=== PATIENT | male | born 1965 | race Caucasian/White ===

== ENCOUNTER 2018-08-27 07:28 | Inpatient (IN) | payer SELFPAY ==
[2018-08-27 07:53] LABS: ABS Basophils 0.1 10^3/ul (0-0.2); ABS Eosinophils 0.2 10^3/ul (0-0.6); ABS Lymphocytes 0.9 10^3/ul (1.0-4.8); ABS Monocytes 0.4 10^3/ul (0-0.8); ABS Neutrophils 3.7 10^3/ul (1.5-7.7); ABS Nucleated RBC 0 10^3/ul; Eosinophil % 4.1 % (0-6); Hematocrit 39 % (42-52); Hemoglobin 13.1 g/dl (14.0-18.0); Lymphocyte % 17.9 % (25-47); Mean Corpuscular HGB Conc 34 g/dl (31-36); Mean Corpuscular Hemoglobin 30 pg (27-31); Mean Corpuscular Volume 88 fL (80-94); Nucleated Red Blood Cells % 0.1; Platelet Count 165 10^3/ul (150-450); Red Blood Count 4.41 10^6/ul (4.00-5.40); Red Cell Distribution Width 13 % (10.5-15); White Blood Count 5.3 10^3/ul (3.5-10.8)
[2018-08-27 08:06] LABS: INR 0.87 (0.77-1.02)
--- NOTE | 2018-08-27 08:25 | ED ---
HPI Chest Pain - HPI Summary HPI Summary: Pt is 52 y/o M brought in by [facility] from [place], [place] to [facility] due to availability of interventional cardiology per EMS, with c/o CP since 0430 this morning. Was given aspirin and nitro with relief in ambulance at 0653, rates his pain in ED presently 0/10. EMS also reports that his glucose levels were 372. Pt describes chest pain as a squeezing and burning sensation. The pain radiated down his left arm, but did not go up his neck. Pt notes hes had a cough for 3-4 weeks, SOB earlier but is now resolved, headache earlier but now resolved. Denies dizziness, nausea, vomiting, urinary symptoms, fever. PMHx of Type 2 diabetes, cardiomyopathy, hypertension. FHx of heart disease. Medications include Digoxin, Lisinopril, Gabapentin, and Statin. Vital signs while in room: HR 93 bpm, BP 131/98. Pt states he has been off several of his medications for days to weeks due to change in his 's insurance and his insurance. Active Medications Generic Name Dose Route Start Last Admin Trade Name Angelq PRN Reason Stop Dose Admin Magnesium Sulfate 2 gm in 50 mls @ 50 mls/hr 08/27/18 08:48 08/27/18 08:52 Magnesium Sulfate 2 Gm Iv* IVPB 08/27/18 09:47 50 mls/hr ONCE ONE Administration - History of Current Complaint Chief Complaint: EDChestPainROMI Time Seen by Provider: 08/27/18 07:31 Hx Obtained From: Patient, Family/Special Agent [employer] - , EMS Onset/Duration: Started Hours Ago, Resolved Time of Onset: 04:30 Timing: Lasting Hours Initial Severity: Severe - 8/10 Current Severity: None Pain Intensity: 0 Pain Scale Used: 0-10 Numeric Chest Pain Location: Mid Sternal Chest Pain Radiates: Yes Chest Pain Radiates To:: Arm, Neck - NEGATIVE Character: Burning, Dyspnea at Rest, Pressure/Squeezing Aggravating Factor(s): Nothing Alleviating Factor(s): NTG 123 - one NTG SL given by EMS with relief Associated Signs and Symptoms: Positive: Chest Pain, Headaches - resolved, Shortness of Breath - resolved, Cough. Negative: Dizziness, Fever, Nausea, Vomiting - Allergy/Home Medications Allergies/Adverse Reactions: Allergies Allergy/AdvReac Type Severity Reaction Status Date / Time No Known Allergies Allergy Verified 11/09/15 03:20 Home Medications: Home Medications metFORMIN* [Glucophage 1000 MG TAB *] 1,000 mg PO BID 08/27/18 [History Confirmed 08/27/18] PMH/Surg Hx/FS Hx/Imm Hx Previously Healthy: No Endocrine/Hematology History: Reports: Hx Diabetes Cardiovascular History: Reports: Hx Hypercholesterolemia, Hx Hypertension, Other Cardiovascular Problems/Disorders - idiopathic cardiomyopathy, EF 50% on ECHO December 2017 Sensory History: Reports: Hx Contacts or Glasses - at home Opthamlomology History: Reports: Hx Contacts or Glasses - at home Psychiatric History: Reports: Hx Depression - Surgical History Surgery Procedure, Year, and Place: Left hand surgery Infectious Disease History: No Infectious Disease History: Denies: Traveled Outside the [place] in Last 30 Days - Family History Known Family History: Positive: Cardiac Disease - Social History Lives: With Family Alcohol Use: None Substance Use Type: Reports: None Hx Tobacco Use: Yes - CHEWING TOBACCO, QUIT IN 2000. Smoking Status (MU): Never Smoked Tobacco Review of Systems Negative: Fever Positive: Chest Pain Positive: Shortness Of Breath, Cough Negative: Vomiting, Nausea Positive: no symptoms reported Musculoskeletal: Negative Skin: Negative Neurological: Other - Negative: Dizziness Positive: Headache - resolved Psychological: Normal All Other Systems Reviewed And Are Negative: Yes Physical Exam - Summary Physical Exam Summary: Appearance: Ill-appearing, no pain distress, thin, appears older than stated age Skin: Warm, color reflects adequate perfusion, dry Head: Normal Head/Face inspection, atraumatic Eyes: Conjunctiva clear ENT: Normal inspection Neck: Supple, no nodes, no JVD Respiratory: rales bibasalar, no respiratory distress Cardio: RRR, No murmur, pulses normal, brisk capillary refill Abdomen: Soft, nontender, no masses, nondistended Bowel sounds: Present Musculoskeletal: Strength Intact/ROM intact, no calf tenderness, no edema. Psychological: Normal Neuro: Alert, muscle tone normal, no focal deficit Triage Information Reviewed: Yes Vital Signs On Initial Exam: Initial Vitals Temp Pulse Resp BP Pulse Ox 98.5 F 90 23 131/98 97 08/27/18 07:29 08/27/18 07:29 08/27/18 07:29 08/27/18 07:29 08/27/18 07:29 Vital Signs Reviewed: Yes Diagnostics - Vital Signs Vital Signs Temp Pulse Resp BP Pulse Ox 08/27/18 08:05 92 15 138/104 97 08/27/18 08:00 98 23 96 08/27/18 07:36 94 14 97 08/27/18 07:35 91 16 131/98 96 08/27/18 07:29 98.5 F 90 23 131/98 97 - Laboratory Lab Results: Lab Results 08/27/18 08/27/18 08/27/18 Range/Units 07:37 07:37 07:38 WBC 5.3 (3.5-10.8) 10^3/ul RBC 4.41 (4.00-5.40) 10^6/ul Hgb 13.1 L (14.0-18.0) g/dl Hct 39 L (42-52) % MCV 88 (80-94) fL MCH 30 (27-31) pg MCHC 34 (31-36) g/dl RDW 13 (10.5-15) % Plt Count 165 (150-450) 10^3/ul MPV 10.0 (7.4-10.4) fL Neut % (Auto) 69.6 (38-83) % Lymph % (Auto) 17.9 L (25-47) % Dickinson % (Auto) 7.3 H (0-7) % Eos % (Auto) 4.1 (0-6) % Baso % (Auto) 1.1 (0-2) % Absolute Neuts (auto) 3.7 (1.5-7.7) 10^3/ul Absolute Lymphs (auto) 0.9 L (1.0-4.8) 10^3/ul Absolute Monos (auto) 0.4 (0-0.8) 10^3/ul Absolute Eos (auto) 0.2 (0-0.6) 10^3/ul Absolute Basos (auto) 0.1 (0-0.2) 10^3/ul Absolute Nucleated RBC 0 10^3/ul Nucleated RBC % 0.1 INR (Anticoag Therapy) (0.77-1.02) D-Dimer, Quantitative (Less Than 230) ng/mL Sodium 134 L (135-145) mmol/L Potassium 5.0 (3.5-5.0) mmol/L Chloride 96 L (101-111) mmol/L Carbon Dioxide 28 (22-32) mmol/L Anion Gap 10 (2-11) mmol/L BUN 27 H (6-24) mg/dL Creatinine 1.36 H (0.67-1.17) mg/dL Est GFR ( Amer) 66.6 (>60) Est GFR (Non-Af Amer) 55.0 (>60) BUN/Creatinine Ratio 19.9 (8-20) Glucose 390 H (70-100) mg/dL Lactic Acid 3.3 H* (0.5-2.0) mmol/L Calcium 10.3 (8.6-10.3) mg/dL Magnesium 1.4 L (1.9-2.7) mg/dL Total Bilirubin 0.40 (0.2-1.0) mg/dL AST 18 (13-39) U/L ALT 12 (7-52) U/L Alkaline Phosphatase 76 (34-104) U/L Total Creatine Kinase 116 (10-223) U/L CK-MB (CK-2) 12.4 H (0.6-6.3) ng/mL Troponin I 0.20 H* (<0.04) ng/mL Total Protein 7.0 (6.4-8.9) g/dL Albumin 4.4 (3.2-5.2) g/dL Globulin 2.6 (2-4) g/dL Albumin/Globulin Ratio 1.7 (1-3) TSH Pending Digoxin Pending 08/27/18 Range/Units 07:38 WBC (3.5-10.8) 10^3/ul RBC (4.00-5.40) 10^6/ul Hgb (14.0-18.0) g/dl Hct (42-52) % MCV (80-94) fL MCH (27-31) pg MCHC (31-36) g/dl RDW (10.5-15) % Plt Count (150-450) 10^3/ul MPV (7.4-10.4) fL Neut % (Auto) (38-83) % Lymph % (Auto) (25-47) % Dickinson % (Auto) (0-7) % Eos % (Auto) (0-6) % Baso % (Auto) (0-2) % Absolute Neuts (auto) (1.5-7.7) 10^3/ul Absolute Lymphs (auto) (1.0-4.8) 10^3/ul Absolute Monos (auto) (0-0.8) 10^3/ul Absolute Eos (auto) (0-0.6) 10^3/ul Absolute Basos (auto) (0-0.2) 10^3/ul Absolute Nucleated RBC 10^3/ul Nucleated RBC % INR (Anticoag Therapy) 0.87 (0.77-1.02) D-Dimer, Quantitative < 200 (Less Than 230) ng/mL Sodium (135-145) mmol/L Potassium (3.5-5.0) mmol/L Chloride (101-111) mmol/L Carbon Dioxide (22-32) mmol/L Anion Gap (2-11) mmol/L BUN (6-24) mg/dL Creatinine (0.67-1.17) mg/dL Est GFR ( Amer) (>60) Est GFR (Non-Af Amer) (>60) BUN/Creatinine Ratio (8-20) Glucose (70-100) mg/dL Lactic Acid (0.5-2.0) mmol/L Calcium (8.6-10.3) mg/dL Magnesium (1.9-2.7) mg/dL Total Bilirubin (0.2-1.0) mg/dL AST (13-39) U/L ALT (7-52) U/L Alkaline Phosphatase (34-104) U/L Total Creatine Kinase (10-223) U/L CK-MB (CK-2) (0.6-6.3) ng/mL Troponin I (<0.04) ng/mL Total Protein (6.4-8.9) g/dL Albumin (3.2-5.2) g/dL Globulin (2-4) g/dL Albumin/Globulin Ratio (1-3) TSH Digoxin Result Diagrams: 08/30/18 06:29 08/31/18 09:33 Lab Statement: Any lab studies that have been ordered have been reviewed, and results considered in the medical decision making process. - Radiology CXR Radiology Interpretation Completed By: Radiologist - IMPRESSION: Mild pulmonary vascular congestion and interstitial edema new compared with the prior exam. ED Physician reviewed this report. - EKG 0723 Cardiac Rate: NL - 94 bpm EKG Rhythm: Sinus Rhythm EKG Comparison: Other - Compared with 11/09/15 new LBBB. Summary of EKG Findings: No AVCT, prolonged IVCT, LBBB. Normal QTc, no sgarbossa criteria for RI. 0843 Cardiac Rate: NL - 92 bpm EKG Rhythm: Sinus Rhythm EKG Comparison: No Significant Change - compared with EKG today at 0723 Summary of EKG Findings: Normal AVCT, prolonged IVCT in LBBB, normal QTc, negative sgarbossa criteria for RI. Re-Evaluation - Re-Evaluation First Eval Re-Evaluation Time: 08:37 Change: Worse Comment: His spouse Bailee has now joined him. Pt walked to the bathroom and his earlier SOB has now returned since he's been back in bed. Ordering a second EKG. Vital signs while in room: HR 94 bpm, BP 136/96. Chest Pain Course/Dx - Course Course Of Treatment: Pt is 52 y/o M brought in my EMS c/o CP since 0430 this morning. Was given aspirin and nitro with relief in ambulance at 0653, rates his pain in ED presently 0/10. EMS also reports that his glucose levels were 372. Pt notes hes had a cough for 3-4 weeks, SOB earlier but is now resolved, headache earlier but now resolved. Denies dizziness, nausea, vomiting, urinary symptoms, fever. PMHx of Type 2 diabetes, cardiomyopathy, hypertension. FHx of heart disease. EKG taken 11/09/15 showed no LBBB. EKG taken today at 07:23 shows new LBBB, sinus rhythm at 94 bpm, no AVCT, prolonged IVCT, LBBB, normal QTc, and no sgarbossa criteria for RI. Second EKG taken today at 08:43 shows continued LBBB, sinus rhythm at 92 bpm with normal AVCT, prolonged IVCT in LBBB , normal QTc, and negative sgarbossa criteria for RI. CXR revealed mild pulmonary vascular congestion and interstitial edema new compared with the prior exam. First troponin was elevated at 0.2 and lactic acid elevated at 3.3. Dr. Carbajal was consulted who recommended cardiology consult with interventionalist first with pt's chest pain, elevated troponin and new LBBB. Dr. Conway reviewed the EKG remotely and recommended acute ECHO to assess wall motion abnormalities. Dr. Camacho came in to the ED immediately to evaluate the pt and did a bedside ECHO showing global hypokinesis, no focal wall abnormalities, so pt was not considered a STEMI. Dr. Camacho also had access to office EKG's more recent than 2016 which showed progressive widening of QRS. Care was discussed personally with Dr. Camacho and Dr. Carbajal after Dr. Camacho's consult in the ED. Pt was admitted to [facility]. - Diagnoses Provider Diagnoses: Chest pain, CHF (congestive heart failure), Cardiomyopathy, Elevated troponin I level, New onset left bundle branch block (LBBB), Diabetes mellitus type 2, uncontrolled, Elevated lactic acid level - Provider Notifications Discussed Care Of Patient With: Carmen Carbajal Time Discussed With Above Provider: 08:30 Instructed by Provider To: Other - Dr. Carbajal recommends call brim greaser operator. Spoke with Dr. Conway at 0832 and recommends cardiac echo and to look at left ventricular wall motion to confirm it is not a STEMI. Spoke with Dr. Camacho at 08 :35 who has agreed to come to ED and do an echo. - Critical Care Time Critical Care Time: 30-74 min - 30 minutes Discharge - Sign-Out/Discharge Documenting (check all that apply): Patient Departure - Admit - Discharge Plan Condition: Fair Disposition: ADMITTED TO [facility] - Billing Disposition and Condition Condition: FAIR Disposition: Admitted to [facility] - Attestation Statements Document Initiated by Evelioibe: Yes Documenting Scribe: Mona Gay Provider For Whom Scribe is Documenting (Include Credential): Dr. Jaqueline Elder MD Scribe Attestation: Mona Ma scribed for Dr. Jaqueline Elder MD on 09/04/18 at 1435. Scribe Documentation Reviewed: Yes Provider Attestation: The documentation as recorded by the Mona lopez accurately reflects the service I personally performed and the decisions made by me, Dr. Jaqueline Elder MD
[2018-08-27 08:46] LABS: Urine Appearance Clear; Urine Blood 1+ (Negative); Urine Color Yellow; Urine Ketones Trace (Negative); Urine Protein 1+(30 mg/dL) (Negative); Urine Red Blood Cell Trace(0-2/hpf) (Absent); Urine Specific Gravity 1.025 (1.010-1.030); Urine Urobilinogen Negative (Negative); Urine White Blood Cell Trace(0-5/hpf) (Absent)
[2018-08-27] MEDS ORDERED: Magnesium Sulfate 2 GM IV* 2 GM/50 ML BAG IVPB ONE (08:48)
[2018-08-27] MEDS ORDERED: Acetaminophen TAB* 325 MG PO PRN (09:54)
[2018-08-27] MEDS ORDERED: Morphine VIAL* 4 MG/ML VIAL (1 ml vial) IV PRN (09:54)
[2018-08-27] MEDS ORDERED: Albuterol 2.5 MG/3 ML NEB.SOL* (0.083%) INH PRN (09:54)
[2018-08-27] MEDS ORDERED: Furosemide IV* 10 MG/ML VIAL (40 MG) IV ONE (10:01)
[2018-08-27] MEDS: Aspirin EC TAB* 325 MG PO SCH (10:01)
[2018-08-27] MEDS ORDERED: Digoxin TAB* 0.125 MG PO ONE (10:02)
[2018-08-27] MEDS ORDERED: Dextrose 50% Syringe 50 ML* 25 GM/50 ML SYRINGE IV PUSH PRN (10:13)
[2018-08-27] MEDS ORDERED: NS 0.9% 1000 ML* 1,000 ML IV SCH (10:30)
[2018-08-27] MEDS: Insulin GLARGINE(*) 1 UNITS UNIT SUBCUT SCH (10:45)
[2018-08-27] MEDS: Metoprolol Tartrate TAB* 50 mg PO SCH ×2 (10:45→21:03)
[2018-08-27] MEDS: Magnesium Oxide TAB* 400 MG PO SCH (10:45)
[2018-08-27] MEDS: Insulin LISPRO* 1 UNITS UNIT SUBCUT SCH ×3 (14:48→22:19)
[2018-08-27] MEDS: Gabapentin CAP(*) 300 MG PO SCH ×2 (14:49→19:22)
[2018-08-27] MEDS: Heparin VIAL(*) 5000 UNITS/ML VIAL (FIVE THOUSAND) SUBCUT SCH ×2 (14:50→20:42)
[2018-08-27] MEDS: Atorvastatin* 40 MG TAB PO SCH (18:11)
--- NOTE | 2018-08-27 20:53 | CONS ---
CC: Dr. Placido Perez; Dr. Poncho Daniels at [facility] CARDIOLOGY CONSULTATION: DATE OF CONSULT: 08/27/18 INDICATIONS FOR CONSULTATION: Congestive heart failure, abnormal EKG. HISTORY OF PRESENT ILLNESS: The patient is a 52-year-old gentleman with a known nonischemic cardiomy opathy, who has been short of breath for the past 3 days. Patient states that he has been progressive ly short of breath for 3 days. He woke up this morning significantly short of breath. He did have so me mild chest pain. He took a sublingual nitroglycerin, which significantly improved his chest pain s ymptoms. He continued to have shortness of breath. He was brought to the emergency room. In the em ergency room, his initial EKG demonstrates normal sinus rhythm with a left bundle branch block compar ed to an EKG in 2016, the QRS was slightly wider and there was concern about an acute coronary syndro me. I came in to see the patient in the emergency room. Patient was awake and alert and oriented. He wa s mildly short of breath. He had no chest pain. An echocardiogram done in the emergency room shows an ejection fraction of about 20% with global, there is no focal wall motion abnormalities with no si gnificant valvular abnormalities. In speaking with the patient, he says he has been off of his medications for about a month because he lost his insurance. He is scheduled to get new insurance to be started in a week or so. PAST MEDICAL HISTORY: Significant for nonischemic cardiomyopathy, diabetes, hypertension, abnormal E KG. PAST SURGICAL HISTORY: Left hand operation in 1986. OUTPATIENT MEDICATIONS: That are prescribed: 1. Lipitor 40 mg a day. 2. Spironolactone 25 mg every other day. 3. Digoxin 0.125 mg daily. 4. Fish oil tablets. 5. Metoprolol tartrate 25 mg b.i.d. 6. Lisinopril 10 mg a day. 7. Lexapro 20 mg a day. 8. Metformin 1000 mg b.i.d. 9. Aspirin 81 mg a day. 10. Gabapentin 300 mg 3 times a day. ALLERGIES: No known drug allergies. SOCIAL HISTORY: He is . He is currently disabled. He denies tobacco or alcohol use. He tri es to exercise on a daily basis, but it is difficult with him with the disability. FAMILY HISTORY: Significant for Alzheimer's disease. No history of early coronary artery disease. PHYSICAL EXAMINATION: Height is 5 feet 4 inches, weight is 110 pounds, temperature 98.5, heart rate is 90, blood pressure 131/98, respiratory rate is 23, oxygen saturation 97% on 2 L. Sclerae anicteri c. Oropharynx is pink without erythema. Carotids are 2+ without bruits. JVD is normal. Thyroid is normal. Cardiac Exam: S1, S2 without any murmurs, rubs, or gallops. Lungs have mild rales at the ba ses. There is no dullness to percussion. Abdomen is soft, nontender, nondistended with normoactive b owel sounds. Extremities show no edema. He has 2+ pulses throughout. The patient is awake, alert, a nd oriented. He moves all 4 extremities equally. LABORATORY DATA/DIAGNOSTIC STUDIES: Chemistries within normal limits. BUN 27, creatinine 1.36, whic h is about his baseline. His creatinine has been higher in the past. CBC within normal limits. Aga in, EKG demonstrates normal sinus rhythm with a left bundle branch block and T-wave inversions. A bedside echocardiogram in the emergency room shows an ejection fraction of 20% with global hypokine sis. No significant valvular abnormalities. IMPRESSION: This is a 52-year-old gentleman with a history of nonischemic cardiomyopathy, was admitt ed to the hospital with chest pain and congestive heart failure. His EKG shows slightly worsening of his QRS duration, which has now reading as a left bundle branch block. I do not think the patient h as acute coronary syndrome. His troponin today is 0.2. RECOMMENDATIONS: For now, my recommendation is to admit the patient to the hospital, restart all of his usual medications, start IV diuresis. I do not think patient needs to be started on anticoagulat ion. I do not think this was an acute coronary syndrome. Patient should be on aspirin a day. Patient will get a full echocardiogram tomorrow morning and with that I will decide whether further t esting is necessary. This case was discussed with Dr. Carbajal and Dr. Dewayne Conway. [id number]/[facility] #: [id number]
--- NOTE | 2018-08-27 21:27 | HP ---
CC: Dr. Poncho Daniels; Dr. Perez; Dr. Camacho * HISTORY AND PHYSICAL: DATE OF ADMISSION: 08/27/18 PRIMARY CARE PROVIDER: Dr. Poncho Daniels. CHIEF COMPLAINT: Chest pain. HISTORY OF PRESENT ILLNESS: Vipin Rosas is a 52-year-old male with history of cardiomyopathy with recent EF documented at the beginning of 2017 of 55%, who has chronic recurrent chest pain for which an nuclear exercise Myoview stress test was obtained in December 2017, which was negative, who is also diabetic and who presented to the hospital complaining of left sided chest burning and pain. The patient is a rather vague historian. He stated that he was coughing whole night, but he had not coughed any other time before. He denies coughing now and he has not coughed before last night once again. The chest pain he describes as burning localized substernally in the left arm, currently it resolved. It occurs every few days, but last time prior to that it occurred 2 weeks ago. It is also associated with exercise and there are no elevating or aggravating factors. He stated the pain had been bothering him whole night. When he was walking to the bathroom, it also bothered him and then he told his who was concerned and brought him to the ED. The patient also stated that he lost approximately 40 pounds in the past month and a half. He had not been using his medications for approximately 2 to 3 weeks due to his 's insurance expiring and the next one from a new employer not starting until . His primary care provider discontinued his insulin glargine and Trulicity and continued him only on Alogliptin. When the patient presented to the emergency department, he was noted to have sinus tachycardia with more pronounced left bundle branch block on this EKG. His glucose level was 390, lactic acid of 3.3 and troponin of 0.2. He is going to be admitted with a diagnosis of chest pain and elevated troponin. PAST MEDICAL HISTORY: 1. History of cardiomyopathy with EF of 42% to 50%, most recent one reported at 50% at the beginning of 2018. As per Dr. Camacho, the patient's bedside echo performed today showed EF of approximately 20. 2. History of chronic chest pain as mentioned above. 3. History of [id number] coronary artery disease noted on cardiac catheterization in 2010. 4. History of moderate concentric LVH noted on prior echocardiogram. 5. History of cardiac catheterization in [place] in 2009, which was verbally reported to me by Dr. Camacho as [id number] coronary artery disease. 6. History of hypertension. 7. Depression. 8. Neuropathy. 9. Diabetes type 2. MEDICATIONS: 1. The patient is supposed to be on lisinopril 10 mg daily, which he is out of. 2. Alogliptin 25 mg daily which he had been taking. 2. Metformin 1000 mg b.i.d. which he had been taking. 3. Gabapentin 300 mg 3 times a day, not taking. 4. Atorvastatin 40 mg daily, not taking. 5. Lexapro 20 mg daily, not taking. 6. Digoxin 0.125 mg daily, not taking. 7. Metoprolol tartrate 25 mg b.i.d., not taking. 8. Spironolactone 25 mg every other day, not taking. ALLERGIES: No known drug allergies. FAMILY HISTORY: Father in his 40s secondary to heart disease. Mother in his 70s secondary to ovarian cancer. SOCIAL HISTORY: The patient denies any tobacco, alcohol or drug use. 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 He lives with his , who is his surrogate. REVIEW OF SYSTEMS: Please see history of present illness. The patient's also stated the patient had intermittently been getting confused and "not making sense." He apparently lost 40 pounds since his Trulicity and insulin glargine was discontinued. He stated that prior to discontinuation of those medications, he was hypoglycemic in the past but now he had not been hypoglycemic. More so, his sugars are ranged in the 200 to 300 range. The patient stated that his exercise tolerance his unchanged. He feels tired more frequently though. The patient stated that there is chest pain today with similar to chest pains in the past. The cough bothered him more at night, though. Once again, rather poor historian, but he denies any coughing spells or problems with coughing before tonight. The patient denies any paroxysmal or nocturnal dyspnea. All the remaining 12 systems were reviewed with the patient and were otherwise negative. PHYSICAL EXAMINATION GENERAL: The patient is a pleasant 52-year-old male, who appears chronically ill, in no acute distress. Alert, awake, and oriented x3. VITAL SIGNS: Blood pressure 131/110, heart rate 97 and regular, respiratory rate 26, oxygen saturation 100% on room air, temperature of 98.5. HEENT: Head atraumatic, normocephalic. Eyes: Pupils are equal and reactive to light and accommodation. Oropharynx is clear. Mucous membranes are dry. NECK: Supple. No JVD. No bruits bilaterally. RESPIRATORY: Faint crackles at bilateral bases that was clear. CARDIOVASCULAR: Regular rate and rhythm. No murmur. ABDOMEN: Soft, nontender. Bowel sounds are present in all 4 quadrants. EXTREMITIES: There is no edema. Pulses +2 bilaterally. No clubbing or cyanosis. NEURO EVALUATION: Cranial nerves II through XII grossly intact. Motor strength is 5/5 bilaterally. SKIN: On evaluation of the skin, no ecchymotic areas or rashes noted. PSYCHIATRIC: The patient is pleasant, cooperative, oriented x3, rather poor historian though and he appears to have poor recall. Some of the questions have to repeated to him multiple times until he is able to answer correctly. LABORATORY DATA/DIAGNOSTIC STUDIES: Showed white blood cell count of 5.3, hemoglobin 13.1, hematocrit of 39, and platelets of 169. Sodium was 134, chloride 96, carbon dioxide 28, BUN 27, creatinine 1.36. Glucose level of 390. Lactic acid 3.3, magnesium of 1.4, troponin of 0.2. Liver function test unremarkable. TSH of 2.15, D-dimer below 200. Urinalysis showed trace ketones, +1 blood, +1 protein, +3 glucose. Digoxin level of 0.7. The patient's portable chest x-ray, impression: " Mild pulmonary vascular congestion and interstitial edema, new compared to the prior exam." The patient's EKG showed left bundle branch block with sinus tachycardia with a heart rate of 92 beats per minute. The left bundle is more pronounced comparing with prior EKG from October 2015. ASSESSMENT AND PLAN: This 52-year-old male presents with weight loss, uncontrolled diabetes. Chest x-ray did show possibility of vascular congestion , elevated troponin and chest pain. Of note, the patient has a history of troponin elevation in 2016 of 0.13. He also is in sinus tachycardia and has hypomagnesemia. 1. In regards to the patient's chest pain, it is resolved. It is similar to prior and the patient had increased troponins in the past. As per discussion with Dr. Camacho, it appears that his EKG is progression to left bundle branch block of his prior EKG, likely due to the patient not taking medications and being in tachycardia. It appears to be more to demand ischemia, but he is going to be admitted to rule out acute coronary syndrome with followup troponins. Full aspirin is going to be administered on a daily basis. As per discussion with finisher [employer], anticoagulation is not needed at this point. Beta -lisa is going to be started. 2. Uncontrolled diabetes. The patient's Trulicity and insulin glargine were stopped. The patient appears to have uncontrolled diabetes and I suspect he lost weight due to marked dehydration when his sugars had been in 200 to 300 range in the past month. At this point, I will institute gentle intravenous hydration and that will be need to be watched since the patient does have vascular congestion on chest x-ray. His ANGELIC inhibitor is going to be held for the time being. We will reinstitute insulin glargine as well as insulin sliding scale. 3. His lactic acid elevation is likely due to dehydration. The patient is nontoxic appearing. 4. The patient's elevated creatinine is consistent with prior. The patient has a history of creatinine in the range of 1.14 to 1.9 in the past. We will follow up and monitor it in the future, but I suspect this is consistent with chronic kidney disease stage 2 to 3. 5. In regards to the patient's hypomagnesemia, the patient's magnesium was replaced in the ED IV. The patient is going to be continued on mag oxide and is magnesium is going to be rechecked in the morning. 6. The patient's cardiomyopathy. It appears to be new EF of approximately 20% . We will get full echocardiogram tomorrow. Cardiology is going to be following patient. If the patient's troponin continue to be elevated, he may require a cardiac catheterization to evaluate for new source of cardiomyopathy. We will continue digoxin, beta-lisa at this point. 7. For DVT prophylaxis, the patient is going to be continued on heparin subcutaneously. 8. The patient code status is full. His surrogate is his . 9. The patient's intermittent problems with recall is likely related to uncontrolled glycemia. We will continue monitoring that. TIME SPENT: Approximately 75 minutes were spent on the admission of this patient, more than half that time was spent [id number] with the patient during the interview and physical exam. [id number]/[facility] #: [id number] LINDA
[2018-08-28 05:47] LABS: ABS Basophils 0 10^3/ul (0-0.2); ABS Eosinophils 0.2 10^3/ul (0-0.6); ABS Lymphocytes 1.4 10^3/ul (1.0-4.8); ABS Monocytes 0.7 10^3/ul (0-0.8); ABS Neutrophils 4.3 10^3/ul (1.5-7.7); ABS Nucleated RBC 0 10^3/ul; Eosinophil % 3.5 % (0-6); Hematocrit 37 % (42-52); Hemoglobin 12.8 g/dl (14.0-18.0); Lymphocyte % 20.7 % (25-47); Mean Corpuscular HGB Conc 35 g/dl (31-36); Mean Corpuscular Hemoglobin 31 pg (27-31); Mean Corpuscular Volume 88 fL (80-94); Mean Platelet Volume 9.7 fL (7.4-10.4); Nucleated Red Blood Cells % 0; Platelet Count 161 10^3/ul (150-450); Red Cell Distribution Width 13 % (10.5-15); White Blood Count 6.6 10^3/ul (3.5-10.8)
[2018-08-28 06:10] LABS: EGFR Non-African American 59.6 (>60)
[2018-08-28] MEDS ORDERED: Potassium Chlor TAB* 20 MEQ TAB.ER PO ONE (06:28)
[2018-08-28] MEDS: Heparin VIAL(*) 5000 UNITS/ML VIAL (FIVE THOUSAND) SUBCUT SCH ×3 (06:46→21:29)
[2018-08-28] MEDS: Magnesium Oxide TAB* 400 MG PO SCH (08:23)
[2018-08-28] MEDS: Gabapentin CAP(*) 300 MG PO SCH ×3 (08:23→20:19)
[2018-08-28] MEDS: Metoprolol Tartrate TAB* 50 mg PO SCH ×2 (08:24→20:19)
[2018-08-28] MEDS: Aspirin EC TAB* 325 MG PO SCH (08:24)
[2018-08-28] MEDS: Citalopram TAB* 40 MG PO SCH (08:25)
[2018-08-28] MEDS: Lisinopril TAB* 10 MG PO SCH (08:25)
[2018-08-28] MEDS ORDERED: Magnesium Sulfate 2 GM IV* 2 GM/50 ML BAG IVPB ONE (09:00)
[2018-08-28] MEDS: Insulin LISPRO* 1 UNITS UNIT SUBCUT SCH ×4 (09:18→20:33)
[2018-08-28] MEDS: Insulin GLARGINE(*) 1 UNITS UNIT SUBCUT SCH (09:19)
--- NOTE | 2018-08-28 11:13 | PN ---
Subjective Date of Service: 08/28/18 Interval History: Pt seen and examined. Meds and labs reviewed. Pt is a poor historian and contradicts himself when updating staff. Per pts RN this AM pt initially complained of CP but rescinded this and mentioned he only mentioned it so that he can get his coffee right away. When I came into the room together with pts RN to clarify, he initially mentioned that he was having CP earlier but then contradicted himself after. O/n telemetry reviewed w/c shows NSR, with occasional PVCs CC: Chest pain ROS: Denied LOWERY/dizziness, F/C, N/V, CP, SOB, increased cough, sputum production , abd pain, diarrhea, constipation, dysuria, myalgias, arthralgias, throat pain , and new skin lesions. The rest of the 14 point ROS are unremarkable. PHYSICAL EXAM: GEN APPEARANCE: Awake, not in acute distress HEENT: NC/AT, PERRLA, moist oral mucosa, (-) throat erythema NECK: Soft, supple, (-) cervical LAD, (-)JVD HEART: S1S2 WNL, RRR, No MRG CHEST: CTA, BL, GAE, No W/R/R ABD: Soft, ND/NT, NABS 4x Q EXT: No C/C/E SKIN: Warm to touch PSYCH: No active psychosis, hallucinations, depression, SI/HI Objective Active Medications: Acetaminophen (Tylenol Tab*) 650 mg PO Q4H PRN PRN Reason: FEVER/PAIN Last Admin: 08/28/18 08:25 Dose: 650 mg Albuterol (Ventolin 2.5 Mg/3 Ml Neb.Yazmin*) 2.5 mg INH [id number] AWAKE PRN PRN Reason: sob/wheezing Aspirin (Ecotrin Ec Tab*) 325 mg PO DAILY [facility] Last Admin: 08/28/18 08:24 Dose: 325 mg Atorvastatin Calcium (Lipitor*) 40 mg PO 1700 [facility] Last Admin: 08/27/18 18:11 Dose: 40 mg Citalopram Hydrobromide (Celexa Tab*) 40 mg PO DAILY [facility] Last Admin: 08/28/18 08:25 Dose: 40 mg Dextrose (D50w Syringe 50 Ml*) 12.5 gm IV PUSH .FOR FS < 60 - SS PRN PRN Reason: FS < 60 Digoxin (Lanoxin Tab*) 0.125 mg PO DAILY@1700 [facility] Gabapentin (Neurontin Cap(*)) 300 mg PO TID [facility] Last Admin: 08/28/18 08:23 Dose: 300 mg Heparin Sodium (Porcine) (Heparin Vial(*)) 5,000 units SUBCUT Q8HR [facility] Last Admin: 08/28/18 06:46 Dose: 5,000 units Insulin Glargine (Lantus(*)) 20 units SUBCUT Q24H [facility] Last Admin: 08/28/18 09:19 Dose: 20 units Insulin Human Lispro (Humalog*) 0 units SUBCUT ACHS [facility]; Protocol Last Admin: 08/28/18 09:18 Dose: 2 units Lisinopril (Prinivil Tab*) 10 mg PO DAILY [facility] Last Admin: 08/28/18 08:25 Dose: 10 mg Magnesium Oxide (Magox 400 Tab*) 800 mg PO DAILY [facility] Last Admin: 08/28/18 08:23 Dose: 800 mg Metoprolol Tartrate (Lopressor Tab*) 25 mg PO BID [facility] Last Admin: 08/28/18 08:24 Dose: 25 mg Morphine Sulfate (Morphine Vial*) 1 mg IV Q4H PRN PRN Reason: PAIN - MILD Vital Signs - 8 hr 08/28/18 08/28/18 08/28/18 03:34 07:17 08:23 Temperature 98.2 F 97.8 F Pulse Rate 76 73 Respiratory 17 16 18 Rate Blood Pressure 113/78 128/83 (mmHg) O2 Sat by Pulse 94 100 Oximetry Oxygen Devices in Use Now: None Result Diagrams: 08/28/18 05:27 08/28/18 05:27 Additional Lab and Data: Lab Results 08/27/18 08/27/18 08/27/18 Range/Units 07:37 07:37 07:38 WBC 5.3 (3.5-10.8) 10^3/ul RBC 4.41 (4.00-5.40) 10^6/ul Hgb 13.1 L (14.0-18.0) g/dl Hct 39 L (42-52) % MCV 88 (80-94) fL MCH 30 (27-31) pg MCHC 34 (31-36) g/dl RDW 13 (10.5-15) % Plt Count 165 (150-450) 10^3/ul MPV 10.0 (7.4-10.4) fL Neut % (Auto) 69.6 (38-83) % Lymph % (Auto) 17.9 L (25-47) % [place] % (Auto) 7.3 H (0-7) % Eos % (Auto) 4.1 (0-6) % Baso % (Auto) 1.1 (0-2) % Absolute Neuts (auto) 3.7 (1.5-7.7) 10^3/ul Absolute Lymphs (auto) 0.9 L (1.0-4.8) 10^3/ul Absolute Monos (auto) 0.4 (0-0.8) 10^3/ul Absolute Eos (auto) 0.2 (0-0.6) 10^3/ul Absolute Basos (auto) 0.1 (0-0.2) 10^3/ul Absolute Nucleated RBC 0 10^3/ul Nucleated RBC % 0.1 INR (Anticoag Therapy) (0.77-1.02) D-Dimer, Quantitative (Less Than 230) ng/mL Sodium 134 L (135-145) mmol/L Potassium 5.0 (3.5-5.0) mmol/L Chloride 96 L (101-111) mmol/L Carbon Dioxide 28 (22-32) mmol/L Anion Gap 10 (2-11) mmol/L BUN 27 H (6-24) mg/dL Creatinine 1.36 H (0.67-1.17) mg/dL Est GFR ( Amer) 66.6 (>60) Est GFR (Non-Af Amer) 55.0 (>60) BUN/Creatinine Ratio 19.9 (8-20) Glucose 390 H (70-100) mg/dL Lactic Acid 3.3 H* (0.5-2.0) mmol/L Calcium 10.3 (8.6-10.3) mg/dL Magnesium 1.4 L (1.9-2.7) mg/dL Total Bilirubin 0.40 (0.2-1.0) mg/dL AST 18 (13-39) U/L ALT 12 (7-52) U/L Alkaline Phosphatase 76 (34-104) U/L Total Creatine Kinase 116 (10-223) U/L CK-MB (CK-2) 12.4 H (0.6-6.3) ng/mL Troponin I 0.20 H* (<0.04) ng/mL Total Protein 7.0 (6.4-8.9) g/dL Albumin 4.4 (3.2-5.2) g/dL Globulin 2.6 (2-4) g/dL Albumin/Globulin Ratio 1.7 (1-3) TSH Pending Digoxin Pending 08/27/18 Range/Units 07:38 WBC (3.5-10.8) 10^3/ul RBC (4.00-5.40) 10^6/ul Hgb (14.0-18.0) g/dl Hct (42-52) % MCV (80-94) fL MCH (27-31) pg MCHC (31-36) g/dl RDW (10.5-15) % Plt Count (150-450) 10^3/ul MPV (7.4-10.4) fL Neut % (Auto) (38-83) % Lymph % (Auto) (25-47) % [place] % (Auto) (0-7) % Eos % (Auto) (0-6) % Baso % (Auto) (0-2) % Absolute Neuts (auto) (1.5-7.7) 10^3/ul Absolute Lymphs (auto) (1.0-4.8) 10^3/ul Absolute Monos (auto) (0-0.8) 10^3/ul Absolute Eos (auto) (0-0.6) 10^3/ul Absolute Basos (auto) (0-0.2) 10^3/ul Absolute Nucleated RBC 10^3/ul Nucleated RBC % INR (Anticoag Therapy) 0.87 (0.77-1.02) D-Dimer, Quantitative < 200 (Less Than 230) ng/mL Sodium (135-145) mmol/L Potassium (3.5-5.0) mmol/L Chloride (101-111) mmol/L Carbon Dioxide (22-32) mmol/L Anion Gap (2-11) mmol/L BUN (6-24) mg/dL Creatinine (0.67-1.17) mg/dL Est GFR ( Amer) (>60) Est GFR (Non-Af Amer) (>60) BUN/Creatinine Ratio (8-20) Glucose (70-100) mg/dL Lactic Acid (0.5-2.0) mmol/L Calcium (8.6-10.3) mg/dL Magnesium (1.9-2.7) mg/dL Total Bilirubin (0.2-1.0) mg/dL AST (13-39) U/L ALT (7-52) U/L Alkaline Phosphatase (34-104) U/L Total Creatine Kinase (10-223) U/L CK-MB (CK-2) (0.6-6.3) ng/mL Troponin I (<0.04) ng/mL Total Protein (6.4-8.9) g/dL Albumin (3.2-5.2) g/dL Globulin (2-4) g/dL Albumin/Globulin Ratio (1-3) TSH Digoxin Microbiology and Other Data: Microbiology 08/27/18 08:19 Urine Culture - Final Urine No Growth (<1,000 CFU/mL) Assess/Plan/Problems-Billing Assessment: - Patient Problems (1) Chest pain Current Visit: Yes Status: Acute Code(s): R07.9 - CHEST PAIN, UNSPECIFIED SNOMED Code(s): 71536509 Comment: -Pt unclear whether he had a CP earlier this AM -Appreciate Dr. Izaguirre input -Will await 2D echo results -Will add on D-dimer for todays labs -Hold off on anticoagulation at this time -Repeat troponins this AM shows slight decrease from peak of 0.28 -Likely demand in the setting of non-ischemic CM due to CHF -Continue IV diuresis, ASA statins, Lisinopril, and Metoprolol (2) CHF (congestive heart failure) Current Visit: Yes Status: Acute Code(s): I50.9 - HEART FAILURE, UNSPECIFIED SNOMED Code(s): 64489128 Comment: -As above (3) Elevated lactic acid level Current Visit: Yes Status: Acute Code(s): R79.89 - OTHER SPECIFIED ABNORMAL FINDINGS OF BLOOD CHEMISTRY SNOMED Code(s): 5769240 Comment: -Likely due to demand ischemia due to above -Will recheck levels (4) Hypomagnesemia Current Visit: Yes Status: Acute Code(s): E83.42 - HYPOMAGNESEMIA SNOMED Code(s): 088968969 Comment: -Corrected---given additional IV dose; continue PO supplementations -Will continue to follow (5) DVT prophylaxis Current Visit: Yes Status: Acute Code(s): TRQ6808 - SNOMED Code(s): 602287046 Comment: -Continue Heparin SQq8H Status and Disposition: -As above
--- NOTE | 2018-08-28 14:01 | ECHO ---
Patient: SOLOMON ZIEGLER [facility] Rec#: [id number] : 1965 Date: 08/28/2018 Age: 52y Height: 163 cm / 64.2 in Weight: 55 kg / 121.2 lbs Sex: M BSA: 1.58 Room#: [facility] Admit Date#: 08/27/2018 Type: Inpatient Referring: Carmen Carbajal MD Reading: Henok Camacho MD Director Of Home Care Hospice: Lady Ricketts RN RDCS CC: Poncho Daniels DO Transthoracic Echocardiogram BP: 117/81 HR: 75 Rhythm: NSR Findings History: Non-ischemic cardiomyopathy, HTN, DM Technical Comments: The study quality is fair. Completed at 0850. Left Ventricle: The left ventricular chamber size is mildly dilated. Moderate concentric left ventricular hypertrophy is observed. There is global hypokinesis of the left ventricle with minor regional variation. There is severely decreased left ventricular systolic function. The estimated ejection fraction is less than 20%. The left ventricular diastolic filling pattern is restrictive. Left Atrium: The left atrium is mild to moderately dilated. Right Ventricle: The right ventricle wall thickness is mildly increased. The right ventricular cavity size is normal. The right ventricular global systolic function is low normal. Right Atrium: The right atrial cavity size is normal. Aortic Valve: The aortic valve is trileaflet. The aortic valve leaflets are mildly thickened. There is a trace of aortic regurgitation. There is no evidence of aortic stenosis. Mitral Valve: The mitral valve leaflets are mildly thickened. There is mild mitral regurgitation. There is no evidence of mitral stenosis. Tricuspid Valve: The tricuspid valve leaflets are normal. There is trace to mild tricuspid regurgitation. Unable to estimate the right ventricular systolic pressure. There is no tricuspid stenosis. Pulmonic Valve: The pulmonic valve appears normal. There is a trace pulmonic regurgitation. There is no pulmonic stenosis. Pericardium: There is no significant pericardial effusion. Aorta: There is no dilatation of the ascending aorta. There is no dilatation of the aortic arch. There is no dilation of the aortic root. Pulmonary Artery: The main pulmonary artery appears normal. Venous: The inferior vena cava is dilated. There is no change in the dimension of the inferior vena cava with respiration consistent with markedly increased right atrial pressure. Conclusions There is global hypokinesis of the left ventricle with minor regional variation. Moderate concentric left ventricular hypertrophy is observed. There is severely decreased left ventricular systolic function. The estimated ejection fraction is less than 20%. The right ventricular global systolic function is low normal. There is a trace of aortic regurgitation. There is mild mitral regurgitation. There is trace to mild tricuspid regurgitation. Unable to estimate the right ventricular systolic pressure. There is no significant pericardial effusion. Compared to study of 11/2017, the LV function is significantly lower. Valve structures are the same Measurements Name Value Normal Range RVIDd (AP) 2D 2.3 cm (0.9 - 2.6) RVDdMajor (2D) 2.7 cm (2.2 - 4.4) RVAW (2D) 0.9 cm (0.2 - 0.5) RAd ISD 4CH 4.8 cm (3.4 - 4.9) RA (A4C)W 3.3 cm (2.9 - 4.6) IVSd (2D) 1.4 cm (0.6 - 1) LVPWd (2D) 1.4 cm (0.6 - 1) LVIDd (2D) 5.8 cm (3.6 - 5.4) LVIDs (2D) 5.5 cm - LV FS (2D) 5 % (25 - 45) Aortic Annulus 2 cm (1.4 - 2.6) Ao root diameter (2D) 3.3 cm (2.1 - 3.5) Ascending Ao 3.1 cm (2.1 - 3.4) Descending Ao 2.4 cm - LA dimension (AP) 2D 4 cm (2.3 - 3.8) LAd ISD 4CH 6.1 cm (2.9 - 5.3) LA ISD 4CH W 4.8 cm (2.5 - 4.5) Name Value Normal Range LA ESV BP (A/L) index 41.3 ml/m2 - Name Value Normal Range MV E-wave Vmax 0.91 m/sec - MV deceleration time 130 msec - MV A-wave Vmax 0.34 m/sec - MV E:A ratio 2.6 ratio - LV septal e' Vmax 0.04 m/sec - LV lateral e' Vmax 0.05 m/sec - LV E:e' septal ratio 22.8 ratio - LV E:e' lateral ratio 18.2 ratio - Name Value Normal Range AV Vmax 0.81 m/sec - AV VTI 14.7 cm - AV peak gradient 3 mmHg - AV mean gradient 2 mmHg - LVOT Vmax 0.68 m/sec - LVOT VTI 10 cm - LVOT peak gradient 2 mmHg - LVOT mean gradient 1 mmHg - LOUISA Vmax 0.56 m/sec - Name Value Normal Range IVC diameter 2.3 cm - Name Value Normal Range PV Vmax 0.5 m/sec -
[2018-08-28] MEDS: Atorvastatin* 40 MG TAB PO SCH (17:11)
[2018-08-28] MEDS: Digoxin TAB* 0.125 MG PO SCH (17:11)
[2018-08-29] MEDS: Heparin VIAL(*) 5000 UNITS/ML VIAL (FIVE THOUSAND) SUBCUT SCH ×3 (05:40→21:58)
[2018-08-29 06:59] LABS: Hematocrit 38 % (42-52); Hemoglobin 12.7 g/dl (14.0-18.0); Mean Corpuscular HGB Conc 34 g/dl (31-36); Mean Corpuscular Hemoglobin 30 pg (27-31); Mean Corpuscular Volume 88 fL (80-94); Mean Platelet Volume 10.1 fL (7.4-10.4); Platelet Count 149 10^3/ul (150-450); Red Blood Count 4.29 10^6/ul (4.00-5.40); Red Cell Distribution Width 13 % (10.5-15); White Blood Count 6.5 10^3/ul (3.5-10.8)
[2018-08-29 07:17] LABS: EGFR Non-African American 59.6 (>60)
[2018-08-29] MEDS: Insulin LISPRO* 1 UNITS UNIT SUBCUT SCH ×4 (07:42→21:58)
[2018-08-29] MEDS ORDERED: Spironolactone TAB* 25 MG PO SCH (09:00)
[2018-08-29] MEDS: Gabapentin CAP(*) 300 MG PO SCH ×3 (09:06→21:57)
[2018-08-29] MEDS: Metoprolol Tartrate TAB* 50 mg PO SCH ×2 (09:07→21:58)
[2018-08-29] MEDS: Lisinopril TAB* 10 MG PO SCH (09:07)
[2018-08-29] MEDS: Aspirin EC TAB* 325 MG PO SCH (09:07)
[2018-08-29] MEDS: Magnesium Oxide TAB* 400 MG PO SCH (09:07)
[2018-08-29] MEDS: Citalopram TAB* 40 MG PO SCH (09:08)
[2018-08-29] MEDS: Insulin GLARGINE(*) 1 UNITS UNIT SUBCUT SCH (12:41)
--- NOTE | 2018-08-29 15:16 | PN ---
Subjective Date of Service: 08/29/18 Interval History: Pt seen and examined. Meds and labs reviewed. Spoke with Dr. Camacho and mentioned he spoke with Dr. Perez, the pts primary cardiologists who requests a cardiac cath. Unfortunately, given pt does not have insurance until Wednesday, refuses to have cath done until insurance is ready. CC: NA ROS: Denied LOWERY/dizziness, F/C, N/V, CP, SOB, increased cough, sputum production , abd pain, diarrhea, constipation, dysuria, myalgias, arthralgias, throat pain , and new skin lesions. The rest of the 14 point ROS are unremarkable. PHYSICAL EXAM: GEN APPEARANCE: Awake, not in acute distress HEENT: NC/AT, PERRLA, moist oral mucosa, (-) throat erythema NECK: Soft, supple, (-) cervical LAD, (-)JVD HEART: S1S2 WNL, RRR, No MRG CHEST: CTA, BL, GAE, No W/R/R ABD: Soft, ND/NT, NABS 4x Q EXT: No C/C/E SKIN: Warm to touch PSYCH: No active psychosis, hallucinations, depression, SI/HI Objective Active Medications: Acetaminophen (Tylenol Tab*) 650 mg PO Q4H PRN PRN Reason: FEVER/PAIN Last Admin: 08/28/18 08:25 Dose: 650 mg Albuterol (Ventolin 2.5 Mg/3 Ml Neb.Yazmin*) 2.5 mg INH [id number] AWAKE PRN PRN Reason: sob/wheezing Aspirin (Ecotrin Ec Tab*) 325 mg PO DAILY [facility] Last Admin: 08/29/18 09:07 Dose: 325 mg Atorvastatin Calcium (Lipitor*) 40 mg PO 1700 [facility] Last Admin: 08/28/18 17:11 Dose: 40 mg Citalopram Hydrobromide (Celexa Tab*) 40 mg PO DAILY [facility] Last Admin: 08/29/18 09:08 Dose: 40 mg Dextrose (D50w Syringe 50 Ml*) 12.5 gm IV PUSH .FOR FS < 60 - SS PRN PRN Reason: FS < 60 Digoxin (Lanoxin Tab*) 0.125 mg PO DAILY@1700 [facility] Last Admin: 08/28/18 17:11 Dose: 0.125 mg Gabapentin (Neurontin Cap(*)) 300 mg PO TID [facility] Last Admin: 08/29/18 14:12 Dose: 300 mg Heparin Sodium (Porcine) (Heparin Vial(*)) 5,000 units SUBCUT Q8HR [facility] Last Admin: 08/29/18 14:13 Dose: 5,000 units Insulin Glargine (Lantus(*)) 20 units SUBCUT Q24H [facility] Last Admin: 08/29/18 12:41 Dose: 20 units Insulin Human Lispro (Humalog*) 0 units SUBCUT ACHS [facility]; Protocol Last Admin: 08/29/18 12:25 Dose: Not Given Lisinopril (Prinivil Tab*) 10 mg PO DAILY [facility] Last Admin: 08/29/18 09:07 Dose: 10 mg Magnesium Oxide (Magox 400 Tab*) 800 mg PO DAILY [facility] Last Admin: 08/29/18 09:07 Dose: 800 mg Metoprolol Tartrate (Lopressor Tab*) 25 mg PO BID [facility] Last Admin: 08/29/18 09:07 Dose: 25 mg Morphine Sulfate (Morphine Vial*) 1 mg IV Q4H PRN PRN Reason: PAIN - MILD Vital Signs - 8 hr 08/29/18 08/29/18 08/29/18 07:57 08:00 09:06 Temperature 98.0 F Pulse Rate 70 Respiratory 16 16 16 Rate Blood Pressure 113/80 (mmHg) O2 Sat by Pulse 98 Oximetry 08/29/18 08/29/18 08/29/18 11:25 12:06 14:12 Temperature 98.4 F Pulse Rate 77 Respiratory 16 16 16 Rate Blood Pressure 114/79 (mmHg) O2 Sat by Pulse 100 Oximetry Oxygen Devices in Use Now: None - Nutrition: Malnutrition Diagnosis/Plan Malnutrition Assessment by Registered Dietitian: Malnutrition Assessment Clinical Characteristics Acute,Moderate Malnutrition Assessment: - Mild temporal muscle wasting Criteria - 7% wt loss x past 2 months Malnutrition Assessment: Will send triple zero czech yogurt BID (120 Interventions kcals, 15 grams protein per serving). Malnutrition Assessment: Goals 1. Adequate PO intake to replete lean body mass w/o additional wt loss Result Diagrams: 08/29/18 06:45 08/29/18 06:45 Additional Lab and Data: Lab Results 08/27/18 08/27/18 08/27/18 Range/Units 07:37 07:37 07:38 WBC 5.3 (3.5-10.8) 10^3/ul RBC 4.41 (4.00-5.40) 10^6/ul Hgb 13.1 L (14.0-18.0) g/dl Hct 39 L (42-52) % MCV 88 (80-94) fL MCH 30 (27-31) pg MCHC 34 (31-36) g/dl RDW 13 (10.5-15) % Plt Count 165 (150-450) 10^3/ul MPV 10.0 (7.4-10.4) fL Neut % (Auto) 69.6 (38-83) % Lymph % (Auto) 17.9 L (25-47) % [place] % (Auto) 7.3 H (0-7) % Eos % (Auto) 4.1 (0-6) % Baso % (Auto) 1.1 (0-2) % Absolute Neuts (auto) 3.7 (1.5-7.7) 10^3/ul Absolute Lymphs (auto) 0.9 L (1.0-4.8) 10^3/ul Absolute Monos (auto) 0.4 (0-0.8) 10^3/ul Absolute Eos (auto) 0.2 (0-0.6) 10^3/ul Absolute Basos (auto) 0.1 (0-0.2) 10^3/ul Absolute Nucleated RBC 0 10^3/ul Nucleated RBC % 0.1 INR (Anticoag Therapy) (0.77-1.02) D-Dimer, Quantitative (Less Than 230) ng/mL Sodium 134 L (135-145) mmol/L Potassium 5.0 (3.5-5.0) mmol/L Chloride 96 L (101-111) mmol/L Carbon Dioxide 28 (22-32) mmol/L Anion Gap 10 (2-11) mmol/L BUN 27 H (6-24) mg/dL Creatinine 1.36 H (0.67-1.17) mg/dL Est GFR ( Amer) 66.6 (>60) Est GFR (Non-Af Amer) 55.0 (>60) BUN/Creatinine Ratio 19.9 (8-20) Glucose 390 H (70-100) mg/dL Lactic Acid 3.3 H* (0.5-2.0) mmol/L Calcium 10.3 (8.6-10.3) mg/dL Magnesium 1.4 L (1.9-2.7) mg/dL Total Bilirubin 0.40 (0.2-1.0) mg/dL AST 18 (13-39) U/L ALT 12 (7-52) U/L Alkaline Phosphatase 76 (34-104) U/L Total Creatine Kinase 116 (10-223) U/L CK-MB (CK-2) 12.4 H (0.6-6.3) ng/mL Troponin I 0.20 H* (<0.04) ng/mL Total Protein 7.0 (6.4-8.9) g/dL Albumin 4.4 (3.2-5.2) g/dL Globulin 2.6 (2-4) g/dL Albumin/Globulin Ratio 1.7 (1-3) TSH Pending Digoxin Pending 08/27/18 Range/Units 07:38 WBC (3.5-10.8) 10^3/ul RBC (4.00-5.40) 10^6/ul Hgb (14.0-18.0) g/dl Hct (42-52) % MCV (80-94) fL MCH (27-31) pg MCHC (31-36) g/dl RDW (10.5-15) % Plt Count (150-450) 10^3/ul MPV (7.4-10.4) fL Neut % (Auto) (38-83) % Lymph % (Auto) (25-47) % [place] % (Auto) (0-7) % Eos % (Auto) (0-6) % Baso % (Auto) (0-2) % Absolute Neuts (auto) (1.5-7.7) 10^3/ul Absolute Lymphs (auto) (1.0-4.8) 10^3/ul Absolute Monos (auto) (0-0.8) 10^3/ul Absolute Eos (auto) (0-0.6) 10^3/ul Absolute Basos (auto) (0-0.2) 10^3/ul Absolute Nucleated RBC 10^3/ul Nucleated RBC % INR (Anticoag Therapy) 0.87 (0.77-1.02) D-Dimer, Quantitative < 200 (Less Than 230) ng/mL Sodium (135-145) mmol/L Potassium (3.5-5.0) mmol/L Chloride (101-111) mmol/L Carbon Dioxide (22-32) mmol/L Anion Gap (2-11) mmol/L BUN (6-24) mg/dL Creatinine (0.67-1.17) mg/dL Est GFR ( Amer) (>60) Est GFR (Non-Af Amer) (>60) BUN/Creatinine Ratio (8-20) Glucose (70-100) mg/dL Lactic Acid (0.5-2.0) mmol/L Calcium (8.6-10.3) mg/dL Magnesium (1.9-2.7) mg/dL Total Bilirubin (0.2-1.0) mg/dL AST (13-39) U/L ALT (7-52) U/L Alkaline Phosphatase (34-104) U/L Total Creatine Kinase (10-223) U/L CK-MB (CK-2) (0.6-6.3) ng/mL Troponin I (<0.04) ng/mL Total Protein (6.4-8.9) g/dL Albumin (3.2-5.2) g/dL Globulin (2-4) g/dL Albumin/Globulin Ratio (1-3) TSH Digoxin Microbiology and Other Data: Microbiology 08/27/18 08:19 Urine Culture - Final Urine No Growth (<1,000 CFU/mL) Assess/Plan/Problems-Billing Assessment: - Patient Problems (1) Chest pain Current Visit: Yes Status: Acute Code(s): R07.9 - CHEST PAIN, UNSPECIFIED SNOMED Code(s): 40695506 Comment: -Resolved -Pt unclear whether he had a CP earlier this AM -D/W Dr. Camacho yesterday who mentions that decrease in EF as well as wall motion abnormality likely due to non-ischemic CM and pts non-compliance with meds. However, Dr. Perez requests that pt be catheterized; pt refused until insurance is active -Per Dr. Camacho/Chris, pt cannot leave unless with life-vest, w/c is another dilemma due to lack of resourcesdiscussed with Social workders -VTE ruled out with <200 D-dimer -Hold off on anticoagulation at this time -Likely demand in the setting of non-ischemic CM due to CHF -Continue IV diuresis, ASA statins, Lisinopril, and Metoprolol (2) CHF (congestive heart failure) Current Visit: Yes Status: Acute Code(s): I50.9 - HEART FAILURE, UNSPECIFIED SNOMED Code(s): 43218057 Comment: -As above (3) Elevated lactic acid level Current Visit: Yes Status: Acute Code(s): R79.89 - OTHER SPECIFIED ABNORMAL FINDINGS OF BLOOD CHEMISTRY SNOMED Code(s): 2883907 Comment: -Likely due to demand ischemia due to above -Will recheck levels (4) Hypomagnesemia Current Visit: Yes Status: Acute Code(s): E83.42 - HYPOMAGNESEMIA SNOMED Code(s): 090004701 Comment: -Will continue to follow (5) DVT prophylaxis Current Visit: Yes Status: Acute Code(s): MNP1511 - SNOMED Code(s): 959742384 Comment: -Continue Heparin SQq8H Status and Disposition: -As above
[2018-08-29] MEDS: Atorvastatin* 40 MG TAB PO SCH (18:04)
[2018-08-29] MEDS: Digoxin TAB* 0.125 MG PO SCH (18:05)
[2018-08-30] MEDS: Heparin VIAL(*) 5000 UNITS/ML VIAL (FIVE THOUSAND) SUBCUT SCH ×3 (05:19→20:54)
[2018-08-30 06:55] LABS: ABS Basophils 0 10^3/ul (0-0.2); ABS Eosinophils 0.2 10^3/ul (0-0.6); ABS Lymphocytes 1.1 10^3/ul (1.0-4.8); ABS Monocytes 0.4 10^3/ul (0-0.8); ABS Nucleated RBC 0 10^3/ul; Eosinophil % 2.8 % (0-6); Hematocrit 37 % (42-52); Hemoglobin 12.5 g/dl (14.0-18.0); Mean Corpuscular HGB Conc 34 g/dl (31-36); Mean Corpuscular Hemoglobin 30 pg (27-31); Mean Corpuscular Volume 88 fL (80-94); Mean Platelet Volume 10.4 fL (7.4-10.4); Nucleated Red Blood Cells % 0.1; Platelet Count 140 10^3/ul (150-450); Red Cell Distribution Width 13 % (10.5-15); White Blood Count 5.7 10^3/ul (3.5-10.8)
[2018-08-30] MEDS: Aspirin EC TAB* 325 MG PO SCH (08:16)
[2018-08-30] MEDS: Lisinopril TAB* 10 MG PO SCH (08:16)
[2018-08-30] MEDS: Metoprolol Tartrate TAB* 50 mg PO SCH ×2 (08:16→20:54)
[2018-08-30] MEDS: Gabapentin CAP(*) 300 MG PO SCH ×3 (08:16→20:54)
[2018-08-30] MEDS: Citalopram TAB* 40 MG PO SCH (08:16)
[2018-08-30] MEDS: Magnesium Oxide TAB* 400 MG PO SCH (08:17)
[2018-08-30] MEDS: Insulin LISPRO* 1 UNITS UNIT SUBCUT SCH ×4 (08:55→20:52)
[2018-08-30] MEDS: Insulin GLARGINE(*) 1 UNITS UNIT SUBCUT SCH (12:10)
--- NOTE | 2018-08-30 16:50 | PN ---
Subjective Date of Service: 08/30/18 Interval History: Pt is feeling well. He has no c/o chest pain at this time. He has been up ambulating some. No SOB currently. He is worried about his medications and what he will need to purchase without his insurance. Objective Active Medications: Acetaminophen (Tylenol Tab*) 650 mg PO Q4H PRN PRN Reason: FEVER/PAIN Last Admin: 08/28/18 08:25 Dose: 650 mg Albuterol (Ventolin 2.5 Mg/3 Ml Neb.Yazmin*) 2.5 mg INH [id number] AWAKE PRN PRN Reason: sob/wheezing Aspirin (Ecotrin Ec Tab*) 325 mg PO DAILY [facility] Last Admin: 08/30/18 08:16 Dose: 325 mg Atorvastatin Calcium (Lipitor*) 40 mg PO 1700 [facility] Last Admin: 08/29/18 18:04 Dose: 40 mg Citalopram Hydrobromide (Celexa Tab*) 40 mg PO DAILY [facility] Last Admin: 08/30/18 08:16 Dose: 40 mg Dextrose (D50w Syringe 50 Ml*) 12.5 gm IV PUSH .FOR FS < 60 - SS PRN PRN Reason: FS < 60 Digoxin (Lanoxin Tab*) 0.125 mg PO DAILY@1700 [facility] Last Admin: 08/29/18 18:05 Dose: 0.125 mg Gabapentin (Neurontin Cap(*)) 300 mg PO TID [facility] Last Admin: 08/30/18 13:51 Dose: 300 mg Heparin Sodium (Porcine) (Heparin Vial(*)) 5,000 units SUBCUT Q8HR [facility] Last Admin: 08/30/18 13:51 Dose: 5,000 units Insulin Glargine (Lantus(*)) 20 units SUBCUT Q24H [facility] Last Admin: 08/30/18 12:10 Dose: 20 units Insulin Human Lispro (Humalog*) 0 units SUBCUT ACHS [facility]; Protocol Last Admin: 08/30/18 12:10 Dose: 6 units Lisinopril (Prinivil Tab*) 10 mg PO DAILY [facility] Last Admin: 08/30/18 08:16 Dose: 10 mg Magnesium Oxide (Magox 400 Tab*) 800 mg PO DAILY [facility] Last Admin: 08/30/18 08:17 Dose: 800 mg Metoprolol Tartrate (Lopressor Tab*) 25 mg PO BID [facility] Last Admin: 08/30/18 08:16 Dose: 25 mg Morphine Sulfate (Morphine Vial*) 1 mg IV Q4H PRN PRN Reason: PAIN - MILD Vital Signs - 8 hr 08/30/18 08/30/18 08/30/18 11:27 11:55 13:51 Temperature 98.9 F Pulse Rate 68 Respiratory 16 16 16 Rate Blood Pressure 117/87 (mmHg) O2 Sat by Pulse 98 Oximetry 08/30/18 15:57 Temperature Pulse Rate Respiratory 16 Rate Blood Pressure (mmHg) O2 Sat by Pulse Oximetry Oxygen Devices in Use Now: None Appearance: Middle aged male lying in bed NAD Eyes: No Scleral Icterus Ears/Nose/Mouth/Throat: Mucous Membranes Moist Respiratory: Symmetrical Chest Expansion and Respiratory Effort, Clear to Auscultation Cardiovascular: NL Sounds; No Murmurs; No JVD, RRR, No Edema Abdominal: NL Sounds; No Tenderness; No Distention Extremities: No Clubbing, Cyanosis Skin: No Nodules or Sclerosis Neurological: Alert and Oriented x 3 - Nutrition: Malnutrition Diagnosis/Plan Malnutrition Assessment by Registered Dietitian: Malnutrition Assessment Clinical Characteristics Acute,Moderate Malnutrition Assessment: - Mild temporal muscle wasting Criteria - 7% wt loss x past 2 months Malnutrition Assessment: Will send triple zero thai yogurt BID (120 Interventions kcals, 15 grams protein per serving). Malnutrition Assessment: Goals 1. Adequate PO intake to replete lean body mass w/o additional wt loss Result Diagrams: 08/30/18 06:29 08/30/18 06:28 Additional Lab and Data: Lab Results 08/27/18 08/27/18 08/27/18 Range/Units 07:37 07:37 07:38 WBC 5.3 (3.5-10.8) 10^3/ul RBC 4.41 (4.00-5.40) 10^6/ul Hgb 13.1 L (14.0-18.0) g/dl Hct 39 L (42-52) % MCV 88 (80-94) fL MCH 30 (27-31) pg MCHC 34 (31-36) g/dl RDW 13 (10.5-15) % Plt Count 165 (150-450) 10^3/ul MPV 10.0 (7.4-10.4) fL Neut % (Auto) 69.6 (38-83) % Lymph % (Auto) 17.9 L (25-47) % [place] % (Auto) 7.3 H (0-7) % Eos % (Auto) 4.1 (0-6) % Baso % (Auto) 1.1 (0-2) % Absolute Neuts (auto) 3.7 (1.5-7.7) 10^3/ul Absolute Lymphs (auto) 0.9 L (1.0-4.8) 10^3/ul Absolute Monos (auto) 0.4 (0-0.8) 10^3/ul Absolute Eos (auto) 0.2 (0-0.6) 10^3/ul Absolute Basos (auto) 0.1 (0-0.2) 10^3/ul Absolute Nucleated RBC 0 10^3/ul Nucleated RBC % 0.1 INR (Anticoag Therapy) (0.77-1.02) D-Dimer, Quantitative (Less Than 230) ng/mL Sodium 134 L (135-145) mmol/L Potassium 5.0 (3.5-5.0) mmol/L Chloride 96 L (101-111) mmol/L Carbon Dioxide 28 (22-32) mmol/L Anion Gap 10 (2-11) mmol/L BUN 27 H (6-24) mg/dL Creatinine 1.36 H (0.67-1.17) mg/dL Est GFR ( Amer) 66.6 (>60) Est GFR (Non-Af Amer) 55.0 (>60) BUN/Creatinine Ratio 19.9 (8-20) Glucose 390 H (70-100) mg/dL Lactic Acid 3.3 H* (0.5-2.0) mmol/L Calcium 10.3 (8.6-10.3) mg/dL Magnesium 1.4 L (1.9-2.7) mg/dL Total Bilirubin 0.40 (0.2-1.0) mg/dL AST 18 (13-39) U/L ALT 12 (7-52) U/L Alkaline Phosphatase 76 (34-104) U/L Total Creatine Kinase 116 (10-223) U/L CK-MB (CK-2) 12.4 H (0.6-6.3) ng/mL Troponin I 0.20 H* (<0.04) ng/mL Total Protein 7.0 (6.4-8.9) g/dL Albumin 4.4 (3.2-5.2) g/dL Globulin 2.6 (2-4) g/dL Albumin/Globulin Ratio 1.7 (1-3) TSH Pending Digoxin Pending 08/27/18 Range/Units 07:38 WBC (3.5-10.8) 10^3/ul RBC (4.00-5.40) 10^6/ul Hgb (14.0-18.0) g/dl Hct (42-52) % MCV (80-94) fL MCH (27-31) pg MCHC (31-36) g/dl RDW (10.5-15) % Plt Count (150-450) 10^3/ul MPV (7.4-10.4) fL Neut % (Auto) (38-83) % Lymph % (Auto) (25-47) % [place] % (Auto) (0-7) % Eos % (Auto) (0-6) % Baso % (Auto) (0-2) % Absolute Neuts (auto) (1.5-7.7) 10^3/ul Absolute Lymphs (auto) (1.0-4.8) 10^3/ul Absolute Monos (auto) (0-0.8) 10^3/ul Absolute Eos (auto) (0-0.6) 10^3/ul Absolute Basos (auto) (0-0.2) 10^3/ul Absolute Nucleated RBC 10^3/ul Nucleated RBC % INR (Anticoag Therapy) 0.87 (0.77-1.02) D-Dimer, Quantitative < 200 (Less Than 230) ng/mL Sodium (135-145) mmol/L Potassium (3.5-5.0) mmol/L Chloride (101-111) mmol/L Carbon Dioxide (22-32) mmol/L Anion Gap (2-11) mmol/L BUN (6-24) mg/dL Creatinine (0.67-1.17) mg/dL Est GFR ( Amer) (>60) Est GFR (Non-Af Amer) (>60) BUN/Creatinine Ratio (8-20) Glucose (70-100) mg/dL Lactic Acid (0.5-2.0) mmol/L Calcium (8.6-10.3) mg/dL Magnesium (1.9-2.7) mg/dL Total Bilirubin (0.2-1.0) mg/dL AST (13-39) U/L ALT (7-52) U/L Alkaline Phosphatase (34-104) U/L Total Creatine Kinase (10-223) U/L CK-MB (CK-2) (0.6-6.3) ng/mL Troponin I (<0.04) ng/mL Total Protein (6.4-8.9) g/dL Albumin (3.2-5.2) g/dL Globulin (2-4) g/dL Albumin/Globulin Ratio (1-3) TSH Digoxin Microbiology and Other Data: Microbiology 08/27/18 08:19 Urine Culture - Final Urine No Growth (<1,000 CFU/mL) Assess/Plan/Problems-Billing Mr Rosas is a 52 yo M who presented to the ER with c/o CP and was admitted for evaluation and was found to have a markedly reduced EF needing catheterization. - Patient Problems (1) Chest pain Current Visit: Yes Status: Acute Code(s): R07.9 - CHEST PAIN, UNSPECIFIED SNOMED Code(s): 05944114 Comment: CP has remained resolved. He needs cardiac catheterization but he does not have insurance. Pt refuses until he has insurance which becomes active on 09/01/18. Will likely d/c pt home tomorrow to come back on 09/02/18 for catheterization. Will try to get this arranged with cardiology. Will instruct pt to remain inactive while home. Will need to ensure he has all of the medications he needs for his severe cardiomyopathy. Unclear if the cardiomyopathy is secondary to ischemic disease or non-ischemic cause. Pt needs life vest but the lack of insurance makes this extremely problematic. He will likely need to go home without the life vest for 1 day. Continue ASA, statin, lisinopril and metoprolol. (2) Type II diabetes mellitus Current Visit: Yes Status: Acute Comment: Blood sugars have fluctuated quite a bit. He was low yesterday AM but at other times is markedly elevated. Will resume metformin for now. (3) DVT prophylaxis Current Visit: Yes Status: Acute Code(s): GUU3617 - SNOMED Code(s): 297611318 Comment: SQ heparin (4) Full code status Current Visit: Yes Status: Acute Code(s): Z78.9 - OTHER SPECIFIED HEALTH STATUS SNOMED Code(s): 425046438
[2018-08-30] MEDS: Digoxin TAB* 0.125 MG PO SCH (18:02)
[2018-08-30] MEDS: Atorvastatin* 40 MG TAB PO SCH (18:02)
[2018-08-30] MEDS: metFORMIN* 1,000 MG TAB PO SCH (20:54)
[2018-08-30] MEDS ORDERED: Melatonin 3 MG TAB PO PRN (22:32)
[2018-08-31] MEDS: Heparin VIAL(*) 5000 UNITS/ML VIAL (FIVE THOUSAND) SUBCUT SCH (05:53)
[2018-08-31] MEDS: Insulin LISPRO* 1 UNITS UNIT SUBCUT SCH ×2 (07:35→12:02)
[2018-08-31] MEDS ORDERED: Metoprolol Succinate XL TAB* 50 MG PO SCH (09:00)
--- NOTE | 2018-08-31 09:42 | PN ---
Addendum entered and electronically signed by Ronda Lazo NP 08/31/18 10:49 : Subjective Interval History: I had the pleasure seeing Mr. Rosas today on behalf of Dr. Wade. He follows Dr. Perez of our practice for reported long standing h/o NICM with near normalization of LVEF in 2017. He states he lost health insurance 08/10/2018 thus has not had his usual medication regimen since then. In the past 3 weeks he has been experiencing KOLB with chest pain typically when he " over does it" resolves with rest, orthopnea, positional lightheadedness and SOB. No fever, chills, syncope, palpitations, weight gain, edema, abdominal distention or sensation of heart racing. Last episode of chest pain was while he was having echocardiogram. None since. He adds he has been ambulating the halls with no difficulty. He desires to be discharged home and be brought back Wednesday for [facility] due to insurance starting tomorrow. Medications Active Medications: Acetaminophen (Tylenol Tab*) 650 mg PO Q4H PRN PRN Reason: FEVER/PAIN Last Admin: 08/28/18 08:25 Dose: 650 mg Albuterol (Ventolin 2.5 Mg/3 Ml Neb.Yazmin*) 2.5 mg INH [id number] AWAKE PRN PRN Reason: sob/wheezing Aspirin (Ecotrin Ec Tab*) 325 mg PO DAILY [facility] Last Admin: 08/30/18 08:16 Dose: 325 mg Atorvastatin Calcium (Lipitor*) 40 mg PO 1700 [facility] Last Admin: 08/30/18 18:02 Dose: 40 mg Citalopram Hydrobromide (Celexa Tab*) 40 mg PO DAILY [facility] Last Admin: 08/30/18 08:16 Dose: 40 mg Dextrose (D50w Syringe 50 Ml*) 12.5 gm IV PUSH .FOR FS < 60 - SS PRN PRN Reason: FS < 60 Digoxin (Lanoxin Tab*) 0.125 mg PO DAILY@1700 [facility] Last Admin: 08/30/18 18:02 Dose: 0.125 mg Gabapentin (Neurontin Cap(*)) 300 mg PO TID [facility] Last Admin: 08/30/18 20:54 Dose: 300 mg Heparin Sodium (Porcine) (Heparin Vial(*)) 5,000 units SUBCUT Q8HR [facility] Last Admin: 08/31/18 05:53 Dose: 5,000 units Magnesium Sulfate 3 gm/ Sodium (Chloride) 106 mls @ 53 mls/hr IVPB ONCE ONE Stop: 08/31/18 12:37 Insulin Glargine (Lantus(*)) 20 units SUBCUT Q24H [facility] Last Admin: 08/30/18 12:10 Dose: 20 units Insulin Human Lispro (Humalog*) 0 units SUBCUT ACHS [facility]; Protocol Last Admin: 08/31/18 07:35 Dose: Not Given Lisinopril (Prinivil Tab*) 10 mg PO DAILY [facility] Last Admin: 08/30/18 08:16 Dose: 10 mg Magnesium Oxide (Magox 400 Tab*) 800 mg PO DAILY [facility] Last Admin: 08/30/18 08:17 Dose: 800 mg Melatonin (Melatonin) 3 mg PO BEDTIME PRN; Protocol PRN Reason: SLEEP Last Admin: 08/30/18 22:54 Dose: 3 mg Metformin HCl (Glucophage*) 1,000 mg PO BID [facility] Last Admin: 08/30/18 20:54 Dose: 1,000 mg Metoprolol Succinate (Toprol Xl Tab*) 50 mg PO DAILY [facility] Objective Vital Signs: Temp Pulse Resp BP Pulse Ox 98.5 F 91 16 123/90 94 08/31/18 07:41 08/31/18 07:41 08/31/18 07:41 08/31/18 07:41 08/31/18 03:11 Oxygen Devices in Use Now: None Appearance: NAD, A+O x3 cooperative with exam. Appears malnourished. Eyes: No Scleral Icterus, PERRLA - + temporal wasting Ears/Nose/Mouth/Throat: NL Teeth, Lips, Gums, Mucous Membranes Moist Neck: NL Appearance and Movements; NL JVP, No Thyroid Enlargement, Masses Respiratory: Symmetrical Chest Expansion and Respiratory Effort, Clear to Auscultation Cardiovascular: - - Tachy S1, S2, RRR. + diastolic murmur left sternal border. + gallop no rub. Abdominal: NL Sounds; No Tenderness; No Distention, No Hepatosplenomegaly Extremities: No Edema Neurological: Alert and Oriented x 3 Lines/Tubes/Other Access: Clean, Dry and Intact Peripheral IV Laboratory Results: 08/30/18 06:29 08/31/18 09:33 INR (Anticoag Therapy) 0.87 (0.77-1.02) 08/27/18 07:38 Total Bilirubin 0.30 mg/dL (0.2-1.0) 08/30/18 06:28 AST 16 U/L (13-39) 08/30/18 06:28 ALT 14 U/L (7-52) 08/30/18 06:28 Alkaline Phosphatase 82 U/L (34-104) 08/30/18 06:28 CK-MB (CK-2) 12.4 ng/mL (0.6-6.3) H 08/27/18 07:38 Total Protein 6.5 g/dL (6.4-8.9) 08/30/18 06:28 Albumin 4.0 g/dL (3.2-5.2) 08/30/18 06:28 Globulin 2.5 g/dL (2-4) 08/30/18 06:28 Albumin/Globulin Ratio 1.6 (1-3) 08/30/18 06:28 TSH 2.15 mcIU/mL (0.34-5.60) 08/27/18 07:38 08/27/18 08/27/18 08/27/18 07:38 10:34 14:31 Troponin I 0.20 H* 0.20 H* 0.22 H* 08/28/18 08/28/18 08/28/18 05:27 09:58 13:23 Troponin I 0.28 H* 0.25 H* 0.19 H* 08/28/18 16:40 Troponin I 0.21 H* Diagnostic Imaging: Echo 08/27/2018; LVEF 205 with global hypokinesis and minor regional variation. LVDId 5.8, trace AI Telemetry reviewed. Sinus tachycardia with bigeminy this morning around 8am. No VT had occasional PVCs in couplets. Assessment/Plan #1 h/o NICM since age 34, in 2017 per patient LVEF was near normal. LVEF now 20% . NYHA class 3 with c/o orthopnea, sob and KOLB. He reports un explained weight loss and has evidence of temporal wasting thus will not diures given concern for volume contraction. Will change Lopressor to Toprol therapy for CHF guideline therapy which will hopefully improve HR. will continue Lisinopril 10mg PO daily. Plan is [facility] on Wednesday. TSH was normal. I did not seen. He admits to being off meds due to lapse in insurance coverage since 08/10/2018. Medications have been resumed. #2 h/o CAD with prior LHC in 2009 at [facility] which revealed LM-patnet, LAD 30%, Lcx- patent, RCA dominate, proximal 305 lesion. 30% PDA lesion. he is stating that with more than typical activity he develops KOLB And chest pain. Resolves with rest. He has had Tropninemia during the admission peaked 08/28/2018 at .28. Ddimer was not elevated. last episode of chest pain was while getting echo 08/27 which was at rest. Given Newly diagnosed sever LV dysfunction it is possible that this is related to CAD. However patient is requesting to be discharged home and to be brought back Wednesday for LHC. He is aware that he could have sudden cardiac given inability to r/o high grade stenosis and potential for VT/VF given severe LV dysfuntion. He verbalized an understanding and is still requesting to be brought back Wednesday given insurance will be activve then. I did speak to the rn social work this morning who states he would not qualify for medicaid and insurance would not retroactively cover hospitalization of procedure if we did it today. Will continue ASA 325mg Po daily, Bblocker therapy, statin therapy (LDL at goal). Given resolvement of chest pain will not RX Imdur or Ranexa however he should go home with sublingual NTG and I informed him that if he develops resting chest pain to call 911. He was also instructed to avoid exertional activities. #3 h/o HTN; BP controlled during this admission. + moderate LVH on echo. No mention of LVOT gradient. continue BBlocker and ACEI therapy. #4h/o DM, defer to primary team. #5 h/o HLD. LDL at goal on Lipitor 40mg Po QHS. AST/ALT WNL. #7 CKD, creat 1.26 consistent with baseline. Will avoid LV gram for LHC. #6 Disposition pending course, await Mag/K+ given bigeminy PVC on telemetry this morning. Keep K+>4, Mag>2. He may required replacement prior to discharge. will speak to Dr. Wade and likely sign off and arrange for C on Wednesday. Will contact primary service Dr. Yeny Pizano prior to signing off. Original Note: <Ronda Lazo - Last Filed: 08/31/18 10:49> Subjective Date of Service: 08/31/18 - [facility] Interval History: I had the pleasure seeing Mr. Rosas today on behalf of Dr. Wade. He follows Dr. Perez of our practice for reported long standing h/o NICM with near normalization of LVEF in 2017. He states he lost health insurance 08/10/2018 thus has not had his usual medication regimen since then. In the past 3 weeks he has been experiencing KOLB with chest pain typically when he " over does it" resolves with rest, orthopnea, positional lightheadedness and SOB. No fever, chills, syncope, palpitations, weight gain, edema, abdominal distention or sensation of heart racing. Last episode of chest pain was while he was having echocardiogram. None since. He adds he has been ambulating the halls with no difficulty. He desires to be discharged home and be brought back Wednesday for [facility] due to insurance starting tomorrow. Medications Active Medications: Acetaminophen (Tylenol Tab*) 650 mg PO Q4H PRN PRN Reason: FEVER/PAIN Last Admin: 08/28/18 08:25 Dose: 650 mg Albuterol (Ventolin 2.5 Mg/3 Ml Neb.Yazmin*) 2.5 mg INH [id number] AWAKE PRN PRN Reason: sob/wheezing Aspirin (Ecotrin Ec Tab*) 325 mg PO DAILY [facility] Last Admin: 08/30/18 08:16 Dose: 325 mg Atorvastatin Calcium (Lipitor*) 40 mg PO 1700 [facility] Last Admin: 08/30/18 18:02 Dose: 40 mg Citalopram Hydrobromide (Celexa Tab*) 40 mg PO DAILY [facility] Last Admin: 08/30/18 08:16 Dose: 40 mg Dextrose (D50w Syringe 50 Ml*) 12.5 gm IV PUSH .FOR FS < 60 - SS PRN PRN Reason: FS < 60 Digoxin (Lanoxin Tab*) 0.125 mg PO DAILY@1700 [facility] Last Admin: 08/30/18 18:02 Dose: 0.125 mg Gabapentin (Neurontin Cap(*)) 300 mg PO TID [facility] Last Admin: 08/30/18 20:54 Dose: 300 mg Heparin Sodium (Porcine) (Heparin Vial(*)) 5,000 units SUBCUT Q8HR [facility] Last Admin: 08/31/18 05:53 Dose: 5,000 units Insulin Glargine (Lantus(*)) 20 units SUBCUT Q24H [facility] Last Admin: 08/30/18 12:10 Dose: 20 units Insulin Human Lispro (Humalog*) 0 units SUBCUT ACHS [facility]; Protocol Last Admin: 08/31/18 07:35 Dose: Not Given Lisinopril (Prinivil Tab*) 10 mg PO DAILY [facility] Last Admin: 08/30/18 08:16 Dose: 10 mg Magnesium Oxide (Magox 400 Tab*) 800 mg PO DAILY [facility] Last Admin: 08/30/18 08:17 Dose: 800 mg Melatonin (Melatonin) 3 mg PO BEDTIME PRN; Protocol PRN Reason: SLEEP Last Admin: 08/30/18 22:54 Dose: 3 mg Metformin HCl (Glucophage*) 1,000 mg PO BID [facility] Last Admin: 08/30/18 20:54 Dose: 1,000 mg Metoprolol Succinate (Toprol Xl Tab*) 50 mg PO DAILY [facility] Objective Vital Signs: Temp Pulse Resp BP Pulse Ox 98.5 F 91 16 123/90 94 08/31/18 07:41 08/31/18 07:41 08/31/18 07:41 08/31/18 07:41 08/31/18 03:11 Oxygen Devices in Use Now: None Appearance: NAD, A+O x3 cooperative with exam. Appears malnourished. Eyes: No Scleral Icterus, PERRLA - + temporal wasting Ears/Nose/Mouth/Throat: NL Teeth, Lips, Gums, Mucous Membranes Moist Neck: NL Appearance and Movements; NL JVP, No Thyroid Enlargement, Masses Respiratory: Symmetrical Chest Expansion and Respiratory Effort, Clear to Auscultation Cardiovascular: - - Tachy S1, S2, RRR. + diastolic murmur left sternal border. + gallop no rub. Abdominal: NL Sounds; No Tenderness; No Distention, No Hepatosplenomegaly Extremities: No Edema Neurological: Alert and Oriented x 3 Lines/Tubes/Other Access: Clean, Dry and Intact Peripheral IV Laboratory Results: 08/30/18 06:29 08/30/18 06:28 INR (Anticoag Therapy) 0.87 (0.77-1.02) 08/27/18 07:38 Total Bilirubin 0.30 mg/dL (0.2-1.0) 08/30/18 06:28 AST 16 U/L (13-39) 08/30/18 06:28 ALT 14 U/L (7-52) 08/30/18 06:28 Alkaline Phosphatase 82 U/L (34-104) 08/30/18 06:28 CK-MB (CK-2) 12.4 ng/mL (0.6-6.3) H 08/27/18 07:38 Total Protein 6.5 g/dL (6.4-8.9) 08/30/18 06:28 Albumin 4.0 g/dL (3.2-5.2) 08/30/18 06:28 Globulin 2.5 g/dL (2-4) 08/30/18 06:28 Albumin/Globulin Ratio 1.6 (1-3) 08/30/18 06:28 TSH 2.15 mcIU/mL (0.34-5.60) 08/27/18 07:38 08/27/18 08/27/18 08/27/18 07:38 10:34 14:31 Troponin I 0.20 H* 0.20 H* 0.22 H* 08/28/18 08/28/18 08/28/18 05:27 09:58 13:23 Troponin I 0.28 H* 0.25 H* 0.19 H* 08/28/18 16:40 Troponin I 0.21 H* Laboratory Results - last 24 hr 08/30/18 08/30/18 08/30/18 11:28 17:34 20:11 POC Glucose (mg/dL) 264 H 101 H 345 H 08/31/18 08/31/18 08/31/18 00:18 02:16 07:27 POC Glucose (mg/dL) 73 121 H 87 Diagnostic Imaging: Echo 08/27/2018; LVEF 205 with global hypokinesis and minor regional variation. LVDId 5.8, trace AI Telemetry reviewed. Sinus tachycardia with bigeminy this morning around 8am. No VT had occasional PVCs in couplets. Assessment/Plan #1 h/o NICM since age 34, in 2017 per patient LVEF was near normal. LVEF now 20% . NYHA class 3 with c/o orthopnea, sob and KOLB. He reports un explained weight loss and has evidence of temporal wasting thus will not diures given concern for volume contraction. Will change Lopressor to Toprol therapy for CHF guideline therapy which will hopefully improve HR. will continue Lisinopril 10mg PO daily. Plan is LHC on Wednesday. TSH was normal. I did not seen. He admits to being off meds due to lapse in insurance coverage since 08/10/2018. Medications have been resumed. #2 h/o CAD with prior LHC in 2009 at [facility] which revealed LM-patnet, LAD 30%, Lcx- patent, RCA dominate, proximal 305 lesion. 30% PDA lesion. he is stating that with more than typical activity he develops KOLB And chest pain. Resolves with rest. He has had Tropninemia during the admission peaked 08/28/2018 at .28. Ddimer was not elevated. last episode of chest pain was while getting echo 08/27 which was at rest. Given Newly diagnosed sever LV dysfunction it is possible that this is related to CAD. However patient is requesting to be discharged home and to be brought back Wednesday for LHC. He is aware that he could have sudden cardiac given inability to r/o high grade stenosis and potential for VT/VF given severe LV dysfuntion. He verbalized an understanding and is still requesting to be brought back Wednesday given insurance will be activve then. I did speak to the rn social work this morning who states he would not qualify for medicaid and insurance would not retroactively cover hospitalization of procedure if we did it today. Will continue ASA 325mg Po daily, Bblocker therapy, statin therapy (LDL at goal). Given resolvement of chest pain will not RX Imdur or Ranexa however he should go home with sublingual NTG and I informed him that if he develops resting chest pain to call 911. He was also instructed to avoid exertional activities. #3 h/o HTN; BP controlled during this admission. + moderate LVH on echo. No mention of LVOT gradient. continue BBlocker and ACEI therapy. #4h/o DM, defer to primary team. #5 h/o HLD. LDL at goal on Lipitor 40mg Po QHS. AST/ALT WNL. #7 CKD, creat 1.26 consistent with baseline. Will avoid LV gram for LHC. #6 Disposition pending course, await Mag/K+ given bigeminy PVC on telemetry this morning. Keep K+>4, Mag>2. He may required replacement prior to discharge. will speak to Dr. Wade and likely sign off and arrange for LHC on Wednesday. Will contact primary service Dr. Yeny Pizano prior to signing off. Attending: Shabana Wade <Shabana Wade - Last Filed: 08/31/18 14:01> Medications Active Medications: Acetaminophen (Tylenol Tab*) 650 mg PO Q4H PRN PRN Reason: FEVER/PAIN Last Admin: 08/28/18 08:25 Dose: 650 mg Albuterol (Ventolin 2.5 Mg/3 Ml Neb.Yazmin*) 2.5 mg INH [id number] AWAKE PRN PRN Reason: sob/wheezing Aspirin (Ecotrin Ec Tab*) 325 mg PO DAILY [facility] Last Admin: 08/31/18 10:54 Dose: 325 mg Atorvastatin Calcium (Lipitor*) 40 mg PO 1700 [facility] Last Admin: 08/30/18 18:02 Dose: 40 mg Citalopram Hydrobromide (Celexa Tab*) 40 mg PO DAILY [facility] Last Admin: 08/31/18 10:54 Dose: 40 mg Dextrose (D50w Syringe 50 Ml*) 12.5 gm IV PUSH .FOR FS < 60 - SS PRN PRN Reason: FS < 60 Digoxin (Lanoxin Tab*) 0.125 mg PO DAILY@1700 [facility] Last Admin: 08/30/18 18:02 Dose: 0.125 mg Gabapentin (Neurontin Cap(*)) 300 mg PO TID [facility] Last Admin: 08/31/18 10:54 Dose: 300 mg Heparin Sodium (Porcine) (Heparin Vial(*)) 5,000 units SUBCUT Q8HR [facility] Last Admin: 08/31/18 05:53 Dose: 5,000 units Insulin Glargine (Lantus(*)) 20 units SUBCUT Q24H [facility] Last Admin: 08/31/18 10:52 Dose: 20 units Insulin Human Lispro (Humalog*) 0 units SUBCUT [facility]; Protocol Last Admin: 08/31/18 12:02 Dose: 8 units Lisinopril (Prinivil Tab*) 10 mg PO DAILY [facility] Last Admin: 08/31/18 10:54 Dose: 10 mg Magnesium Oxide (Magox 400 Tab*) 800 mg PO DAILY [facility] Last Admin: 08/31/18 10:53 Dose: 800 mg Melatonin (Melatonin) 3 mg PO BEDTIME PRN; Protocol PRN Reason: SLEEP Last Admin: 08/30/18 22:54 Dose: 3 mg Metformin HCl (Glucophage*) 1,000 mg PO BID [facility] Last Admin: 08/31/18 10:54 Dose: 1,000 mg Metoprolol Succinate (Toprol Xl Tab*) 50 mg PO DAILY [facility] Last Admin: 08/31/18 10:54 Dose: 50 mg Objective Vital Signs: Temp Pulse Resp BP Pulse Ox 98.5 F 91 16 126/94 99 08/31/18 11:43 08/31/18 11:43 08/31/18 11:43 08/31/18 11:43 08/31/18 11:43 Laboratory Results: 08/30/18 06:29 08/31/18 09:33 INR (Anticoag Therapy) 0.87 (0.77-1.02) 08/27/18 07:38 Total Bilirubin 0.30 mg/dL (0.2-1.0) 08/30/18 06:28 AST 16 U/L (13-39) 08/30/18 06:28 ALT 14 U/L (7-52) 08/30/18 06:28 Alkaline Phosphatase 82 U/L (34-104) 08/30/18 06:28 CK-MB (CK-2) 12.4 ng/mL (0.6-6.3) H 08/27/18 07:38 Total Protein 6.5 g/dL (6.4-8.9) 08/30/18 06:28 Albumin 4.0 g/dL (3.2-5.2) 08/30/18 06:28 Globulin 2.5 g/dL (2-4) 08/30/18 06:28 Albumin/Globulin Ratio 1.6 (1-3) 08/30/18 06:28 TSH 2.15 mcIU/mL (0.34-5.60) 08/27/18 07:38 08/27/18 08/27/18 08/27/18 07:38 10:34 14:31 Troponin I 0.20 H* 0.20 H* 0.22 H* 08/28/18 08/28/18 08/28/18 05:27 09:58 13:23 Troponin I 0.28 H* 0.25 H* 0.19 H* 08/28/18 16:40 Troponin I 0.21 H* Assessment/Plan A/P: 52 yo with non ischemic CM distantly with up to 30% occlusions on cath at that time. He EF improved to 50%. The patient now presents with CP and SOB with a LBBB, mild stable elevation in troponins off his medications due to financial reasons for 6 weeks. He has improved with diuresis and medication adjustments is now CP free and breathing much improved. I agree with the above plan of [employer] external defibrillator for now, technician terminal and repeater if EF does not improved he may qualify for a SENIOR PRINCIPAL ARCHITECT-D device. I agree with cardiac catheterization for CP, increased trops and mild increase in CK MB to differentiate between CHF induced symptoms and lab abnormalities from non ischemic CM vs. progression in CAD contributing to recurrent CM, symptoms and labs. I agree with the above recommendations and plan.
[2018-08-31 10:08] LABS: EGFR Non-African American 58.5 (>60)
[2018-08-31] MEDS ORDERED: Magnesium Sulfate IV* 3 GM in NS 0.9% 100 ML* 100 ML IVPB ONE (10:38)
[2018-08-31] MEDS: Insulin GLARGINE(*) 1 UNITS UNIT SUBCUT SCH (10:52)
[2018-08-31] MEDS: Magnesium Oxide TAB* 400 MG PO SCH (10:53)
[2018-08-31] MEDS: Citalopram TAB* 40 MG PO SCH (10:54)
[2018-08-31] MEDS: metFORMIN* 1,000 MG TAB PO SCH (10:54)
[2018-08-31] MEDS: Aspirin EC TAB* 325 MG PO SCH (10:54)
[2018-08-31] MEDS: Lisinopril TAB* 10 MG PO SCH (10:54)
[2018-08-31] MEDS: Gabapentin CAP(*) 300 MG PO SCH (10:54)
[2018-08-31 11:49] VITALS: BP 126/94
--- NOTE | 2018-09-01 06:59 | DS ---
CC: Dr. Daniels; Dr. Perez* DISCHARGE SUMMARY: DATE OF ADMISSION: 08/27/18 DATE OF DISCHARGE: 08/31/18 PRIMARY CARE PROVIDER: Dr. Daniels. PANEL ASSEMBLER: Dr. Perez. PRINCIPAL DIAGNOSES: 1. Cardiomyopathy - likely nonischemic, but ischemic needs to be ruled out. 2. Uncontrolled type 2 diabetes. SECONDARY DIAGNOSES: 1. Hypertension. 2. Depression. 3. Neuropathy. DISCHARGE MEDICATIONS: 1. Metformin 1000 mg p.o. b.i.d., on hold until after cardiac catheterization. 2. Digoxin 0.125 mg p.o. daily. 3. Metoprolol XL 50 mg p.o. daily. 4. Lisinopril 10 mg p.o. daily. 5. Basaglar 23 units subcutaneous daily. 6. Gabapentin 300 mg p.o. t.i.d. 7. Lexapro 20 mg p.o. daily. 8. Lipitor 40 mg p.o. daily. 9. Aspirin 325 mg p.o. daily. HOSPITAL COURSE: Mr. Rosas is a 52-year-old male who has a known history of nonischemic cardiomyopathy, followed by Dr. Perez who ran out of his insurance on 08/10/18 and subsequently did not have his medications. The patient was without his medications for at least approximately 2 to 3 weeks. He ultimately presented to the emergency room on 08/27/18 with complaints of chest pain. The patient was found to have a mildly elevated troponin of 0.20 peaking at 0.28. The patient was seen in consultation by Dr. Camacho who felt that the patient needs to be restarted on his cardiac medications. Per Dr. Perez, the patient was felt to need cardiac catheterization. The patient reportedly had a cardiac catheterization in 2009 that showed mild nonobstructing coronary artery disease. Unfortunately, because the patient did not have health insurance, the patient did not undergo cardiac catheterization at this hospitalization. The patient's new insurance will become effective on 09/01/18. The patient therefore was recommended to be discharged home for approximately 24 hours and return for outpatient cardiac catheterization. During the course of this hospitalization, the patient was found to have a markedly reduced EF of less than 20%. It is unclear if this markedly reduced EF was secondary to being off his cardiac medications for approximately 2 to 3 weeks or if it is secondary to an ischemic cardiomyopathy at this point. It is because of this reason that the patient needs a cardiac catheterization. At this point, the patient has been provided prescriptions to get through this evening, as well as and Wednesday. Prescriptions have subsequently been sent to his pharmacy in [place] to be picked up over the weekend after his insurance takes effect. The patient should be leaving the hospital with a LifeVest; however, again because of lack of insurance, the patient refuses this stating that he cannot afford the LifeVest. The patient has been instructed to not exert himself over the next 24 to 36 hours and to again return for cardiac catheterization on Wednesday. The [employer] has been provided the order for the LifeVest. They will attempt to provide the patient the LifeVest tomorrow prior to 1 p.m. if the insurance approves the LifeVest. At this point, the patient is feeling quite well. He has been ambulating in the hallway without any chest pain or shortness of breath. He does not show any evidence of fluid overload. The patient and his are agreeable with this plan and she will bring him back to [facility] on 09/02/18 at 9:30 a.m. to the [facility]. The patient has been given precatheterization instructions including to not eat or drink anything after midnight on 09/01/18, to take all medications except for metformin and Basaglar insulin on the morning of the catheterization. The patient and his have both been instructed that if he were to develop any chest pain or significant shortness of breath, he is to immediately return to the emergency room via 911. On the day of discharge, the patient is awake, alert, oriented, sitting up in bed, in no acute distress. His cardiac exam reveals normal S1, S2 with a regular rate and rhythm. His lungs are clear. He has no lower extremity edema. His abdomen is soft, nontender, nondistended. His vital signs reveal blood pressure of 126/94, pulse rate of 91, respiratory rate of 16, and temperature of 98.5. He has an O2 saturation of 99% on room air. FOLLOWUP CONCERNS: The patient is being discharged home today, 08/31/18. ACTIVITY LEVEL: Nonexertional for the next 24 to 36 hours. The patient has been instructed to return to [facility] at 9:30 a.m. on 09/02/18 to the [facility] for an outpatient cardiac catheterization. Again, he has been instructed to return to the emergency room if he has any chest pain or shortness of breath that is concerning. The patient will ultimately need to follow up with Dr. Daniels in the next 4 to [address] Perez post cardiac catheterization. TIME SPENT: 35 minutes were spent discharging and coordinating this discharge. [id number]/[facility] #: [id number] LINDA
== END 2018-08-31 15:08 | disposition home or self-care (01) | DRG 315 ==
LOC: ED 07:28 → MEDTELE 09:54
PROVIDERS: ADMIT Internal Medicine; ATTEND Hospitalist
DX: I42.8 Other cardiomyopathies (principal); I13.0 Hypertensive heart and chronic kidney disease with heart failure and stage 1 through stage 4 chronic kidney disease, or unspecified chronic kidney disease; E44.0 Moderate protein-calorie malnutrition; E11.65 Type 2 diabetes mellitus with hyperglycemia; F32.9 Major depressive disorder, single episode, unspecified; Z79.82 Long term (current) use of aspirin; Z79.84 Long term (current) use of oral hypoglycemic drugs; E11.40 Type 2 diabetes mellitus with diabetic neuropathy, unspecified; G89.29 Other chronic pain; I25.10 Atherosclerotic heart disease of native coronary artery without angina pectoris; Z82.49 Family history of ischemic heart disease and other diseases of the circulatory system; Z80.41 Family history of malignant neoplasm of ovary; R00.0 Tachycardia, unspecified; E83.42 Hypomagnesemia; E86.0 Dehydration; E78.00 Pure hypercholesterolemia, unspecified; Z87.891 Personal history of nicotine dependence; I44.7 Left bundle-branch block, unspecified; N18.9 Chronic kidney disease, unspecified; Z81.8 Family history of other mental and behavioral disorders; R79.89 Other specified abnormal findings of blood chemistry; I50.9 Heart failure, unspecified; E11.22 Type 2 diabetes mellitus with diabetic chronic kidney disease; Z68.21 Body mass index [BMI] 21.0-21.9, adult
CPT/HCPCS: 36415; 71045; 80048; 80053; 80162; 81003; 81015; 82550; 82553; 82947; 83605; 83735; 84100; 84443; 84484; 85025; 85027; 85379; 85610; 87086; 90686; 93005; 93306; 99284; A9270-GY; J1644; J3475

== ENCOUNTER 2018-09-01 07:16 | Inpatient (IN) | payer BC ==
--- NOTE | 2018-09-01 07:24 | ED ---
Neurological HPI - HPI Summary HPI Summary: Patient is a 52 y/o M brought in by ambulance w/ c/o slurred speech. Provider at patient's side upon arrival at 0715 to evaluate. Patient states that he woke up at 0600 today with Sx present. Therefore, actual time of onset is uncertain. No other neurological Sx are reported and patient states he is back to his baseline at this time. Patient was scheduled for a heart catheter tomorrow. He was seen at [facility] last week for chest pain. Patient denies Hx of afib, endorses Hx of diabetes type 2, cardiomyopathy, hypertension, CHF. He notes that he has not been on "some" of his medications for a month. On triage, pain is denied, nothing is noted to aggravate/alleviate Sx. Home medications and allergies are reviewed. - History of Current Complaint Stated Complaint: SLURRED SPEECH Time Seen by Provider: 09/01/18 07:17 Hx Obtained From: Patient Onset/Duration: Started hours ago - onset 0600 today, Resolved Timing: Intermittent Episodes Lasting: - lasting less than an hour Current Severity: None Neurological Deficit Location: Generalized - slurred speech Pain Intensity: 0 Pain Scale Used: 0-10 Numeric - 0/10 Character: Impaired Speech Aggravating: Nothing Alleviating: Nothing Associated Signs and Symptoms: Positive: Impaired Speech. Negative: Fever - on vitals, temp is 98.1 F - Additional Pertinent History Primary Care Physician: KAMI - Allergy/Home Medications Allergies/Adverse Reactions: Allergies Allergy/AdvReac Type Severity Reaction Status Date / Time No Known Allergies Allergy Verified 11/09/15 03:20 PMH/Surg Hx/FS Hx/Imm Hx Endocrine/Hematology History: Reports: Hx Diabetes - type 2 Cardiovascular History: Reports: Hx Congestive Heart Failure, Hx Hypercholesterolemia, Hx Hypertension, Other Cardiovascular Problems/Disorders - idiopathic cardiomyopathy Sensory History: Reports: Hx Contacts or Glasses - at home Denies: Hx Hearing Aid Opthamlomology History: Reports: Hx Contacts or Glasses - at home Psychiatric History: Reports: Hx Depression - Surgical History Surgery Procedure, Year, and Place: Left hand surgery - Family History Known Family History: Positive: Cardiac Disease - Social History Alcohol Use: None Substance Use Type: Reports: None Hx Tobacco Use: Yes - CHEWING TOBACCO, QUIT IN 2000. Smoking Status (MU): Never Smoked Tobacco Review of Systems Negative: Fever - on vitals, temp is 98.1 F Positive: Slurred Speech All Other Systems Reviewed And Are Negative: Yes Physical Exam - Summary Physical Exam Summary: VITAL SIGNS: Reviewed. GENERAL: Patient is a well-developed and nourished male who is lying comfortable in the stretcher. Patient is not in any acute respiratory distress. HEAD AND FACE: No signs of trauma. No ecchymosis, hematomas or skull depressions. No sinus tenderness. EYES: PERRLA, EOMI x 2, No injected conjunctiva, no nystagmus. No photophobia. EARS: Hearing grossly intact. Ear canals and tympanic membranes are within normal limits. MOUTH: Oropharynx within normal limits. NECK: Supple, trachea is midline, no adenopathy, no JVD, no carotid bruit, no c- spine tenderness, neck with full ROM. No meningeal signs, no Kernig's or brudzinskis signs. CHEST: Symmetric, no tenderness at palpation LUNGS: Clear to auscultation bilaterally. No wheezing or crackles. CVS: Regular rate and rhythm, S1 and S2 present, no gallops appreciated. 2/6 systolic ejection murmur is noted. ABDOMEN: Soft, non-tender. No signs of distention. No rebound no guarding, and no masses palpated. Bowel sounds are normal. EXTREMITIES: FROM in all major joints, no edema, no cyanosis or clubbing. NEURO: Alert and oriented x 3. No acute neurological deficits. Speech is normal and follows commands. NIH 0 SKIN: Dry and warm GCS: 15 Triage Information Reviewed: Yes Vital Signs On Initial Exam: Initial Vitals Temp Pulse Resp BP Pulse Ox 98.1 F 90 18 123/87 98 09/01/18 07:28 09/01/18 07:28 09/01/18 07:28 09/01/18 07:28 09/01/18 07:28 Vital Signs Reviewed: Yes - Orgas Coma Scale Best Eye Response: 4 - Spontaneous Best Motor Response: 6 - Obeys Commands Best Verbal Response: 5 - Oriented Coma Scale Total: 15 Diagnostics - Laboratory Result Diagrams: 09/01/18 07:37 09/01/18 07:37 Lab Statement: Any lab studies that have been ordered have been reviewed, and results considered in the medical decision making process. - Radiology CXR Radiology Interpretation Completed By: Radiologist Summary of Radiographic Findings: IMPRESSION: FINDINGS SUGGESTIVE OF CONGESTIVE HEART FAILURE. THIS REPORT WAS REVIEWED BY ED PHYSICIAN. - CT BRAIN CT CT Interpretation Completed By: Radiologist Summary of CT Findings: IMPRESSION: 1. NO EVIDENCE FOR ACUTE INTRACRANIAL ABNORMALITY. 2. CHRONIC LEFT MASTOID EFFUSION, UNCHANGED. THIS REPORT WAS REVIEWED BY ED PHYSICIAN. - EKG 0743 Cardiac Rate: NL - rate of 75 bpm EKG Rhythm: Sinus Rhythm ST Segment: Normal EKG Comparison: No Significant Change - compared to EKG from 08/28/18 Summary of EKG Findings: EKG showed sinus rhythm with rate of 75 bpm, t-wave inversion in v5, v6, no ST elevation. No significant change from EKG taken 08/28 NIH Scale - NIH Scale Level of Consciousness: Alert/Keenly Responsive Ask Patient the Month and His/Her Age: Both Correct Ask Pt to Open/Close Eyes and Millroom Supervisor/Release Non-Paretic Hand: Both Correctly Best Gaze (Only Horizontal Eye Movement): Normal Visual Field Testing: No Visual Loss Facial Paresis-Pt to Smile & Close Eyes or Grimace Symmetry: Normal/Symmetrical Motor Function - Right Arm: No Drift-Holds 10 Seconds Motor Function - Left Arm: No Drift-Holds 10 Seconds Motor Function - Right Leg: No Drift-Holds 10 Seconds Motor Function - Left Leg: No Drift-Holds 10 Seconds Limb Ataxia-Must be out of Proportion to Weakness Present: Absent Sensory (Use Pinprick to Test Arms/Legs/Trunk/Face): Normal Best Language (Describe Picture, Name Items): No Aphasia Dysarthria (Read Several Words): Normal Extinction and Inattention: No Abnormality Total Score: 0 Re-Evaluation - Re-Evaluation First Eval Re-Evaluation Time: 08:35 Comment: At this time, reports that patient does not want to be admitted. The need for admission was subsequently discussed with the patient. Patient is now agreeable with admission. Course/Dx - Course Assessment/Plan: Patient is a 52 y/o M brought in by ambulance w/ c/o slurred speech. Provider at patient's side upon arrival at 0715 to evaluate. Patient states that he woke up with Sx at 0600 today. No other neurological Sx are reported and patient states he is back to his baseline at this time. Patient was scheduled for a heart cath tomorrow. He was seen at [facility] last week for chest pain. Patient denies Hx of afib, endorses Hx of diabetes type 2, cardiomyopathy, hypertension, CHF. He notes that he has not been on "some" of his medications for a month. On triage, pain is denied, nothing is noted to aggravate/alleviate Sx. Home medications and allergies are reviewed. Blood work without any significant abnormality except for slight anemia, acute on chronic renal failure, glucose 142, lactic acid is 2.7, troponin 0.12 which has decreased from a previous troponin. BNP is elevated therefore the patient was given Lasix IV. Head CT impression: No evidence for acute intracranial abnormality. Chronic left mastoid effusion and change. Chest x-ray impression : Findings suggestive for congestive heart failure. The ED course the patient was given an aspirin. He since that the patient developed a TIA. At this point the patient is back to baseline. I discussed the case with Dr. Huerta who will consult for this patient. I discuss my physical exam, findings and test results with Dr. Pimentel from the hospitalist services and she agrees to admit patient to her services. Patient is hemodynamically stable alert and oriented x 3. - Differential Dx Differential Diagnoses Neuro: Positive: Cerebrovascular Accident, Seizure Disorder, Transient Ischemic Attack, Other - CHF - Diagnoses Provider Diagnoses: TIA (transient ischemic attack), CHF (congestive heart failure) - Physician Notifications Discussed Care Of Patient With: Brielle Pimentel Time Discussed With Above Provider: 08:28 Instructed by Provider To: Other - Patient's case was discussed with Dr. Pimentel at 0828. Dr. Pimentel accepts for admission, neurologist to be consulted as well. 0831 - Dr. Huerta was consulted on patient's case, will evaluate patient. Discharge - Sign-Out/Discharge Documenting (check all that apply): Patient Departure - admit - Discharge Plan Condition: Stable Disposition: ADMITTED TO [facility] Referrals: Poncho Daniels DO [Primary Care Provider] - - Attestation Statements Document Initiated by Scribe: Yes Documenting Scribe: LICHA MOJICA Provider For Whom Scribe is Documenting (Include Credential): JOHN GOMEZ MD Scribe Attestation: LICHA Ma , scribed for JOHN GOMEZ MD on 09/01/18 at 0859.
[2018-09-01 07:44] LABS: ABS Basophils 0 10^3/ul (0-0.2); ABS Eosinophils 0.1 10^3/ul (0-0.6); ABS Lymphocytes 1.1 10^3/ul (1.0-4.8); ABS Monocytes 0.5 10^3/ul (0-0.8); ABS Nucleated RBC 0 10^3/ul; Eosinophil % 0.7 % (0-6); Hematocrit 39 % (42-52); Hemoglobin 13.1 g/dl (14.0-18.0); Lymphocyte % 14.6 % (25-47); Mean Corpuscular HGB Conc 33 g/dl (31-36); Mean Corpuscular Hemoglobin 30 pg (27-31); Mean Corpuscular Volume 89 fL (80-94); Mean Platelet Volume 10.7 fL (7.4-10.4); Nucleated Red Blood Cells % 0; Platelet Count 179 10^3/ul (150-450); Red Blood Count 4.42 10^6/ul (4.00-5.40); Red Cell Distribution Width 13 % (10.5-15); White Blood Count 7.7 10^3/ul (3.5-10.8)
--- OUTSIDE RECORDS SUMMARY | 2018-09-01 07:56 | XMS REPORT | Continuity of Care Document ---
:1965 External Reference #:[id number] Author Name Corinne Marvin Care Team Providers Name Role Phone Poncho Daniels D.O. Care Team Information Test Desk Trouble Locator Unavailable Poncho Daniels D.O. Primary Care Physician Unavailable Payers Type Date Identification Numbers Payment Provider Subscriber Policy Number: [id number] [employer] Bailee Rosas PayID: [id number] [address] [address] [place] [address] Expires: 2016 Policy Number: [id number] [place] Vpiin Rosas PayID: [id number] [address] [place] [address] Expires: 2015 Policy Number: [id number] Medicaid Vipin Rosas Group Number: [employer] [address] Group Name: [address] [place] [address] PayID: [id number] Effective: 2016 PayID: [id number] BS [facility] Vipin Rosas Expires: 2017 [address] [address] [place] [address] Advance Directives Description No Information Available Problems Date Description Provider Status Onset: 07/20/2013 Chest pain Placido Perez M.D., [facility] [place] Active Onset: 08/25/2013 Primary cardiomyopathy Placido Perez M.D., [facility] [place] Active Family History Description No Information Available Social History Type Date Description Comments Sex Unknown Marital Status Occupation Disabled Work Status Not Currently Working Tobacco Use Start: Unknown Never Smoked Cigarettes chewed tobacco from age 19 until mid-40's, then quit. Smoking Status Reviewed: 12/29/17 Never Smoked Cigarettes chewed tobacco from age 19 until mid-40's, then quit. ETOH Use Denies alcohol use ETOH Use Has consumed alcohol in the past Tobacco Use Start: Unknown Patient has never smoked Recreational Drug Use Denies Drug Use Exercise Type/Frequency Exercises regularly walking about 1/2 hour daily Allergies, Adverse Reactions, Alerts Description No Known Drug Allergies Medications Medication Date Status Form Strength Qnty SIG Indications Ordering Provider Lipitor / Active Tablets 40mg 90tabs 1 po qd Unknown 0000 Spironolactone / Active Tablets 25mg 30tabs 1 po qod Unknown 0000 Digoxin / Active Tablets 0.125mg 90tabs 1 po qd Unknown 0000 Fish Oil / Active Capsules 1000mg 1 po qd Unknown 0000 Metoprolol / Active Tablets 25mg 60tabs 1 po bid Unknown Tartrate 0000 Lisinopril / Active Tablets 10mg 30tabs 1 po qd Unknown 0000 Lexapro / Active Tablets 20mg 90tabs 1 po qd Unknown 0000 Metformin HCL / Active Tablets 1000mg 180tab 1 po Am Unknown 0000 s and 1 po PM Aspirin / Active Tablets 81mg 1 by Unknown 0000 mouth every day Alogliptin / Active Tablets 25mg 1 daily Unknown Benzoate 0000 Iron (Ferrous / Active Tablets 256(28Fe) 1 by Unknown Gluconate) 0000 mg mouth daily Gabapentin / Active Capsules 300mg 1 cap po Session, 0000 three Jatinder, times RPA-C daily Basaglar Kwikpen / Active Solution 100Unit/ML 18 units [place], 0000 Pen-Inject once Poncho after J., D.O. dinner Feosol / Hx 325mg 1 Tablet Unknown 0000 - qd 2014 Lyrica / Hx Capsules 50mg 180cap 1 po tid Unknown 0000 - s 2012 Aspirin / Hx Tablets DR 325mg 90tabs 1 po qd Unknown 0000 - 2014 Victoza / Hx Solution 18mg/3ML 1mon 1.8 mg Unknown 0000 - qd 2014 Lyrica / Hx Capsules 100mg 1 po tid Unknown 0000 - 2017 Tradjenta / Hx Tablets 5mg 90tabs 1 tablet Unknown 0000 - by mouth 10/11/ every 2017 day Levemir / Hx Solution 100Unit/ML 30unit inject Unknown Flextouch 0000 - Pen-Inject s 18 units 10/11/ under 2017 the skin every day Lantus Solostar / Hx Solution 100Unit/ML 18 units Unknown 0000 - Pen-Inject at hs 2017 Medications Administered in Office Medication Date Status Form Strength Qnty SIG Indications Ordering Provider Inj, Administered Injection Placido Hasmukh Regadenoson, 018 Chris, 0.1 MG Roderick, FACAvtar, FASHYACINTH Technetium TC Administered Injection Placido Hasmukh 99M 018 Camilo Perez M.D., FACC, Per Unit Dose FASNC Up To 40 Millicuries Technetium TC Administered Injection Placido Hasmukh 99M 013 Camilo Perez M.D., FACAvtar, Per Unit Dose FASNC Up To 40 Millicuries Immunizations Description No Information Available Vital Signs Date Vital Result Comment 12/29/2017 10:10am Height 64 inches 5'4" Weight 137.00 lb with shoes Heart Rate 64 /min BP Systolic Sitting 120 mmHg Lue reg cuff BP Diastolic Sitting 80 mmHg Lue reg cuff BP Systolic Standing 120 mmHg Lue reg cuff BP Diastolic Standing 84 mmHg Lue reg cuff Respiratory Rate 18 /min BMI (Body Mass Index) 23.5 kg/m2 Ejection Fraction 40-45% date 10/27/17 ECHO 11/10/2017 8:28am Height 66 inches 5'6" Weight 133.00 lb without shoes Heart Rate 68 /min BP Systolic Sitting 118 mmHg Lue reg cuff BP Diastolic Sitting 80 mmHg Lue reg cuff BP Systolic Standing 124 mmHg Lue reg cuff BP Diastolic Standing 80 mmHg Lue reg cuff Respiratory Rate 17 /min BMI (Body Mass Index) 21.5 kg/m2 Ejection Fraction 40-45% date 10/27/17 ECHO 10/21/2016 8:08am Height 66 inches 5'6" Weight 134.00 lb no shoes Heart Rate 62 /min BP Systolic Sitting 128 mmHg Rue reg cuff BP Diastolic Sitting 78 mmHg Rue reg cuff BP Systolic Standing 122 mmHg Rue reg cuff BP Diastolic Standing 80 mmHg Rue reg cuff Respiratory Rate 16 /min BMI (Body Mass Index) 21.6 kg/m2 Ejection Fraction 51% 10/25/2015 11/04/2015 1:17pm Height 66 inches 5'6" Weight 132.00 lb w/o shoes Heart Rate 62 /min reg BP Systolic Sitting 124 mmHg Rue, reg cuff BP Diastolic Sitting 86 mmHg Rue, reg cuff BP Systolic Standing 116 mmHg Rue BP Diastolic Standing 84 mmHg Rue Respiratory Rate 18 /min BMI (Body Mass Index) 21.3 kg/m2 Ejection Fraction 51% As of 10/25/15 echo 10/15/2014 12:25pm Height 66 inches 5'6" Weight 138.00 lb with shoes Heart Rate 64 /min BP Systolic Sitting 120 mmHg LA reg cuff BP Diastolic Sitting 80 mmHg LA reg cuff BP Systolic Standing 114 mmHg LA reg cuff BP Diastolic Standing 76 mmHg LA reg cuff Respiratory Rate 16 /min BMI (Body Mass Index) 22.3 kg/m2 08/25/2013 12:18pm Height 56 inches 4'8" Weight 125.00 lb Heart Rate 64 /min BP Systolic Sitting 98 mmHg LA reg cuff BP Diastolic Sitting 78 mmHg LA reg cuff BP Systolic Standing 96 mmHg LA BP Diastolic Standing 78 mmHg LA Respiratory Rate 18 /min BMI (Body Mass Index) 28.0 kg/m2 07/20/2013 9:54am Height 56 inches 4'8" Weight 125.00 lb Heart Rate 66 /min BP Systolic 104 mmHg Ra reg cuff BP Diastolic 80 mmHg Ra reg cuff BP Systolic Sitting 104 mmHg LA reg cuff BP Diastolic Sitting 76 mmHg LA reg cuff BP Systolic Standing 104 mmHg LA BP Diastolic Standing 82 mmHg LA Respiratory Rate 16 /min BMI (Body Mass Index) 28.0 kg/m2 Results Description No Information Available Procedures Date Code Description Status 04/12/2018 86427 Diffusing Capacity Completed 04/12/2018 22474 Plethysmography Determination Lung Volumes & Per Airway Completed Resist 04/12/2018 30301 Spirometry Incl Graphic Record Completed 11/22/2017 44036 Stress Test Completed 11/22/2017 11633 Myocardial Perfusion Imaging Tomographic (Spect) Completed Multiple Studies 11/10/2017 77792 EKG Tracing & Interpretation Completed 10/27/2017 62510 ECHO Transthoracic, Real-Time 2D With Doppler And Color Completed Flow 10/27/2017 58180 ECHO Transthoracic, Real-Time 2D With Doppler And Color Completed Flow 10/21/2016 63707 EKG Tracing & Interpretation Completed 01/16/2016 [id number] Colonoscopy Completed 11/04/2015 95474 EKG Tracing & Interpretation Completed 10/25/2015 20519 ECHO Transthoracic, Real-Time 2D With Doppler And Color Completed Flow 10/15/2014 21819 EKG Tracing & Interpretation Completed 09/19/2014 21764 ECHO Transthoracic, Real-Time 2D With Doppler And Color Completed Flow 07/28/2013 69568 Echocardiogram Completed 07/28/2013 79311 ECHO Transthoracic, Real-Time 2D With Doppler And Color Completed Flow 07/25/2013 87409 Stress Test Completed 07/25/2013 16493 Myocardial Perfusion Imaging Tomographic (Spect) Completed Multiple Studies 07/20/2013 52914 EKG Tracing & Interpretation Completed Encounters Type Date Location Provider Dx Diagnosis Office Visit 12/29/2017 [facility] Placido Noe R07.9 Chest pain, 10:45a Of Lucinda Perez M.D., unspecified FACC, FASNC I42.9 Cardiomyopathy, unspecified Office 11/10/2017 [facility] Placido Noe R07.9 Chest pain, Visit 9:45a Of Lucinda Perez M.D., unspecified FACC, FASNC Office 10/21/2016 [facility] Placido Noe I42.9 Cardiomyopathy, Visit 8:45a Of Lucinda Perez M.D., unspecified FACC, FASNC [facility] 1:31p Associnocencio II, M.D. gastroenteritis and Hospitalists colitis, unspecified R77.8 Other specified abnormalities of plasma proteins N17.9 Acute kidney failure, unspecified E11.42 Type 2 diabetes mellitus with diabetic polyneuropathy Office Visit 11/04/2015 [facility] Placido Noe I42.9 Cardiomyopathy, 1:30p Cardiology Atul Perez M.D., unspecified Bone Density Technician FACC, FASNC Office Visit 10/15/2014 [facility] 425.4 Cardiomyopathy Other 12:45p Cardiology Atul Perez M.D., Prim Bone Density Technician FACC, FASNC Office Visit 08/25/2013 [facility] 425.4 Cardiomyopathy Other 11:45a Cardiology Atul Perez M.D., Prim [facility] FACC, FASNC Office Visit 07/20/2013 [facility] No[facility] 786.50 Pain Chest Unspec 9:30a Cardiology Atul Perez M.D., [facility] FACC, FASNC Plan of Treatment 12/29/2017 - Placido Perez M.D., FACC, [id number] Chest pain, [id number] Cardiomyopathy, unspecifiedNew Orders:Echocardiogram, Ordered: 12/29/17Comments:As discussed, no significant heart artery blockages are seen on your stress test. Please continue your current heart medications and I will recheck your heart function in one year.Follow up:one year after echo
--- OUTSIDE RECORDS SUMMARY | 2018-09-01 07:56 | XMS REPORT | Continuity of Care Document ---
:1965 External Reference #:[id number] Author Name Corinne Marvin Care Team Providers Name Role Phone Poncho Daniels D.O. Care Team Information Clipper Counters Unavailable Poncho Daniels D.O. Primary Care Physician Unavailable Payers Type Date Identification Numbers Payment Provider Subscriber Policy Number: [id number] [employer] Bailee Rosas PayID: [id number] [address] [address] [place] [address] Expires: 2016 Policy Number: [id number] [place] Vipin Rosas PayID: [id number] [address] [place] [address] Expires: 2015 Policy Number: [id number] Medicaid Vipin Rosas Group Number: [employer] [address] Group Name: 1 [place] [address] PayID: [id number] Effective: 2016 PayID: [id number] BS [facility] Vipin Rosas Expires: 2017 [address] [address] [place] [address] Advance Directives Description No Information Available Problems Date Description Provider Status Onset: 07/20/2013 Chest pain Placido Perez M.D., [facility] [place] Active Onset: 08/25/2013 Primary cardiomyopathy Placido Perez M.D., [facility] [place] Active Family History Description No Information [...] Kwikpen / Active Solution 100Unit/ML 18 units [place], 0000 Pen-Inject once Poncho after J., D.O. [...] Available Procedures Date Code Description Status 04/12/2018 73635 Diffusing Capacity Completed 04/12/2018 45768 Plethysmography Determination Lung Volumes & Per Airway Completed Resist 04/12/2018 75437 Spirometry Incl Graphic Record Completed 11/22/2017 85678 Stress Test Completed 11/22/2017 75803 Myocardial Perfusion Imaging Tomographic (Spect) Completed Multiple Studies 11/10/2017 37972 EKG Tracing & Interpretation Completed 10/27/2017 71751 ECHO Transthoracic, Real-Time 2D With Doppler And Color Completed Flow 10/27/2017 51861 ECHO Transthoracic, Real-Time 2D With Doppler And Color Completed Flow 10/21/2016 94957 EKG Tracing & Interpretation Completed 01/16/2016 [id number] Colonoscopy Completed 11/04/2015 02013 EKG Tracing & Interpretation Completed 10/25/2015 06978 ECHO Transthoracic, Real-Time 2D With Doppler And Color Completed Flow 10/15/2014 07508 EKG Tracing & Interpretation Completed 09/19/2014 36010 ECHO Transthoracic, Real-Time 2D With Doppler And Color Completed Flow 07/28/2013 80848 Echocardiogram Completed 07/28/2013 61769 ECHO Transthoracic, Real-Time 2D With Doppler And Color Completed Flow 07/25/2013 47694 Stress Test Completed 07/25/2013 69253 Myocardial Perfusion Imaging Tomographic (Spect) Completed Multiple Studies 07/20/2013 96505 EKG Tracing & Interpretation Completed Encounters Type Date Location Provider Dx Diagnosis Office Visit 12/29/2017 [facility] Placido Noe R07.9 Chest pain, 10:45a Of Lucinda Perez M.D., unspecified FACC, FASNC I42.9 Cardiomyopathy, unspecified Office 11/10/2017 [facility] Placido Noe R07.9 Chest pain, Visit 9:45a Of Lucinda Perez M.D., unspecified FACC, FASNC Office 10/21/2016 [facility] Placido Noe I42.9 Cardiomyopathy, Visit 8:45a Of Lucinda Perez M.D., unspecified FACC, FASNC [facility] 1:31p Associnocencio II, M.D. gastroenteritis and Hospitalists colitis, unspecified R77.8 Other specified abnormalities of plasma proteins N17.9 Acute kidney failure, unspecified E11.42 Type 2 diabetes mellitus with diabetic polyneuropathy Office Visit 11/04/2015 [facility] Placido Noe I42.9 Cardiomyopathy, 1:30p Cardiology Atul Perez M.D., unspecified Home Health Care Coordinator FACC, FASNC Office Visit 10/15/2014 [facility] No[facility] 425.4 Cardiomyopathy Other 12:45p Cardiology Atul Perez M.D., Prim Home Health Care Coordinator FACC, FASNC Office Visit 08/25/2013 [facility] Noe 425.4 Cardiomyopathy Other 11:45a Cardiology Atul Perez M.D., Prim [facility] FACC, FASNC Office Visit 07/20/2013 [facility] Noe 786.50 Pain Chest Unspec 9:30a Cardiology Atul Perez M.D., [facility] FACC, FASNC Plan of Treatment 12/29/2017 - Placido Perez M.D., FACC, [id number] Chest pain, [id number] Cardiomyopathy, unspecifiedNew Orders:Echocardiogram, Ordered: 12/29/17Comments:As discussed, no significant heart artery blockages are seen on your stress test. Please continue your current heart medications and I will recheck your heart function in one year.Follow up:one year after echo
[2018-09-01 08:02] LABS: EGFR Non-African American 54.1 (>60)
[2018-09-01 08:10] LABS: INR 0.99 (0.77-1.02)
[2018-09-01] MEDS ORDERED: Aspirin 81 mg CHEW TAB* 81 MG TAB.CHEW PO ONE (08:32)
[2018-09-01] MEDS ORDERED: Furosemide IV* 10 MG/ML 2 ML VIAL (20 MG) IV SLOW PU ONE (08:49)
[2018-09-01] MEDS ORDERED: Dextrose 50% Syringe 50 ML* 25 GM/50 ML SYRINGE IV PUSH PRN (10:19)
[2018-09-01] MEDS ORDERED: Insulin LISPRO* 1 UNITS UNIT SUBCUT SCH (11:00)
[2018-09-01] MEDS: Metoprolol Succinate XL TAB* 50 MG PO SCH (11:38)
[2018-09-01] MEDS: Lisinopril TAB* 10 MG PO SCH (11:39)
[2018-09-01] MEDS: Citalopram TAB* 40 MG PO SCH (11:39)
[2018-09-01] MEDS: Insulin GLARGINE(*) 1 UNITS UNIT SUBCUT SCH (11:39)
[2018-09-01] MEDS: Digoxin TAB* 0.125 MG PO SCH (11:39)
[2018-09-01] MEDS: Insulin LISPRO* 1 UNITS UNIT SUBCUT SCH ×3 (11:40→21:22)
[2018-09-01] MEDS: Heparin VIAL(*) 5000 UNITS/ML VIAL (FIVE THOUSAND) SUBCUT SCH ×2 (14:11→21:21)
[2018-09-01] MEDS: Gabapentin CAP(*) 300 MG PO SCH ×2 (14:11→21:21)
[2018-09-01 14:24] LABS: Urine Appearance Cloudy; Urine Blood Negative (Negative); Urine Color Straw; Urine Ketones Negative (Negative); Urine Protein Negative (Negative); Urine Specific Gravity 1.006 (1.010-1.030); Urine Urobilinogen Negative (Negative)
--- NOTE | 2018-09-01 14:49 | HP ---
CC: Dr. Daniels; Dr. Perez; Dr. Huerta* HISTORY AND PHYSICAL: DATE OF ADMISSION: 09/01/18 TIME OF EVALUATION: 9:05 a.m. PRIMARY CARE PROVIDER: Dr. Daniels. CONSULTING SUGAR LABORATORY ASSISTANT: Dr. Perez. CONSULTING NEUROLOGIST: Dr. Huerta. CHIEF COMPLAINT: "He couldn't speak" as per . HISTORY OF PRESENT ILLNESS: Mr. Rosas is a 52-year-old male with past medical history of cardiomyopathy with ejection fraction less than 20%, type 2 diabetes, hypertension, depression, coronary artery disease, diabetic neuropathy who presented to the emergency room with speech changes. The patient was recently admitted to [facility] from 08/27/18 to 08/31/18. He had presented with chest pain at that time and his workup had included troponin that peaked at 0.28 and an echocardiogram that showed an ejection fraction of less than 20%. He had no insurance and had stopped all his medications and his insurance is resumed today. The patient declined a LifeVest because he could not afford it and the tentative plan was for him to return on 09/02/18 at 9:30 a.m. to the [facility] for an elective cardiac cath. The patient states that when he went home yesterday, he was feeling well, had no complaints of chest pain or shortness of breath. He had some difficulty sleeping, but he states that this is not unusual for him. His states that she woke up around 6 in the morning with the patient tapping her. He was unable to speak, but was trying to communicate through gestures. She gave him a piece of paper, went to pickup her phone and when she returned, she noticed that he was unable to write. EMS was called and when the patient was in the ambulance, he started to speak a little and by the time he arrived to the hospital, she felt that this speech was back to normal. So, the whole episode lasted approximately 20 minutes from the time she woke up, but it is unclear when his symptoms had started. He denies chest pain, palpitations, shortness of breath, any numbness, tingling, or localized weakness. In the emergency room, the patient stated that he was feeling very hot and that he usually feels that way when his sugar is low, but his glucose was 129. PAST MEDICAL HISTORY: 1. Cardiomyopathy with ejection fraction less than 20%. 2. Non-obstructive coronary artery disease. 3. Hypertension. 4. Depression. 5. Type 2 diabetes. 6. Diabetic neuropathy. MEDICATIONS: As follows: 1. Aspirin 325 mg p.o. daily. 2. Atorvastatin 40 mg p.o. at 5 p.m. 3. Digoxin 0.125 mg p.o. daily. 4. Citalopram 20 mg p.o. daily. 5. Gabapentin 300 mg p.o. t.i.d. 6. Insulin glargine 23 units subcutaneously daily. 7. Lisinopril 10 mg p.o. daily. 8. Metformin 1000 mg p.o. b.i.d. 9. Metoprolol succinate 50 mg p.o. daily. ALLERGIES: No known drug allergies. FAMILY HISTORY: His father in his 40s due to heart disease. Mother in her 70s secondary to ovarian cancer. SOCIAL HISTORY: No history of tobacco, alcohol, or drug use. 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 Surrogate decision maker is his , Bailee Rosas, phone number is [phone]. REVIEW OF SYSTEMS: A 14-point review of system is performed and all the pertinent negative as per the HPI. PHYSICAL EXAMINATION GENERAL: The patient is a middle-aged gentleman that appears older than stated age, sitting in the ED on stretcher, in no acute distress. VITAL SIGNS: Temperature 98.1, heart rate is 69, respiratory rate is 16, oxygen saturation 97% on room air, blood pressure is 123/82. HEENT: Pupils are equal. Face is symmetric. Moist mucous membranes. CHEST: Breath sounds present bilaterally, decreased in based, but no added sounds. CVS: Normal S1, S2. Regular rate and rhythm. ABDOMEN: Soft, bowel sounds present. EXTREMITIES: No edema. NEUROLOGIC: He is alert and oriented x3. Face is symmetric. Speech is clear. He is able to move all 4 extremities with power of 5/5 in all extremities. ASSESSMENT AND PLAN: Mr. Rosas is a 53-year-old male with past medical history of cardiomyopathy with ejection fraction of 20%, non-obstructive coronary artery disease, hypertension, depression, diabetes, diabetic neuropathy who presented to the emergency room after an episode of aphasia, now resolved. 1. Probable transient ischemic attack: With the patient known depressed ejection fraction and his other risk factors, this was likely a transient ischemic attack. The patient will be admitted as observation to the telemetry floor. He will be monitored with neuro checks and Neurology consult was already requested with Dr. Huerta. He will be continued on aspirin for now, but with his cardiac history, I question if he may be better served with full anticoagulation. We are going to continue statin. He will have an MRI of the brain without contrast and limited echo check looking for PFO. I will wait for Dr. Huerta's recommendation for vascular studies. 2. Hypertension: It is controlled at this time. I am going to continue lisinopril and metoprolol with holding parameters. 3. Cardiomyopathy: It appears to be stable at this time, and I will continue ANGELIC inhibitor, beta-lisa, digoxin, atorvastatin, and aspirin. 4. Type 2 diabetes: I will continue Lantus and add lispro sliding scale. I am going to hold his metformin for now as he may need contrast study. 5. Lactic acidosis: Suspect this is likely secondary to metformin use. The patient does not have sepsis. 6. DVT prophylaxis: The patient has a score of 2 on the DVT Prophylaxis Risk Assessment Guide and he will be started on subcutaneous heparin. 7. Code status is full. TIME SPENT: Approximately 50 minutes was spent with the patient and interview, medical records reviewed, physical examination to complete this admission, more than half of this time was spent [id number] with patient and coordination of care. [id number]/[facility] #: [id number] MTDD
[2018-09-01] MEDS ORDERED: NS 0.9% 250 ML* 250 ML IV SCH (15:00)
--- NOTE | 2018-09-01 15:39 | CONS ---
CC: Dr. Wade; Dr. Daniels NEUROLOGY CONSULTATION: DATE OF CONSULT: 09/01/18 LOCATION: He is an inpatient in room 452. REFERRING PHYSICIAN: Dr. Phelps. CHIEF COMPLAINT: Inability to speak. HISTORY OF PRESENT ILLNESS: Vipin Rosas is a 52-year-old right-handed man, who was in his [facility] state of health yesterday when he woke up and was unable to produce words. He pounded on the tabl e to wake up his . He knew what he wanted to say, but he could not get any words out. His said that he seemed to be cognizant of what was happening, but just going through single words or aaron etimes none at all. She asked him to write something down while she went to the bathroom and when sh e came back, he was unable to write what he intended to say either. She said when she came out, he h ad a blank look on his face, but his eyes were open. So that was just for a few seconds. She called an ambulance. He was still not able to speak when the ambulance attendants got there, but on the y in, he started to be able to produce words. When he was evaluated in the emergency room, he was ab le to speak. He did not have any numbness, weakness, headache, or change in vision. He has never richard d any episodes like this in the past. There is no history of stroke or epilepsy. He was just discharged from the hospital within the week because of shortness of breath. He has parker schemic cardiomyopathy and his ejection fraction by echocardiogram on 08/27/18 was only 20%. There i s no description of a ventricular or atrial clot. There is no history of atrial fibrillation. His changed insurance and he has not had any medication coverage for some number of weeks. He w as not even taking 1 aspirin a day as of yesterday. He was not on his statins, antihypertensives, or medicines for diabetes. PAST MEDICAL HISTORY: Notable for insulin-requiring diabetes, nonischemic cardiomyopathy, hypertensi on, depression, insomnia. MEDICATIONS: Medications, which he is supposed to be on, but he has not been taking include: 1. Aspirin 81 mg p.o. q. day. 2. Digoxin 0.125 mg p.o. q. day. 3. Lexapro 20 mg p.o. q. day. 4. Metoprolol 25 mg p.o. b.i.d. 5. Spironolactone 25 mg every other day. 6. Gabapentin 300 mg p.o. t.i.d. 7. Metformin 1000 mg p.o. b.i.d. 8. Alogliptin 25 mg p.o. q. day. ALLERGIES: He does not have any drug allergies. SOCIAL HISTORY: He is on disability, he lives with his . He does not smoke. He does not drink a lcohol. REVIEW OF SYSTEMS: Negative for falls, headaches, faints, change in weight, nausea. PHYSICAL EXAM: He is thin and pale. He is well hydrated. Temperature 97.7, blood pressure 114/76, heart rate is in the 70s and regular. Respiratory rate is 16 and oxygen saturation is 97% on room ai r. Heart is in a regular rhythm and I do not hear any murmurs. Lungs are clear bilaterally. Caroti d pulses are present and there are no cervical bruits. Oral mucosa is moist and atraumatic. Neurolo gical Exam: Pupils react equally from 4 down to 2 mm. Eye movements are normal. Funduscopic exam is normal bilaterally. Visual smyth are full to confrontation. Facial musculature and sensation are i ntact and symmetric. Palate and tongue are normal, tongue protrudes in the midline and palate raises symmetrically. Speech is clear without dysarthria. Hearing is intact to tuning fork bilaterally. Neck strength is normal. Motor exam reveals normal muscle tone and strength proximally and distally in the upper and lower extremities. There is no drift of the limbs. Juhjhe-fg-[id number] maneuver is anita l bilaterally. Finger taps are normal bilaterally. Foot taps are normal bilaterally. Sensory exam i s notable for intact to light touch and pin discrimination in the extremities. Vibration is normal i n the toes and fingers as well. Reflexes are hypoactive, trace at the knees, absent at the ankles. Plantar responses are flexor bilaterally. He is alert and oriented and an excellent historian. Hernan ry is intact and language is fluent. He has adequate attention, concentration, and fund of knowledge . DIAGNOSTIC STUDIES/LAB DATA: Includes a CT scan of the brain, which I reviewed the images of. It is a normal study. Transthoracic echocardiogram from 08/27/18 revealed [id number] dilatation of the left atrium, l eft ventricular ejection fraction is only 20%. Other laboratory data notable for sodium today of 133, it was 132 yesterday when he presented to the hospital. Blood glucose yesterday was 400, today it is 129. BUN 42, creatinine 1.38. This is simil ar to historical values in the record. Lactic acid this morning is elevated at 2.8. His troponin is elevated at 0.12. BNP is elevated at 2316. His cholesterol this morning is 159, LDL 95. His rakesh sterol this past 06/14/18 was 106, LDL 43. Last hemoglobin A1c was 06/14/18 and it was 6.9%. IMPRESSION AND PLAN: Impression is that of a probable dominant hemispheric transient ischemic attack . It sounds as though he was aphasic for probably an hour or close to it. Currently, he seems to be back to normal. His lipid profile is a little bit suboptimal, but he has not been taking his statin s for at least weeks and it was fine a couple of months, so I think we can just reinstitute the prior dose. He may need to be anticoagulated, but I think for now just reinstituting his aspirin, which h as already been done, is reasonable until we can get an MRI scan of the brain to see if in fact he richard s had a stroke. If he has had a cardioembolic stroke, then I think anticoagulation will be recommend ed. I will discuss my opinion with Dr. Phelps and also with Cardiology after the MRI is done and we will review his case together. [id number]/[facility] #: [id number]
--- NOTE | 2018-09-01 16:23 | PN ---
Hospitalist Progress Note Date of Service: 09/01/18 HOSPITALIST ADDENDUM Lactic acid trended up to 3.3. Patient remains asymptomatic and has no infectious signs. This is likely secondary to metformin use in a patient with severe CMP with EF< 20%. Will give NS 250ml to avoid fluid overload and repeat LA later tonight.
[2018-09-01] MEDS: Atorvastatin* 40 MG TAB PO SCH (17:39)
[2018-09-02] MEDS: Heparin VIAL(*) 5000 UNITS/ML VIAL (FIVE THOUSAND) SUBCUT SCH ×2 (06:27→15:21)
[2018-09-02 07:41] LABS: EGFR Non-African American 47.7 (>60)
[2018-09-02] MEDS: Insulin LISPRO* 1 UNITS UNIT SUBCUT SCH ×4 (08:28→22:36)
[2018-09-02] MEDS: Gabapentin CAP(*) 300 MG PO SCH ×3 (08:29→21:16)
[2018-09-02] MEDS: Metoprolol Succinate XL TAB* 50 MG PO SCH (08:29)
[2018-09-02] MEDS: Citalopram TAB* 40 MG PO SCH (08:29)
[2018-09-02] MEDS: Lisinopril TAB* 10 MG PO SCH (08:29)
[2018-09-02] MEDS: Digoxin TAB* 0.125 MG PO SCH (08:30)
[2018-09-02] MEDS ORDERED: Aspirin EC TAB* 325 MG PO SCH (09:00)
--- NOTE | 2018-09-02 09:48 | ECHO ---
Patient: SOLOMON ZIEGLER Rec#: [id number] : 1965 Date: 09/02/2018 Age: 52y Height: 163 cm / 64.2 in Weight: 55.8 kg / 123.0 lbs Sex: M BSA: 1.6 Room#: 452 Admit Date#: 09/01/2018 Type: Inpatient Referring: Brielle Fernandez MD Reading: Shabana Wade MD Loan Review Analyst: Lady Ricketts RN RDCS CC: Poncho Daniels DO Transthoracic Echocardiogram Indication: TIA BP: 109/86 HR: 67 Rhythm: NSR Findings History: Nonischemic cardiomyopathy, HTN, DM. This is a LIMITED exam for BUBBLE STUDY only. A complete echocardiogram was performed on 08/28/2018. Technical Comments: The study quality is good. Completed at 0810. Right Atrium: The bubble study is negative. A patent foramen ovale is not demonstrated by agitated contrast. Contrast: Normal saline was used as contrast for the bubble study. Images 1 and 2. Conclusions Limited study, bubble study only Severe LV systolic dysfunction, no clot seen in LV apex. RV hypokinetic. No evidence of cardiopulmonary shunting based on bubble study.
[2018-09-02] MEDS: Insulin GLARGINE(*) 1 UNITS UNIT SUBCUT SCH (11:57)
--- NOTE | 2018-09-02 14:17 | PN ---
Subjective Date of Service: 09/02/18 Interval History: HOSPITALIST PROGRESS NOTE Patient seen and examined at bedside. Care reviewed and d/w Rafaela Epps RN. He feels a little better today. No further episodes of aphasia or dysarthria. Denies chest pain or palpitations, has mild dyspnea, but states this is his "usual". Family History: Unchanged from Admission Social History: Unchanged from Admission Past Medical History: Unchanged from Admission Objective Active Medications: Aspirin (Ecotrin Ec Tab*) 325 mg PO DAILY [facility] Last Admin: 09/02/18 08:29 Dose: 325 mg Atorvastatin Calcium (Lipitor*) 40 mg PO 1700 [facility] Last Admin: 09/01/18 17:39 Dose: 40 mg Citalopram Hydrobromide (Celexa Tab*) 40 mg PO DAILY [facility] Last Admin: 09/02/18 08:29 Dose: 40 mg Dextrose (D50w Syringe 50 Ml*) 12.5 gm IV PUSH .FOR FS < 60 - SS PRN PRN Reason: FS < 60 Digoxin (Lanoxin Tab*) 0.125 mg PO DAILY [facility] Last Admin: 09/02/18 08:30 Dose: 0.125 mg Gabapentin (Neurontin Cap(*)) 300 mg PO TID [facility] Last Admin: 09/02/18 08:29 Dose: 300 mg Heparin Sodium (Porcine) (Heparin Vial(*)) 5,000 units SUBCUT Q8HR [facility] Last Admin: 09/02/18 06:27 Dose: 5,000 units Insulin Glargine (Lantus(*)) 10 units SUBCUT Q24H [facility] Last Admin: 09/02/18 11:57 Dose: 10 unit Insulin Human Lispro (Humalog*) 0 units SUBCUT ACHS [facility]; Protocol Last Admin: 09/02/18 11:56 Dose: 3 units Lisinopril (Prinivil Tab*) 10 mg PO DAILY [facility] Last Admin: 09/02/18 08:29 Dose: 10 mg Metoprolol Succinate (Toprol Xl Tab*) 50 mg PO DAILY [facility] Last Admin: 09/02/18 08:29 Dose: 50 mg Vital Signs - 8 hr 09/02/18 09/02/18 09/02/18 07:25 08:29 08:30 Temperature 97.9 F Pulse Rate 66 66 Respiratory 20 15 Rate Blood Pressure 109/86 (mmHg) O2 Sat by Pulse 97 Oximetry 09/02/18 10:46 Temperature Pulse Rate Respiratory 16 Rate Blood Pressure (mmHg) O2 Sat by Pulse Oximetry Oxygen Devices in Use Now: None Appearance: Middle aged gentleman sitting up in bed in NAD. Eyes: No Scleral Icterus Ears/Nose/Mouth/Throat: Mucous Membranes Moist Neck: Trachea Midline Respiratory: Symmetrical Chest Expansion and Respiratory Effort, Clear to Auscultation Cardiovascular: RRR - Normal S1 and S2 Abdominal: NL Sounds; No Tenderness; No Distention Extremities: No Edema Neurological: Alert and Oriented x 3, NL Muscle Strength and Tone Result Diagrams: 09/01/18 07:37 09/02/18 07:11 Assess/Plan/Problems-Billing Assessment: Mr Rosas is a 52yo M with PMH of CMP EF<20%, non obstructive CAD, type 2 DM with diabetic neuropathy, HTN, depression, who presented to ED with an episode of aphasia, found to have a TIA. - Patient Problems (1) TIA (transient ischemic attack) Comment: - Symptoms are resolved. - MRI brain was negative for CVA. - D/w Neurology - with his significantly depressed EF recommends anticoagulation with Apixaban. Cardiology in agreement. Neuro also recommended CTA head/neck. This was d/w patient and , but especially considering his CKD and the fact he'll need contrast for his cath, they're reluctant. Will order carotid US for now and discuss further with Neurology. - Will start Apixaban 2.5mg PO BID tonight (Creatinine >1.5, weight 55kg). (2) HLD (hyperlipidemia) Comment: - LDL 95 - continue Atorvastatin - patient was not compliant with it and has recently resumed it. (3) Type II diabetes mellitus Comment: - Increase Lantus to 15 units daily and continue Lispro SS. (4) CHF (congestive heart failure) Comment: - Patient with known EF<20%. Plan was for cardiac cath today as outpatient, but he unfortunately had a TIA. - Cardiology consult requested. - Continue Digoxin, Lisinopril, and Metoprolol. - Awaiting Life Vest. (5) DVT prophylaxis Comment: - Apixaban. (6) Full code status Status and Disposition: Change to inpatient.
[2018-09-02] MEDS: Atorvastatin* 40 MG TAB PO SCH (16:38)
[2018-09-02] MEDS: Apixaban* 2.5 MG TAB PO SCH (21:17)
--- NOTE | 2018-09-02 21:23 | CONS ---
CC: Dr. Placido Perez; Dr. Poncho Daniels; Hospitalist; Dr. Huerta CONSULTATION NOTE: DATE OF CONSULT: 09/02/18 REASON FOR CONSULTATION: TIA. CHIEF COMPLAINT: Unable to speak. HISTORY OF PRESENT ILLNESS: Mr. Rosas is a 52-year-old gentleman followed by my partner, Dr. Perez, with a nonischemic cardiomyopathy. He was recently admitted on 08/27/18 because of shortness of breath, orthopnea, PND, and chest discomfort. He had run out of his medications. Insurance would not cover them and he had not had any of his medications for 6 weeks. In the hospital, he was found to be in congestive heart failure, an echocardiogram showed his ejection fraction had markedly dropped to 20% to 25% and he had mild elevation in troponin. On this last admission, the patient underwent aggressive diuresis, resumption of his congestive heart failure medications and with improvement in shortness of breath, plans were made to get a ZOLL external defibrillator the next day, Thanks, the first day his insurance would cover. Plans were also made for the patient to return today, the day after , for outpatient cardiac catheterization to determine if this is an ischemic or nonischemic cardiomyopathy (mild coronary artery disease on distant cath). The patient went home, was feeling okay, said he went to bed early, so he had to urinate a lot, but also described orthopnea and PND and up and down all night. In the morning, he awoke and was unable to talk. He had to pound on the coffee table to wake his up. She had the idea that he could write down what the problem was, but he was unable to write. The patient was then brought in by ambulance and his ability to speak returned. The patient states that during this period, his comprehension and understanding was excellent and normal. He did not describe any gait or motor problems. He denied vision problems. The patient denied awareness of palpitations or racing of the heart and he denied chest pain in the setting of these events. At the time I am seeing him, he is many hours into speech having completely normalized. PAST MEDICAL HISTORY: 1. Nonischemic cardiomyopathy, responded to medical management and low normal ejection fraction in 2017. 2. Mild coronary plaquing: Cardiac catheterization in [facility] in 2009, 30% LAD, 30% posterior descending occlusion, otherwise clean. 3. Diabetes. 4. Hypertension. 5. Renal insufficiency. 6. Paroxysmal AFib. 7. Depression. 8. Dyslipidemia. 9. Left bundle-branch block. CURRENT MEDICATIONS: Include: 1. Aspirin 81 mg a day. 2. Lipitor 40 mg a day. 3. Celexa 40 mg a day. 4. Digoxin 0.125 mg a day. 5. Neurontin 300 mg t.i.d. 6. Lantus insulin. 7. Humalog insulin. 8. Prinivil 10 mg a day. 9. Toprol-XL 50 mg a day. ALLERGIES: He has no known drug allergies. SOCIAL HISTORY: The patient lives with his supportive , dependent on her insurance. No tobacco use or alcohol use. No recreational drug use. FAMILY HISTORY: Significant that his father in his 40s of atherosclerotic heart disease. His mother of ovarian cancer in her 70s. He has a sister with a history of atrial fibrillation and thyroid abnormality. He thinks it may be a malignancy. REVIEW OF SYSTEMS: See history of present illness. Positive for nocturia, orthopnea, and PND during the night he was at home followed by his expressive aphasia when he awoke. He was very cold that night and took a full aspirin 325 mg thinking it might warm him up and he slept in the living room because it was warmer. All other 14-point review of systems is unremarkable. PHYSICAL EXAMINATION: On exam, the patient is 5 feet, 4 inches, weighs 121 pounds with a BMI of 21. Vital signs on arrival to the emergency room, pulse was 90 and regular, respiratory rate was 18, oxygen saturation 98% on room air, and blood pressure 123/87, temperature 98.1. Currently, blood pressure 115/88, pulse is 57, respiratory rate 16, oxygen saturation 98% on room air. General Appearance: Lean, fit-appearing somewhat older gentleman, seated, in no acute distress. Psychologically, pleasant and cooperative. Neurologically, awake, alert, oriented to person, place, and time. Grossly normal sensory and motor function in the upper and lower extremities. Normal gait. Very articulate. Skin: Red hair complexion, warm, dry without appreciable cyanosis of the lips, nail beds. No rashes appreciated. HEENT: Mucous membranes moist. Neck: Without increased JVP. Lungs: Somewhat distant, but clear. No wheezes, rales, or rhonchi. Coronary: Also distant S1 and S2, regular but on the rapid side with S4 gallop. Abdomen: Mildly distended, active bowel sounds, soft, nontender. No hepatomegaly and lower extremities are free of edema. LABORATORY DATA/DIAGNOSTIC STUDIES: Labs, white count 7.7, hematocrit 39, platelets 179. INR 0.99. PTT 31. On admission, sodium 133, potassium 4.9, chloride 100, bicarb 23, BUN 42, creatinine 1.38, glucose 142. Lactic acid 2.7. ALT of 26. Troponin #1, 0.12; troponin #2, 0.12; troponin #3, 0.11 ( admission from 08/27/18 through 08/28/18 had troponins of 0.20 up to 0.28, down to 0.19). BNP of 2316. Total cholesterol 159, triglycerides 81, LDL cholesterol 95, HDL cholesterol 48. Urinalysis, specific gravity of 1.006, negative nitrite, negative esterase. Tox screen negative for alcohol or other recreational drugs. On 08/27/18, TSH was 2.15. Carotid Doppler showed no significant disease. J[facility] MRI on 09/02/18 showed no acute infarct. It had disproportion of volume loss in the cerebellum, congenital versus toxic metabolic disturbance. Focused echo with a bubble study was negative for intracardiac shunting on 09/01/18. No thrombus noted in the apex of the left ventricle. Full echo on 08/27/18 showed moderate left ventricular hypertrophy, severe global hypokinesis with an ejection fraction less than 20%, low normal right ventricular systolic function, mild mitral, trace to mild tricuspid insufficiency. Chest x-ray on 09/01/18 consistent with congestive heart failure and 12-lead ECG shows sinus rhythm, 75 beats a minute with left bundle-branch block, unchanged from baseline. IMPRESSION: In summary, Vipin Rosas is a 52-year-old gentleman with a history of nonischemic cardiomyopathy going back to 2009, his ejection fraction on medical management had improved to 50% relatively recently. The patient did not take his medications including cardiac medications for 6 weeks and presented with congestive heart failure earlier this week. He was discharged 2 days ago with plans to get a LifeVest the next day when his insurance kicked in on cardiac catheterization today. The patient then presented with an expressive aphasia following a night with nocturia, orthopnea, and PND and he was in congestive heart failure on arrival. For the patient's expressive aphasia, I understand Dr. Huerta feels this is a transient ischemic attack and not a stroke and though with his current presentation, is recommending full anticoagulation and Eliquis is going to be started tonight. I agree that a NOAC or Coumadin would be of benefit to prevent recurrent strokes as he is at risk for left ventricular thrombus from his severely depressed ejection fraction. For the cardiomyopathy in the past, this was felt to be nonischemic, but it is possible that his mild coronary artery disease has progressed in the last 18 years and as an outpatient, he had had chest pain going back as far as December based on Dr. Perez's note. I still feel we should rule in or out progression in his atherosclerotic heart disease with cardiac catheterization, but we will need to discuss the timing with the invasive/Interventional Cardiology physician. As his anticoagulation, we will need to be held and as before we need to take care to minimize dye with his renal insufficiency. We also need to make sure that his congestive heart failure is optimized prior to his dye injection. Nonischemic etiologies of his cardiomyopathy could include his left bundle- branch block in addition to holding his medications. If his cardiomyopathy remains nonischemic and we are unable to get his ejection fraction with significant improvement again, he could then be referred for resynchronization pacer defibrillator (RUG CLEANER-D device). The patient continues to be at risk for ventricular tachycardia and life threatening dysrhythmia so we will continue tentatively with plans for external defibrillator more working on insurance. Based on chest x-ray findings and symptoms of orthopnea and PND prior to admission, he may benefit from a little more diuresis that we need to do this gently. He may benefit from nitroglycerin patch or paced at night for symptomatic relief of sleep. I would recommend overnight oximetry to see if he is desaturating at night in case this is contributing to the above presentation. Renal insufficiency is noted and it may be that he has primary kidney problems, but it could be prerenal from his poor flow as well. Additional recommends will be made pending his response to the above measures. [id number]/[facility] #: [id number] LINDA
[2018-09-03] MEDS: Insulin LISPRO* 1 UNITS UNIT SUBCUT SCH ×4 (08:14→21:38)
[2018-09-03] MEDS: Aspirin EC TAB* 81 MG TAB.EC PO SCH (08:37)
[2018-09-03] MEDS: Gabapentin CAP(*) 300 MG PO SCH ×3 (08:37→21:04)
[2018-09-03] MEDS: Metoprolol Succinate XL TAB* 50 MG PO SCH (08:37)
[2018-09-03] MEDS: Apixaban* 2.5 MG TAB PO SCH ×2 (08:38→21:04)
[2018-09-03] MEDS: Digoxin TAB* 0.125 MG PO SCH (08:38)
[2018-09-03] MEDS: Citalopram TAB* 40 MG PO SCH (08:39)
[2018-09-03] MEDS: Lisinopril TAB* 10 MG PO SCH (08:39)
[2018-09-03] MEDS ORDERED: Insulin GLARGINE(*) 1 UNITS UNIT SUBCUT SCH (09:00)
--- NOTE | 2018-09-03 12:25 | PN ---
Subjective Date of Service: 09/03/18 Interval History: HOSPITALIST PROGRESS NOTE Patient seen and examined at bedside. Care reviewed and d/w Kenroy Mello RN. He's sleeping, but easily arousable. Had 4 beats of Vtach last night, asymptomatic. No further episodes of aphasia. Family History: Unchanged from Admission Social History: Unchanged from Admission Past Medical History: Unchanged from Admission Objective Active Medications: Apixaban (Eliquis*) 2.5 mg PO BID [facility] Last Admin: 09/03/18 08:38 Dose: 2.5 mg Aspirin (Aspirin Ec Tab*) 81 mg PO DAILY [facility] Last Admin: 09/03/18 08:37 Dose: 81 mg Atorvastatin Calcium (Lipitor*) 40 mg PO 1700 [facility] Last Admin: 09/02/18 16:38 Dose: 40 mg Citalopram Hydrobromide (Celexa Tab*) 40 mg PO DAILY [facility] Last Admin: 09/03/18 08:39 Dose: 40 mg Dextrose (D50w Syringe 50 Ml*) 12.5 gm IV PUSH .FOR FS < 60 - SS PRN PRN Reason: FS < 60 Digoxin (Lanoxin Tab*) 0.125 mg PO DAILY [facility] Last Admin: 09/03/18 08:38 Dose: 0.125 mg Gabapentin (Neurontin Cap(*)) 300 mg PO TID [facility] Last Admin: 09/03/18 08:37 Dose: 300 mg Insulin Glargine (Lantus(*)) 15 units SUBCUT DAILY [facility] Last Admin: 09/03/18 08:41 Dose: 15 units Insulin Human Lispro (Humalog*) 0 units SUBCUT [facility]; Protocol Last Admin: 09/03/18 12:08 Dose: 2 units Lisinopril (Prinivil Tab*) 10 mg PO DAILY [facility] Last Admin: 09/03/18 08:39 Dose: 10 mg Metoprolol Succinate (Toprol Xl Tab*) 50 mg PO DAILY [facility] Last Admin: 09/03/18 08:37 Dose: 50 mg Vital Signs - 8 hr 09/03/18 09/03/18 09/03/18 07:30 08:00 08:37 Temperature 97.8 F Pulse Rate 64 Respiratory 16 18 20 Rate Blood Pressure 123/89 (mmHg) O2 Sat by Pulse 100 Oximetry 09/03/18 08:38 Temperature Pulse Rate 70 Respiratory Rate Blood Pressure (mmHg) O2 Sat by Pulse Oximetry Oxygen Devices in Use Now: Nasal Cannula Appearance: Pleasant, thin, frail middle aged gentleman, lying in bed in NAD Eyes: No Scleral Icterus Ears/Nose/Mouth/Throat: - - Temporal wasting Neck: Trachea Midline, No Thyroid Enlargement, Masses Respiratory: Symmetrical Chest Expansion and Respiratory Effort, Clear to Auscultation Cardiovascular: RRR - Normal S1 and S2 Abdominal: NL Sounds; No Tenderness; No Distention Neurological: Alert and Oriented x 3, NL Muscle Strength and Tone Result Diagrams: 09/01/18 07:37 09/02/18 07:11 Assess/Plan/Problems-Billing Assessment: Mr Rosas is a 52yo M with PMH of CMP EF<20%, non obstructive CAD, type 2 DM with diabetic neuropathy, HTN, depression, who presented to ED with an episode of aphasia, found to have a TIA. - Patient Problems (1) TIA (transient ischemic attack) Comment: - Symptoms are resolved. - MRI brain was negative for CVA. - D/w Neurology - with his significantly depressed EF recommends anticoagulation with Apixaban. Cardiology in agreement. Neuro also recommended CTA head/neck. This was d/w patient and , but especially considering his CKD and the fact he'll need contrast for his cath, they're reluctant to pursue it. - Carotid US showed no significant stenosis. - Continue Apixaban 2.5mg PO BID (Creatinine >1.5, weight 55kg). (2) HLD (hyperlipidemia) Comment: - LDL 95 - continue Atorvastatin - patient was not compliant with it and has recently resumed it. (3) Type II diabetes mellitus Comment: - Continue Lantus 15 units daily and Lispro SS. (4) CHF (congestive heart failure) Comment: - Patient with known EF<20%. Plan was for cardiac cath today as outpatient, but he unfortunately had a TIA. - Cardiology consult appreciated - will await decision about cardiac cath. - Continue Digoxin, Lisinopril, and Metoprolol. - Awaiting Life Vest. (5) DVT prophylaxis Comment: - Apixaban. (6) Full code status Status and Disposition: Inpatient.
--- NOTE | 2018-09-03 12:40 | PN ---
Subjective Date of Service: 09/03/18 - cc: expressive aphasia, resolved Interval History: Pt slept all night, no orthopnea or PND. No SOB. No palpitations. Medications Active Medications: Apixaban (Eliquis*) 2.5 mg PO BID [facility] Last Admin: 09/03/18 08:38 Dose: 2.5 mg Aspirin (Aspirin Ec Tab*) 81 mg PO DAILY [facility] Last Admin: 09/03/18 08:37 Dose: 81 mg Atorvastatin Calcium (Lipitor*) 40 mg PO 1700 [facility] Last Admin: 09/02/18 16:38 Dose: 40 mg Citalopram Hydrobromide (Celexa Tab*) 40 mg PO DAILY [facility] Last Admin: 09/03/18 08:39 Dose: 40 mg Dextrose (D50w Syringe 50 Ml*) 12.5 gm IV PUSH .FOR FS < 60 - SS PRN PRN Reason: FS < 60 Digoxin (Lanoxin Tab*) 0.125 mg PO DAILY [facility] Last Admin: 09/03/18 08:38 Dose: 0.125 mg Gabapentin (Neurontin Cap(*)) 300 mg PO TID [facility] Last Admin: 09/03/18 08:37 Dose: 300 mg Insulin Glargine (Lantus(*)) 15 units SUBCUT DAILY [facility] Last Admin: 09/03/18 08:41 Dose: 15 units Insulin Human Lispro (Humalog*) 0 units SUBCUT ACHS [facility]; Protocol Last Admin: 09/03/18 12:08 Dose: 2 units Lisinopril (Prinivil Tab*) 10 mg PO DAILY [facility] Last Admin: 09/03/18 08:39 Dose: 10 mg Metoprolol Succinate (Toprol Xl Tab*) 50 mg PO DAILY [facility] Last Admin: 09/03/18 08:37 Dose: 50 mg Objective Vital Signs: Temp Pulse Resp BP Pulse Ox 97.8 F 70 16 123/89 100 09/03/18 07:30 09/03/18 08:38 09/03/18 12:28 09/03/18 07:30 09/03/18 07:30 Oxygen Devices in Use Now: Nasal Cannula Appearance: lean somewhat older gentleman appearing comfortable. Eyes: No Scleral Icterus, PERRLA Ears/Nose/Mouth/Throat: Clear Oropharnyx, Mucous Membranes Moist Neck: NL Appearance and Movements; NL JVP, Trachea Midline Respiratory: Symmetrical Chest Expansion and Respiratory Effort, Clear to Auscultation Cardiovascular: NL Sounds; No Murmurs; No JVD, RRR Abdominal: NL Sounds; No Tenderness; No Distention, No Hepatosplenomegaly Extremities: No Edema, No Clubbing, Cyanosis Skin: No Rash or Ulcers Neurological: Alert and Oriented x 3, NL Muscle Strength and Tone Lines/Tubes/Other Access: Clean, Dry and Intact Peripheral IV Laboratory Results: 09/01/18 07:37 09/02/18 07:11 INR (Anticoag Therapy) 0.99 (0.77-1.02) 09/01/18 07:54 APTT 31.3 seconds (26.0-36.3) 09/01/18 07:54 Total Bilirubin 0.80 mg/dL (0.2-1.0) 09/01/18 07:37 AST 27 U/L (13-39) 09/01/18 07:37 ALT 26 U/L (7-52) 09/01/18 07:37 Alkaline Phosphatase 109 U/L (34-104) H 09/01/18 07:37 B-Natriuretic Peptide 2316 pg/mL (<=100) H 09/01/18 07:37 Total Protein 7.1 g/dL (6.4-8.9) 09/01/18 07:37 Albumin 4.4 g/dL (3.2-5.2) 09/01/18 07:37 Globulin 2.7 g/dL (2-4) 09/01/18 07:37 Albumin/Globulin Ratio 1.6 (1-3) 09/01/18 07:37 Triglycerides 81 mg/dL 09/01/18 07:37 Cholesterol 159 mg/dL 09/01/18 07:37 LDL Cholesterol 95 mg/dL 09/01/18 07:37 HDL Cholesterol 47.5 mg/dL 09/01/18 07:37 09/01/18 09/01/18 09/01/18 07:37 10:21 14:09 Troponin I 0.12 H* 0.12 H* 0.11 H* Diagnostic Imaging: Cath 2009 ([facility]): 30% LAD, 30% PD. EKG Data: Monitor: NSR with rare low junctional/idioventricular rhythm w/retrograde P's, wide QRS competing with sinus. Occ PVC's. Assessment/Plan 52 yo with re admission. #1 admission for CHF, EF 20%, down from 50%, with mild elevation in trops and CP hx. #2 admission day after discharge for expressive aphasia/TIA. Pt much improved. CHF: Appears euvolemic. Continue current medications. CM: I talked with Dr Conway, he can cath Wednesday to determine if ischemic vs non ischemic Wednesday, needs Eliquis held. -C's only due to renal insufficiency. External ICD recommended, won't get insurance information until next week. 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 Consider overnight oximeter to ensure no hypoxia sleeping, in or out patient.
[2018-09-03] MEDS: Atorvastatin* 40 MG TAB PO SCH (17:51)
[2018-09-04] MEDS: Metoprolol Succinate XL TAB* 50 MG PO SCH (08:47)
[2018-09-04] MEDS: Digoxin TAB* 0.125 MG PO SCH (08:48)
[2018-09-04] MEDS: Citalopram TAB* 40 MG PO SCH (08:48)
[2018-09-04] MEDS: Lisinopril TAB* 10 MG PO SCH (08:48)
[2018-09-04] MEDS: Aspirin EC TAB* 81 MG TAB.EC PO SCH (08:48)
[2018-09-04] MEDS: Gabapentin CAP(*) 300 MG PO SCH ×3 (08:49→20:55)
[2018-09-04] MEDS: Insulin LISPRO* 1 UNITS UNIT SUBCUT SCH ×4 (08:49→20:56)
[2018-09-04] MEDS ORDERED: Insulin GLARGINE(*) 1 UNITS UNIT SUBCUT SCH (09:00)
--- NOTE | 2018-09-04 16:24 | PN ---
Subjective Date of Service: 09/04/18 Interval History: HOSPITALIST PROGRESS NOTE Patient seen and examined at bedside. Care reviewed and d/w Kenroy Mello RN. He feels well today, offers no complaints. Family History: Unchanged from Admission Social History: Unchanged from Admission Past Medical History: Unchanged from Admission Objective Active Medications: Aspirin (Aspirin Ec Tab*) 81 mg PO DAILY [facility] Last Admin: 09/04/18 08:48 Dose: 81 mg Atorvastatin Calcium (Lipitor*) 40 mg PO 1700 [facility] Last Admin: 09/03/18 17:51 Dose: 40 mg Citalopram Hydrobromide (Celexa Tab*) 40 mg PO DAILY [facility] Last Admin: 09/04/18 08:48 Dose: 40 mg Dextrose (D50w Syringe 50 Ml*) 12.5 gm IV PUSH .FOR FS < 60 - SS PRN PRN Reason: FS < 60 Digoxin (Lanoxin Tab*) 0.125 mg PO DAILY [facility] Last Admin: 09/04/18 08:48 Dose: 0.125 mg Gabapentin (Neurontin Cap(*)) 300 mg PO TID [facility] Last Admin: 09/04/18 14:50 Dose: 300 mg Insulin Glargine (Lantus(*)) 20 units SUBCUT DAILY [facility] Last Admin: 09/04/18 08:50 Dose: 20 units Insulin Human Lispro (Humalog*) 0 units SUBCUT ACHS [facility]; Protocol Last Admin: 09/04/18 12:27 Dose: 4 units Lisinopril (Prinivil Tab*) 10 mg PO DAILY [facility] Last Admin: 09/04/18 08:48 Dose: 10 mg Metoprolol Succinate (Toprol Xl Tab*) 50 mg PO DAILY [facility] Last Admin: 09/04/18 08:47 Dose: 50 mg Vital Signs - 8 hr 09/04/18 09/04/18 09/04/18 08:48 08:49 11:03 Temperature 97.6 F Pulse Rate 60 50 Respiratory 18 18 Rate Blood Pressure 98/63 (mmHg) O2 Sat by Pulse 100 Oximetry 09/04/18 09/04/18 14:50 15:07 Temperature Pulse Rate Respiratory 14 20 Rate Blood Pressure (mmHg) O2 Sat by Pulse Oximetry Oxygen Devices in Use Now: None Appearance: Pleasant middle aged gentleman sitting up in bed in NAD. Eyes: No Scleral Icterus Ears/Nose/Mouth/Throat: Mucous Membranes Moist Neck: Trachea Midline Respiratory: Symmetrical Chest Expansion and Respiratory Effort, Clear to Auscultation Cardiovascular: RRR - Normal S1 and S2 Abdominal: NL Sounds; No Tenderness; No Distention Neurological: Alert and Oriented x 3, NL Muscle Strength and Tone Result Diagrams: 09/01/18 07:37 09/02/18 07:11 Assess/Plan/Problems-Billing Assessment: Mr Rosas is a 52yo M with PMH of CMP EF<20%, non obstructive CAD, type 2 DM with diabetic neuropathy, HTN, depression, who presented to ED with an episode of aphasia, found to have a TIA. - Patient Problems (1) TIA (transient ischemic attack) Comment: - Symptoms are resolved. - MRI brain was negative for CVA. - D/w Neurology - with his significantly depressed EF recommends anticoagulation with Apixaban. Cardiology in agreement. Neuro also recommended CTA head/neck. This was d/w patient and , but especially considering his CKD and the fact he'll need contrast for his cath, they're reluctant to pursue it. - Carotid US showed no significant stenosis. - As per Neurology, since the patient did not have a CVA, he can have a cardiac cath. - Apixaban on hold for now for cardiac cath in AM. (2) HLD (hyperlipidemia) Comment: - LDL 95 - continue Atorvastatin - patient was not compliant with it and has recently resumed it. (3) Type II diabetes mellitus Comment: - Continue Lantus and Lispro SS. (4) CHF (congestive heart failure) Comment: - Patient with known EF<20%. - Cardiology consult appreciated - plan for cardiac cath in AM. - Continue Digoxin, Lisinopril, and Metoprolol. - Awaiting Life Vest. (5) DVT prophylaxis Comment: - Apixaban. (6) Full code status Status and Disposition: Inpatient.
[2018-09-04] MEDS: Atorvastatin* 40 MG TAB PO SCH (17:25)
[2018-09-05] MEDS ORDERED: NS 0.9% 1000 ML* 1,000 ML IV SCH ×2 (07:00→14:30)
[2018-09-05] MEDS ORDERED: Insulin GLARGINE(*) 1 UNITS UNIT SUBCUT SCH (09:00)
[2018-09-05] MEDS: Insulin LISPRO* 1 UNITS UNIT SUBCUT SCH ×3 (09:14→16:34)
[2018-09-05] MEDS: Gabapentin CAP(*) 300 MG PO SCH ×2 (09:33→13:18)
[2018-09-05] MEDS: Citalopram TAB* 40 MG PO SCH (09:33)
[2018-09-05] MEDS: Aspirin EC TAB* 81 MG TAB.EC PO SCH (09:33)
[2018-09-05] MEDS: Digoxin TAB* 0.125 MG PO SCH (10:10)
[2018-09-05] MEDS: Metoprolol Succinate XL TAB* 50 MG PO SCH (10:10)
[2018-09-05] MEDS ORDERED: VERAPAMIL 2.5 MG/ML 2 ML VIAL ** 5 mg/2 ml ONE (13:35)
[2018-09-05] MEDS ORDERED: Midazolam* 1 MG/ML 10 ML VIAL (10 MG) ONE (13:35)
[2018-09-05] MEDS ORDERED: Heparin(*) 1000 UNIT/ML 10 ML VIAL CATH LAB IV ONE (13:35)
[2018-09-05] MEDS ORDERED: fentaNYL* 50 MCG/ML 2 ML VIAL (100 MCG VIAL) ONE (13:35)
[2018-09-05] MEDS ORDERED: nitroGLYCERIN DRIP* 25,000 MCG/250 ML BTL ONE (13:36)
[2018-09-05] MEDS ORDERED: Iohexol 350 (CONTRAST) 200 ML MDV IV ONE (13:36)
[2018-09-05] MEDS ORDERED: Lidocaine 1% INJ* 10 MG/ML 30 ML SDV ONE (13:36)
[2018-09-05] MEDS ORDERED: Heparin 2 UNITS/ML IVPREMIX* 2,000 ML IV ONE (13:36)
[2018-09-05] MEDS ORDERED: Iodixanol 320 (CONTRAST) 100 ML SDV ONE (13:38)
[2018-09-05] MEDS: Atorvastatin* 40 MG TAB PO SCH (16:41)
[2018-09-05 16:43] VITALS: BP 122/76
[2018-09-05] MEDS ORDERED: Apixaban* 2.5 MG TAB PO ONE (17:23)
--- NOTE | 2018-09-06 10:14 | CATH ---
CC: Dr. Frances Espinoza; Dr. Perez. CATH REPORT: DATE OF PROCEDURE: 09/05/18 PRIMARY CARE PROVIDER: Dr. Frances Espinoza. TEACHER OF THE DEAF: Dr. Perez. PROCEDURE: Right radial artery access, bilateral selective coronary cineangiography, left heart cath eterization. HISTORY: A 52-year-old male with previously diagnosed nonischemic cardiomyopathy, admitted with deco mpensated systolic congestive heart failure. Before he could undergo cath to rule out progression of coronary artery disease as a cause for his decreased LVEF, he was readmitted with a TIA, now is unde rgoing diagnostic catheterization. His comorbidities include CKD stage IV, he has been hydrated, we will minimize contrast load. LVEF is 20% by echo. PROCEDURE ACCESS: Right radial artery sheath 6F slender. MEDICATIONS: 1. Subcu lidocaine. 2. IV Versed. 3. IV fentanyl. 4. Heparin 3000 units, verapamil 3 mg, nitroglycerin 300 mcg IA. DIAGNOSTIC CATHETER: 5F TIG4. HEMODYNAMICS: LV 99/23, no aortic valve gradient on pullback. ANGIOGRAPHY: Left main: Left main is large, has no stenosis. LAD: The LAD is moderate, has mild luminal irregularity, without significant stenosis. The LAD supp lies a number of small diagonals, a large mid diagonal, extends past the apex. Circumflex: The circumflex is moderate, not dominant, supplies a large marginal followed by smaller posterolateral, the circumflex has mild luminal irregularity, has no significant stenosis. RCA: The RCA is dominant, large, has mild luminal irregularity, no significant stenosis, has a focal area of calcification at the acute margin, the PDA is moderate to large with mild proximal irregular ity, followed by a moderate posterolateral branch. CONCLUSION: 1. No significant obstructive coronary artery disease. 2. Nonischemic cardiomyopathy. 3. Elevated LVEDP. Otherwise, normal left-sided hemodynamics. 4. Successful right radial artery access. [id number]/[facility] #: [id number]
--- NOTE | 2018-09-06 13:01 | DS ---
CC: Dr. Daniels; Dr. Perez; Dr. Huerta; Dr. Conway and Dr. Zeng DISCHARGE SUMMARY: DATE OF ADMISSION: 09/01/18 DATE OF DISCHARGE: 09/05/18 PRIMARY CARE PHYSICIAN: Dr. Daniels. PROFESSIONAL MODEL: Dr. Perez. NEUROLOGIST: Dr. Huerta. INTERVENTIONAL CARDIOLOGISTS: Dr. Conway and Dr. Zeng. DISCHARGE DIAGNOSES: 1. Transient ischemic attack. 2. Nonischemic cardiomyopathy with ejection fraction of less than 20%. SECONDARY DIAGNOSES: 1. Hypertension. 2. Depression. 3. Type 2 diabetes. 4. Diabetic neuropathy. 5. Chronic kidney disease stage 3. MEDICATION LIST: 1. Atorvastatin 40 mg p.o. daily. 2. Digoxin 0.125 mg p.o. daily. 3. Escitalopram 20 mg p.o. daily. 4. Gabapentin 300 mg p.o. t.i.d. 5. Insulin glargine 23 units subcutaneously daily. 6. Lisinopril 10 mg p.o. daily. 7. Metoprolol succinate 50 mg p.o. daily. Medication change: Aspirin was reduced to 81 mg p.o. daily. New medication: Apixaban 2.5 mg p.o. b.i.d. HOSPITAL COURSE: Mr. Rosas is a 52-year-old gentleman with a past medical history as stated abo ve that presented to the emergency room with expressive aphasia. He had been admitted to [facility] from to 08/31/18 with chest pain, found to have cardiomyopathy with ejection fraction less than 20% . He was discharged home on the to return on the to have a cardiac cath. On the morning o f the , he woke up with expressive aphasia and details about his presentation are in the history and physical. The patient had an initial CT of the brain that showed no evidence for acute intracranial abnormality , only chronic left-sided effusion unchanged from prior. A limited transthoracic echocardiogram was performed, as the patient had just had one echocardiogram done on his prior admission and a PFO was n ot demonstrated. He was seen in consultation by Neurology (Dr. Huerta) and his impression was the patient probably richard s a dominant hemispheric transient ischemic attack and his recommendation was to start anticoagulati on due to his reduced ejection fraction, likely causing a cardioembolic event. MRI of the brain showed no restricted diffusion to suggest acute infarct. There is disproportionate volume loss of the cerebellum, which may be congenital or may reflect toxic metabolic disturbance. N eurology recommended CTA of the head and neck, but the patient was reluctant to do so because of his chronic kidney disease and the fact that he was already going to receive IV contrast for his cardiac cath. He underwent a carotid ultrasound that showed no hemodynamically significant stenosis bilateral ly. He will follow up with Neurology as outpatient and the neurologist can readdress the need for CT A of the head and neck, now that his cardiac cath was already performed. The patient had complete resolution of his speech deficit on admission and had no further neurologica l symptoms. He was seen in consultation by Cardiology (Dr. Wade) and she was in agreement that Eliquis would be of benefit to prevent recurrent strokes, as he is at risk for left ventricular thrombus from his s everely depressed ejection fraction. For his cardiomyopathy, she recommended continuation of medical management and she also thought that the nonischemic etiologies of his cardiomyopathy could include his left bundle-branch block in additi on to noncompliance with medications. If his cardiomyopathy remains more ischemic and we are unable to get his ejection fraction with significant improvement again, he could then be referred for a resy nchronization pacer/defibrillator (RT-D device). The patient continues to be at risk for ventricular tachycardia and life-threatening dysrhythmia, so she recommended the patient be discharged with an e xternal defibrillator and this was arranged with [facility]. She recommended overnight oximetry to see if the saturation at night may be contributing to his presentation. This was performed while in the [facility] and the patient had oxygen saturation of less than 90% for 24% of the time and it was less than 88% for 44 seconds only, but a sleep study may be pursued as an outpatient if Cardiology feels it w as indicated. The patient underwent a cardiac cath on 09/05/18 that showed no significant obstructive disease and t he plan is for the patient to be discharged home today with his LifeVest to follow up with Dr. Zeng on 09/13/18 for his post-cath appointment and he will also follow up with Dr. Daniels, Dr. Perez, and Gary Huerta as an outpatient. Please note the patient is being discharged on lower dose of Eliquis due to his creatinine greater th an 1.5 and his weight less than 60 kg. If his renal function continues to improve, he may need a hig her dose, 5 mg twice a day, of Eliquis. On the same note, the patient's metformin was discontinued, as it is contraindicated on creatinine greater than 1.4, but the same line of thought if his renal fu nction improves, metformin may be resumed. PHYSICAL EXAMINATION: Vital Signs: Temperature 97.6, heart rate 86, respiratory rate is 18, oxygen saturation is 97% on room air, blood pressure is 122/76. General: The patient is a pleasant middle-a ged gentleman that appears older than stated age, sitting up in bed, in no acute distress. CVS: Nor mal S1, S2. Regular rate and rhythm. Chest: Breath sounds present bilaterally with no added sounds . Abdomen: Soft. Bowel sounds present. Extremities: No edema. Neuro: He is alert and oriented x 3, able to move all 4 extremities. DIET: Heart-healthy diet with consistent carbs. ACTIVITY: As tolerated. DISPOSITION: To home. STATUS WHILE IN THE HOSPITAL: Inpatient. Please keep in mind, this is a summarized version of this patient's hospital stay. If you need more i nformation, please feel free to call me at [phone] or please obtain the full medical records. TIME SPENT: Approximately, 45 minutes was spent to complete this discharge. [id number]/[facility] #: [id number]
== END 2018-09-05 20:20 | disposition home or self-care (01) | DRG 47 ==
LOC: ED 07:16 → MEDTELE 09:08 → OBSVTOIN 09-02 17:13
PROVIDERS: ADMIT Internal Medicine; ATTEND Internal Medicine
PROC: B2111ZZ Fluoroscopy of Multiple Coronary Arteries using Low Osmolar Contrast (ICD-10-PCS; principal; 2018-09-05)
PROC: 4A023N7 Measurement of Cardiac Sampling and Pressure, Left Heart, Percutaneous Approach (ICD-10-PCS; 2018-09-05)
DX: G45.9 Transient cerebral ischemic attack, unspecified (principal); I42.8 Other cardiomyopathies; I13.0 Hypertensive heart and chronic kidney disease with heart failure and stage 1 through stage 4 chronic kidney disease, or unspecified chronic kidney disease; E87.2 Acidosis; E11.22 Type 2 diabetes mellitus with diabetic chronic kidney disease; I50.9 Heart failure, unspecified; E78.00 Pure hypercholesterolemia, unspecified; F32.9 Major depressive disorder, single episode, unspecified; R40.2412 Glasgow coma scale score 13-15, at arrival to emergency department; R29.700 NIHSS score 0; I25.10 Atherosclerotic heart disease of native coronary artery without angina pectoris; E11.40 Type 2 diabetes mellitus with diabetic neuropathy, unspecified; G47.00 Insomnia, unspecified; E78.5 Hyperlipidemia, unspecified; I44.7 Left bundle-branch block, unspecified; I48.0 Paroxysmal atrial fibrillation; I49.3 Ventricular premature depolarization; N18.3 Chronic kidney disease, stage 3 (moderate); Z91.14 Patient's other noncompliance with medication regimen; I08.1 Rheumatic disorders of both mitral and tricuspid valves; Z80.41 Family history of malignant neoplasm of ovary; Z82.49 Family history of ischemic heart disease and other diseases of the circulatory system; Z87.891 Personal history of nicotine dependence; Z79.4 Long term (current) use of insulin; Z79.01 Long term (current) use of anticoagulants
CPT/HCPCS: 36415; 70450; 70551; 71046; 80048; 80053; 80061; 80307; 80320; 81003; 82947; 83036; 83605; 83880; 84484; 85025; 85610; 85730; 86850; 86900; 86901; 93005; 93308; 93880; 99283; A9270-GY; G0378; G0480; J1644; J1940; J2250; J3010

== ENCOUNTER 2019-02-07 06:46 | Observation (INO) | payer BC ==
[2019-02-07] MEDS ORDERED: ceFAZolin VIAL 1 GM in NS *SYRINGE * * 10 ML ONE (08:00)
[2019-02-07] MEDS ORDERED: ceFAZolin* 2 GM* ONE DOSE (Duplex) IVPB (08:00)
[2019-02-07] MEDS ORDERED: fentaNYL* 50 MCG/ML 2 ML VIAL (100 MCG VIAL) ONE (08:28)
[2019-02-07] MEDS ORDERED: Lidocaine 1% INJ* 10 MG/ML 30 ML SDV ONE (08:28)
[2019-02-07] MEDS ORDERED: Heparin 2 UNITS/ML IVPREMIX* 0 UNIT/0 ML BAG IV ONE (08:28)
[2019-02-07] MEDS ORDERED: Midazolam* 1 MG/ML 5 ML VIAL (5 MG) ONE (08:28)
[2019-02-07] MEDS ORDERED: Acetaminophen TAB* 325 MG PO PRN (10:20)
[2019-02-07] MEDS ORDERED: oxyCODONE/Acetamin 5/325 MG* TAB PO PRN (10:20)
[2019-02-07] MEDS ORDERED: INSULIN LISPRO 6 UNIT SUBCUT SCH (10:30)
--- NOTE | 2019-02-07 11:18 | OP ---
CC: Dr. Placido Perez * DATE OF OPERATION: 02/07/19 - ROOM #432 DATE OF : 65 SURGEON: Henok Camacho MD ANESTHESIA: Local anesthesia with conscious sedation. PRE-OP DIAGNOSIS: Nonischemic cardiomyopathy, ejection fraction less than 30%. POST-OP DIAGNOSIS: Nonischemic cardiomyopathy, ejection fraction less than 30%. OPERATIVE PROCEDURE: Single-chamber ICD implantation. INDICATIONS: The patient is a 53-year-old gentleman with a history of nonischemic cardiomyopathy, who has been followed for quite some time by Dr. Perez. He has had worsening of his LV function. He has had an ejection fraction of less than 35% for more than 6 months despite maximal medical therapy. Permanent ICD was recommended. ESTIMATED BLOOD LOSS: None. COMPLICATIONS: None. DESCRIPTION OF PROCEDURE: The patient was brought to the procedure room in a fasting state. Informed consent had been obtained prior to the procedure. All labs had been reviewed. The patient was placed supine on the procedure table. His left deltopectoral area was cleaned and draped in the usual fashion. 1% lidocaine was used for local anesthesia. Under ultrasound guidance, the axillary vein was entered by a Seldinger technique and a guidewire was placed. A 4-cm incision was made in the pectoral area. Blunt dissection was carried down to the pectoral fascia and a pocket was fashioned to the ICD. Over the guidewire, a 9-Polish sheath introducer was placed through which a right ventricular ICD lead was advanced to the RV apex. The right ventricular lead was a [employer], model BCS008P, serial number [id number]. It had an R- wave sensitivity of 11, impedance 590 ohms, threshold 0.5 volts at 0.5 msec. The ventricular lead was sutured at the pectoral fascia. The pocket was flushed. A generator was attached to the ventricular lead. The generator was a [employer], model [id number], serial number [id number]. The device was placed in the pocket, the surgical incision was closed in 3 layers. The patient tolerated the procedure well with no complications. [id number]/[facility] #: [id number] [facility]
[2019-02-07] MEDS: Gabapentin CAP(*) 300 MG PO SCH ×2 (14:20→21:52)
[2019-02-07] MEDS: ceFAZolin VIAL(*) 1 GM in NS 0.9% 50 ML* 50 ML IVPB SCH (17:20)
[2019-02-07] MEDS: Atorvastatin* 40 MG TAB PO SCH (17:20)
[2019-02-07] MEDS: Insulin LISPRO* 1 UNITS UNIT SUBCUT SCH ×2 (17:22→21:53)
[2019-02-07] MEDS ORDERED: Insulin LISPRO* 1 UNITS UNIT SUBCUT SCH (18:00)
[2019-02-07] MEDS: Escitalopram * 20 MG TABLET PO SCH (21:53)
[2019-02-08] MEDS: ceFAZolin VIAL(*) 1 GM in NS 0.9% 50 ML* 50 ML IVPB SCH ×2 (00:37→07:35)
[2019-02-08 08:27] LABS: ABS Basophils 0 10^3/ul (0-0.2); ABS Eosinophils 0 10^3/ul (0-0.6); ABS Lymphocytes 0.7 10^3/ul (1.0-4.8); ABS Monocytes 0.4 10^3/ul (0-0.8); ABS Neutrophils 6.7 10^3/ul (1.5-7.7); ABS Nucleated RBC 0 10^3/ul; Eosinophil % 0.2 %; Hematocrit 35 % (36-46); Hemoglobin 11.9 g/dL (14.0-18.0); Lymphocyte % 8.7 %; Mean Corpuscular HGB Conc 34 g/dL (31-36); Mean Corpuscular Hemoglobin 29 pg (27-31); Mean Corpuscular Volume 85 fL (80-94); Mean Platelet Volume 8.8 fL (7.4-10.4); Nucleated Red Blood Cells % 0; Platelet Count 240 10^3/uL (150-450); Red Blood Count 4.07 10^6 /uL (4.18-5.48); Red Cell Distribution Width 13 % (10.5-15); White Blood Count 7.8 10^3/uL (3.5-10.8)
[2019-02-08 08:39] LABS: Albumin 3.8 g/dL (3.2-5.2); Albumin/Globulin Ratio 1.4 (1-3); BUN/Creatinine Ratio 19.9 (8-20); Calcium 9.2 mg/dL (8.6-10.3); EGFR African American 56.6 (>60); EGFR Non-African American 46.8 (>60); Globulin 2.7 g/dL (2-4); Potassium 4.8 mmol/L (3.5-5.0); Total Bilirubin 0.3 mg/dL (0.2-1.0); Total Protein 6.5 g/dL (6.4-8.9)
[2019-02-08] MEDS: Digoxin TAB* 0.125 MG PO SCH (09:06)
--- NOTE | 2019-02-08 09:06 | PN ---
<Ronda Lazo - Last Filed: 02/08/19 09:00> Subjective Date of Service: 02/08/19 - s/p ICD implant Interval History: Patient developed low grade fever last night in addition to hypoglycemia. Apparently during time when blood glucose was 60 he had altered mental status and was shaking. The patient's is present and states when his blood glucose is low he will develop AMS and will shake however, she is concerned because symptoms are persisting. Last dose of Eliquis was 02/05/2019 in preparation for ICD implant. He adds that he has been having intermittent diarrhea since completion of Augmentin 10 days ago, last loose BM was last night. typically at home he will take Humalog 6 units in am depending on blood glucose and 10units after dinner depending on blood glucose. Since being admitted he has been receiving schedule humalog 6 units in am and 10 units at night in addition to sliding scale insulin and Lantus 30 units at night( patient will sometimes only take 28 units depending on blood sugar at home) Medications Active Medications: Acetaminophen (Tylenol Tab*) 650 mg PO Q4H PRN PRN Reason: FEVER/PAIN Aspirin (Aspirin Ec Tab*) 81 mg PO DAILY [facility] Atorvastatin Calcium (Lipitor*) 40 mg PO 1700 [facility] Last Admin: 02/07/19 17:20 Dose: 40 mg Digoxin (Lanoxin Tab*) 0.125 mg PO DAILY [facility] Escitalopram Oxalate (Lexapro *) 20 mg PO BEDTIME [facility] Last Admin: 02/07/19 21:53 Dose: 20 mg Gabapentin (Neurontin Cap(*)) 300 mg PO TID [facility] Last Admin: 02/07/19 21:52 Dose: 300 mg Insulin Glargine (Lantus(*)) 30 units SUBCUT DAILY [facility] Insulin Human Lispro (Humalog*) 6 units SUBCUT QAM [facility] Insulin Human Lispro (Humalog*) 10 units SUBCUT QPM [facility] Last Admin: 02/07/19 17:21 Dose: 10 unit Insulin Human Lispro (Humalog*) 0 units SUBCUT ACHS [facility]; Protocol Last Admin: 02/07/19 21:53 Dose: Not Given Lisinopril (Prinivil Tab*) 10 mg PO DAILY [facility] Metoprolol Succinate (Toprol Xl Tab*) 50 mg PO DAILY [facility] Oxycodone/Acetaminophen (Percocet 5/325 Tab*) 1 tab PO Q4H PRN PRN Reason: PAIN Last Admin: 02/07/19 14:55 Dose: 1 tab Spironolactone (Aldactone Tab*) 25 mg PO DAILY [facility] Objective Vital Signs: Temp Pulse Resp BP Pulse Ox 99.7 F 66 20 94/53 94 02/08/19 07:16 02/08/19 07:16 02/08/19 07:16 02/08/19 07:16 02/08/19 07:16 Oxygen Devices in Use Now: None Appearance: A+O x3, appropriate affect, answers all questions but does sometimes forget question and needs prompting. Eyes: No Scleral Icterus, PERRLA Ears/Nose/Mouth/Throat: NL Teeth, Lips, Gums, Mucous Membranes Moist Neck: NL Appearance and Movements; NL JVP, Trachea Midline Respiratory: Symmetrical Chest Expansion and Respiratory Effort, Clear to Auscultation Cardiovascular: NL Sounds; No Murmurs; No JVD, No Edema, - - left anterior chest site is intact, scant dried blood noted on dressing, no hematoma, no inflamation, no oozing. non tender to palpation. Abdominal: NL Sounds; No Tenderness; No Distention Extremities: No Edema Skin: No Rash or Ulcers Neurological: Alert and Oriented x 3, NL Muscle Strength and Tone Lines/Tubes/Other Access: Clean, Dry and Intact Peripheral IV Laboratory Results: 02/08/19 08:11 02/08/19 08:11 Total Bilirubin 0.30 mg/dL (0.2-1.0) 02/08/19 08:11 AST 17 U/L (13-39) 02/08/19 08:11 ALT 13 U/L (7-52) 02/08/19 08:11 Alkaline Phosphatase 70 U/L (34-104) 02/08/19 08:11 Total Protein 6.5 g/dL (6.4-8.9) 02/08/19 08:11 Albumin 3.8 g/dL (3.2-5.2) 02/08/19 08:11 Globulin 2.7 g/dL (2-4) 02/08/19 08:11 Albumin/Globulin Ratio 1.4 (1-3) 02/08/19 08:11 Laboratory Results - last 24 hr 02/07/19 02/07/19 02/07/19 16:27 20:25 21:51 WBC RBC Hgb Hct MCV MCH MCHC RDW Plt Count MPV Neut % (Auto) Lymph % (Auto) Dukes % (Auto) Eos % (Auto) Baso % (Auto) Absolute Neuts (auto) Absolute Lymphs (auto) Absolute Monos (auto) Absolute Eos (auto) Absolute Basos (auto) Absolute Nucleated RBC Nucleated RBC % Sodium Potassium Chloride Carbon Dioxide Anion Gap BUN Creatinine Est GFR ( Amer) Est GFR (Non-Af Amer) BUN/Creatinine Ratio Glucose POC Glucose (mg/dL) 242 H 63 L 91 Calcium Total Bilirubin AST ALT Alkaline Phosphatase Total Protein Albumin Globulin Albumin/Globulin Ratio 02/08/19 02/08/19 02/08/19 00:16 07:26 08:11 WBC 7.8 RBC 4.07 L Hgb 11.9 L Hct 35 L MCV 85 MCH 29 MCHC 34 RDW 13 Plt Count 240 MPV 8.8 Neut % (Auto) 85.3 Lymph % (Auto) 8.7 Dukes % (Auto) 5.4 Eos % (Auto) 0.2 Baso % (Auto) 0.4 Absolute Neuts (auto) 6.7 Absolute Lymphs (auto) 0.7 L Absolute Monos (auto) 0.4 Absolute Eos (auto) 0 Absolute Basos (auto) 0 Absolute Nucleated RBC 0 Nucleated RBC % 0 Sodium Potassium Chloride Carbon Dioxide Anion Gap BUN Creatinine Est GFR ( Amer) Est GFR (Non-Af Amer) BUN/Creatinine Ratio Glucose POC Glucose (mg/dL) 107 H 199 H Calcium Total Bilirubin AST ALT Alkaline Phosphatase Total Protein Albumin Globulin Albumin/Globulin Ratio 02/08/19 08:11 WBC RBC Hgb Hct MCV MCH MCHC RDW Plt Count MPV Neut % (Auto) Lymph % (Auto) Dukes % (Auto) Eos % (Auto) Baso % (Auto) Absolute Neuts (auto) Absolute Lymphs (auto) Absolute Monos (auto) Absolute Eos (auto) Absolute Basos (auto) Absolute Nucleated RBC Nucleated RBC % Sodium 136 Potassium 4.8 Chloride 104 Carbon Dioxide 23 Anion Gap 9 BUN 31 H Creatinine 1.56 H Est GFR ( Amer) 56.6 Est GFR (Non-Af Amer) 46.8 BUN/Creatinine Ratio 19.9 Glucose 202 H POC Glucose (mg/dL) Calcium 9.2 Total Bilirubin 0.30 AST 17 ALT 13 Alkaline Phosphatase 70 Total Protein 6.5 Albumin 3.8 Globulin 2.7 Albumin/Globulin Ratio 1.4 Diagnostic Imaging: CXR pending. EKG Data: 02/08/2019; Sinus rhythm rate 66 with known lateral TW depression. Telemetry reviewed; Sinus rhythm rate 70's with PACs and occasional VPCs. Assessment/Plan #1 NICM LVEF < 20% on 08/2018 echo. s/p ICD implant with Dr. Camacho 02/07/2019. Device check today was normal. CXR pending. No evidence of pocket hematoma, no oozing. site is intact and non tender to palpation. will likely re start Eliquis tonight. #2 AMS in the setting of low grade fever and hypoglycemia; likely metabolic given he has actually been receiving more insulin than what he typically will take at home( please refer to HPI). He admits to diarrhea since completion of Augmentin 10 days ago. Last BM was last night. He is s/p ICD implant. Will order blood cultre, urine culture and r/o C-Diff. WBC count is normal. According to the he will develop AMS and " shake" when BG is low. Of note he has been off of eliquis since 02/05/2019 in preparation for ICD. Upon review of prior medical records it appears Eliquis was initiated in August 2018 at the discretion of Dr. Huerta due to possible cardioembolic TIA. There are no focal neuro deficits on exam. #3 SHF; Compensated on exam. BP in our office was 105/66 thus current readings are consistent with baseline. I would resume cardiac medications. #4 h/o CKD, creat today 1.5, reflective of baseline. #5 disposition pending course, Will order webster culture, await CXR and consult hospitalist. d/w Dr. Wade who agrees with plan of care. Attending: Shabana Wade <Shabana Wade - Last Filed: 02/08/19 20:08> Medications Active Medications: Acetaminophen (Tylenol Tab*) 650 mg PO Q4H PRN PRN Reason: FEVER/PAIN Apixaban (Eliquis*) 2.5 mg PO BID [facility] Aspirin (Aspirin Ec Tab*) 81 mg PO DAILY [facility] Last Admin: 02/08/19 11:01 Dose: 81 mg Atorvastatin Calcium (Lipitor*) 40 mg PO 1700 [facility] Last Admin: 02/08/19 17:25 Dose: 40 mg Digoxin (Lanoxin Tab*) 0.125 mg PO DAILY [facility] Last Admin: 02/08/19 09:06 Dose: Not Given Escitalopram Oxalate (Lexapro *) 20 mg PO BEDTIME [facility] Last Admin: 02/07/19 21:53 Dose: 20 mg Gabapentin (Neurontin Cap(*)) 300 mg PO TID [facility] Last Admin: 02/08/19 15:07 Dose: 300 mg Insulin Glargine (Lantus(*)) 30 units SUBCUT DAILY [facility] Last Admin: 02/08/19 09:18 Dose: 30 units Insulin Human Lispro (Humalog*) 6 units SUBCUT QAM [facility] Last Admin: 02/08/19 09:16 Dose: 6 units Insulin Human Lispro (Humalog*) 0 units SUBCUT ACHS [facility]; Protocol Last Admin: 02/08/19 17:26 Dose: 1 unit Lactobacillus Rhamnosus (Lactobacillus Acidophilus*) 1 tab PO BID [facility] Last Admin: 02/08/19 11:01 Dose: 1 tab Lisinopril (Prinivil Tab*) 10 mg PO DAILY [facility] Last Admin: 02/08/19 09:07 Dose: Not Given Loperamide HCl (Imodium Cap*) 2 mg PO .SEE DIRECTIONS PRN PRN Reason: DIARRHEA Last Admin: 02/08/19 11:01 Dose: 2 mg Metoprolol Succinate (Toprol Xl Tab*) 50 mg PO DAILY [facility] Last Admin: 02/08/19 09:07 Dose: Not Given Oxycodone/Acetaminophen (Percocet 5/325 Tab*) 1 tab PO Q4H PRN PRN Reason: PAIN Last Admin: 02/07/19 14:55 Dose: 1 tab Spironolactone (Aldactone Tab*) 25 mg PO DAILY [facility] Last Admin: 02/08/19 09:07 Dose: Not Given Objective Vital Signs: Temp Pulse Resp BP Pulse Ox 97.9 F 64 16 101/67 95 02/08/19 17:06 02/08/19 14:10 02/08/19 17:29 02/08/19 17:06 02/08/19 17:06 Laboratory Results: 02/08/19 08:11 02/08/19 08:11 Total Bilirubin 0.30 mg/dL (0.2-1.0) 02/08/19 08:11 AST 17 U/L (13-39) 02/08/19 08:11 ALT 13 U/L (7-52) 02/08/19 08:11 Alkaline Phosphatase 70 U/L (34-104) 02/08/19 08:11 Total Protein 6.5 g/dL (6.4-8.9) 02/08/19 08:11 Albumin 3.8 g/dL (3.2-5.2) 02/08/19 08:11 Globulin 2.7 g/dL (2-4) 02/08/19 08:11 Albumin/Globulin Ratio 1.4 (1-3) 02/08/19 08:11 Assessment/Plan I saw and examined the patient personally twice. I met with his briefly. The patient is feeling better in the afternoon than this morning. His concurs he has improved this afternoon. He would like to go home. Mr Martin note was reviewed and appreciated. No evidence of focal neurological issues, mentation issues c/w hypoglycemia. Fevers c/w Atelectatis and pt is now ambulating. Summary of chronic issues done. I agree with the above plan. The patient is amenable to staying one more night for observation to ensure stable at discharge.
[2019-02-08] MEDS: Spironolactone TAB* 25 MG PO SCH (09:07)
[2019-02-08] MEDS: Metoprolol Succinate XL TAB* 50 MG PO SCH (09:07)
[2019-02-08] MEDS: Lisinopril TAB* 10 MG PO SCH (09:07)
[2019-02-08] MEDS: Insulin LISPRO* 1 UNITS UNIT SUBCUT SCH ×5 (09:16→21:35)
[2019-02-08] MEDS: Insulin GLARGINE(*) 1 UNITS UNIT SUBCUT SCH (09:18)
[2019-02-08] MEDS ORDERED: Loperamide CAP* 2 MG PO PRN (10:11)
[2019-02-08] MEDS: Gabapentin CAP(*) 300 MG PO SCH ×3 (11:00→21:34)
[2019-02-08] MEDS: Aspirin EC TAB* 81 MG TAB.EC PO SCH (11:01)
[2019-02-08] MEDS: Lactobacillus Acidophilus* 1 TAB PO SCH ×2 (11:01→21:33)
[2019-02-08 12:54] LABS: Urine Appearance Cloudy; Urine Bilirubin Negative (Negative); Urine Blood Negative (Negative); Urine Color Yellow; Urine Glucose 3+(>=500 mg/dL) (Negative); Urine Ketones Negative (Negative); Urine Nitrite Negative (Negative); Urine Protein Negative (Negative); Urine Specific Gravity 1.022 (1.010-1.030); Urine Urobilinogen Negative (Negative)
--- NOTE | 2019-02-08 16:34 | CONS ---
CC: Dr. Poncho Daniels; Dr. Shabana Wade * CONSULTATION REPORT: DATE OF CONSULT: PRIMARY CARE PROVIDER: Dr. Poncho Daniels. CONSULTING PROVIDER: Dr. Shabana Wade MY ATTENDING WHILE IN THE HOSPITAL: Dr. Amy Marcus. REASON FOR CONSULT: Diarrhea, altered mental status. HISTORY OF PRESENT ILLNESS: Mr. Rosas is a 53-year-old male with a past medical history significant for severe nonischemic cardiomyopathy, EF less than 20% on most recent echocardiogram as well as diabetes mellitus type 2 insulin dependent, history of TIA and chronic kidney disease, who is currently admitted for elective ICD implantation for primary prophylaxis, ventricular arrhythmia, the patient had ICD placed on 02/07/[address] Henok Camacho with an uncomplicated operative course. The patient 10 days before his admission had a sinus drainage, facial pain, and was diagnosed with a sinus infection and was prescribed Augmentin. The patient states that he finished that 10 days ago and since then has had 1 to 2 bowel movements daily. The patient states he normally has a formed bowel movement daily. The patient denies any abdominal pain with these. No abdominal tenderness. No fevers or chills. No blood in his urine. No black or tarry stools. The patient has been on antibiotics before, has never had history of antibiotic- associated diarrhea. The patient on the evening of 02/07/19 had a low blood sugar of 63 after being given his evening insulin. The patient states that he takes his insulin at home only as needed based on his blood sugar readings, but is unable to fully elucidate his insulin regimen or criteria for taking his insulin. The patient's previous TIA symptoms were with expressive aphasia, but this has resolved and he had no other focal neurologic deficits. The patient has previously been described as being a poor historian in documentation from other admissions. The patient's is not present at the time of interview. The patient is able to provide generally good history, but occasionally perseverates on topics and says the wrong word when he is thinking hard. The patient had a slight fever overnight, which was accompanied by some subjective chills. The patient states that he usually feels very hot and that his family has a history of having elevated temperatures without obvious provoking features, this is present in his mother as well as his sister. The patient denies chest pain, shortness of breath, nausea, or vomiting. The patient's most recent bowel movement was last night. The patient denies dizziness on standing, pain with urination, frequency of urination, hesitancy or any history of lower GI symptoms. The patient states that he has painful neuropathy and gets good relief from his gabapentin. The patient at the time of the interview has no complaints including no pain from his surgical incision. PAST MEDICAL HISTORY: 1. Cardiomyopathy, most recent EF less than 20%. 2. Diabetes mellitus type 2. 3. Hypertension. 4. Depression. 5. Insomnia. 6. History of transient ischemic attack. No residual deficits. 7. Coronary artery disease. 8. Diabetic neuropathy. 9. Diabetic retinopathy. 10. Diabetic chronic kidney disease. PAST SURGICAL HISTORY: Catheterization, ICD implantation yesterday, fifth finger surgery approximately 20 years ago. MEDICATIONS AT HOME: 1. Digoxin 0.125 mg p.o. daily. 2. Metoprolol succinate 50 mg p.o. daily. 3. Lipitor 40 mg p.o. daily. 4. Lexapro 20 mg p.o. daily. 5. Gabapentin 300 mg p.o. t.i.d. 6. Lisinopril 10 mg p.o. daily. 7. Eliquis 2.5 mg p.o. b.i.d. 8. Aspirin 81 mg p.o. daily. 9. Insulin lispro 6 units in the morning, 10 units at night. 10. Alogliptin 25 mg p.o. daily. 11. Ferrous gluconate 256 mg p.o. daily. 12. Spironolactone 25 mg p.o. daily. 13. Fish oil 1000 mg p.o. daily. 14. Insulin glargine 30 units subcutaneous daily. Of note, the patient does not take his insulin exactly as prescribed. ALLERGIES: No known drug allergies. FAMILY HISTORY: The patient's mother of ovarian cancer. The patient's father of CHF. The patient has a sister with thyroid cancer and a sister with diabetes. SOCIAL HISTORY: The patient never smoked, drank, or used illicit drugs. 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 The patient is , has 2 biological children, 3 stepchildren. The patient's surrogate decision maker will be his , Bailee Rosas. REVIEW OF SYSTEMS: A 14-point review of systems was reviewed with the patient and is negative except as above in the HPI. PHYSICAL EXAM: General: The patient is a 53-year-old male, who appears stated age and sitting comfortably in the bed, in no acute distress. Vital Signs: Temperature 99.7, pulse rate 66, respiratory rate 20, oxygen saturation 94% on room air, blood pressure 94/53. HEENT: Head: Normocephalic, atraumatic. Sclerae anicteric. No conjunctival injection. Nasal mucosa moist. Oral mucosa moist. No pharyngeal erythema, discharge, or exudate. Neck: Supple, nontender. No lymphadenopathy. No carotid bruit auscultated. No JVD. Cardiac : Regular rate and rhythm. No clicks, murmurs, gallops, or rubs. Pulses are 2 + in the dorsalis pedis, posterior tibialis, and radial areas. No bilateral calf tenderness noted. Respiratory: Clear to auscultation bilaterally. No wheezes, rales, or rhonchi. Good air exchange bilaterally. Abdomen: Soft, nontender, nondistended. Bowel sounds present and normoactive in all 4 quadrants. No hepatosplenomegaly. No abdominal bruits auscultated. No hepatojugular reflux. Genitourinary: No suprapubic or CVA tenderness. Skin: Clean, dry, intact. No rash. Neuro: Cranial nerves II through XII intact. No focal deficits. Alert and oriented x3. Psychiatric: Pleasant and cooperative. DIAGNOSTIC STUDIES/LAB DATA: White blood cell count 7.8, hemoglobin 11.9. Sodium 136, potassium 4.8, chloride 104, carbon dioxide 23, anion gap 9, BUN 31 , creatinine 1.56, glucose 202, calcium 9.2. Bilirubin 0.3, AST 17, ALT 13, alkaline phosphatase 70, protein 6.5, albumin 3.8, globulin 2.7. Pertinent studies: Chest x-ray done this morning showed minimal bibasilar atelectasis. No other pertinent findings. ASSESSMENT AND PLAN: Impression: Mr. Rosas is a 53-year-old male with past medical history significant for severe nonischemic cardiomyopathy, diabetes mellitus type 2, hypertension, transient ischemic attack, and chronic kidney disease, who is currently admitted for implantation of primary prevention ICD for ventricular arrhythmias and developed fever and slight altered mental status as well as having history of diarrhea for approximately 10 days. 1. Altered mental status. The patient's altered mental status is likely multifactorial. He appears to be near his baseline at this time; however, when patient is able to be interviewed along with his after work, this will be done. The patient had low blood sugar last night and has this approximately twice a week. We will hold patient's night time insulin. The patient's hypoglycemia is unlikely the current cause of his forgetfulness, but this may be his baseline, collateral information will be attempted to be obtained. The patient has no focal neurologic deficits, no aphasia. The patient is very low suspension for recurrent cardioembolic disease. The patient has been monitored on telemetry with no atrial fibrillation. The patient will be started on Eliquis. Regardless, the patient has no laboratory abnormalities that would explain his slight altered mental status. The mostly likely culprit, if this is not his baseline, will be his gabapentin, which may be lowered, but this will not be done at this time as the patient states he gets good relief from it. The patient's kidney function is approximately at his baseline, but is slightly decreased from his preoperative lab work, which may lead to accumulation of gabapentin. 2. Fever. The patient's fever is likely related to atelectasis seen on his chest x-ray. The patient does have blood cultures and urine culture pending. The patient is on prophylactic antibiotics. These will be continued. This is unlikely related to C. difficile infection or other infectious diarrhea. The patient's maximum temperature was 100 degrees Fahrenheit, not constituting any true fever. 3. Diarrhea. The patient's diarrhea does not have any of the defining characteristics of C. difficile diarrhea and it occurred after taking antibiotics. The patient stopped taking Augmentin. The patient will be started on a probiotic and Imodium as needed for diarrhea. C. difficile testing is not necessary nor there is any further stool studies. 4. Diabetes mellitus type 2. The patient's blood sugars were initially elevated, then went low and now are creeping back up again. The patient will be continued on sliding scale insulin. His home dose of Lantus and his evening insulin were discontinued. We will continue to hold patient's alogliptin at this time. We would recommend discontinuing patient's evening short-acting insulin upon discharge as taking short-acting insulin and not eating afterwards generally will develop hypoglycemia, which the patient has been having issues with and may help improve his glucose control. Overall to avoid morning hyperglycemia. 5. History of transient ischemic attack. Continue patient's Eliquis. The patient does not have signs of further cerebrovascular disease. 6. Hypertension. The patient currently has low blood pressure, likely related to his heart failure and medications. Continue medications as they are, patient is asymptomatic. 7. Coronary artery disease. Continue the patient on aspirin and statin. 8. Nonischemic cardiomyopathy. Management per Cardiology. The patient is status post ICD implantation. The patient does not appear to be in congestive heart failure exacerbation. 9. DVT prophylaxis. Eliquis will be ordered beginning tonight. This will be renally dosed. 10. FEN: The patient will have heart-healthy diet, decaf okay with consistent carbohydrates. 11. Disposition. Per Cardiology. Plan has been discussed with my attending, Dr. Amy Marcus, and she is in agreement. Thank you very much for this consultation. We will be continue to follow along with you. Feel free to call with any questions. DEMETRIUS ARIAS [id number]/CPS #: [id number] LINDA
[2019-02-08] MEDS: Atorvastatin* 40 MG TAB PO SCH (17:25)
[2019-02-08] MEDS: Escitalopram * 20 MG TABLET PO SCH (21:34)
[2019-02-08] MEDS: Apixaban* 2.5 MG TAB PO SCH (21:34)
[2019-02-09] MEDS: Insulin LISPRO* 1 UNITS UNIT SUBCUT SCH ×2 (08:28→08:38)
[2019-02-09] MEDS: Insulin GLARGINE(*) 1 UNITS UNIT SUBCUT SCH (08:37)
[2019-02-09] MEDS: Digoxin TAB* 0.125 MG PO SCH (08:38)
[2019-02-09] MEDS: Lactobacillus Acidophilus* 1 TAB PO SCH (08:38)
[2019-02-09] MEDS: Apixaban* 2.5 MG TAB PO SCH (08:39)
[2019-02-09] MEDS: Metoprolol Succinate XL TAB* 50 MG PO SCH (08:39)
[2019-02-09] MEDS: Aspirin EC TAB* 81 MG TAB.EC PO SCH (08:39)
[2019-02-09] MEDS: Lisinopril TAB* 10 MG PO SCH (08:39)
[2019-02-09] MEDS: Gabapentin CAP(*) 300 MG PO SCH (08:39)
[2019-02-09] MEDS: Spironolactone TAB* 25 MG PO SCH (08:40)
[2019-02-09 08:49] VITALS: BP 110/73
--- NOTE | 2019-02-09 11:09 | CONSULT ---
Consult Consult: [facility] Inpatient Consult Note Date of Consult: Reason for Consult: Reason for Admission: ASSESSMENT: PLAN: SUBJECTIVE: History of Present Illness: Past Medical History: Medications Prior to Admission: Inpatient Medications: Allergies/Intolerances: Social History: Family History: Review of Systems: OBJECTIVE: Vital Signs: General: alert, pleasant, oriented, no distress ENT: neck supple, no thyromegaly, no bruit is heard Chest: CTAB, no wheezing or crackles CV: RRR, no murmur Abdomen: soft, non-tender Extremities: no edema, distal pulses intact Skin: warm, dry, no rash Neuro: grossly intact motor/sensory in extremities Psych: restricted affect, pleasant Labs: 02/07/19 16:29 242 10L 02/07/19 21:00 63 02/08/19 07:30 275 9L+30G 02/08/19 11:30 200 1L 02/08/19 16:30 153 1L 02/08/19 21:00 233 2L 02/09/19 07:30 140 6L+30G WBC 7.8 10^3/uL (3.5-10.8) 02/08/19 08:11 RBC 4.07 10^6 /uL (4.18-5.48) L 02/08/19 08:11 Hgb 11.9 g/dL (14.0-18.0) L 02/08/19 08:11 Hct 35 % (36-46) L 02/08/19 08:11 MCV 85 fL (80-94) 02/08/19 08:11 MCH 29 pg (27-31) 02/08/19 08:11 MCHC 34 g/dL (31-36) 02/08/19 08:11 RDW 13 % (10.5-15) 02/08/19 08:11 Plt Count 240 10^3/uL (150-450) 02/08/19 08:11 MPV 8.8 fL (7.4-10.4) 02/08/19 08:11 Neut % (Auto) 85.3 % 02/08/19 08:11 Lymph % (Auto) 8.7 % 02/08/19 08:11 [place] % (Auto) 5.4 % 02/08/19 08:11 Eos % (Auto) 0.2 % 02/08/19 08:11 Baso % (Auto) 0.4 % 02/08/19 08:11 Absolute Neuts (auto) 6.7 10^3/ul (1.5-7.7) 02/08/19 08:11 Absolute Lymphs (auto) 0.7 10^3/ul (1.0-4.8) L 02/08/19 08:11 Absolute Monos (auto) 0.4 10^3/ul (0-0.8) 02/08/19 08:11 Absolute Eos (auto) 0 10^3/ul (0-0.6) 02/08/19 08:11 Absolute Basos (auto) 0 10^3/ul (0-0.2) 02/08/19 08:11 Absolute Nucleated RBC 0 10^3/ul 02/08/19 08:11 Nucleated RBC % 0 02/08/19 08:11 Sodium 136 mmol/L (135-145) 02/08/19 08:11 Potassium 4.8 mmol/L (3.5-5.0) 02/08/19 08:11 Chloride 104 mmol/L (101-111) 02/08/19 08:11 Carbon Dioxide 23 mmol/L (22-32) 02/08/19 08:11 Anion Gap 9 mmol/L (2-11) 02/08/19 08:11 BUN 31 mg/dL (6-24) H 02/08/19 08:11 Creatinine 1.56 mg/dL (0.67-1.17) H 02/08/19 08:11 Est GFR ( Amer) 56.6 (>60) 02/08/19 08:11 Est GFR (Non-Af Amer) 46.8 (>60) 02/08/19 08:11 BUN/Creatinine Ratio 19.9 (8-20) 02/08/19 08:11 Glucose 202 mg/dL (70-100) H 02/08/19 08:11 POC Glucose (mg/dL) 140 mg/dL (70-100) H 02/09/19 07:58 Calcium 9.2 mg/dL (8.6-10.3) 02/08/19 08:11 Total Bilirubin 0.30 mg/dL (0.2-1.0) 02/08/19 08:11 AST 17 U/L (13-39) 02/08/19 08:11 ALT 13 U/L (7-52) 02/08/19 08:11 Alkaline Phosphatase 70 U/L (34-104) 02/08/19 08:11 Total Protein 6.5 g/dL (6.4-8.9) 02/08/19 08:11 Albumin 3.8 g/dL (3.2-5.2) 02/08/19 08:11 Globulin 2.7 g/dL (2-4) 02/08/19 08:11 Albumin/Globulin Ratio 1.4 (1-3) 02/08/19 08:11 Urine Color Yellow 02/08/19 08:55 Urine Appearance Cloudy 02/08/19 08:55 Urine pH 5.0 (5-9) 02/08/19 08:55 Ur Specific [place] 1.022 (1.010-1.030) 02/08/19 08:55 Urine Protein Negative (Negative) 02/08/19 08:55 Urine Ketones Negative (Negative) 02/08/19 08:55 Urine Blood Negative (Negative) 02/08/19 08:55 Urine Nitrate Negative (Negative) 02/08/19 08:55 Urine Bilirubin Negative (Negative) 02/08/19 08:55 Urine Urobilinogen Negative (Negative) 02/08/19 08:55 Ur Leukocyte Esterase Negative (Negative) 02/08/19 08:55 Urine WBC (Auto) Not Reportable 02/08/19 08:55 Urine Glucose 3+(>=500 mg/dl) (Negative) A 02/08/19 08:55
--- NOTE | 2019-02-09 13:22 | DS ---
CC: Dr. Daniels; Dr. Henok Camacho DISCHARGE SUMMARY: DATE OF ADMISSION: 02/07/19 DATE OF DISCHARGE: 02/09/19 REFERRING PHYSICIAN: Dr. Placido Perez. HISTORY OF PRESENT ILLNESS/HOSPITAL COURSE: Mr. Rosas is a pleasant 53- year- old gentleman with a history of severe nonischemic cardiomyopathy with recent recurrence of such off medical therapy, and his severely depressed LVEF did not improve despite prolonged medical therapy. He was admitted on 02/07/19 for elective single-chamber ICD implantation. The patient underwent [employer] single-chamber ICD device, Fortify Assura, model number [id number] ICD, serial number [id number]. Device is set in a VVI mode, low rate of 50, monitor with VT rates of 150 beats per minute. Therapy begins at 171 beats per minute with ATP x3 followed by 36 joules followed by 40 joules x3, and VF detection is set at 200 beats per minute with ATP x1 followed by 36 joules followed by 40 joules x5. The patient tolerated the procedure well. Postprocedure chest x- ray showed no pneumothorax. ICD interrogation was benign. During this admission, however, the patient had transient hypoglycemia and fever with transient altered mental status. Hospitalist consult was sought and they felt that the patient's fever was due to atelectasis with the mental status changes felt possibly related to gabapentin with his renal insufficiency and hypoglycemia. The patient has a history of hypoglycemia and it was felt due to more insulin than he usually received at home. This resolved with conservative therapy and observation. He had no further diarrhea neither with only 1 episode this morning. The patient feels well for discharge. He will follow up with Dr. 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 CONDITION ON DISCHARGE: Stable. DISCHARGE MEDICATIONS: 1. Eliquis 2.5 mg p.o. b.i.d. (the patient's ICD site is benign on the day of discharge with no hematoma). 2. Aspirin 81 mg once a day. 3. Lipitor 40 mg once a day. 4. Digoxin 0.125 mg once a day. 5. Lisinopril 10 mg once a day. 6. Toprol-XL 50 mg once a day. 7. Aldactone 25 mg once a day. Low-dose aspirin in addition to oral anticoagulant felt appropriate given the patient's history of nonobstructive coronary artery disease. We will call Dr. Daniels' office as the patient's gabapentin dose needs to be addressed given his renal insufficiency with a creatinine 1.56 and he had been 1.29 on 08/31/18, with chronic elevation in creatinine seen. This is a brief summary of the patient's hospitalization, so please also refer to full documentation in [facility]. The above was discussed in detail with the patient. He is comfortable with this discharge plan and understands instructions including ICD site instructions. Of note, blood cultures and urine cultures are pending at the time of this dictation which we would request the patient's PCP follow up as well. [id number]/CPS #: [id number] MTDGary
== END 2019-02-09 11:45 | disposition home or self-care (01) ==
LOC: CHICATH 06:46 → MEDTELE 09:53 → INTOOBSV 09:53
PROVIDERS: ADMIT Specialist; ATTEND Specialist
DX: I42.9 Cardiomyopathy, unspecified (principal); Z79.82 Long term (current) use of aspirin; Z79.01 Long term (current) use of anticoagulants; E11.9 Type 2 diabetes mellitus without complications; G62.9 Polyneuropathy, unspecified; F32.9 Major depressive disorder, single episode, unspecified; I10 Essential (primary) hypertension; I47.2 Ventricular tachycardia; I25.10 Atherosclerotic heart disease of native coronary artery without angina pectoris; E16.2 Hypoglycemia, unspecified; R50.9 Fever, unspecified
CPT/HCPCS: 33249; 36415; 71045; 71046; 80053; 81003; 85025; 87040; 93005; 96372; 96374; 96375; 99156; 99157; A9270-GY; C1722; C1895; G0378; J0690; J1644; J2250; J3010

== ENCOUNTER 2019-04-18 15:28 | Emergency (ER) | payer BC ==
[2019-04-18 16:59] LABS: ABS Basophils 0.1 10^3/ul (0-0.2); ABS Eosinophils 0.2 10^3/ul (0-0.6); ABS Lymphocytes 0.8 10^3/ul (1.0-4.8); ABS Monocytes 0.4 10^3/ul (0-0.8); Eosinophil % 4.5 %; Hematocrit 41 % (42-52); Hemoglobin 13.7 g/dL (14.0-18.0); Lymphocyte % 18.5 %; Mean Corpuscular HGB Conc 33 g/dL (31-36); Mean Corpuscular Hemoglobin 29 pg (27-31); Mean Corpuscular Volume 86 fL (80-94); Platelet Count 173 10^3/uL (150-450); Red Blood Count 4.78 10^6 /uL (4.18-5.48); Red Cell Distribution Width 13 % (10-15); White Blood Count 4.5 10^3/uL (3.5-10.8)
[2019-04-18 17:12] LABS: ALT 22 U/L (7-52); AST 31 U/L (13-39); Albumin 4.6 g/dL (3.2-5.2); Albumin/Globulin Ratio 1.4 (1-3); Alkaline Phosphatase 74 U/L (34-104); BUN/Creatinine Ratio 20.2 (8-20); Blood Urea Nitrogen 26 mg/dL (6-24); CO2 Carbon Dioxide 28 mmol/L (22-32); Calcium 10.1 mg/dL (8.6-10.3); Chloride 96 mmol/L (101-111); EGFR African American 70.5 (>60); EGFR Non-African American 58.3 (>60); Globulin 3.2 g/dL (2-4); Glucose 154 mg/dL (70-100); Sodium 129 mmol/L (135-145); Total Protein 7.8 g/dL (6.4-8.9)
[2019-04-18 17:17] LABS: Anion Gap 5 mmol/L (2-11); Potassium 5.3 mmol/L (3.5-5.0)
[2019-04-18 17:20] LABS: Troponin I 0.08 ng/mL (<0.04)
--- NOTE | 2019-04-18 17:34 | ED ---
Adult Trauma - HPI Summary HPI Summary: This patient is a 53 year old M presenting to [facility] accompanied by family with a chief complaint of fall from 8 ft in height at 1440. Pt reports he was measuring the length of the chimney, when he fell, landing on his feet and then fell forward. Pt denies current chest pain, SOB. Pt reports pain in left ankle 8 /10 achy worse when he moves it. Also stated he felt like he "had the wind knocked out of him' at the time of the fall. No LOC. Not on blood thinners. - History of Current Complaint Chief Complaint: EDFall Stated Complaint: LT ANKLE INJURY PER PT Time Seen by Provider: 04/18/19 17:21 Hx Obtained From: Patient Mechanism of Injury: Fall Force: Direct Onset/Duration: Started Hours Ago Onset of Pain: Post Accident Onset Severity: Moderate Current Severity: Moderate Pain Intensity: 6 Pain Scale Used: 0-10 Numeric Location: Extremities Associated Signs & Symptoms: Positive: Negative. Negative: SOB, Chest Pain - Additional Pertinent History Primary Care Physician: KAMI - Allergy/Home Medications Allergies/Adverse Reactions: Allergies Allergy/AdvReac Type Severity Reaction Status Date / Time No Known Allergies Allergy Verified 04/18/19 15:38 Home Medications: Home Medications RX: Insulin LISPRO* [HumaLOG*] 6 - 10 units SUBCUT BID 04/18/19 [History Confirmed 04/18/19] PMH/Surg Hx/FS Hx/Imm Hx Endocrine/Hematology History: Reports: Hx Diabetes - type 2 Cardiovascular History: Reports: Hx Congestive Heart Failure, Hx Coronary Artery Disease, Hx Hypercholesterolemia, Hx Hypertension, Hx Pacemaker/ICD - 4/ 2019, Other Cardiovascular Problems/Disorders - idiopathic cardiomyopathy Denies: Hx Angina, Hx Myocardial Infarction, Hx Valvular Heart Disease Respiratory History: Denies: Hx Asthma, Hx Chronic Obstructive Pulmonary Disease (COPD) History: Denies: Hx Chronic Renal Failure Sensory History: Reports: Hx Contacts or Glasses Denies: Hx Cataracts, Hx Eye Injury, Hx Eye Prosthesis, Hx Glaucoma, Hx Legally Blind, Hx Macular Degeneration, Hx Vision Problem, Hx Deafness, Hx Hearing Aid, Hx Hearing Problem, Other Sensory Impairments Opthamlomology History: Reports: Hx Contacts or Glasses Denies: Hx Cataracts, Hx Eye Injury, Hx Eye Prosthesis, Hx Glaucoma, Hx Legally Blind, Hx Macular Degeneration, Hx Vision Problem, Other Sensory Impairments Psychiatric History: Reports: Hx Depression Denies: Hx Panic Disorder - Surgical History Surgery Procedure, Year, and Place: Left hand surgery Infectious Disease History: No Infectious Disease History: Denies: Traveled Outside the [place] in Last 30 Days - Family History Known Family History: Positive: Cardiac Disease - Social History Lives: With Family Alcohol Use: None Hx Substance Use: No Substance Use Type: Reports: None Hx Tobacco Use: Yes - CHEWING TOBACCO, QUIT IN 2000. Smoking Status (MU): Never Smoked Tobacco Review of Systems Negative: Chest Pain Negative: Shortness Of Breath Positive: Other - pos - pain in left ankle All Other Systems Reviewed And Are Negative: Yes Physical Exam - Summary Physical Exam Summary: Constitutional: Well-developed, Well-nourished, Alert. (-) Distressed Skin: Warm, Dry HENT: Normocephalic; Atraumatic Eyes: Conjunctiva normal Neck: Musculoskeletal ROM normal neck. (-) JVD, (-) Stridor, (-) Tracheal deviation Cardio: Rhythm regular, rate normal, Heart sounds normal; Intact distal pulses; The pedal pulses are 2+ and symmetric. Radial pulses are 2+ and symmetric. (-) Murmur Pulmonary/Chest wall: +pacemaker L chest wall no ecchymosis or TTP. Effort normal. (-) Respiratory distress, (-) Wheezes, (-) Rales Abd: Soft, (-) tenderness, (-) Distension, (-) Guarding, (-) Rebound Musculoskeletal: Left medial ankle swelling and tenderness, 2+ DP pulse on left , and pain w ROM of ankle. No foot or knee TTP. No CTL tenderness. Lymph: (-) Cervical adenopathy Neuro: Alert, Oriented x3 Psych: Mood and affect Normal Triage Information Reviewed: Yes Vital Signs On Initial Exam: Initial Vitals Temp Pulse Resp BP Pulse Ox 99.2 F 54 16 106/65 95 04/18/19 15:34 04/18/19 15:34 04/18/19 15:34 04/18/19 15:34 04/18/19 15:34 Vital Signs Reviewed: Yes Procedures - Splinting Left Lower Extremity Location: Left Leg Hand-Made Type: orthoglass Splint: posterior walking Pre-Proc Neuro Vasc Exam: normal Post-Proc Neuro Vasc Exam: normal Diagnostics - Vital Signs Vital Signs Temp Pulse Resp BP Pulse Ox 04/18/19 15:34 99.2 F 54 16 106/65 95 - Laboratory Lab Results: Lab Results 04/18/19 04/18/19 04/18/19 Range/Units 16:35 16:35 16:35 WBC 4.5 (3.5-10.8) 10^3/uL RBC 4.78 (4.18-5.48) 10^6 /uL Hgb 13.7 L (14.0-18.0) g/dL Hct 41 L (42-52) % MCV 86 (80-94) fL MCH 29 (27-31) pg MCHC 33 (31-36) g/dL RDW 13 (10-15) % Plt Count 173 (150-450) 10^3/uL MPV 10.0 (7.4-10.4) fL Neut % (Auto) 66.9 % Lymph % (Auto) 18.5 % Millard % (Auto) 8.9 % Eos % (Auto) 4.5 % Baso % (Auto) 1.2 % Absolute Neuts (auto) 3.0 (1.5-7.7) 10^3/ul Absolute Lymphs (auto) 0.8 L (1.0-4.8) 10^3/ul Absolute Monos (auto) 0.4 (0-0.8) 10^3/ul Absolute Eos (auto) 0.2 (0-0.6) 10^3/ul Absolute Basos (auto) 0.1 (0-0.2) 10^3/ul Absolute Nucleated RBC 0.0 10^3/ul Nucleated RBC % 0.0 Sodium 129 L (135-145) mmol/L Potassium 5.3 H (3.5-5.0) mmol/L Chloride 96 L (101-111) mmol/L Carbon Dioxide 28 (22-32) mmol/L Anion Gap 5 (2-11) mmol/L BUN 26 H (6-24) mg/dL Creatinine 1.29 H (0.67-1.17) mg/dL Est GFR ( Amer) 70.5 (>60) Est GFR (Non-Af Amer) 58.3 (>60) BUN/Creatinine Ratio 20.2 H (8-20) Glucose 154 H (70-100) mg/dL Lactic Acid 1.5 (0.5-2.0) mmol/L Calcium 10.1 (8.6-10.3) mg/dL Total Bilirubin 0.40 (0.2-1.0) mg/dL AST 31 (13-39) U/L ALT 22 (7-52) U/L Alkaline Phosphatase 74 (34-104) U/L Troponin I 0.08 H* (<0.04) ng/mL Total Protein 7.8 (6.4-8.9) g/dL Albumin 4.6 (3.2-5.2) g/dL Globulin 3.2 (2-4) g/dL Albumin/Globulin Ratio 1.4 (1-3) Result Diagrams: 04/18/19 16:35 04/18/19 16:35 Lab Statement: Any lab studies that have been ordered have been reviewed, and results considered in the medical decision making process. - Radiology CXR Radiology Interpretation Completed By: Radiologist Summary of Radiographic Findings: CXR reveals, per radiologist, IMPRESSION: NO ACTIVE CARDIOPULMONARY DISEASE IS NOTED. ED physician has reviewed this radiology report. Foot X-Ray Radiology Interpretation Completed By: Radiologist Summary of Radiographic Findings: Foot X-Ray reveals, per radiologist, IMPRESSION: Likely fracture medial malleolus. ED physician has reviewed this radiology report. Ankle X-Ray Radiology Interpretation Completed By: Radiologist Summary of Radiographic Findings: Ankle X-Ray reveals, per radiologist, IMPRESSION: Undisplaced fracture of the anterior tibia extending to the medial malleolus is likely present with soft tissue swelling. ED physician has reviewed this radiology report. Lower Extremity X-Ray Radiology Interpretation Completed By: ED Physician Summary of Radiographic Findings: Lower Extremity X-Ray reveals previously noted medial malleolar fracture. Pending official radiology report. - EKG 1610 Cardiac Rate: Bradycardia Summary of EKG Findings: An EKG at 1610 reveals heart rate 55 bpm, sinus bradycardia, Left Bundle Branch Block (old), T-wave inversions V5, V6, I, II, AVL Re-Evaluation - Re-Evaluation First Eval Re-Evaluation Time: 20:21 Comment: Discussed results and plan of care with pt. Pt has no neck pain. Adult Trauma Course/Dx - Course Course Of Treatment: Pt is a 53 year old M with Hx of heart failure and has a defibrillator, present after mechanical fall from ladder with left ankle pain. Vitals signs are stable no actue distress, physical exam is notable for left ankle tenderness and swelling, x-ray shows medial malleolar fracture. Will place in short leg splint and have him follow up with orthopedics. Initial troponin noted to be .08, pt denies chest pain at this time. EKG is unchanged from prior, showing Left Bundle Branch block. Initially planned for observation with medicine given elevated troponin; however on re-eval of prior records this is lower than nml trop. Trop remained stable at .08. Additionally pt denies neck pain, and has no midline tenderness; therefore canceled C-Spine X-ray ordered by hospitalist. - Diagnoses Provider Diagnoses: Medial malleolar fracture, CHF (congestive heart failure) - Physician Notifications Discussed Care Of Patient With: Jarod Penny Time Discussed With Above Provider: 19:26 Instructed by Provider To: Other - Discussed patient's case with Dr. Penny, who agreed to come down to assess pt. 20:15 - Dr. Penny chooses not to admit pt due to downward trending troponin, and reccomends if after further inspection there are signs of trauma to send to a trauma center. Discharge - Sign-Out/Discharge Documenting (check all that apply): Patient Departure - Discharge Patient Received Moderate/Deep Sedation with Procedure: No - Discharge Plan Condition: Stable Disposition: HOME Prescriptions: oxyCODONE/Acetamin 5/325 MG* [Percocet 5/325 TAB*] 1 tab PO Q6H PRN 4 Days #12 tab MDD 4 tabs PRN Reason: Pain Patient Education Materials: Ankle Fracture (ED) Referrals: Poncho Daniels DO [Primary Care Provider] - Vipin Alvarado MD [Medical Doctor] - 2 Days Additional Instructions: Follow up with Dr. Alvarado in orthopedics for ankle fracture within 1-2 days. Take Motrin as needed for pain. Please keep from walking on left leg. RETURN TO THE ED FOR NEW OR WORSENING SYMPTOMS. - Billing Disposition and Condition Condition: STABLE Disposition: Home - Attestation Statements Document Initiated by Scribe: Yes Documenting Scribe: Anel Leong Provider For Whom Scribe is Documenting (Include Credential): Dr. Jean-Claude Harkins MD Scribe Attestation: Anel Ma, scribed for Dr. Jean-Claude Harkins MD on 04/21/19 at 0935. Scribe Documentation Reviewed: Yes Provider Attestation: The documentation as recorded by the scribe, Anel Leong accurately reflects the service I personally performed and the decisions made by me, Dr. Jean-Claude Harkins MD Status of Scribe Document: Viewed
[2019-04-18] MEDS ORDERED: oxyCODONE/Acetamin 5/325 MG* TAB PO ONE (17:43)
[2019-04-18 19:58] LABS: Troponin I 0.08 ng/mL (<0.04)
[2019-04-18 21:03] VITALS: BP 103/63
--- NOTE | 2019-04-18 23:15 | CONS ---
CC: Dr. Daniels; Dr. Perez; Dr. Huerta; Dr. Conway; Dr. Zeng; Dr. Harkins * CONSULTATION REPORT: DATE OF CONSULT: 04/18/19 PRIMARY CARE PROVIDER: Dr. Daniels. OTHER PROVIDER: Dr. Perez, Dr. Huerta, Dr. Conway, Dr. Zeng. REQUESTING PHYSICIAN IN CONSULTATION: Dr. Harkins. ATTENDING PHYSICIAN: Dr. Penny (dictated by DEMETRIUS Toribio). REASON FOR CONSULT: Elevated troponin, fall off ladder. HISTORY OF PRESENT ILLNESS/HOSPITAL COURSE: I refer you to Dr. Harkins's provider report from 04/18/19 for full and complete details, but in short, Mr. Rosas is a 53-year-old male who fell from 8 feet from a ladder today. He states he fell and landed on the ground. He is not sure how he landed, but notes that he did hit his chest and his left leg. He notes that he felt winded , called for his and ended up walking to his porch. He does not believe that he lost consciousness, although he notes that his head hurt after the injury. He also notes left ankle pain. Currently, he complains of posterior neck pain, but he thinks that this is from sitting in a hospital bed for an extended period of time. He denies chest pain. He notes that when he removed his boots, he noticed swelling in the left ankle, which prompted him to come to the emergency department. In the emergency department, the patient received a full workup, which included laboratory data revealing a mildly low H and H, hyponatremia, hyperkalemia, and elevated creatinine which is within the patient's baseline and a troponin of 0.08, which is noted to be lower than the patient's baseline. He had chest x- ray, which was negative. Left foot and left ankle x-rays revealed non- displaced fracture of the anterior tibia to medial malleolus. The patient was given oxycodone/acetaminophen 5/325 in the ER, which relieved his left ankle pain fairly well. He currently feels well and continues to deny chest pain. He denies pain elsewhere. He denies headache, vision changes, weakness or numbness in his upper or lower extremities. He does have swelling in the left ankle, but denies pain stating that the Percocet has relieved his pain. He no longer has headache. He does continue to have posterior neck pain, which developed hours after his fall. PAST MEDICAL HISTORY: 1. Cardiomyopathy. 2. Diabetes mellitus. 3. Hypertension. 4. Chronic kidney disease. 5. Diabetic neuropathy. 6. Depression. PAST SURGICAL HISTORY: Left hand, defibrillator. HOME MEDICATIONS: 1. Alogliptin benzoate 25 mg p.o. daily. 2. Apixaban 2.5 mg p.o. b.i.d. 3. Aspirin 81 mg p.o. daily. 4. Atorvastatin 40 mg p.o. at 1700. 5. Digoxin 0.125 mg p.o. daily. 6. Escitalopram 20 mg p.o. daily. 7. Ferrous gluconate 256 mg p.o. daily. 8. Gabapentin 300 mg p.o. t.i.d. 9. Insulin glargine 25 to 30 units subcu daily. 10. Insulin lispro 6 units in a.m., 10 units in p.m. p.r.n. 11. Lactobacillus acidophilus 1 tab p.o. b.i.d. 12. Lisinopril 10 mg p.o. daily. 13. Loperamide 2 mg p.o. daily p.r.n. diarrhea. 14. Metoprolol succinate XL 50 mg p.o. daily. 15. Howes 3 fatty acid/fish oil 1 tab p.o. daily. 16. Spironolactone 25 mg p.o. daily. ALLERGIES: No known drug allergies. FAMILY HISTORY: Cardiac disease on father's side of family including father. Mother with ovarian cancer. Sister with thyroid cancer. Mother with TIA. Mother and sister with diabetes mellitus. SOCIAL HISTORY: The patient is a former tobacco chewer. He quit in 2000. He does not use alcohol. He does not use illicit drugs. He is disabled and no longer works. He lives with his . In the event that he is unable to make his own medical decisions, he has appointed his , Bailee Rosas, to be his surrogate decision maker. REVIEW OF SYSTEMS: A 10-point review of systems was performed and all the pertinent positives and negatives are in the HPI. All other systems are negative. PHYSICAL EXAM: General: Mr. Rosas is a well-developed, well-nourished, average weight middle age man who appears somewhat older than his stated age. He is in no acute distress. He is pleasant and cooperative and sociable. Vital Signs: Temperature 99.2, temporal, heart rate 64, respiratory rate 18, oxygen saturation 95% on room air, blood pressure 106/65. HEENT: Normocephalic , atraumatic. Head nontender to palpation. PERRL. EOMI. Visual smyth are grossly intact. Nonicteric sclerae. Hearing grossly intact. Oral mucous membranes are moist. There are no lesions. The pharynx is clear. Neck: Full range of motion, nontender to palpation. Cardiovascular: Bradycardiac rate, rhythm regular. No murmurs, rubs, clicks, or gallops. S1 and S2 present. No JVD. Pulmonary: Symmetrical chest expansion without the use of accessory muscles. Lungs: Clear to auscultation bilaterally without wheeze, rhonchi or rales. The chest wall is nontender to palpation. Abdomen: Flat, bowel sounds heard in all quadrants. There is no tenderness to palpation. There is no bruising throughout the abdomen or lower trunk. Musculoskeletal: Full range of motion in bilateral upper and lower extremities. There is tenderness to palpation to the medial malleolus of the left lower extremity, nontender to palpation elsewhere. There is swelling at the left ankle joint. There is decreased range of motion. Extremities: Skin is warm and smooth bilaterally without clubbing, cyanosis. Radial and pedal pulses are palpable. Neuro: The patient is awake. He is alert and oriented x3. Cranial nerves are grossly intact. He is able to move all of his extremities with a motor strength of 5/5 in upper and lower extremities bilaterally. He has sensation intact. DIAGNOSTIC STUDIES/LAB DATA: HGB 13.7, HCT 41. Sodium 129, potassium 5.3, chloride 96, BUN 29, creatinine 1.29, glucose 154, 143. Troponin 0.08 x2. ASSESSMENT AND PLAN: Mr. Rosas is a 53-year-old male with a past medical history of cardiomyopathy, hypertension, diabetes, neuropathy, chronic kidney disease, who presented to the ER today after a fall off an 8-feet ladder where he landed on his chest resulting in a fracture to the left lower extremity. The hospitalist team has been asked to consult on the patient. 1. Fall. The patient states that he fell from an 8-feet ladder. His main complaint is that of left ankle pain, but also notes that he landed on his chest area and has neck pain. It is recommended that he get a CT of the head, neck, chest, abdomen and pelvis. Future disposition should be based on the results of this testing. Currently, he has adequate pain control with Percocet 5. He will have the left ankle splinted. Again, CT scan of the head and neck, chest, abdomen and pelvis is recommended. 2. Elevated troponin. The patient has a past medical history of cardiomyopathy with an ejection fraction of less than 20%. Since 2016, he has had elevated troponins, with a peak of 0.28. Currently, he is at 0.08 troponin x2, which is the lowest value since that time. I believe that his elevated troponin is chronic and due to his cardiomyopathy, I do not believe that this would require further workup. 3. Chronic medical conditions. Recommendations are to continue the patient's home medications for now with further recommendations pending the patient's admission status. TIME SPENT: Approximately 45 minutes was spent on this consultation, greater than half of that time was spent with the patient and his obtaining history , performing physical, and reviewing the plan of care. The case has been reviewed with my attending, Dr. Penny, who is in agreement with the plan of care. DEMETRIUS TIMMONS [id number]/[facility] #: [id number] LINDA
== END 2019-04-18 21:41 | disposition home or self-care (01) ==
LOC: ED 15:28
DX: S82.52XA Displaced fracture of medial malleolus of left tibia, initial encounter for closed fracture (principal); W11.XXXA Fall on and from ladder, initial encounter; E11.22 Type 2 diabetes mellitus with diabetic chronic kidney disease; I13.0 Hypertensive heart and chronic kidney disease with heart failure and stage 1 through stage 4 chronic kidney disease, or unspecified chronic kidney disease; N18.9 Chronic kidney disease, unspecified; E11.40 Type 2 diabetes mellitus with diabetic neuropathy, unspecified; F32.9 Major depressive disorder, single episode, unspecified; R79.89 Other specified abnormal findings of blood chemistry; Z79.4 Long term (current) use of insulin; I50.9 Heart failure, unspecified; I25.10 Atherosclerotic heart disease of native coronary artery without angina pectoris; Z95.810 Presence of automatic (implantable) cardiac defibrillator; Z87.891 Personal history of nicotine dependence; I42.9 Cardiomyopathy, unspecified; Z79.82 Long term (current) use of aspirin; Z79.899 Other long term (current) drug therapy
CPT/HCPCS: 36415; 71045; 80053; 83605; 84484; 85025; 99283; A9270-GY

== ENCOUNTER 2019-05-19 11:13 | Observation (INO) | payer BC ==
--- OUTSIDE RECORDS SUMMARY | 2019-05-19 11:27 | XMS REPORT | Continuity of Care Document ---
:1965 External Reference #:[id number] Author Name Kayce Gonzalez Care Team Providers Name Role Phone Poncho Daniels D.O. Primary Care Physician Unavailable Payers Date Identification Numbers Payment Provider Subscriber Effective: 2018 Policy Number: [id number] [employer] Bailee Rosas PayID: [id number] [address] [address] [place] [address] Expires: 2018 Policy Number: [id number] [employer] Bailee Rosas PayID: [id number] [address] [address] [place] [address] Expires: 2016 Policy Number: [id number] [place] Vipin Rosas PayID: [id number] [address] [place] [address] Expires: 2015 Policy Number: [id number] Medicaid Vipin Rosas Group Number: [employer] [address] Group Name: [address] [place] [address] PayID: [id number] Effective: 2016 PayID: [id number] [employer] Vipin Rosas Expires: 2017 [address] [address] [place] [address] Problems Active Problems Provider Date Chest pain Placido Perez M.D., [facility], Onset: 07/20/2013 [facility] Primary cardiomyopathy Placido Perez M.D., [facility], Onset: 08/25/2013 [facility] Encounter for planned postprocedural Talon Zeng M.D., [facility], [facility] Onset: wound closure Closed fracture of medial malleolus Darvin Dillon MD Onset: 04/21/2019 Family History Date Family Member(s) Observation Comments Father due to Heart Disease () Mother due to Ovarian Cancer () Siblings 2 Social History Type Date Description Comments Sex Unknown Marital Status Occupation Disabled Work Status Not Currently Working Tobacco Use Start: Unknown Never Smoked Cigarettes chewed tobacco from age 19 until mid-40's, then quit. Smoking Status Reviewed: 04/28/19 Never Smoked Cigarettes chewed tobacco from age 19 until mid-40's, then quit. ETOH Use Denies alcohol use ETOH Use Has consumed alcohol in the past Tobacco Use Start: Unknown Patient has never smoked Recreational Drug Use Denies Drug Use Exercise Type/Frequency Exercises regularly walking about 1/2 hour daily Allergies, Adverse Reactions, Alerts Description No Known Drug Allergies Medications Active Medications SIG Qnty Indications Ordering Date Provider Spironolactone take one table 90tabs I42.9 Placido Noe 09/27/2018 25mg Tablets by mouth per Roderick Perez, day. GALA, ELIESER Probiotic 1 by mouth bid Unknown Capsules Lantus 25 units after Unknown 100Unit/ML Solution dinner daily Humalog Kwikpen units based on Unknown 100Unit/ML sliding scale Solution Pen-Inject Alogliptin Benzoate 1 tab once a day Poncho Daniels 25mg J., D.O. Tablets Eliquis 1 tablet by Unknown 2.5mg Tablets mouth twice a day. Metoprolol Succinate ER 1 by mouth every Unknown day 50mg Tablets ER 24HR Gabapentin 1 cap po three Session, Jatinder, 300mg Capsules times daily RPA-C Iron (Ferrous 1 by mouth daily Unknown Gluconate) 256(28Fe) mg Tablets Aspirin 1 by mouth every Unknown 81mg Tablets day Lexapro 1 po qd 90tabs Unknown 20mg Tablets Lisinopril 1 po qd Placido Noe 10mg Tablets Roderick Perez, [facility], [facility] Fish Oil 1 po qd Unknown 1000mg Capsules Digoxin 1 po qd 90tabs Unknown 0.125mg Tablets Lipitor 1 po qd 90tabs Unknown 40mg Tablets History Medications Alogliptin Benzoate Pasatiempo, Poncho - 25mg J., D.O. 09/19/2018 Tablets Basaglar Kwikpen 30 units once Frances, Poncho - 100Unit/ML after dinner J., D.O. 03/13/2019 Solution Pen-Inject Alogliptin Benzoate 1 daily Unknown - 25mg 09/12/2018 Tablets Lantus Solostar 18 units at hs Unknown - 100Unit/ML 11/08/2017 Solution Pen-Inject Levemir Flextouch inject 18 units 30units Unknown - 100Unit/ML under the skin 10/11/2016 Solution Pen-Inject every day Tradjenta 1 tablet by 90tabs Unknown - 5mg Tablets mouth every day 10/11/2016 Lyrica 1 po tid Unknown - 100mg Capsules 11/08/2017 Metformin HCL 1 po Am and 1 180tabs Unknown - 1000mg Tablets po PM 09/12/2018 Metoprolol Tartrate 1 po daily 60tabs Unknown - 25mg 09/12/2018 Tablets Victoza 1.8 mg qd 1mon Unknown - 18mg/3ML Solution 10/12/2014 Aspirin 1 po qd 90tabs Unknown - 325mg Tablets DR 10/12/2014 Lyrica 1 po tid 180caps Unknown - 50mg Capsules 08/24/2013 Feosol 1 Tablet qd Unknown - 325mg 10/12/2014 Spironolactone 1 po qod 30tabs Unknown - 25mg Tablets 09/13/2018 Medications Administered in Office Medication SIG Qnty Indications Ordering Provider Date Inj, Regadenoson, 0.1 MG Placido Perez M.D., 11/22/2017 Injection ELIESER CEDEÑO Technetium TC 99M Placido Perez M.D., 11/22/2017 Tetrofosmin, Per Unit Dose ELIESER CEDEÑO Up To 40 Millicuries Injection Technetium TC 99M Placido Perez M.D., 07/25/2013 Tetrofosmin, Per Unit Dose [facility], [facility] Up To 40 Millicuries Injection Vital Signs Date Vital Result Comment 04/28/2019 1:54pm Height 65 inches 5'5" Weight 134.00 lb BP Systolic 112 mmHg BP Diastolic 70 mmHg Body Temperature 96.9 F BMI (Body Mass Index) 22.3 kg/m2 04/21/2019 1:47pm Height 64 inches 5'4" Weight 136.00 lb Heart Rate 62 /min BP Systolic 108 mmHg BP Diastolic 62 mmHg Body Temperature 97.2 F Pain Level 3 BMI (Body Mass Index) 23.3 kg/m2 03/14/2019 12:33pm Height 64 inches 5'4" Weight 130.00 lb with shoes Heart Rate 52 /min recheck 64 apical BP Systolic Sitting 98 mmHg Rue reg cuff BP Diastolic Sitting 70 mmHg Rue reg cuff BP Systolic Standing 92 mmHg Rue reg cuff BP Diastolic Standing 70 mmHg Rue reg cuff Respiratory Rate 16 /min BMI (Body Mass Index) 22.3 kg/m2 Ejection Fraction <20% date 01/02/19 ECHO 02/14/2019 1:19pm Height 64 inches 5'4" Weight 132.38 lb with shoes Heart Rate 58 /min BP Systolic Sitting 106 mmHg ure reg cuff BP Diastolic Sitting 76 mmHg ure reg cuff BP Systolic Standing 102 mmHg ure reg cuff BP Diastolic Standing 74 mmHg ure reg cuff BMI (Body Mass Index) 22.7 kg/m2 Ejection Fraction <20% Echo 01/02/19 02/01/2019 3:31pm Height 64 inches 5'4" Weight 133.50 lb w/shoes Heart Rate 64 /min reg BP Systolic Sitting 105 mmHg Lue reg cuff BP Diastolic Sitting 65 mmHg Lue reg cuff BP Systolic Standing 98 mmHg Lue reg cuff BP Diastolic Standing 60 mmHg Lue reg cuff Respiratory Rate 15 /min BMI (Body Mass Index) 22.9 kg/m2 Ejection Fraction <20% 01/02/19 echo 01/18/2019 1:29pm Height 64 inches 5'4" Weight 136.00 lb with shoes Heart Rate 60 /min BP Systolic Sitting 110 mmHg lue reg cuff BP Diastolic Sitting 70 mmHg lue reg cuff BP Systolic Standing 108 mmHg lue reg cuff BP Diastolic Standing 70 mmHg lue reg cuff Respiratory Rate 14 /min BMI (Body Mass Index) 23.3 kg/m2 Ejection Fraction <20% echo.01/02/19 09/27/2018 2:20pm Height 64 inches 5'4" Weight 131.00 lb Heart Rate 71 /min BP Systolic Sitting 110 mmHg lue reg cuff BP Diastolic Sitting 70 mmHg lue reg cuff BP Systolic Standing 112 mmHg lue reg cuff BP Diastolic Standing 70 mmHg lue reg cuff Respiratory Rate 14 /min BMI (Body Mass Index) 22.5 kg/m2 Ejection Fraction less than% 09/20/2018 9:50am Height 64 inches 5'4" Weight 131.00 lb Heart Rate 62 /min BP Systolic 110 mmHg BP Diastolic 76 mmHg BMI (Body Mass Index) 22.5 kg/m2 09/13/2018 3:21pm Height 64 inches 5'4" Weight 130.38 lb with shoes Heart Rate 50 /min BP Systolic Sitting 102 mmHg Lue reg cuff BP Diastolic Sitting 68 mmHg Lue reg cuff Respiratory Rate 16 /min BMI (Body Mass Index) 22.4 kg/m2 12/29/2017 10:10am Height 64 inches 5'4" Weight [...] BMI (Body Mass Index) 28.0 kg/m2 Results Test Date Facility Test Result H/L Range Note Pre Cath Panel 02/02/2019 [facility] Partial 34.9 seconds N 26.0-36.[address] [place] [address] PTT [phone] Basic Metabolic 02/02/2019 [facility] Sodium 133 mmol/L Low 135-[address] [place] [address] [phone] Potassium 5.0 mmol/L N 3.5-5.0 Chloride 100 mmol/L Low 101-111 Co2 Carbon Dioxide 27 mmol/L N 22-32 Anion Gap 6 mmol/L N 2-11 Glucose 160 mg/dL High 70-100 Blood Urea Nitrogen 27 mg/dL High 6-24 Creatinine 1.42 mg/dL High 0.67-1.17 BUN/Creatinine Ratio 19.0 N 8-20 Calcium 9.5 mg/dL N 8.6-10.3 Egfr Non- 52.2 >60 Egfr 63.1 >60 2 CBC Auto Diff 02/02/2019 [facility] White Blood 7.4 10^3/uL N 3.5-10.[address] [place] [address] [phone] Red Blood Count 4.31 10^6/uL N 4.18-5.48 Hemoglobin 12.8 g/dL Low 14.0-18.0 Hematocrit 37 % N 36-46 Mean Corpuscular Volume 85 fL N 80-94 Mean Corpuscular Hemoglobin 30 pg N 27-31 Mean Corpuscular HGB Conc 35 g/dL N 31-36 Red Cell Distribution Width 13 % N 10.5-15 Platelet Count 267 10^3/uL N 150-450 Mean Platelet Volume 8.9 fL N 7.4-10.4 Abs Neutrophils 5.3 10^3/uL N 1.5-7.7 Abs Lymphocytes 1.4 10^3/uL N 1.0-4.8 Abs Monocytes 0.5 10^3/uL N 0-0.8 Abs Eosinophils 0.2 10^3/uL N 0-0.6 Abs Basophils 0 10^3/uL N 0-0.2 Abs Nucleated RBC 0 10^3/uL Granulocyte % 71.4 % Lymphocyte % 18.5 % Monocyte % 7.3 % Eosinophil % 2.1 % Basophil % 0.7 % Nucleated Red Blood Cells % 0 Inr/Protime 02/02/2019 [facility] Inr 1.19 High 0.82-1.[address] [place] [address] [phone] Basic Metabolic 10/05/2018 [facility] Sodium 134 mmol/L Low 135-[address] [place] [address] [phone] Potassium 5.0 mmol/L N 3.5-5.0 Chloride 99 mmol/L Low 101-111 Co2 Carbon Dioxide 29 mmol/L N 22-32 Anion Gap 6 mmol/L N 2-11 Glucose 197 mg/dL High 70-100 Blood Urea Nitrogen 35 mg/dL High 6-24 Creatinine 1.62 mg/dL High 0.67-1.17 BUN/Creatinine Ratio 21.6 High 8-20 Calcium 9.8 mg/dL N 8.6-10.3 Egfr Non- 45.0 >60 Egfr 54.4 >60 4 1 soon 2 Because ethnic data is not always readily available, this report includes an eGFR for both -Americans and non- Americans. The National Kidney Disease Education Program (NKDEP) does not endorse the use of the MDRD equation for patients that are not between the ages of 18 and 70, are , have extremes of body size, muscle mass, or nutritional status, or are non- or non-. According to the National Kidney Foundation, irrespective of diagnosis, the stage of the disease is based on the level of kidney function: Stage Description GFR(mL/min/1.73 m(2)) 1 Kidney damage with normal or decreased GFR 90 2 Kidney damage with mild decrease in GFR 60-89 3 Moderate decrease in GFR 30-59 4 Severe decrease in GFR 15-29 5 Kidney failure <15 (or dialysis) 3 Standard intensity warfarin therapeutic range: 2.0-3.0 High intensity warfarin therapeutic range: 2.5-3.5 4 Because ethnic data is not always readily available, this report includes an eGFR for both -Americans and non- Americans. The National Kidney Disease Education Program (NKDEP) does not endorse the use of the MDRD equation for patients that are not between the ages of 18 and 70, are , have extremes of body size, muscle mass, or nutritional status, or are non- or non-. According to the National Kidney Foundation, irrespective of diagnosis, the stage of the disease is based on the level of kidney function: Stage Description GFR(mL/min/1.73 m(2)) 1 Kidney damage with normal or decreased GFR 90 2 Kidney damage with mild decrease in GFR 60-89 3 Moderate decrease in GFR 30-59 4 Severe decrease in GFR 15-29 5 Kidney failure <15 (or dialysis) Procedures Date Code Description Status 04/21/2019 64520 Interrogation Implant Cardiovasc Monitor System Incl Completed Analysis Int 04/21/2019 40133 Interrogation Implant Cardiovasc Monitor System Incl Completed Analysis Int 04/21/2019 60139 Icd eval w/iterative adjment single lead Icd Completed 04/21/2019 13749 Icd eval w/iterative adjment single lead Icd Completed 03/09/2019 84075 Interrogation Implant Cardiovasc Monitor System Incl Completed Analysis Int 03/09/2019 38922 Interrogation Implant Cardiovasc Monitor System Incl Completed Analysis Int 03/09/2019 41834 Icd eval w/iterative adjment single lead Icd Completed 03/09/2019 23089 Icd eval w/iterative adjment single lead Icd Completed 02/08/2019 10744 EKG, Interpretation Only Completed 02/07/2019 36457 Insert/Replace Icd W/Generator Completed 02/07/2019 42040 EKG, Interpretation Only Completed 02/07/2019 26544 Moderate Sedation Services; Same Phys Intl 15 Mins; PT Completed >=5 Years 02/07/2019 50126 Moderate Sedation Services; Same Phys Each Additional Completed 15 Mins 01/02/2019 91168 ECHO Transthoracic, Real-Time 2D With Doppler And Color Completed Flow 01/02/2019 93269 ECHO Transthoracic, Real-Time 2D With Doppler And Color Completed Flow 09/27/2018 23585 EKG Tracing & Interpretation Completed 09/05/2018 78283 Left Heart Cath. Incl S/I Coronaries, Angio S/I V Gram Completed If Done 09/02/2018 06442 Echocardiogram, Limited Study Completed 08/28/2018 70849 EKG, Interpretation Only Completed 08/28/2018 72003 ECHO Transthorasic Realtime 2D W Doppler & Color Flow Completed Hosp 04/12/2018 69974 Diffusing Capacity Completed 04/12/2018 40903 Plethysmography Determination Lung Volumes & Per Airway Completed Resist 04/12/2018 38735 Spirometry Incl Graphic Record Completed 11/22/2017 46190 Stress Test Completed 11/22/2017 09775 Myocardial Perfusion Imaging Tomographic (Spect) Completed Multiple Studies 11/10/2017 61228 EKG Tracing & Interpretation Completed 10/27/2017 36309 ECHO Transthoracic, Real-Time 2D With Doppler And Color Completed Flow 10/27/2017 42664 ECHO Transthoracic, Real-Time 2D With Doppler And Color Completed Flow 10/21/2016 51016 EKG Tracing & Interpretation Completed 01/16/2016 14019161 Colonoscopy Completed 11/04/2015 02080 EKG Tracing & Interpretation Completed 10/25/2015 67066 ECHO Transthoracic, Real-Time 2D With Doppler And Color Completed Flow 10/15/2014 94449 EKG Tracing & Interpretation Completed 09/19/2014 90029 ECHO Transthoracic, Real-Time 2D With Doppler And Color Completed Flow 07/28/2013 53568 Echocardiogram Completed 07/28/2013 86674 ECHO Transthoracic, Real-Time 2D With Doppler And Color Completed Flow 07/25/2013 31501 Stress Test Completed 07/25/2013 74235 Myocardial Perfusion Imaging Tomographic (Spect) Completed Multiple Studies 07/20/2013 13068 EKG Tracing & Interpretation Completed Encounters Type Date Location Provider Dx Diagnosis Office Visit 04/18/2019 [facility] Oanh S82.892A Oth fracture of 10:25a Assoc,DEMETRIUS Puente left lower leg, Hospitalists init for clos fx R79.89 Other specified abnormal findings of blood chemistry W11.xxxA Fall on and from ladder, initial encounter Office Visit 03/14/2019 Shahzad Noe I42.8 Other cardiomyopathies 1:00p Cardiology Of Roderick Perez, [facility] FAC, [facility] [place] Z95.810 Presence of automatic (implantable) cardiac defibrillator Office Visit 02/08/2019 [place] Shabana Wade I42.9 Cardiomyopathy, 4:14p Cardiology Atul Vaughn unspecified [facility] E11.649 Type 2 diabetes mellitus with hypoglycemia without coma I50.20 Unspecified systolic (congestive) heart failure Office Visit 02/08/2019 10:34a [place] Mihai Shine R41.82 Altered mental Assoc,DEMETRIUS Maza status, Hospitalists unspecified R50.9 Fever, unspecified R19.7 Diarrhea, unspecified E11.9 Type 2 diabetes mellitus without complications I10 Essential (primary) hypertension I25.10 Athscl heart disease of [place] coronary artery w/o ang pctrs Office Visit 02/01/2019 Shahzad Carpenter I42.9 Cardiomyopathy, 3:45p Cardiology Of Roderick Camacho unspecified [facility] Office Visit 01/18/2019 Shahzad Noe I42.9 Cardiomyopathy, 1:30p Cardiology Of Roderick Perez, unspecified [facility] FACC, FASHYACINTH Office Visit 09/27/2018 Shahzad Noe I42.9 Cardiomyopathy, 2:30p Cardiology Of Roderick Perez, unspecified [facility] FACC, [facility] [place] Office Visit 09/20/2018 [place] Sudhir S. I42.9 Cardiomyopathy, 10:00a Neurologic Roderick Huerta unspecified Services Of [facility] Z86.73 Prsnl hx of TIA (TIA), and cereb infrc w/o resid deficits Office Visit 09/13/2018 3:00p [place] [facility] Talon Zeng, Z48.812 [place] [facility] [place].Pauline, FACC, surgical aftcr FSCAI following surgery on the circ sys I42.8 Other cardiomyopathies Office Visit 09/05/2018 [place] Henok Carpenter I42.9 Cardiomyopathy, 4:05p Cardiology Atul Camacho M.D. unspecified [facility] I50.9 Heart failure, unspecified I47.2 Ventricular tachycardia Office Visit 09/05/2018 11:06a [facility] Brielle G45.9 Transient Associnocencio M.D. cerebral ischemic Hospitalists attack, unspecified I11.0 Hypertensive heart disease with heart failure I50.9 Heart failure, unspecified Z79.4 prison (current) use of insulin N18.3 Chronic kidney disease, stage 3 (moderate) E11.22 Type 2 diabetes mellitus w diabetic chronic kidney disease Office Visit 09/04/2018 11:05a [facility] Brielle G45.9 Transient Associnocencio M.D. 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 cerebral ischemic Hospitalists attack, unspecified I11.0 Hypertensive heart disease with heart failure I50.9 Heart failure, unspecified E11.9 Type 2 diabetes mellitus without complications Z79.4 prison (current) use of insulin E78.5 Hyperlipidemia, unspecified Office Visit 09/02/2018 2:28p [place] [facility] Shabana Wade, G45.9 Transient Of Lucinda Vaughn cerebral ischemic attack, unspecified I42.9 Cardiomyopathy, unspecified I50.9 Heart failure, unspecified I25.10 Athscl heart disease of [place] coronary artery w/o ang pctrs I44.7 Left bundle-branch block, unspecified Office Visit 09/02/2018 11:05a [facility] G[facility].9 Transient Associnocencio M.D. cerebral ischemic Hospitalists attack, unspecified I11.0 Hypertensive heart disease with heart failure I50.9 Heart failure, unspecified E11.9 Type 2 diabetes mellitus without complications Office Visit 09/01/2018 11:04a [facility] G45.9 Transient Associnocencio M.D. 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 cerebral ischemic attack, unspecified I10 Essential (primary) hypertension Office Visit 08/31/2018 [place] Talon Zeng, I42.9 Cardiomyopathy, 12:14p Cardiology Of GALA Vaughn, unspecified [facility] AT [facility] Office Visit 08/31/2018 [place] Ronda I50.9 Heart failure, 3:19p Cardiology Of KAILA Lazo unspecified [facility] I42.9 Cardiomyopathy, unspecified R07.9 Chest pain, unspecified I25.10 Athscl heart disease of [place] coronary artery w/o ang pctrs [facility] Cardiomyopathy, 10:43a Associnocencio D.O. unspecified Hospitalists E11.65 Type 2 diabetes mellitus with hyperglycemia I10 Essential (primary) hypertension Office [facility]30[facility] I42.9 Cardiomyopathy, 10:43a Associnocencio D.O. 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 unspecified I42.9 Cardiomyopathy, unspecified [facility] Heart failure, 10:43a Assinocencio sharma MD unspecified Hospitalists E83.42 Hypomagnesemia R79.89 Other specified abnormal findings of blood chemistry Office Visit 08/27/2018 12:35p [place] [facility] Henok Carpenter I50.9 Heart failure, Of Lucinda Camacho M.D. unspecified R07.9 Chest pain, unspecified I42.9 Cardiomyopathy, unspecified I44.7 Left bundle-branch block, unspecified Office Visit 08/27/2018 [facility] Carmen Carbajal, R07.9 Chest pain, 10:42a inocencio Diehl M.D. unspecified Hospitalists I42.9 Cardiomyopathy, unspecified E11.65 Type 2 diabetes mellitus with hyperglycemia Z79.4 prison (current) use of insulin E83.42 Hypomagnesemia Office Visit 12/29/2017 10:45a [place] [facility] Placidomemo Noe R07.9 Chest pain, Of Lucinda Perez M.D., unspecified FACC, FASNC I42.9 Cardiomyopathy, unspecified Office 11/10/2017 [place] [facility] Placidomemo Noe R07.9 Chest pain, Visit 9:45a Of Lucinda Perez M.D., unspecified FACC, FASNC Office 10/21/2016 [place] [facility] Placidomemo Noe I42.9 Cardiomyopathy, Visit 8:45a Of Lucinda Perez M.D., unspecified FACC, FASNC Office 11/09/2015 [facility] Joseph Pelaez K52.9 Noninfective Visit 1:31p inocencio Diehl II, M.D. gastroenteritis and Hospitalists colitis, unspecified R77.8 Other specified abnormalities of plasma proteins N17.9 Acute kidney failure, unspecified E11.42 Type 2 diabetes mellitus with diabetic polyneuropathy Office Visit 11/04/2015 Shahzad Noe I42.9 Cardiomyopathy, 1:30p Cardiology Of Rodreick Perez, unspecified [facility] FACC, FASNC Office Visit 10/15/2014 Shahzad Noe 425.4 Cardiomyopathy Other 12:45p Cardiology Of Roderick Perez, Prim [facility] FACC, FASNC Office Visit 08/25/2013 Shahzad Noe 425.4 Cardiomyopathy Other 11:45a Cardiology Of Roderick Perez, Prim [facility] FAC, FASNC Office Visit 07/20/2013 Shahzad Noe 786.50 Pain Chest Unspec 9:30a Cardiology Of Roderick Perez, [facility] FACC, [facility] [place] Plan of Treatment Future Appointment(s):05/23/2019 2:15 pm - Darvin Dillon MD at [facility].04/28/2019 - Donna Sharma, [facility]-CS82.55xD Nondisplaced fracture of medial malleolus of left tibia, subFollow up:2-3 weeks
--- OUTSIDE RECORDS SUMMARY | 2019-05-19 11:28 | XMS REPORT | Continuity of Care Document ---
:1965 External Reference #:[id number] Author Name Janki Lucas Care Team Providers Name Role Phone Poncho Daniels D.O. Primary Care Physician Unavailable Payers Date Identification Numbers Payment Provider Subscriber Effective: 2018 Policy Number: [id number] [employer] Bailee Rosas PayID: [id number] [address] [address] [place] [address] Expires: 2018 Policy Number: [id number] [employer] Bailee Rosas PayID: [id number] [address] [address] [place] [address] Expires: 2016 Policy Number: [id number] [place] Vipin Rosas PayID: [id number] [address] [place] [address] Expires: 2015 Policy Number: [id number] Medicaid Vipin Rosas Group Number: [employer] [address] Group Name: [address] [place] [address] PayID: [id number] Effective: 2016 PayID: [id number] [employer] Vipin Rosas Expires: 2017 [address] [address] [place] [address] Problems Active Problems Provider Date Chest pain Placido Perez M.D., [facility], Onset: 07/20/2013 FASNC Primary cardiomyopathy Placido Perez M.D., [facility], Onset: 08/25/2013 FASNC Encounter for planned postprocedural Talon Zeng M.D., [facility], [facility] Onset: wound closure Family History Date Family Member(s) Observation Comments Father due to Heart Disease () Mother due to Ovarian Cancer () Siblings 2 Social History Type Date Description Comments Sex Unknown Marital Status Occupation Disabled Work Status Not Currently Working Tobacco Use Start: Unknown Never Smoked Cigarettes chewed tobacco from age 19 until mid-40's, then quit. Smoking Status Reviewed: 03/14/19 Never Smoked Cigarettes chewed tobacco from age [...] Tablets by mouth per Roderick Perez, day. ELIESER CEDEÑO Probiotic 1 by mouth bid Unknown Capsules [...] 1 po qd Placido Noe 10mg Tablets Roderikc Perez, GALA, ELIESER Fish Oil 1 po qd Unknown 1000mg Capsules Digoxin 1 po qd 90tabs Unknown 0.125mg Tablets Lipitor 1 po qd 90tabs Unknown 40mg Tablets History Medications Alogliptin Benzoate Poncho Daniels - 25mg J., D.O. 09/19/2018 Tablets Basaglar Kwikpen 30 units once [place], Poncho - 100Unit/ML after dinner JPj, D.O. 03/13/2019 Solution Pen-Inject Alogliptin Benzoate 1 [...] 0.1 MG Placido Perez M.D., 11/22/2017 Injection FACC, FASNC Technetium TC 99M Placido Preez M.D., 11/22/2017 Tetrofosmin, Per Unit Dose ELIESER CEDEÑO Up To 40 Millicuries Injection Technetium TC 99M Placido Perez M.D., 07/25/2013 Tetrofosmin, Per Unit Dose GALA FASHYACINTH Up To 40 Millicuries Injection Vital Signs Date Vital Result Comment 03/14/2019 12:33pm Height 64 inches 5'4" Weight [...] Test Result H/L Range Note Pre Cath 02/02/2019 [facility] Partial 34.9 seconds N 26.0- 36.[address] [place] [address] PTT [phone] CBC Auto Diff 02/02/2019 [facility] White Blood 7.4 10^3/uL N 3.5-10.[address] [place] [address] [phone] Red Blood Count 4.31 10^6/uL N 4.18-5.48 [...] % Nucleated Red Blood Cells % 0 Basic Metabolic 02/02/2019 [facility] Sodium 133 mmol/L Low 135-145 Panel [address] [place] [address] [phone] Potassium 5.0 mmol/L N 3.5-5.0 Chloride 100 mmol/L Low 101-111 Co2 Carbon Dioxide 27 mmol/L N 22-32 Anion Gap 6 mmol/L N 2-11 Glucose 160 mg/dL High 70-100 Blood Urea Nitrogen 27 mg/dL High 6-24 Creatinine 1.42 mg/dL High 0.67-1.17 BUN/Creatinine Ratio 19.0 N 8-20 Calcium 9.5 mg/dL N 8.6-10.3 Egfr Non- 52.2 >60 Egfr 63.1 >60 2 Inr/Protime 02/02/2019 [facility] Inr 1.19 High 0.82-1.09 3 [address] [place] [address] [phone] Basic Metabolic 10/05/2018 [facility] Sodium 134 mmol/L Low 135-145 Panel [address] [place] [address] [phone] Potassium 5.0 mmol/L N 3.5-5.0 Chloride 99 [...] (or dialysis) Procedures Date Code Description Status 03/09/2019 50461 Interrogation Implant Cardiovasc Monitor System Incl Completed Analysis Int 03/09/2019 70394 Interrogation Implant Cardiovasc Monitor System Incl Completed Analysis Int 03/09/2019 14484 Icd eval w/iterative adjment single lead Icd Completed 03/09/2019 36011 Icd eval w/iterative adjment single lead Icd Completed 02/08/2019 77551 EKG, Interpretation Only Completed 02/07/2019 72165 Insert/Replace Icd W/Generator Completed 02/07/2019 58636 Moderate Sedation Services; Same Phys Intl 15 Mins; PT Completed >=5 Years 02/07/2019 22115 Moderate Sedation Services; Same Phys Each Additional Completed 15 Mins 02/07/2019 84490 EKG, Interpretation Only Completed 01/02/2019 53927 ECHO Transthoracic, Real-Time 2D With Doppler And Color Completed Flow 01/02/2019 20282 ECHO Transthoracic, Real-Time 2D With Doppler And Color Completed Flow 09/27/2018 58650 EKG Tracing & Interpretation Completed 09/05/2018 44719 Left Heart Cath. Incl S/I Coronaries, Angio S/I V Gram Completed If Done 09/02/2018 03238 Echocardiogram, Limited Study Completed 08/28/2018 66618 ECHO Transthorasic Realtime 2D W Doppler & Color Flow Completed Hosp 08/28/2018 06196 EKG, Interpretation Only Completed 04/12/2018 31026 Spirometry Incl Graphic Record Completed 04/12/2018 73629 Plethysmography Determination Lung Volumes & Per Airway Completed Resist 04/12/2018 68791 Diffusing Capacity Completed 11/22/2017 05022 Stress Test Completed 11/22/2017 83466 Myocardial Perfusion Imaging Tomographic (Spect) Completed Multiple Studies 11/10/2017 43883 EKG Tracing & Interpretation Completed 10/27/2017 14704 ECHO Transthoracic, Real-Time 2D With Doppler And Color Completed Flow 10/27/2017 73463 ECHO Transthoracic, Real-Time 2D With Doppler And Color Completed Flow 10/21/2016 64097 EKG Tracing & Interpretation Completed 01/16/2016 96839161 Colonoscopy Completed 11/04/2015 28317 EKG Tracing & Interpretation Completed 10/25/2015 40995 ECHO Transthoracic, Real-Time 2D With Doppler And Color Completed Flow 10/15/2014 76986 EKG Tracing & Interpretation Completed 09/19/2014 72116 ECHO Transthoracic, Real-Time 2D With Doppler And Color Completed Flow 07/28/2013 74614 Echocardiogram Completed 07/28/2013 00493 ECHO Transthoracic, Real-Time 2D With Doppler And Color Completed Flow 07/25/2013 57815 Stress Test Completed 07/25/2013 46472 Myocardial Perfusion Imaging Tomographic (Spect) Completed Multiple Studies 07/20/2013 31283 EKG Tracing & Interpretation Completed Encounters Type Date Location Provider Dx Diagnosis Office Visit 03/14/2019 [facility] Placido Noe I42.8 Other cardiomyopathies 1:00p Of Lucinda Perez M.D., FACC, FASNC Z95.810 Presence of automatic (implantable) cardiac defibrillator Office Visit 02/08/2019 [facility] Wade, I42.9 Cardiomyopathy, 4:14p Cardiology Atul Vaughn unspecified Lucinda E11.649 Type 2 diabetes mellitus with hypoglycemia without coma I50.20 Unspecified systolic (congestive) heart failure Office Visit 02/08/2019 10:34a [facility] Mihai Shine R41.82 Altered mental Assoc,DEMETRIUS Maza status, Hospitalists unspecified R50.9 Fever, unspecified R19.7 Diarrhea, unspecified E11.9 Type 2 diabetes mellitus without complications I10 Essential (primary) hypertension 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 Office Visit 02/01/2019 [facility] Carpenter I42.9 Cardiomyopathy, 3:45p Cardiology Of Roderick Camacho unspecified Instrument Engineer Office Visit 01/18/2019 [facility] Placido Noe I42.9 Cardiomyopathy, 1:30p Cardiology Of Roderick Perez, unspecified [facility] FACC, FASNC Office Visit 09/27/2018 [facility] Placido Noe I42.9 Cardiomyopathy, 2:30p Cardiology Of Roderick Perez, unspecified [facility] FACC, FASNC Office Visit 09/20/2018 Tim[facility] Brown I42.9 Cardiomyopathy, 10:00a Neurologic Roderick Huerta unspecified Services Of [facility] Z86.73 Prsnl hx of TIA (TIA), and cereb infrc w/o resid deficits Office Visit 09/13/2018 3:00p [facility] Talon Zeng, Z48.812 Encntr for Of Instrument Engineer AT [facility] Roderick, FACC, surgical aftcr FSCAI following surgery on the circ sys I42.8 Other cardiomyopathies Office Visit 09/05/2018 [facility] Henok Carpenter I42.9 Cardiomyopathy, 4:05p Cardiology Atul Camacho M.D. unspecified Instrument Engineer I50.9 Heart failure, unspecified I47.2 Ventricular tachycardia Office Visit 09/05/2018 11:06a [facility] Brielle G45.9 Transient Assoc,inocencio Pimentel M.D. 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 cerebral ischemic Hospitalists attack, unspecified I42.9 Cardiomyopathy, unspecified I11.0 Hypertensive heart disease with heart failure I50.9 Heart failure, unspecified E11.9 Type 2 diabetes mellitus without complications Z79.4 care home (current) use of insulin E78.5 Hyperlipidemia, unspecified Office Visit 09/03/2018 11:05a [facility] Brielle G45.9 Transient Associnocencio M.D. 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 unspecified I42.9 Cardiomyopathy, unspecified G45.9 Transient cerebral ischemic attack, unspecified Office Visit 09/02/2018 2:28p [facility] Shabana Wade G45.9 Transient Of Instrument Engineer M.D. 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 cerebral ischemic Hospitalists attack, unspecified I11.0 Hypertensive heart disease with heart failure I50.9 Heart failure, unspecified E11.9 Type 2 diabetes mellitus without complications [facility] Transient Associnocencio M.D. cerebral ischemic Hospitalists attack, unspecified I11.0 Hypertensive heart disease with heart failure I50.9 Heart failure, unspecified Z79.4 care home (current) use of insulin E11.9 Type 2 diabetes mellitus without complications E78.5 Hyperlipidemia, unspecified Office Visit 09/01/2018 [facility] Sudhir Brown G45.9 Transient 7:00a Robert Huerta M.D. 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 unspecified Hospitalists E11.65 Type 2 diabetes mellitus with hyperglycemia I10 Essential (primary) hypertension [facility]omyopathy, 10:43a Assedith,inocencio Pizano, D.O. unspecified Hospitalists Z79.4 care home (current) use of insulin E11.65 Type 2 diabetes mellitus with hyperglycemia Office Visit 08/29/2018 [facility] Abdulaziz Shah I50.9 Heart failure, 10:43a inocencio Diehl MD unspecified Hospitalists E83.42 Hypomagnesemia R79.89 Other specified abnormal findings of blood chemistry Office Visit 08/28/2018 1:27p [facility] Henok Carpenter I50.9 Heart failure, Of Lucinda Camacho M.D. unspecified I42.9 Cardiomyopathy, unspecified Office Visit 08/28/2018 [facility] Abdulaziz Shah I50.9 Heart failure, 10:43a inocencio Diehl MD unspecified Hospitalists E83.42 Hypomagnesemia R79.89 Other specified abnormal findings of blood chemistry Office Visit 08/27/2018 12:35p [facility] Henok Carpenter I50.9 Heart failure, Of Lucinda Camacho M.D. unspecified R07.9 Chest pain, unspecified I42.9 Cardiomyopathy, unspecified I44.7 Left bundle-branch block, unspecified Office Visit 08/27/2018 [facility] Carmen Carbajal, R07.9 Chest pain, 10:42a inocencio Diehl M.D. unspecified Hospitalists I42.9 Cardiomyopathy, unspecified E11.65 Type 2 diabetes mellitus with hyperglycemia Z79.4 care home (current) use of insulin E83.42 Hypomagnesemia Office Visit 12/29/2017 10:45a [facility] Placido Noe R07.9 Chest pain, Of Lucinda Perez M.D., unspecified FACC, FASNC I42.9 Cardiomyopathy, unspecified Office 11/10/2017 [facility] Placido Noe R07.9 Chest pain, Visit 9:45a Of Lucinda Perez M.D., unspecified FACC, FASNC Office 10/21/2016 [facility] Placido Noe I42.9 Cardiomyopathy, Visit 8:45a Of Lucinda Perez M.D., unspecified FACC, FASNC Office 11/09/2015 [facility] K52.9 Noninfective Visit 1:31p inocencio Diehl II, M.D. gastroenteritis and Hospitalists colitis, unspecified R77.8 Other specified abnormalities of plasma proteins N17.9 Acute kidney failure, unspecified E11.42 Type 2 diabetes mellitus with diabetic polyneuropathy Office Visit 11/04/2015 [facility] Placido Noe I42.9 Cardiomyopathy, 1:30p Cardiology Of Roderick Perez, unspecified [facility] FACC, FASNC Office Visit 10/15/2014 [facility] Placido Noe 425.4 Cardiomyopathy Other 12:45p Cardiology Of Roderick Perez, Prim [facility] FACC, FASNC Office Visit 08/25/2013 [facility] Placido Noe 425.4 Cardiomyopathy Other 11:45a Cardiology Of Roderick Perez, Prim [facility] FACC, FASNC Office Visit 07/20/2013 [facility] Placido Noe 786.50 Pain Chest Unspec 9:30a Cardiology Atul Perez M.D., [facility] FACC, FASHYACINTH Plan of Treatment Future Appointment(s):04/21/2019 3:30 pm - Ica Pacer Schedule at [facility]04/21/2019 1:30 pm - Darvin Dillon MD at [facility].M.A.03/14/2019 - Placido Perez M.D., GALA, IKDKNB14.8 Other [id number] Presence of automatic (implantable) cardiac defibrillator
--- OUTSIDE RECORDS SUMMARY | 2019-05-19 11:28 | XMS REPORT | Continuity of Care Document ---
:1965 External Reference #:[id number] Author Name Kayce Gonzalez Care Team Providers Name Role Phone Ponhco Daniels D.O. Primary Care Physician Unavailable Payers Date Identification Numbers Payment Provider Subscriber Effective: 2018 Policy Number: [id number] [employer] Bailee Rosas PayID: [id number] [address] [address] [place] [address] Expires: 2018 Policy Number: [id number] [employer] Bailee Rosas PayID: [id number] [address] [address] [place] [address] Expires: 2016 Policy Number: [id number] [place] Vipin Rosas PayID: [id number] [address] [place] [address] Expires: 2015 Policy Number: [id number] Medicaid Vipin Rosas Group Number: [employer] [address] Group Name: [address] [place] [id number] PayID: [id number] Effective: 2016 PayID: [id number] [employer] Vipin Rosas Expires: 2017 [address] [address] [place] [address] Problems Active Problems Provider Date Chest pain Placido Perez M.D., [facility], Onset: 07/20/2013 FASNC Primary cardiomyopathy Placido Perez M.D., [facility], Onset: 08/25/2013 FASNC Encounter for planned postprocedural Talon Zeng M.D., [facility], [facility] Onset: wound closure Closed fracture of [...] until mid-40's, then quit. Smoking Status Reviewed: 04/21/19 Never Smoked Cigarettes chewed tobacco from age [...] qd Placido Noe 10mg Tablets Roderick Perez, [facility], [facility] Fish Oil 1 po qd Unknown 1000mg Capsules Digoxin 1 po qd 90tabs Unknown 0.125mg Tablets Lipitor 1 po qd 90tabs Unknown 40mg Tablets History Medications Alogliptin Benzoate Leon, Poncho - 25mg J., D.O. 09/19/2018 Tablets [...] Perez M.D., 07/25/2013 Tetrofosmin, Per Unit Dose FAC, FASNC Up To 40 Millicuries Injection Vital Signs Date Vital Result Comment 04/21/2019 1:47pm Height 64 inches 5'4" Weight [...] H/L Range Note Pre Cath Panel 02/02/[address] [facility] Partial 34.9 seconds N 26.0-36.[address] [place] [address] PTT [phone] Basic Metabolic 02/02/[address] [facility] Sodium 133 mmol/L Low 135-[address] [place] [address] [phone] Potassium 5.0 mmol/L N 3.5-5.0 Chloride 100 mmol/L Low 101-111 Co2 Carbon Dioxide 27 mmol/L N 22-32 Anion Gap 6 mmol/L N 2-11 Glucose 160 mg/dL High 70-100 Blood Urea Nitrogen 27 mg/dL High 6-24 Creatinine 1.42 mg/dL High 0.67-1.17 BUN/Creatinine Ratio 19.0 N 8-20 Calcium 9.5 mg/dL N 8.6-10.3 Egfr Non- 52.2 >60 Egfr 63.1 >60 2 CBC Auto Diff 02/02/[address] [facility] White Blood 7.4 10^3/uL N 3.5-10.[address] [place] [address] [phone] Red Blood Count 4.31 10^6/uL N 4.18-5.48 [...] Red Blood Cells % 0 Inr/Protime 02/02/[address] [facility] Inr 1.19 High 0.82-1.09 3 [address] [place] [address] [phone] Basic Metabolic 10/05/[address] [facility] Sodium 134 mmol/L Low 135-145 Panel [address] [place] [address] [phone] Potassium 5.0 mmol/L N 3.5-5.0 Chloride 99 [...] dialysis) Procedures Date Code Description Status 03/09/2019 55515 Interrogation Implant Cardiovasc Monitor System Incl Completed Analysis Int 03/09/2019 02496 Interrogation Implant Cardiovasc Monitor System Incl Completed Analysis Int 03/09/2019 23735 Icd eval w/iterative adjment single lead Icd Completed 03/09/2019 05631 Icd eval w/iterative adjment single lead Icd Completed 02/08/2019 38625 EKG, Interpretation Only Completed 02/07/2019 01885 Insert/Replace Icd W/Generator Completed 02/07/2019 01240 Moderate Sedation Services; Same Phys Intl 15 Mins; PT Completed >=5 Years 02/07/2019 94366 Moderate Sedation Services; Same Phys Each Additional Completed 15 Mins 02/07/2019 99262 EKG, Interpretation Only Completed 01/02/2019 40453 ECHO Transthoracic, Real-Time 2D With Doppler And Color Completed Flow 01/02/2019 44444 ECHO Transthoracic, Real-Time 2D With Doppler And Color Completed Flow 09/27/2018 40134 EKG Tracing & Interpretation Completed 09/05/2018 51853 Left Heart Cath. Incl S/I Coronaries, Angio S/I V Gram Completed If Done 09/02/2018 21411 Echocardiogram, Limited Study Completed 08/28/2018 32784 ECHO Transthorasic Realtime 2D W Doppler & Color Flow Completed Hosp 08/28/2018 89687 EKG, Interpretation Only Completed 04/12/2018 64001 Spirometry Incl Graphic Record Completed 04/12/2018 38313 Plethysmography Determination Lung Volumes & Per Airway Completed Resist 04/12/2018 13433 Diffusing Capacity Completed 11/22/2017 33371 Stress Test Completed 11/22/2017 71493 Myocardial Perfusion Imaging Tomographic (Spect) Completed Multiple Studies 11/10/2017 45048 EKG Tracing & Interpretation Completed 10/27/2017 56992 ECHO Transthoracic, Real-Time 2D With Doppler And Color Completed Flow 10/27/2017 77589 ECHO Transthoracic, Real-Time 2D With Doppler And Color Completed Flow 10/21/2016 52086 EKG Tracing & Interpretation Completed 01/16/2016 19304906 Colonoscopy Completed 11/04/2015 39540 EKG Tracing & Interpretation Completed 10/25/2015 84770 ECHO Transthoracic, Real-Time 2D With Doppler And Color Completed Flow 10/15/2014 71413 EKG Tracing & Interpretation Completed 09/19/2014 62166 ECHO Transthoracic, Real-Time 2D With Doppler And Color Completed Flow 07/28/2013 53917 Echocardiogram Completed 07/28/2013 77402 ECHO Transthoracic, Real-Time 2D With Doppler And Color Completed Flow 07/25/2013 39895 Stress Test Completed 07/25/2013 27977 Myocardial Perfusion Imaging Tomographic (Spect) Completed Multiple Studies 07/20/2013 99478 EKG Tracing & Interpretation Completed Encounters Type Date Location Provider Dx Diagnosis Office Visit 04/18/2019 [facility] S82.892A Oth fracture of 10:25a Assoc,DEMETRIUS Puente left lower leg, Hospitalists init for clos fx R79.89 Other specified abnormal findings of blood chemistry W11.xxxA Fall on and from ladder, initial encounter Office Visit 03/14/2019 [facility] Placido Noe I42.8 Other cardiomyopathies 1:00p Cardiology Of Roderick Perez, [facility] FACC, FASNC Z95.810 Presence of automatic (implantable) cardiac defibrillator Office Visit 02/08/2019 [facility] Shabana Wade, I42.9 Cardiomyopathy, 4:14p Cardiology Atul Vaughn unspecified Lucinda E11.649 Type 2 diabetes mellitus with hypoglycemia without coma I50.20 Unspecified systolic (congestive) heart failure Office Visit 02/08/2019 10:34a [place] Mihai Shine R41.82 Altered mental Assoc,DEMETRIUS Maza status, Hospitalists unspecified R50.9 Fever, unspecified R19.7 Diarrhea, unspecified E11.9 Type 2 diabetes mellitus without complications I10 Essential (primary) hypertension I25.10 Athscl heart disease of [place] coronary artery w/o ang pctrs Office Visit 02/01/2019 Shahzad Carpenter I42.9 Cardiomyopathy, 3:45p Cardiology Of Roderick Camacho unspecified [facility] Office Visit 01/18/2019 [facility] No[facility] I42.9 Cardiomyopathy, 1:30p Cardiology Of Roderick Perez, unspecified [facility] FACC, FASNC Office Visit 09/27/2018 Shahzad Noe I42.9 Cardiomyopathy, 2:30p Cardiology Of Roderick Perez, unspecified [facility] FACC, FASNC Office Visit 09/20/2018 Timur Brown I42.9 Cardiomyopathy, 10:00a Neurologic Roderick Huerta unspecified Services Of [facility] Z86.73 Prsnl hx of TIA (TIA), and cereb infrc w/o resid deficits Office Visit 09/13/2018 3:00p [facility] Talon Zeng, Z48.812 Encntr for Of Senior Hardware Design Engineer AT [facility]oderick, FACC, surgical aftcr FSCAI following surgery on the circ sys I42.8 Other cardiomyopathies Office Visit 09/05/2018 Shahzad Carpenter I42.9 Cardiomyopathy, 4:05p Cardiology Of Brand, M.D. unspecified Senior Hardware Design Engineer I50.9 Heart failure, unspecified I47.2 Ventricular tachycardia [facility] Assinocencio sharma M.D. cerebral ischemic Hospitalists attack, unspecified I11.0 Hypertensive heart disease with heart failure I50.9 Heart failure, unspecified Z79.4 skilled nursing (current) use of insulin N18.3 Chronic kidney disease, stage 3 (moderate) E11.22 Type 2 diabetes mellitus w diabetic chronic kidney disease Office Visit 09/04/2018 11:05a [facility] Brielle G45.9 Transient Assinocencio sharma M.D. cerebral ischemic Hospitalists attack, unspecified I42.9 Cardiomyopathy, unspecified I11.0 Hypertensive heart disease with heart failure I50.9 Heart failure, unspecified E11.9 Type 2 diabetes mellitus without complications Z79.4 exterminator helper (current) use of insulin E78.5 Hyperlipidemia, unspecified Office Visit 09/03/2018 2:24p [facility] Shabana Wade, I50.9 Heart failure, Of Lucinda Vaughn unspecified I42.9 Cardiomyopathy, unspecified G45.9 Transient cerebral ischemic attack, unspecified Office Visit 09/03/2018 11:05[facility] Transient Assinocencio sharma M.D. cerebral ischemic Hospitalists attack, unspecified I11.0 Hypertensive heart disease with heart failure I50.9 Heart failure, unspecified E11.9 Type 2 diabetes mellitus without complications Z79.4 exterminator helper (current) use of insulin E78.5 Hyperlipidemia, unspecified Office Visit 09/02/2018 2:28p [facility] Shabana Wade G45.9 Transient Of Lucinda M.DPj cerebral ischemic attack, unspecified I42.9 Cardiomyopathy, unspecified I50.9 Heart failure, unspecified I25.10 Athscl heart disease of [place] coronary artery w/o ang pctrs I44.7 Left bundle-branch block, unspecified Office Visit 09/02/2018 11:05a [facility] G[facility].9 Transient Assinocencio sharma M.D. cerebral ischemic Hospitalists attack, unspecified I11.0 Hypertensive heart disease with heart failure I50.9 Heart failure, unspecified E11.9 Type 2 diabetes mellitus without complications Office Visit 09/01/2018 11:04a [facility] Brielle G45.9 Transient Associnocencio M.D. cerebral ischemic Hospitalists attack, unspecified I11.0 Hypertensive heart disease with heart failure I50.9 Heart failure, unspecified Z79.4 exterminator helper (current) use of insulin E11.9 Type 2 diabetes mellitus without complications E78.5 Hyperlipidemia, unspecified Office Visit 09/01/2018 [facility] Sudhir Brown G45.9 Transient 7:00a Clinic Roderick Huerta cerebral ischemic attack, unspecified I10 Essential (primary) hypertension Office Visit 08/31/2018 [facility] Talon Zeng, I42.9 Cardiomyopathy, 12:14p Cardiology Of GALA Vaughn, unspecified Senior Hardware Design Engineer AT [facility] Office Visit 08/31/2018 [facility] Ronda I50.9 Heart failure, 3:19p Cardiology Of KAILA Lazo unspecified Senior Hardware Design Engineer I42.9 Cardiomyopathy, unspecified R07.9 Chest pain, unspecified I25.10 Athscl heart disease of [place] coronary artery w/o ang pctrs Office Visit 08/31/2018 [facility] Arlene I42.9 Cardiomyopathy, 10:43a Associnocencio DPjO. unspecified Hospitalists E11.65 Type 2 diabetes mellitus with hyperglycemia I10 Essential (primary) hypertension Office Visit 08/30/2018 [facility] Arlene I42.9 Cardiomyopathy, 10:43a inocencio Diehl D.O. unspecified Hospitalists Z79.4 exterminator helper (current) use of insulin E11.65 Type 2 diabetes mellitus with hyperglycemia Office Visit 08/29/2018 [facility] Abdulaziz Shah I50.9 Heart failure, 10:43a Associnocencio MD unspecified Hospitalists E83.42 Hypomagnesemia R79.89 Other specified abnormal findings of blood chemistry Office Visit 08/28/2018 1:27p [facility] Henok Carpenter I50.9 Heart failure, Of Lucinda Camacho M.D. unspecified I42.9 Cardiomyopathy, unspecified Office Visit 08/28/2018 [facility] Abdulaziz Shah I50.9 Heart failure, 10:43a Assinocencio sharma MD unspecified Hospitalists E83.42 Hypomagnesemia R79.89 Other specified abnormal findings of blood chemistry Office Visit 08/27/2018 12:35p [facility] Henok Carpenter I50.9 Heart failure, Of Lucinda Camacho M.D. unspecified R07.9 Chest pain, unspecified I42.9 Cardiomyopathy, unspecified I44.7 Left bundle-branch block, unspecified Office Visit 08/27/2018 [facility] Carmen Raven, R07.9 Chest pain, 10:42a Assinocencio sharma M.D. unspecified Hospitalists I42.9 Cardiomyopathy, unspecified E11.65 Type 2 diabetes mellitus with hyperglycemia Z79.4 exterminator helper (current) use of insulin E83.42 Hypomagnesemia Office Visit 12/29/2017 10:45a [facility] Placido Noe R07.9 Chest pain, Of Lucinda Perez M.D., unspecified FACC, FASNC I42.9 Cardiomyopathy, unspecified Office 11/10/2017 [facility] Placido Noe R07.9 Chest pain, Visit 9:45a Of Lucinda Perez M.D., unspecified FACC, FASNC Office 10/21/2016 [facility] Placido Noe I42.9 Cardiomyopathy, Visit 8:45a Of Lucinda Perez M.D., unspecified FACC, FASNC Office 11/09/2015 [facility] Joseph Frankenberg K52.9 Noninfective Visit 1:31p Assinocencio sharma II, M.D. gastroenteritis and Hospitalists colitis, unspecified R77.8 Other specified abnormalities of plasma proteins N17.9 Acute kidney failure, unspecified E11.42 Type 2 diabetes mellitus with diabetic polyneuropathy Office Visit 11/04/2015 [facility] Placidomemo Noe I42.9 Cardiomyopathy, 1:30p Cardiology Atul Perez M.D., unspecified Senior Hardware Design Engineer FACC, FASNC Office Visit 10/15/2014 Shahzad Noe 425.4 Cardiomyopathy Other 12:45p Cardiology Atul Perez M.D., Prim Senior Hardware Design Engineer FACC, FASNC Office Visit 08/25/2013 Shahzad Noe 425.4 Cardiomyopathy Other 11:45a Cardiology Atul Perez M.D., Prim Senior Hardware Design Engineer FACC, FASNC Office Visit 07/20/2013 [facility] Placido Noe 786.50 Pain Chest Unspec 9:30a Cardiology Of Roderick Perez, [facility], [facility] Plan of Treatment Future Appointment(s):04/28/2019 2:00 [facility] - Darvin Dillon, MDS82.55xA Nondisplaced fracture of medial malleolus of left tibia, iniNew Xrays:Ankle Left 3+VWS, Ordered: 04/21Follow up:Follow Up: 1 week with brooke
[2019-05-19 12:19] LABS: ABS Basophils 0.1 10^3/ul (0-0.2); ABS Eosinophils 0.1 10^3/ul (0-0.6); ABS Monocytes 0.4 10^3/ul (0-0.8); ABS Neutrophils 3.1 10^3/ul (1.5-7.7); Eosinophil % 1.8 %; Hematocrit 40 % (42-52); Hemoglobin 13.7 g/dL (14.0-18.0); Lymphocyte % 22.2 %; Mean Corpuscular HGB Conc 35 g/dL (31-36); Mean Corpuscular Hemoglobin 29 pg (27-31); Mean Corpuscular Volume 84 fL (80-94); Mean Platelet Volume 10.1 fL (7.4-10.4); Platelet Count 171 10^3/uL (150-450); Red Cell Distribution Width 14 % (10-15); White Blood Count 4.6 10^3/uL (3.5-10.8)
[2019-05-19 12:39] LABS: ALT 20 U/L (7-52); AST 27 U/L (13-39); Albumin 4.5 g/dL (3.2-5.2); Albumin/Globulin Ratio 1.6 (1-3); Alkaline Phosphatase 83 U/L (34-104); Anion Gap 8 mmol/L (2-11); BUN/Creatinine Ratio 23.3 (8-20); Blood Urea Nitrogen 37 mg/dL (6-24); CO2 Carbon Dioxide 24 mmol/L (22-32); Calcium 9.8 mg/dL (8.6-10.3); Chloride 103 mmol/L (101-111); EGFR African American 55.4 (>60); EGFR Non-African American 45.8 (>60); Globulin 2.9 g/dL (2-4); Glucose 93 mg/dL (70-100); Potassium 4.7 mmol/L (3.5-5.0); Sodium 135 mmol/L (135-145); Total Protein 7.4 g/dL (6.4-8.9)
[2019-05-19 12:45] LABS: Troponin I 0.15 ng/mL (<0.04)
[2019-05-19] MEDS ORDERED: NS 0.9% 1000 ML** 1,000 ML IV ONE (12:55)
[2019-05-19] MEDS ORDERED: Dextrose 50% VIAL 50 ml ONE (13:01)
[2019-05-19] MEDS ORDERED: Iodixanol* (CONTRAST) 320 MG/ML 100 ML SDV IV ONE (13:05)
--- NOTE | 2019-05-19 13:22 | ED ---
Shortness of Breath - HPI Summary HPI Summary: A 53 y/o male presents to [facility] with a chief complaint of SOB while walking since last night. He says that he broke his left ankle 5 weeks ago. He denies any CP. He says that he was SOB last year and says that his heart function was down to 10%, then he went home around [facility] and came back because of a "mini stroke". He denies a Hx of COPD. He denies smoking, EtOH use, recreational drugs. He is a type II diabetic. He says that usually he takes Humalog and says that he took 6 units and also ate breakfast. He says that he takes insulin around 20:30 at night. He reports a pacemaker placed in January 2019. He takes spironolactone. Dr. Perez is his tax accounting assistant. - History of Current Complaint Chief Complaint: EDShortnessOfBreath Time Seen by Provider: 05/19/19 12:53 Hx Obtained From: Patient Onset/Duration: Sudden Onset, Lasting Hours, Still Present Timing: Intermittent Episodes Lasting: - when walking Current Severity: Mild Dyspnea At: Exertion Aggravating Factors: Other - walking Alleviating Factors: Nothing Associated Signs & Symptoms: Negative - fever - Allergy/Home Medications Allergies/Adverse Reactions: Allergies Allergy/AdvReac Type Severity Reaction Status Date / Time No Known Allergies Allergy Verified 04/18/19 15:38 Home Medications: Home Medications Alogliptin (NF) [Nesina (NF)] 25 mg PO DAILY 05/19/19 [History Confirmed ] [place]-3 Fatty Acids (Nf) [Fish Oil (NF)] 2,000 mg PO DAILY 05/19/19 [History Confirmed 05/19/19] PMH/Surg Hx/FS Hx/Imm Hx Endocrine/Hematology History: Reports: Hx Diabetes - type 2 Cardiovascular History: Reports: Hx Congestive Heart Failure, Hx Coronary Artery Disease, Hx Hypercholesterolemia, Hx Hypertension, Hx Pacemaker/ICD - 4/ 2019, Other Cardiovascular Problems/Disorders - idiopathic cardiomyopathy Denies: Hx Angina, Hx Myocardial Infarction, Hx Valvular Heart Disease Respiratory History: Denies: Hx Asthma, Hx Chronic Obstructive Pulmonary Disease (COPD) History: Denies: Hx Chronic Renal Failure, Hx Renal Disease Sensory History: Reports: Hx Contacts or Glasses Denies: Hx Cataracts, Hx Eye Injury, Hx Eye Prosthesis, Hx Glaucoma, Hx Legally Blind, Hx Macular Degeneration, Hx Vision Problem, Hx Deafness, Hx Hearing Aid, Hx Hearing Problem, Other Sensory Impairments Opthamlomology History: Reports: Hx Contacts or Glasses Denies: Hx Cataracts, Hx Eye Injury, Hx Eye Prosthesis, Hx Glaucoma, Hx Legally Blind, Hx Macular Degeneration, Hx Vision Problem, Other Sensory Impairments Psychiatric History: Reports: Hx Depression Denies: Hx Panic Disorder - Surgical History Surgery Procedure, Year, and Place: Left hand surgery Infectious Disease History: No Infectious Disease History: Denies: Traveled Outside the [place] in Last 30 Days - Family History Known Family History: Positive: Cardiac Disease - Social History Alcohol Use: None Hx Substance Use: No Substance Use Type: Reports: None Hx Tobacco Use: Yes - CHEWING TOBACCO, QUIT IN 2000. Smoking Status (MU): Never Smoked Tobacco Review of Systems Negative: Fever Negative: Chest Pain Positive: Shortness Of Breath All Other Systems Reviewed And Are Negative: Yes Physical Exam - Summary Physical Exam Summary: GENERAL: Patient is a well-developed and nourished M who is lying comfortable in the stretcher. Patient is not in any acute respiratory distress. HEAD AND FACE: Normocephalic EYES: PERRLA, EOMI x 2. EARS: Hearing grossly intact. MOUTH: Oropharynx within normal limits. NECK: Supple, trachea is midline, no adenopathy, no JVD, no carotid bruit. CHEST: Symmetric, no tenderness at palpation LUNGS: Crackles. CVS: Regular rate and rhythm, S1 and S2 present, no murmurs or gallops appreciated. ABDOMEN: Soft, non-tender. Bowel sounds are normal. No abnormal abdominal pulsations. EXTREMITIES: Full ROM in all major joints, no edema, no cyanosis or clubbing. NEURO: Alert and oriented x 3. No acute neurological deficits. Speech is normal and follows commands. SKIN: Dry and warm Triage Information Reviewed: Yes Vital Signs On Initial Exam: Initial Vitals Temp Pulse Resp BP Pulse Ox 98.5 F 64 18 99/65 96 05/19/19 11:18 05/19/19 11:18 05/19/19 11:18 05/19/19 11:18 05/19/19 11:18 Vital Signs Reviewed: Yes Diagnostics - Vital Signs Vital Signs Temp Pulse Resp BP Pulse Ox 05/19/19 13:00 62 13 94 08/09/19 12:54 16 120/87 05/19/19 12:53 13 117/85 05/19/19 11:18 98.5 F 64 18 99/65 96 - Laboratory Lab Results: Lab Results 05/19/19 05/19/19 05/19/19 Range/Units 12:07 12:07 12:07 WBC 4.6 (3.5-10.8) 10^3/uL RBC 4.70 (4.18-5.48) 10^6 /uL Hgb 13.7 L (14.0-18.0) g/dL Hct 40 L (42-52) % MCV 84 (80-94) fL MCH 29 (27-31) pg MCHC 35 (31-36) g/dL RDW 14 (10-15) % Plt Count 171 (150-450) 10^3/uL MPV 10.1 (7.4-10.4) fL Neut % (Auto) 66.9 % Lymph % (Auto) 22.2 % Ponce % (Auto) 8.0 % Eos % (Auto) 1.8 % Baso % (Auto) 1.1 % Absolute Neuts (auto) 3.1 (1.5-7.7) 10^3/ul Absolute Lymphs (auto) 1.0 (1.0-4.8) 10^3/ul Absolute Monos (auto) 0.4 (0-0.8) 10^3/ul Absolute Eos (auto) 0.1 (0-0.6) 10^3/ul Absolute Basos (auto) 0.1 (0-0.2) 10^3/ul Absolute Nucleated RBC 0.0 10^3/ul Nucleated RBC % 0.0 D-Dimer, Quantitative < 200 (Less Than 230) ng/mL Sodium 135 (135-145) mmol/L Potassium 4.7 (3.5-5.0) mmol/L Chloride 103 (101-111) mmol/L Carbon Dioxide 24 (22-32) mmol/L Anion Gap 8 (2-11) mmol/L BUN 37 H (6-24) mg/dL Creatinine 1.59 H (0.67-1.17) mg/dL Est GFR ( Amer) 55.4 (>60) Est GFR (Non-Af Amer) 45.8 (>60) BUN/Creatinine Ratio 23.3 H (8-20) Glucose 93 (70-100) mg/dL Lactic Acid (0.5-2.0) mmol/L Calcium 9.8 (8.6-10.3) mg/dL Total Bilirubin 0.40 (0.2-1.0) mg/dL AST 27 (13-39) U/L ALT 20 (7-52) U/L Alkaline Phosphatase 83 (34-104) U/L Troponin I 0.15 H* (<0.04) ng/mL Total Protein 7.4 (6.4-8.9) g/dL Albumin 4.5 (3.2-5.2) g/dL Globulin 2.9 (2-4) g/dL Albumin/Globulin Ratio 1.6 (1-3) 05/19/19 Range/Units 12:07 WBC (3.5-10.8) 10^3/uL RBC (4.18-5.48) 10^6 /uL Hgb (14.0-18.0) g/dL Hct (42-52) % MCV (80-94) fL MCH (27-31) pg MCHC (31-36) g/dL RDW (10-15) % Plt Count (150-450) 10^3/uL MPV (7.4-10.4) fL Neut % (Auto) % Lymph % (Auto) % Ponce % (Auto) % Eos % (Auto) % Baso % (Auto) % Absolute Neuts (auto) (1.5-7.7) 10^3/ul Absolute Lymphs (auto) (1.0-4.8) 10^3/ul Absolute Monos (auto) (0-0.8) 10^3/ul Absolute Eos (auto) (0-0.6) 10^3/ul Absolute Basos (auto) (0-0.2) 10^3/ul Absolute Nucleated RBC 10^3/ul Nucleated RBC % D-Dimer, Quantitative (Less Than 230) ng/mL Sodium (135-145) mmol/L Potassium (3.5-5.0) mmol/L Chloride (101-111) mmol/L Carbon Dioxide (22-32) mmol/L Anion Gap (2-11) mmol/L BUN (6-24) mg/dL Creatinine (0.67-1.17) mg/dL Est GFR ( Amer) (>60) Est GFR (Non-Af Amer) (>60) BUN/Creatinine Ratio (8-20) Glucose (70-100) mg/dL Lactic Acid 1.9 (0.5-2.0) mmol/L Calcium (8.6-10.3) mg/dL Total Bilirubin (0.2-1.0) mg/dL AST (13-39) U/L ALT (7-52) U/L Alkaline Phosphatase (34-104) U/L Troponin I (<0.04) ng/mL Total Protein (6.4-8.9) g/dL Albumin (3.2-5.2) g/dL Globulin (2-4) g/dL Albumin/Globulin Ratio (1-3) Result Diagrams: 05/19/19 12:07 05/20/19 06:24 Lab Statement: Any lab studies that have been ordered have been reviewed, and results considered in the medical decision making process. - CT chest/thorax CTA CT Interpretation Completed By: Radiologist Summary of CT Findings: 1. SLIGHTLY LIMITED EXAM, NO EVIDENCE FOR PULMONARY EMBOLISM. 2. MILD DEPENDENT BILATERAL LOWER LOBE LOBE INFILTRATES MOST CONSISTENT WITH ATELECTASIS. 3. 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 4. ENLARGED MEDIASTINAL LYMPH NODE. 5. MILD COMPRESSION FRACTURE OF THE T4 VERTEBRAL BODY, NEW FROM THE CHEST X-RAY FROM 2018. ED physician has reviewed this imaging report. Course/Dx - Course Course Of Treatment: A 53 y/o male presents to [facility] with a chief complaint of SOB while walking since last night. The physical exam revealed crackles, did not appreciate any leg swelling. Chest/thorax CTA impression: 1. SLIGHTLY LIMITED EXAM, NO EVIDENCE FOR PULMONARY EMBOLISM. 2. MILD DEPENDENT BILATERAL LOWER LOBE LOBE INFILTRATES MOST CONSISTENT WITH ATELECTASIS. 3. 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 4. ENLARGED MEDIASTINAL LYMPH NODE. 5. MILD COMPRESSION FRACTURE OF THE T4 VERTEBRAL BODY, NEW FROM THE CHEST X- RAY FROM 2018. Blood work and chemistries obtained. Troponin of 0.15 which is chornic for him. BNP of greater than 1300. In the ED course the patient was given Dextrose, Lasix IV, Iodixanol IV and Sodium Chloride IV. The patient will be admitted. Case discussed with hospitalist, Dr. Vilchis. I discussed results with patient. The patient agrees with this plan. - Diagnoses Provider Diagnoses: CHF (congestive heart failure) Discharge - Sign-Out/Discharge Documenting (check all that apply): Patient Departure - admit Patient Received Moderate/Deep Sedation with Procedure: No - Discharge Plan Condition: Fair Disposition: ADMITTED TO [facility] - Billing Disposition and Condition Condition: FAIR Disposition: Admitted to [facility] - Attestation Statements Document Initiated by Evelioibe: Yes Documenting Scribe: Talon Elaine Provider For Whom Tobi is Documenting (Include Credential): Denise Uriarte MD Scribe Attestation: I, Talon Elaine, scribed for Denise Uriarte MD on 05/20/19 at 1149. Scribe Documentation Reviewed: Yes Provider Attestation: The documentation as recorded by the Talon lopez accurately reflects the service I personally performed and the decisions made by me, Annette Uriarte MD Status of Scribe Document: Viewed
[2019-05-19] MEDS ORDERED: Furosemide IV* 10 MG/ML VIAL (40 MG) IV ONE (13:43)
[2019-05-19] MEDS ORDERED: Acetaminophen TAB* 325 MG PO PRN (14:30)
[2019-05-19] MEDS ORDERED: Al Hydrox/Mg Hydrox/Simet LIQ* 30 ML UDC PO PRN (14:30)
[2019-05-19] MEDS ORDERED: Magnesium Hydroxide LIQ* 30 ML UDC PO PRN (14:30)
[2019-05-19 15:00] LABS: C Reactive Protein 1.89 mg/L (<8.01)
[2019-05-19] MEDS ORDERED: Dextrose 50% VIAL 50 ml IV PUSH PRN (16:12)
[2019-05-19 16:23] LABS: Troponin I 0.15 ng/mL (<0.04)
[2019-05-19] MEDS ORDERED: Atorvastatin* 40 MG TAB PO SCH (17:00)
--- NOTE | 2019-05-19 17:20 | HP ---
CC: Dr. Daniels; Dr. Perez * HISTORY AND PHYSICAL: DATE OF ADMISSION: 05/19/19 PRIMARY CARE PROVIDER: Dr. Daniels. WRAPPING MACHINE TENDER: Dr. Perez. CHIEF COMPLAINT: Shortness of breath. HISTORY OF PRESENT ILLNESS: Mr. Rosas is a 53-year-old male who presents to the emergency room with complaints of shortness of breath. The patient states that approximately 5 weeks ago he broke his ankle. He was placed in a cast in the emergency room and discharged home. The patient saw Dr. Dillon 3 days later at which time he was taken out of the cast and put into a walking boot. The patient has been doing well over the last several weeks. He is due to follow up with Dr. Dillon this coming Wednesday. He notes that there is very little pain in the ankle anymore. There continues to be bruising on the medial aspect of the foot, though the bruising on the lateral aspect has resolved. He does note some itching in the area of the ankle. Otherwise, he has no complaints. He was feeling well up until approximately 3 days ago when he noticed that he was becoming short of breath with just walking into the house. This is minimal activity compared to what he had been doing. His noted that on the night prior to admission just sitting in the car, driving a very short distance, his breathing was labored. He has a rare cough, but is not bringing up any sputum. He has no fevers. He has no chills. He has had no chest pain. He denies any swelling in the left leg at this point. The only other symptom that he notices at this time is that he feels more sleepy during the day than he has been previously. PAST MEDICAL HISTORY: 1. Nonischemic cardiomyopathy with an EF in spring of less than 20%. 2. Type 2 diabetes with diabetic neuropathy. 3. Depression. 4. Hypertension. 5. History of atrial fibrillation. PAST SURGICAL HISTORY: 1. Left hand surgery. 2. ICD insertion. MEDICATIONS: 1. Fish oil 2000 mg p.o. daily. 2. Nesina 25 mg p.o. daily. 3. Digoxin 0.125 mg p.o. daily. 4. Lipitor 40 mg daily. 5. Aspirin 81 mg daily. 6. Eliquis 2.5 mg p.o. twice daily. 7. Lispro 6 to 10 units subcutaneous twice daily. 8. Basaglar 25 to 30 units subcutaneous daily. 9. Gabapentin 300 mg p.o. t.i.d. 10. Ferrous gluconate 256 mg p.o. daily. 11. Lexapro 20 mg p.o. daily. 12. Metoprolol XL 50 mg p.o. daily. 13. Lisinopril 10 mg p.o. daily. 14. Lispro as directed. 15. Spironolactone 25 mg p.o. daily. ALLERGIES: No known drug allergies. FAMILY HISTORY: Mom of ovarian cancer. Dad of heart disease. SOCIAL HISTORY: The patient does not smoke. He chewed tobacco for approximately 20 years, quitting in his 40s. He does not drink alcohol. 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 He is currently disabled. He is . He has 2 children. REVIEW OF SYSTEMS: A complete 11-system review of systems is obtained. Pertinent positives and negatives are as per HPI and otherwise negative. PHYSICAL EXAMINATION GENERAL: The patient is a well-developed, thin, middle-aged male sitting up in the bed, in no acute distress. VITAL SIGNS: Blood pressure 116/84, pulse 55, respirations 17, temp 97.3, O2 sat 98% on room air. HEENT: Pupils are equal and round. Extraocular muscles are intact. Oropharynx is clear. Oral mucosa is moist. The patient is mostly edentulous with a few teeth on the bottom. There is no submandibular, cervical, or supraclavicular adenopathy. Thyroid is not enlarged. No thyroid nodules are noted. PULMONARY: There are very fine basilar crackles. Otherwise, the lungs are clear to auscultation bilaterally. CARDIAC: Normal S1, S2. Regular rate and rhythm. I do not appreciate any murmurs. There is no lower extremity edema. ABDOMEN: Bowel sounds are present. Abdomen is soft, nontender, nondistended. MUSCULOSKELETAL: There is no cyanosis or clubbing of the digits. There is full active range of motion of all 4 extremities. The left foot and ankle are in a walking boot, though he removed this. There is no joint deformity. SKIN: Warm and dry. There are no rashes. There is bruising noted to the medial aspect of the left foot. NEUROLOGIC: Cranial nerves II through XII are grossly intact. Sensation is intact to light touch throughout. Strength is 5/5 and symmetric to both upper and lower extremities bilaterally. PSYCHIATRIC: The patient is awake. He is alert. He is oriented x3. Affect appears appropriate. DIAGNOSTIC STUDIES/LAB DATA: WBC 4.6, hemoglobin 13.7, hematocrit 40, platelets 171. D-dimer less than 200. Sodium 135, potassium 4.7, chloride 103 , CO2 of 24, BUN 37, creatinine 1.59, glucose 93, lactic acid 1.9, calcium 9.8, bilirubin 0.4. AST 27, ALT 20, alk phos 83. Troponin 0.15. CRP 1.89. BNP greater than 1300. Albumin 4.5. CTA chest, this is slightly limited exam without any evidence for pulmonary embolism. There is mild dependent bilateral lower lobe infiltrates most consistent with atelectasis. Findings are consistent with old granulomatous disease. There is an enlarged mediastinal lymph node. There is mild compression fracture of the T4 vertebral body, new from the chest x-ray from February 2019. EKG revealed sinus bradycardia with a widened QRS, this is unchanged from prior. ASSESSMENT AND PLAN: Mr. Rosas is a 53-year-old male who has a history of nonischemic cardiomyopathy with an EF of less than 20%, type 2 diabetes with diabetic neuropathy, hypertension and a history of atrial fibrillation, who presents to the emergency room with complaints of shortness of breath. 1. Shortness of breath. The etiology of this is not clear at this point. On the differential was pulmonary embolism; however, the CTA and D-dimer are both not supportive of this. Pulmonary edema would be also high on the list given his history of nonischemic cardiomyopathy; however, CT scan does not reveal significant pulmonary edema and he does not grossly appear to be fluid overloaded. The patient does, however, state that he has been urinating quite frequently since receiving IV Lasix in the emergency room. It is possible that he had mild fluid overload leading to his worsened shortness of breath. The patient will get up and ambulate around the [place] this evening to see if his dyspnea on exertion is improved. I will also order a transthoracic echocardiogram, though it is unclear if this will help give us an answer to why he has the shortness of breath. The patient's troponin is mildly elevated at 0.15; however, this is within the range of where he typically runs. This is likely related to his nonischemic cardiomyopathy. I am going to obtain a nocturnal desaturation study on room air to evaluate his nocturnal hypoxia given the patient's reported history of increased sleepiness during the day. 2. Nonischemic cardiomyopathy. The patient will continue on his metoprolol XL and lisinopril and spironolactone. He is not on any Lasix at baseline. 3. Type 2 diabetes. The patient typically uses Basaglar insulin at home, this will be changed to Lantus and he will receive 20 units subcutaneous daily along with a lispro sliding scale. 4. Depression. We will continue Lexapro. 5. Hypertension. BP is under very good control. Continue the lisinopril and metoprolol as above. 6. Hyperlipidemia. Continue Lipitor. 7. History of atrial fibrillation. The patient is currently in sinus rhythm. He will continue on his digoxin and metoprolol XL. The patient is on Eliquis 2.5 mg twice daily. His weight puts him borderline for needing the 2.5 mg dose versus the 5 mg dose. If the patient's weight is consistently above 60 kg, his dose of Eliquis should be increased to 5 mg twice daily. 8. DVT prophylaxis: According to the Adult Thrombosis Prophylaxis Risk Factor Assessment Guide, the patient has a total risk factor score of 1, making him low risk. He is already on Eliquis and this will act as his DVT prophylaxis. 9. Code status is full. TIME SPENT: Fifty five minutes was spent admitting this patient. [id number]/CPS #: [id number] MTDD
--- NOTE | 2019-05-19 17:38 | ECHO ---
*[facility]* [place] [address] Fax #: [phone] Transthoracic Echocardiogram Patient: Vipin Rosas : 1965 Study Date: 05/19/2019 Age: 53 Gender: M HR: 58 bpm Height: 65 in /165.1 cm BSA: 1.69 m^2 Weight: 137.7 lb /62.6 kg BMI: 23 kg/m^2 *Data Administrator: * Geraldine Lange [facility] [place] *Referring Physician: * Arlene Pizano *Reading Physician: * Karl Fuchs MD Indications: SOB. History: Coronary artery disease. Congestive heart failure. PMH: Cardiomyopathy. Risk factors: Diabetes mellitus. Dyslipidemia. Labs, prior tests, procedures, and surgery: ICD system implantation. Conclusions Summary: - Impressions: The study is unchanged since the study of August 2018. - Left ventricle: The cavity size is at the upper limits of normal. Wall thickness is mildly increased. Systolic function is severely reduced by visual assessment. The estimated ejection fraction is <20%. Features are consistent with a pseudonormal left ventricular filling pattern, with concomitant abnormal relaxation and increased filling pressure (grade 2 diastolic dysfunction). - Right ventricle: The cavity size is normal. Wall thickness is mildly increased. Systolic function is mildly reduced. - Mitral valve: There is trace to mild regurgitation. - Tricuspid valve: There is trace to mild regurgitation. Study data: Transthoracic echocardiogram. Procedure: Transthoracic echocardiography was performed. Image quality was good. Complete 2D, spectral Doppler, and color flow Doppler. Location: Bedside. Patient status: Inpatient. Patient room number: 446-1. Comparison is made to the study of August 2018. Rhythm: Bradycardia. Findings Left ventricle: The cavity size is at the upper limits of normal. Wall thickness is mildly increased. Systolic function is severely reduced by visual assessment. The estimated ejection fraction is <20%. Wall motion is normal; there are no regional wall motion abnormalities. Features are consistent with a pseudonormal left ventricular filling pattern, with concomitant abnormal relaxation and increased filling pressure (grade 2 diastolic dysfunction). Right ventricle: The cavity size is normal. Wall thickness is mildly increased. Pacer wire noted in the right ventricle. Systolic function is mildly reduced. Left atrium: The atrium is mildly dilated. Right atrium: The atrium is normal in size. Pacer wire noted in right atrium. Mitral valve: The leaflets are mildly thickened. There is no evidence of stenosis. There is trace to mild regurgitation. Aortic valve: The valve is trileaflet. The leaflets are mildly thickened. There is no evidence of stenosis. There is trace regurgitation. Tricuspid valve: The leaflets are normal thickness. There is no evidence of stenosis. There is trace to mild regurgitation. Pulmonic valve: The leaflets are normal thickness. There is no evidence of stenosis. There is trace regurgitation. Aorta: Ascending aorta: The ascending aorta is appears normal. The aortic root appears normal. The aortic arch appears normal. Pericardium: There is no significant pericardial effusion. Pulmonary arteries: The main pulmonary artery is normal-sized. Systolic pressure can not be accurately estimated. Systemic veins: Inferior vena cava: The vessel is normal in size. There is (>= 50%) respiratory change in the IVC dimension. Measurements Left ventricle Value Ref Right atrium continued Value Ref BRANDY, LAX 5.7 cm 4.2 - 5.8 SI dim, ES, A4C 5.3 cm 3.4 - ESD, LAX (H) 5.4 cm 2.5 - 4.0 5.3 FS, LAX (L) 6 % 25 - 43 SI dim/bsa, ES, (H) 3.1 cm/m^2 1.8 - PW, ED, LAX (H) 1.2 cm 0.6 - 1.0 A4C 3.0 FS (L) 6 % 25 - 43 Estimated RAP 3 mm Hg -------- PW, ED (H) 1.2 cm 0.6 - 1.0 E', lat maycol, TDI (L) 3.3 cm/sec >=10.0 Aortic valve Value R ef E/e', lat maycol, 15 Maycol diam, ED 2.3 cm ---- ---- TDI Peak v, S 0.9 m/sec -------- E', med maycol, TDI (L) 2.9 cm/sec >=7.0 VTI, S 15.8 cm - ------- E/e', med maycol, 17 Mean grad, S 2.0 mm Hg ---- ---- TDI Peak grad, S 3.0 mm Hg -------- E', avg, TDI 3.1 cm/sec LVOT/AV, VTI ratio 0.63 ---- ---- E/e', avg, TDI (H) 16 <=14 Mitral valve Value Ref LVOT Value Ref Peak E 0.5 m/sec -------- Peak giovanna, S 0.56 m/sec Peak A 0.74 m/sec -------- VTI, S 10.0 cm Decel time 342 ms -------- Mean grad, S 1 mm Hg Peak E/A ratio 0.7 -------- Ventricular septum Value Ref Pulmonic valve Value Ref IVS, ED (H) 1.1 cm 0.6 - 1.0 Peak v, S 0.7 m/sec -------- Peak grad, S 2.0 mm Hg -------- Right ventricle Value Ref AW thickness, ED (H) 0.6 cm 0.1 - 0.5 Aortic root Value Ref BRANDY, LAX 2.7 cm Root diam 3.2 cm <3.9 BRANDY minor ax, (H) 3.8 cm 1.9 - 3.5 A4C mid Ascending aorta Value Ref AAo AP diam, S 3.3 cm -------- Left atrium Value Ref AP dim, ES 3.80 cm 3.00 - Aortic arch Value Ref 4.00 Arch diam 2.0 cm -------- ML dim, A4C 4.2 cm SI dim, A4C 5.8 cm Decending aorta Value Ref Vol/bsa, ES, 1-p 33 ml/m^2 12 - 37 Lyle peak giovanna 0.59 m/sec -------- A4C Vol/bsa, ES, A/L (H) 38 ml/m^2 16 - 34 Inferior vena cava Value Ref Diam 1.4 cm -------- Right atrium Value Ref SI dim, ES 5.3 cm 3.4 - 5.3 ML dim, ES, A4C 3.6 cm 2.6 - 4.4 Legend: (L) and (H) kristian values outside specified reference range. Prepared and electronically signed by Karl Fuchs MD 05/19/2019 17:38
[2019-05-19] MEDS: Insulin LISPRO* 1 UNITS UNIT SUBCUT SCH ×2 (18:03→21:46)
[2019-05-19 18:35] LABS: Troponin I 0.12 ng/mL (<0.04)
[2019-05-19] MEDS: Docusate CAP* 100 MG PO SCH (21:45)
[2019-05-19] MEDS: Apixaban* 2.5 MG TAB PO SCH (21:45)
[2019-05-19] MEDS: Gabapentin CAP(*) 300 MG PO SCH (21:45)
[2019-05-19] MEDS: Senna TAB 8.6 mg* TAB PO SCH (21:46)
[2019-05-20 07:50] LABS: Potassium 5.1 mmol/L (3.5-5.0)
[2019-05-20 07:56] LABS: BUN/Creatinine Ratio 21.1 (8-20); EGFR African American 54.6 (>60); EGFR Non-African American 45.1 (>60)
[2019-05-20] MEDS: Insulin LISPRO* 1 UNITS UNIT SUBCUT SCH ×2 (08:34→12:35)
[2019-05-20] MEDS ORDERED: Escitalopram * 20 MG TABLET PO SCH (09:00)
[2019-05-20] MEDS ORDERED: Spironolactone TAB* 25 MG PO SCH (09:00)
[2019-05-20] MEDS ORDERED: Ferrous Gluconate TAB* 324 MG TAB PO SCH (09:00)
[2019-05-20] MEDS ORDERED: Aspirin EC TAB* 81 MG TAB.EC PO SCH (09:00)
[2019-05-20] MEDS ORDERED: Digoxin TAB* 0.125 MG PO SCH (09:00)
[2019-05-20] MEDS ORDERED: Metoprolol Succinate XL TAB* 50 MG PO SCH (09:00)
[2019-05-20] MEDS ORDERED: Insulin GLARGINE(*) 1 UNITS UNIT SUBCUT SCH (09:00)
[2019-05-20] MEDS ORDERED: Lisinopril TAB* 10 MG PO SCH (09:00)
[2019-05-20] MEDS: Senna TAB 8.6 mg* TAB PO SCH (09:26)
[2019-05-20] MEDS: Docusate CAP* 100 MG PO SCH (09:27)
[2019-05-20] MEDS: Apixaban* 2.5 MG TAB PO SCH (09:27)
[2019-05-20] MEDS: Gabapentin CAP(*) 300 MG PO SCH (09:27)
[2019-05-20 09:31] VITALS: BP 113/77
--- NOTE | 2019-05-20 17:36 | DS ---
CC: Dr. Perez; Dr. Daniels * DISCHARGE SUMMARY: DATE OF ADMISSION: 05/19/19 DATE OF DISCHARGE: 05/20/19 PRIMARY CARE PROVIDER: Dr. Daniels. MACHINIST SUPERVISOR: Dr. Perez. DISCHARGE DIAGNOSIS: Acute exacerbation of chronic systolic congestive heart failure. SECONDARY DIAGNOSES: 1. Nonischemic cardiomyopathy with EF of approximately 20%. 2. Diabetes type 2 with diabetic neuropathy. 3. Depression. 4. Hypertension. 5. History of chronic atrial fibrillation. 6. Status post implantable cardioverter-defibrillator insertion. 7. History of chronic kidney disease, stage 3. MEDICATIONS AT DISCHARGE: Include: 1. Alogliptin 25 mg daily. 2. Lanoxin (digoxin) 0.125 mg daily. 3. Ferrous gluconate 256 mg daily. 4. Insulin Lantus 30 units daily. 5. Insulin lispro 6 units in a.m. and 10 units q.p.m. 6. [place]-3 fatty acids 2000 mg daily. 7. Aldactone 50 mg daily. 8. Eliquis 2.5 mg b.i.d. 9. Aspirin 81 mg daily. 10. Lipitor 40 mg daily. 11. Lexapro 20 mg daily. 12. Lasix 20 mg every other day. 13. Gabapentin 300 mg 3 times a day. 14. Lisinopril 10 mg daily. 15. Metoprolol succinate 50 mg daily. Please note that the patient's only medication change was starting Lasix at 20 mg every other day. LABORATORY DATA AND STUDIES PERFORMED DURING THE HOSPITAL STAY: Included on 07/29, sodium of 135, potassium 5.1, chloride 99, carbon dioxide 26, BUN 34, creatinine 1.6. The patient's troponins ranged from 0.15 to 0.12 throughout his hospital stay. CT angiogram of the chest obtained on 05/19/19, impression: "Slightly limited exam with no evidence of pulmonary embolism. Mild dependent bilateral lower lobe infiltrates most consistent with atelectasis. Findings consistent with old granulomatous disease. Enlarged mediastinal lymph node. Mild compression fracture of the L4 vertebral body, new from the chest x-ray from February 2019." Transthoracic echocardiogram showed EF of 20%, which was unchanged from August of 2018. HOSPITALIZATION COURSE: Vipin Rosas is a 53-year-old male who fractured his distal tibia on 04/18/19 after a fall. He stated that he had been doing okay since then and he had the left lower extremity placed in an immobilizer. For the couple of days, he had worsening shortness of breath and he came into the ED for evaluation. Here, he was treated with intravenous Lasix for acute systolic CHF. The patient admitted to no dietary indiscretion and had been taking his medications as prescribed. The only change was that he was less mobile due to his left ankle fracture. The patient did very well with the diuretics and he is euvolemic by the time of discharge. We decided to continue the patient on a tiny dose of Lasix 20 mg every other day. The patient is recommended to follow up with his primary care provider in approximately 4 to [address] Perez in approximately 1 to 2 weeks. PHYSICAL EXAMINATION: At the time of discharge, blood pressure of 113/77, heart rate of 69 and regular, respiratory rate 16, oxygen saturation 99% on room air, temperature of 97.8. General: The patient is a very pleasant 53-year -old male who is in no acute distress, alert, awake, and oriented x3. HEENT: Head: Atraumatic, normocephalic. Eyes: Pupils are equal, reactive to light and accommodation. Oropharynx is clear. Mucosa moist. Neck: Supple. No JVD. No bruits bilaterally. Cardiovascular: Regular rate and rhythm. No murmur. Respiratory: Clear to auscultation bilaterally. Abdomen: Soft, nontender. Bowel sounds are present in all 4 quadrants. Extremities: There is no edema. Pulses are +2 bilaterally. No clubbing or cyanosis. On neuro evaluation, speech is clear. Cranial nerves II through XII grossly intact. Motor strength is 5/5 bilaterally. Please note that this is a short summary of the patient's hospital stay. Please refer to further medical records for details. DISPOSITION AT DISCHARGE: To home. CONDITION ON DISCHARGE: Stable. [id number]/CPS #: [id number] MTDGary
== END 2019-05-20 15:15 | disposition home or self-care (01) ==
LOC: ED 11:13 → INTOOBSV 15:13 → MEDTELE 15:13
PROVIDERS: ADMIT Internal Medicine; ATTEND Internal Medicine
DX: I13.0 Hypertensive heart and chronic kidney disease with heart failure and stage 1 through stage 4 chronic kidney disease, or unspecified chronic kidney disease (principal); I50.23 Acute on chronic systolic (congestive) heart failure; N18.3 Chronic kidney disease, stage 3 (moderate); E11.22 Type 2 diabetes mellitus with diabetic chronic kidney disease; E11.21 Type 2 diabetes mellitus with diabetic nephropathy; Z79.4 Long term (current) use of insulin; F32.9 Major depressive disorder, single episode, unspecified; I48.2 Chronic atrial fibrillation; Z95.810 Presence of automatic (implantable) cardiac defibrillator; Z79.01 Long term (current) use of anticoagulants; Z79.899 Other long term (current) drug therapy
CPT/HCPCS: 36415; 71275; 80048; 80053; 83605; 83880; 84484; 85025; 85379; 86140; 87040; 93005; 93306; 94762; 96374; 99284; A9270-GY; G0378; J1940; Q9967

== ENCOUNTER 2019-05-21 09:16 | Emergency (ER) | payer BC, OTHER ==
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
[2019-05-21] MEDS ORDERED: Tetan/Diph/Pertus SYR(Tdap)* 0.5 ML SYR(BOOSTRIX) use SYR contains LATEX IM ONE (09:38)
[2019-05-21 10:47] LABS: ABS Lymphocytes 0.6 10^3/ul (1.0-4.8); ABS Monocytes 0.6 10^3/ul (0-0.8); ABS Neutrophils 10.1 10^3/ul (1.5-7.7); Eosinophil % 0.2 %; Hematocrit 48 % (42-52); Lymphocyte % 5.4 %; Mean Corpuscular HGB Conc 34 g/dL (31-36); Mean Corpuscular Hemoglobin 29 pg (27-31); Mean Corpuscular Volume 86 fL (80-94); Mean Platelet Volume 10.2 fL (7.4-10.4); Platelet Count 201 10^3/uL (150-450); Red Blood Count 5.56 10^6 /uL (4.18-5.48); Red Cell Distribution Width 14 % (10-15); White Blood Count 11.4 10^3/uL (3.5-10.8)
[2019-05-21 10:56] LABS: Activated Partial Thrombo Time 34.4 seconds (26.0-38.0); INR 1.28 (0.82-1.09)
[2019-05-21 11:07] LABS: ALT 29 U/L (7-52); AST 50 U/L (13-39); Albumin 5.2 g/dL (3.2-5.2); Albumin/Globulin Ratio 1.4 (1-3); Alkaline Phosphatase 101 U/L (34-104); BUN/Creatinine Ratio 25.4 (8-20); Blood Urea Nitrogen 43 mg/dL (6-24); CO2 Carbon Dioxide 22 mmol/L (22-32); Calcium 10.4 mg/dL (8.6-10.3); Chloride 96 mmol/L (101-111); EGFR African American 51.6 (>60); EGFR Non-African American 42.7 (>60); Globulin 3.6 g/dL (2-4); Glucose 230 mg/dL (70-100); Sodium 130 mmol/L (135-145); Total Protein 8.8 g/dL (6.4-8.9)
[2019-05-21] MEDS ORDERED: Iodixanol* (CONTRAST) 320 MG/ML 100 ML SDV IV ONE (11:08)
[2019-05-21 11:16] LABS: Anion Gap 12 mmol/L (2-11); Potassium 6.4 mmol/L (3.5-5.0); Troponin I 0.16 ng/mL (<0.04)
[2019-05-21] MEDS ORDERED: Insulin REGULAR(*) 1 UNITS UNIT IV PUSH ONE (11:21)
[2019-05-21] MEDS ORDERED: Calcium Gluconate INJ* 2 GM in NS 0.9% 100 ML* 100 ML IVPB ONE (11:21)
[2019-05-21] MEDS ORDERED: NS 0.9% 1000 ML** 250 ML IV ONE (11:22)
[2019-05-21] MEDS ORDERED: Dextrose 50% Syringe 50 ML* 25 GM/50 ML SYRINGE IV PUSH ONE (11:22)
[2019-05-21 11:36] LABS: Creatine Kinase 1146 U/L (10-223)
[2019-05-21] MEDS ORDERED: NS 0.9% 100 ML* 100 ML ONE (12:02)
[2019-05-21] MEDS ORDERED: Dextrose 50% VIAL 50 ml ONE (12:02)
[2019-05-21] MEDS ORDERED: Patiromer POWDER* 8.4 GM PAK PO SCH ×2 (13:00)
[2019-05-21 13:11] VITALS: BP 104/66
== END 2019-05-21 13:49 | disposition short-term general hospital (02) ==
LOC: ED 09:16
DX: S32.009A Unspecified fracture of unspecified lumbar vertebra, initial encounter for closed fracture (principal); S22.049A Unspecified fracture of fourth thoracic vertebra, initial encounter for closed fracture; E87.5 Hyperkalemia; Z23 Encounter for immunization; V48.5XXA Car driver injured in noncollision transport accident in traffic accident, initial encounter; Y92.410 Unspecified street and highway as the place of occurrence of the external cause; E11.9 Type 2 diabetes mellitus without complications; Z95.810 Presence of automatic (implantable) cardiac defibrillator; I50.9 Heart failure, unspecified; I11.0 Hypertensive heart disease with heart failure; I25.10 Atherosclerotic heart disease of native coronary artery without angina pectoris; E78.00 Pure hypercholesterolemia, unspecified; F32.9 Major depressive disorder, single episode, unspecified; Z87.891 Personal history of nicotine dependence
CPT/HCPCS: 36415; 70450; 71260; 72125; 74177; 80053; 80171; 82550; 83605; 83690; 83880; 84484; 85025; 85610; 85730; 90471; 90715; 93005; 96365; 96366; 99284; A9270-GY; J0610; Q9967

== ENCOUNTER 2019-05-24 06:44 | Inpatient (IN) | payer OTHER ==
[2019-05-24] MEDS ORDERED: Magnesium Hydroxide LIQ* 30 ML UDC PO PRN (13:23)
[2019-05-24] MEDS ORDERED: Senna TAB 8.6 mg* TAB PO PRN (13:23)
[2019-05-24] MEDS ORDERED: Methocarbamol TAB* 500 MG PO PRN (13:52)
[2019-05-24] MEDS ORDERED: Dextrose 50% VIAL 50 ml IV PUSH PRN (13:56)
[2019-05-24] MEDS: Gabapentin CAP(*) 300 MG PO SCH ×2 (14:44→21:06)
[2019-05-24] MEDS: oxyCODONE TAB* 5 MG TAB PO PRN ×2 (15:59→21:06)
[2019-05-24] MEDS: Insulin LISPRO* 1 UNITS UNIT SUBCUT SCH ×2 (17:30→21:05)
[2019-05-24] MEDS ORDERED: oxyCODONE TAB* 5 MG TAB PO PRN (19:04)
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
[2019-05-24] MEDS: Insulin GLARGINE(*) 1 UNITS UNIT SUBCUT SCH (21:04)
[2019-05-24] MEDS: Docusate CAP* 100 MG PO SCH (21:06)
[2019-05-24] MEDS: Apixaban* 2.5 MG TAB PO SCH (21:06)
[2019-05-25] MEDS: oxyCODONE TAB* 5 MG TAB PO PRN ×4 (01:22→21:50)
[2019-05-25] MEDS ORDERED: Escitalopram * 20 MG TABLET PO SCH (09:00)
[2019-05-25] MEDS: Docusate CAP* 100 MG PO SCH ×3 (09:14→21:57)
[2019-05-25] MEDS: ALOGLIPTIN 25 MG PO SCH (09:14)
[2019-05-25] MEDS: Insulin LISPRO* 1 UNITS UNIT SUBCUT SCH ×4 (09:14→22:17)
[2019-05-25] MEDS: Apixaban* 2.5 MG TAB PO SCH ×2 (09:14→20:35)
[2019-05-25] MEDS: Gabapentin CAP(*) 300 MG PO SCH ×3 (09:14→20:34)
[2019-05-25] MEDS: Lisinopril TAB* 10 MG PO SCH (09:15)
[2019-05-25] MEDS: Metoprolol Succinate XL TAB* 25 MG PO SCH (09:15)
[2019-05-25] MEDS: Acetaminophen TAB* 325 MG PO PRN ×2 (09:26→23:55)
[2019-05-25] MEDS ORDERED: Al Hydrox/Mg Hydrox/Simet LIQ* 30 ML UDC PO PRN (10:56)
[2019-05-25] MEDS: Digoxin TAB* 0.125 MG PO SCH (16:55)
[2019-05-25] MEDS: Atorvastatin* 40 MG TAB PO SCH (16:56)
[2019-05-25] MEDS: Famotidine TAB* 20 MG PO SCH (20:34)
[2019-05-25] MEDS: Escitalopram * 20 MG TABLET PO SCH (21:50)
[2019-05-25] MEDS: Insulin GLARGINE(*) 1 UNITS UNIT SUBCUT SCH (21:51)
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
[2019-05-26 06:31] LABS: ABS Basophils 0.1 10^3/ul (0-0.2); ABS Eosinophils 0.3 10^3/ul (0-0.6); ABS Lymphocytes 1.6 10^3/ul (1.0-4.8); ABS Monocytes 0.7 10^3/ul (0-0.8); ABS Neutrophils 2.5 10^3/ul (1.5-7.7); Eosinophil % 6.5 %; Hematocrit 37 % (42-52); Hemoglobin 12.7 g/dL (14.0-18.0); Lymphocyte % 31.1 %; Mean Corpuscular HGB Conc 34 g/dL (31-36); Mean Corpuscular Hemoglobin 29 pg (27-31); Mean Corpuscular Volume 85 fL (80-94); Mean Platelet Volume 9.5 fL (7.4-10.4); Platelet Count 181 10^3/uL (150-450); Red Blood Count 4.38 10^6 /uL (4.18-5.48); Red Cell Distribution Width 14 % (10-15); White Blood Count 5.2 10^3/uL (3.5-10.8)
[2019-05-26 06:50] LABS: Albumin 3.8 g/dL (3.2-5.2); Albumin/Globulin Ratio 1.3 (1-3); BUN/Creatinine Ratio 21.9 (8-20); Calcium 9.8 mg/dL (8.6-10.3); EGFR African American 81.3 (>60); EGFR Non-African American 67.2 (>60); Globulin 2.9 g/dL (2-4); Potassium 4.3 mmol/L (3.5-5.0); Total Bilirubin 0.5 mg/dL (0.2-1.0); Total Protein 6.7 g/dL (6.4-8.9)
[2019-05-26] MEDS: Insulin LISPRO* 1 UNITS UNIT SUBCUT SCH ×4 (08:13→21:14)
[2019-05-26] MEDS: ALOGLIPTIN 25 MG PO SCH (08:18)
[2019-05-26] MEDS: Acetaminophen TAB* 325 MG PO PRN ×3 (08:19→21:23)
[2019-05-26] MEDS: Gabapentin CAP(*) 300 MG PO SCH ×3 (08:19→21:24)
[2019-05-26] MEDS: Apixaban* 2.5 MG TAB PO SCH ×2 (08:20→21:24)
[2019-05-26] MEDS: Metoprolol Succinate XL TAB* 25 MG PO SCH (08:20)
[2019-05-26] MEDS: Docusate CAP* 100 MG PO SCH ×2 (08:20→21:23)
[2019-05-26] MEDS: Famotidine TAB* 20 MG PO SCH ×2 (08:20→21:24)
[2019-05-26] MEDS: Lisinopril TAB* 10 MG PO SCH (08:21)
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
[2019-05-26] MEDS: Atorvastatin* 40 MG TAB PO SCH (17:46)
[2019-05-26] MEDS: Digoxin TAB* 0.125 MG PO SCH (17:46)
[2019-05-26] MEDS: Escitalopram * 20 MG TABLET PO SCH (21:23)
[2019-05-26] MEDS: Insulin GLARGINE(*) 1 UNITS UNIT SUBCUT SCH (21:24)
[2019-05-27 06:37] VITALS: BP 127/60
[2019-05-27] MEDS: Acetaminophen TAB* 325 MG PO PRN ×2 (07:44→15:10)
[2019-05-27] MEDS: Insulin LISPRO* 1 UNITS UNIT SUBCUT SCH ×2 (08:33→12:03)
[2019-05-27] MEDS: Docusate CAP* 100 MG PO SCH (08:48)
[2019-05-27] MEDS: Lisinopril TAB* 10 MG PO SCH (08:49)
[2019-05-27] MEDS: Metoprolol Succinate XL TAB* 25 MG PO SCH (08:49)
[2019-05-27] MEDS: Famotidine TAB* 20 MG PO SCH (08:49)
[2019-05-27] MEDS: Gabapentin CAP(*) 300 MG PO SCH ×2 (08:50→15:10)
[2019-05-27] MEDS: Apixaban* 2.5 MG TAB PO SCH (08:50)
[2019-05-27] MEDS: ALOGLIPTIN 25 MG PO SCH (08:50)
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
== END 2019-05-27 15:30 | disposition home health service (06) | DRG 860 ==
LOC: PMRU 13:08
PROVIDERS: ADMIT Physical Medicine & Rehabilitation; ATTEND Physical Medicine & Rehabilitation
PROC: F07Z5ZZ Bed Mobility Treatment (ICD-10-PCS; principal; 2019-05-24)
PROC: F07Z9ZZ Gait Training/Functional Ambulation Treatment (ICD-10-PCS; 2019-05-24)
PROC: F07Z8ZZ Transfer Training Treatment (ICD-10-PCS; 2019-05-24)
PROC: F08Z0ZZ Bathing/Showering Techniques Treatment (ICD-10-PCS; 2019-05-24)
PROC: F08Z1ZZ Dressing Techniques Treatment (ICD-10-PCS; 2019-05-24)
PROC: F08Z3ZZ Feeding/Eating Treatment (ICD-10-PCS; 2019-05-24)
DX: S22.048D Other fracture of fourth thoracic vertebra, subsequent encounter for fracture with routine healing (principal); I42.9 Cardiomyopathy, unspecified; E11.40 Type 2 diabetes mellitus with diabetic neuropathy, unspecified; S32.018D Other fracture of first lumbar vertebra, subsequent encounter for fracture with routine healing; S32.028D Other fracture of second lumbar vertebra, subsequent encounter for fracture with routine healing; S32.038D Other fracture of third lumbar vertebra, subsequent encounter for fracture with routine healing; S22.32XD Fracture of one rib, left side, subsequent encounter for fracture with routine healing; S82.892D Other fracture of left lower leg, subsequent encounter for closed fracture with routine healing; V49.88XD Car occupant (driver) (passenger) injured in other specified transport accidents, subsequent encounter; F41.8 Other specified anxiety disorders; X58.XXXD Exposure to other specified factors, subsequent encounter; Z95.810 Presence of automatic (implantable) cardiac defibrillator; Z79.4 Long term (current) use of insulin; Z79.84 Long term (current) use of oral hypoglycemic drugs; Z79.01 Long term (current) use of anticoagulants; Z79.899 Other long term (current) drug therapy
CPT/HCPCS: 36415; 80053; 82947; 85025; A9270-GY

== ENCOUNTER 2019-08-29 23:02 | Emergency (ER) | payer BC ==
--- OUTSIDE RECORDS SUMMARY | 2019-08-29 23:21 | XMS REPORT | Continuity of Care Document ---
:1965 External Reference #:[id number] Author Name Anthony Diaz MD (transmitted by agent of provider Kenya Casanova) Address [address] [place] [id number] Care Team Providers Name Role Phone Poncho Daniels, D.O. - Internal Care Team Information Core Man Medicine Bradley Pa MD - Neurological Care Team Information Core Man Surgery Problems Active Problems Provider Date Chest pain Placido Perez M.D., [facility], Onset: 07/20/2013 FASNC Primary cardiomyopathy Placido Perez M.D., [facility], Onset: 08/25/2013 FASWA Encounter for planned postprocedural Talon Zeng M.D., [facility], [facility] Onset: wound closure Closed fracture of medial malleolus Darvin Dillon MD Onset: 04/21/2019 Social History Type Date Description Comments Sex Unknown Tobacco Use Start: Unknown Never Smoked Cigarettes chewed tobacco from age 19 until mid-40's, then quit. Smoking Status Reviewed: 07/20/19 Never Smoked Cigarettes chewed tobacco from age 19 until mid-40's, then quit. ETOH Use Denies alcohol use ETOH Use Has consumed alcohol in the past Tobacco Use Start: Unknown Patient has never smoked Recreational Drug Use Denies Drug Use Exercise Type/Frequency Exercises regularly walking about 1/2 hour daily Allergies, Adverse Reactions, Alerts Active Allergies Reaction Severity Comments Date Lisinopril dose > 5 mg causes hyperkalemia 06/30/2019 Aldactone hyperkalemia 07/07/2019 Inactive Allergies NKDA 07/06/2013 Medications Active Medications SIG Qnty Indications Ordering Provider Date Steglatro 1 by mouth every 30tabs E13.9 Anthony Diaz MD 07/20/2019 5mg Tablets day in the morning Lantus Solostar 20 units at 15ml Anthony Diaz MD 07/20/2019 bedtime or as 100Unit/ML Solution directed Pen-Inject Magnesium Oxide 1 by mouth every 90tabs Placido Perez, 07/07/2019 250mg day Dawna.Pauline, ELIESER CEDEÑO Tablets Lisinopril 1/2 by mouth Placido Perez, 06/30/2019 5mg every day Roderick, ELIESER CEDEÑO Tablets Tlso Brace tlso brace wear S22.009D Vassilios 06/23/2019 when upright MD Yamel Famotidine 1 by mouth twice Placido Perez, 06/05/2019 20mg a day Roderick, ELIESER CEDEÑO Tablets Probiotic 1 by mouth bid Unknown Capsules Humalog Kwikpen 5 units with 15ml Anthony Diaz MD meals plus 100Unit/ML Solution sliding scale, Pen-Inject MDD 30 Alogliptin Benzoate 1 tab once a day Poncho Daniels J., D.O. 25mg Tablets Eliquis 1 tablet by mouth Unknown 2.5mg Tablets twice a day. Metoprolol Succinate 1 by mouth twice 180tabs Placido Perez, ER a day . Roderick, ELIESER CEDEÑO 25mg Tablets ER 24HR Gabapentin 1 cap po three Session, Jatinder, 300mg times daily RPA-C Capsules Iron (Ferrous 1 by mouth daily Unknown Gluconate) 256(28Fe) mg Tablets Aspirin 1 by mouth every Unknown 81mg Tablets day Lexapro 1 po qd 90tabs Unknown 20mg Tablets Fish Oil 1 po qd Unknown 1000mg Capsules Digoxin 1 po qd 90tabs Unknown 0.125mg Tablets Lipitor 1 po qd 90tabs Unknown 40mg Tablets Medications Administered in Office Medication SIG Qnty Indications Ordering Provider Date Inj, Regadenoson, 0.1 MG Placido Perez M.D., 11/22/2017 Injection IKEC, FAITHHYACINTH Technetium TC 99M Placido Perez M.D., 11/22/2017 Tetrofosmin, Per Unit Dose IKEC, ELIESER Up To 40 Millicuries Injection Technetium TC 99M Placido Perez M.D., 07/25/2013 Tetrofosmin, Per Unit Dose FACC, ELIESER Up To 40 Millicuries Injection Immunizations Description No Information Available Vital Signs Date Vital Result Comment 07/20/2019 8:40am Height 65 inches 5'5" Weight 134.00 lb back brace and shoes Heart Rate 60 /min BP Systolic Sitting 115 mmHg BP Diastolic Sitting 77 mmHg BMI (Body Mass Index) 22.3 kg/m2 07/14/2019 9:26am Height 65 inches 5'5" Weight 135.00 lb BP Systolic 110 mmHg BP Diastolic 84 mmHg Pain Level 1 BMI (Body Mass Index) 22.5 kg/m2 Results Test Date Facility Test Result H/L Range Note Basic Metabolic 07/06/2019 [facility] Sodium 134 mmol/L Low 135-[address] [place] [address] [phone] Chloride 100 mmol/L Low 101-111 Co2 Carbon Dioxide 28 mmol/L Normal 22-32 Glucose 175 mg/dL High 70-100 Blood Urea Nitrogen 28 mg/dL High 6-24 Creatinine 1.50 mg/dL High 0.67-1.17 BUN/Creatinine Ratio 18.7 Normal 8-20 Calcium 9.8 mg/dL Normal 8.6-10.3 Egfr Non- 49.0 >60 Egfr 59.2 >60 1 Potassium 5.2 mmol/L High 3.5-5.0 Anion Gap 6 mmol/L Normal 2-11 Laboratory test 07/06/2019 [facility] Magnesium 1.7 mg/dL Low 1.9-2.[address] [place] [address] [phone] CBC No Diff 07/06/2019 [facility] White Blood 5.3 Normal 3.5- 10.[address] Count 10^3/[place] [address] [phone] Red Blood Count 4.71 10^6/uL Normal 4.18-5.48 Hemoglobin 13.3 g/dL Low 14.0-18.0 Hematocrit 40 % Low 42-52 Mean Corpuscular Volume 85 fL Normal 80-94 Mean Corpuscular Hemoglobin 28 pg Normal 27-31 Mean Corpuscular HGB Conc 33 g/dL Normal 31-36 Red Cell Distribution Width 14 % Normal 10-15 Platelet Count 210 10^3/uL Normal 150-450 Mean Platelet Volume 10.5 fL High 7.4-10.4 Basic Metabolic 06/30/2019 [facility] Sodium 131 mmol/L Low 135-[address] [place] [address] [phone] Potassium 4.9 mmol/L Normal 3.5-5.0 Chloride 96 mmol/L Low 101-111 Co2 Carbon Dioxide 28 mmol/L Normal 22-32 Anion Gap 7 mmol/L Normal 2-11 Glucose 118 mg/dL High 70-100 Blood Urea Nitrogen 25 mg/dL High 6-24 Creatinine 1.48 mg/dL High 0.67-1.17 BUN/Creatinine Ratio 16.9 Normal 8-20 Calcium 9.6 mg/dL Normal 8.6-10.3 Egfr Non- 49.7 >60 Egfr 60.2 >60 2 Xray 06/26/2019 [facility] Spine Thoracic 3 Views <pending> [address] [place] [address] [phone] MRI Thoracic Spine W/O <pending> Basic Metabolic 06/15/2019 [facility] Sodium 134 mmol/L Low 135-[address] [place] [address] [phone] Chloride 99 mmol/L Low 101-111 Co2 Carbon Dioxide 27 mmol/L Normal 22-32 Glucose 161 mg/dL High 70-100 Blood Urea Nitrogen 26 mg/dL High 6-24 Creatinine 1.45 mg/dL High 0.67-1.17 BUN/Creatinine Ratio 17.9 Normal 8-20 Calcium 10.1 mg/dL Normal 8.6-10.3 Egfr Non- 50.9 >60 Egfr 61.6 >60 3 Potassium 5.2 mmol/L High 3.5-5.0 Anion Gap 8 mmol/L Normal 2-11 Pre Cath 02/02/2019 [facility] Partial 34.9 seconds Normal 26.0-36.[address] [place] [address] PTT [phone] CBC Auto 02/02/2019 [facility] White Blood 7.4 10^3/uL Normal 3.5-10.[address] [place] [address] [phone] Red Blood Count 4.31 10^6/uL Normal 4.18-5.48 Hemoglobin 12.8 g/dL Low 14.0-18.0 Hematocrit 37 % Normal 36-46 Mean Corpuscular Volume 85 fL Normal 80-94 Mean Corpuscular Hemoglobin 30 pg Normal 27-31 Mean Corpuscular HGB Conc 35 g/dL Normal 31-36 Red Cell Distribution Width 13 % Normal 10.5-15 Platelet Count 267 10^3/uL Normal 150-450 Mean Platelet Volume 8.9 fL Normal 7.4-10.4 Abs Neutrophils 5.3 10^3/uL Normal 1.5-7.7 Abs Lymphocytes 1.4 10^3/uL Normal 1.0-4.8 Abs Monocytes 0.5 10^3/uL Normal 0-0.8 Abs Eosinophils 0.2 10^3/uL Normal 0-0.6 Abs Basophils 0 10^3/uL Normal 0-0.2 Abs Nucleated RBC 0 10^3/uL Granulocyte % 71.4 % Lymphocyte % 18.5 % Monocyte % 7.3 % Eosinophil % 2.1 % Basophil % 0.7 % Nucleated Red Blood Cells % 0 Inr/Protime 02/02/2019 [facility] Inr 1.19 High 0.82-1.09 [address] [place] [address] [phone] Basic Metabolic 02/02/2019 [facility] Sodium 133 mmol/L Low 135-145 Panel [address] [place] [address] [phone] Potassium 5.0 mmol/L Normal 3.5-5.0 Chloride 100 mmol/L Low 101-111 Co2 Carbon Dioxide 27 mmol/L Normal 22-32 Anion Gap 6 mmol/L Normal 2-11 Glucose 160 mg/dL High 70-100 Blood Urea Nitrogen 27 mg/dL High 6-24 Creatinine 1.42 mg/dL High 0.67-1.17 BUN/Creatinine Ratio 19.0 Normal 8-20 Calcium 9.5 mg/dL Normal 8.6-10.3 Egfr Non- 52.2 >60 Egfr 63.1 >60 6 1 Because ethnic data is not always readily [...] 15-29 5 Kidney failure <15 (or dialysis) 2 Because ethnic data is not always [...] 5 Kidney failure <15 (or dialysis) 3 Because ethnic data is not always readily [...] 15-29 5 Kidney failure <15 (or dialysis) 4 soon 5 Standard intensity warfarin therapeutic range: 2.0-3.0 High intensity warfarin therapeutic range: 2.5-3.5 6 Because ethnic data is not always readily [...] (or dialysis) Procedures Date Code Description Status 06/30/2019 46866 Interrogation Device Eval Remote Up To 30 Days Completed Analysis,Rev,RP 06/30/2019 88306 Interrogation Device Eval Remote Up To 30 Days Completed Analysis,Rev,RP 06/30/2019 04147 Icd Eval Sing,Dual,Multi Lead Remote Recpt Transm Tech Completed Rev Tech S 06/30/2019 85006 Icd Eval Sing,Dual,Multi Lead Remote Recpt Transm Tech Completed Rev Tech S 06/30/2019 88959 Icd Check Remote Up To 90 Days Single,Dual,Multiple Completed Lead 06/30/2019 36181 Icd Check Remote Up To 90 Days Single,Dual,Multiple Completed Lead 06/05/2019 05294 EKG Tracing & Interpretation Completed 05/19/2019 61876 ECHO Transthorasic Realtime 2D W Doppler & Color Flow Completed Hosp 04/21/2019 41083 Icd eval w/iterative adjment single lead Icd Completed 04/21/2019 72051 Icd eval w/iterative adjment single lead Icd Completed 04/21/2019 34273 Interrogation Implant Cardiovasc Monitor System Incl Completed Analysis Int 04/21/2019 08297 Interrogation Implant Cardiovasc Monitor System Incl Completed Analysis Int 03/09/2019 90676 Interrogation Implant Cardiovasc Monitor System Incl Completed Analysis Int 03/09/2019 29646 Interrogation Implant Cardiovasc Monitor System Incl Completed Analysis Int 03/09/2019 09168 Icd eval w/iterative adjment single lead Icd Completed 03/09/2019 95573 Icd eval w/iterative adjment single lead Icd Completed 02/08/2019 17726 EKG, Interpretation Only Completed 02/07/2019 15426 Moderate Sedation Services; Same Phys Each Additional Completed 15 Mins 02/07/2019 12120 Moderate Sedation Services; Same Phys Intl 15 Mins; PT Completed >= 5 Years 02/07/2019 95983 EKG, Interpretation Only Completed 02/07/2019 19911 Insert/Replace Icd W/Generator Completed 01/16/2016 [id number] Colonoscopy Completed Medical Devices Description No Information Available Encounters Type Date Location Provider Dx Diagnosis Office Visit 06/23/2019 [facility] Sherri Lara, S22.009A Unsp fracture of 11:30a Services Of [facility] ROMO unsp thoracic vertebra, init for clos fx Office Visit 06/05/2019 [facility] Darvin Dillon, S82.55xD Nondisp fx of med 9:00a at [place] MD malleolus of l tibia, 7thD Office Visit 06/05/2019 [facility] Placido Noe I42.9 Cardiomyopathy, 1:00p Of Lucinda Perez M.D., unspecified FACC, FASNC R94.31 Abnormal electrocardiogram [ECG] [EKG] Office Visit 05/20/2019 [facility] Carmen Carbajal, I11.0 Hypertensive heart 11:53a Assinocencio sharma M.D. disease with heart Hospitalists failure I50.23 Acute on chronic systolic (congestive) heart failure Office Visit 05/19/2019 11:53a [facility] Arlene R06.02 Shortness of Assoc,inocencio Pizano D.O. breath Hospitalists Office Visit 04/28/2019 2:00p [facility] Donna Sharma, S82.55xD Nondisp fx of at [place] RPA-C med malleolus of l tibia, 7thD Office Visit 04/21/2019 1:30p [facility] Darvin S82.55xA Nondisp fx of at Shahzad Dillon MD medial malleolus of left tibia, init Office Visit 04/18/2019 10:25a [facility] Oanh S82.892A Oth fracture of Assoc,pc Navarrete, left lower leg, Hospitalists PA init for clos fx R79.89 Other specified abnormal findings of blood chemistry W11.xxxA Fall on and from ladder, initial encounter Office Visit 03/14/2019 [place] Placido Noe I42.8 Other cardiomyopathies 1:00p Cardiology Of Roderick Perez, [employer] FAC, [facility] Z95.810 Presence of automatic (implantable) cardiac defibrillator Office Visit 02/08/2019 [place] Shabana Wade I42.9 Cardiomyopathy, 4:14p Cardiology Atul Vaughn unspecified [facility] E11.649 Type 2 diabetes mellitus with hypoglycemia without coma I50.20 Unspecified systolic (congestive) heart failure Office Visit 02/08/2019 10:34a [facility] Rl R41.82 Altered mental Assoc,pc Aleida PA status, Hospitalists unspecified R50.9 Fever, unspecified R19.7 Diarrhea, unspecified E11.9 Type 2 diabetes mellitus without complications I10 Essential (primary) hypertension I25.10 Athscl heart disease of [place] coronary artery w/o ang pctrs Office Visit 02/01/2019 Shahzad Carpenter I42.9 Cardiomyopathy, 3:45p Cardiology Atul Camacho M.D. unspecified [facility] Assessments Date Code Description Provider 07/20/2019 E13.9 Other specified diabetes mellitus Anthony Diaz MD without complications 07/20/2019 I42.9 Cardiomyopathy, unspecified Anthony Diaz MD 07/14/2019 S22.009A Unspecified fracture of unspecified DEMETRIUS Gtz thoracic vertebra, initial encounter for closed fracture 06/30/2019 I42.9 Cardiomyopathy, unspecified Placido Perez M.D., FACC, [facility] 06/30/2019 I42.9 Cardiomyopathy, unspecified Remote Device Checks 06/30/2019 Z95.810 Presence of automatic (implantable) Placido Perez M.D., cardiac defibrillator FAC, [facility] 06/30/2019 Z95.810 Presence of automatic (implantable) Remote Device Checks cardiac defibrillator 06/23/2019 S22.009A Unspecified fracture of unspecified DEMETRIUS Gtz thoracic vertebra, initial encounter for closed fracture 06/05/2019 I42.9 Cardiomyopathy, unspecified Placido Perez M.D., [facility], [facility] 06/05/2019 R94.31 Abnormal electrocardiogram [ECG] Placido Perez M.D., [EKG] [facility], [facility] 06/05/2019 S82.55xD Nondisplaced fracture of zheng Dillon MD malleolus of left tibia, sub 05/20/2019 I11.0 Hypertensive heart disease with heart Carmen Carbajal M.D. failure 05/20/2019 I50.23 Acute on chronic systolic Carmen Carbajal M.D. (congestive) heart failure 05/19/2019 R06.02 Shortness of breath Karl Fuchs M.D. 05/19/2019 R06.02 Shortness of breath Arlene Pizano D.O. 04/28/2019 S82.55xD Nondisplaced fracture of medial Donna Sharma RPA-C malleolus of left tibia, sub 04/21/2019 I42.9 Cardiomyopathy, unspecified Placido Perez M.D., [facility], [facility] 04/21/2019 I42.9 Cardiomyopathy, unspecified Ica Pacer Schedule 04/21/2019 Z95.810 Presence of automatic (implantable) Placido Perez M.D., cardiac defibrillator [facility], [facility] 04/21/2019 Z95.810 Presence of automatic (implantable) Ica Pacer Schedule cardiac defibrillator 04/21/2019 S82.55xA Nondisplaced fracture of zheng Dillon MD malleolus of left tibia, ini 04/18/2019 S82.892A Oth fracture of left lower leg, init DEMERTIUS Toribio for clos fx 04/18/2019 R79.89 Other specified abnormal findings of DEMETRIUS Toribio blood chemistry 04/18/2019 W11.xxxA Fall on and from ladder, initial DEMETRIUS Toribio encounter 03/14/2019 I42.8 Other cardiomyopathies Placido Perez M.D., FACC, [facility] 03/14/2019 Z95.810 Presence of automatic (implantable) Placido Perez M.D., cardiac defibrillator [facility], [facility] 03/09/2019 I42.9 Cardiomyopathy, unspecified Placido Perez M.D., FAC, [facility] 03/09/2019 I42.9 Cardiomyopathy, unspecified Ica Pacer Schedule 03/09/2019 Z95.810 Presence of automatic (implantable) Placido Perez M.D., cardiac defibrillator FAC, [facility] 03/09/2019 Z95.810 Presence of automatic (implantable) Ica Pacer Schedule cardiac defibrillator 02/14/2019 I42.9 Cardiomyopathy, unspecified Henok Camacho M.D. 02/14/2019 Z95.810 Presence of automatic (implantable) Henok Camacho M.D. cardiac defibrillator 02/09/2019 Z95.810 Presence of automatic (implantable) Placido Perez M.D., cardiac defibrillator [facility], [facility] 02/08/2019 R94.31 Abnormal electrocardiogram [ECG] Shabana Wade M.D. [EKG] 02/08/2019 R41.82 Altered mental status, unspecified DEMETRIUS Yi 02/08/2019 I42.9 Cardiomyopathy, unspecified Shabana Wade M.D. 02/08/2019 R50.9 Fever, unspecified DEMETRIUS Yi 02/08/2019 E11.649 Type 2 diabetes mellitus with Shabana Wade M.D. hypoglycemia without coma 02/08/2019 R19.7 Diarrhea, unspecified DEMETRIUS Yi 02/08/2019 I50.20 Unspecified systolic (congestive) Shabana Wade M.D. heart failure 02/08/2019 E11.9 Type 2 diabetes mellitus without DEMETRIUS Yi complications 02/08/2019 I10 Essential (primary) hypertension DEMETRIUS Yi 02/08/2019 I25.10 Athscl heart disease of [place] DEMETRIUS Yi coronary artery w/o ang pctrs 02/07/2019 R94.31 Abnormal electrocardiogram [ECG] Shabana Wade M.D. [EKG] 02/07/2019 I42.9 Cardiomyopathy, unspecified Henok Camacho M.D. 02/01/2019 I42.9 Cardiomyopathy, unspecified Henok Camacho M.D. Plan of Treatment Future Appointment(s):10/26/2019 2:40 pm - Anthony Diaz MD at [facility]08/08/2019 1:30 pm - YASMIN Marcus-Cde at [facility]/14/2019 1:00 pm - DEMETRIUS Gtz at [facility]/22/2019 1:00 pm - Ica Pacer Schedule at [place] [facility]/20/2019 - Anthony Diaz MDE13.9 Other specified diabetes mellitus without complicationsNew Medication:Steglatro 5 mg - 1 by mouth every day in the morningNew Orders:Freestyle Marissa Pro, Ordered: 07/20/19Follow up:2 weeks with David/Emily. 3 months with Emily.Instructions:1. Reduce Lantus to 20 units at bedtime. 2. Use Humalog 5 units with meals, plus 1 extra unit if your blood glucose is more 200mg/dL. 3. Start Steglatro 5mg once daily in the morning. 4. Stop alogliptin. 5. Wear glucose monitor for the next 2 weeks. 6. Return in 2 weeks for a follow-up visit in this clinic. 7. Blood tests today.I42.9 Cardiomyopathy, unspecified Functional Status Description No Information Available Mental Status Description No Information Available Referrals Description No Information Available
--- OUTSIDE RECORDS SUMMARY | 2019-08-29 23:21 | XMS REPORT | Continuity of Care Document ---
:1965 External Reference #:[id number] Author Name DEMETRIUS Gtz (transmitted by agent of provider Maureen Jay) Address [address] [place] [address] Care Team Providers Name Role Phone Poncho Daniels D.O. - Internal Care Team Information Salmon Troll Fisher Medicine Problems Active Problems Provider Date Chest pain Placido Perez M.D., [facility], Onset: 07/20/2013 FASNC Primary cardiomyopathy Placido Perez M.D., [facility], Onset: 08/25/2013 FASNC Encounter for planned postprocedural Talon Zeng M.D., [facility], [facility] Onset: wound closure Closed fracture of medial malleolus Darvin Dillon MD Onset: 04/21/2019 Social History Type Date Description Comments Sex Unknown Tobacco Use Start: Unknown Never Smoked Cigarettes chewed tobacco from age 19 until mid-40's, then quit. Smoking Status Reviewed: 07/14/19 Never Smoked Cigarettes chewed tobacco from age [...] Medications SIG Qnty Indications Ordering Provider Date Magnesium Oxide 1 by mouth 90tabs Placido Perez, 07/07/2019 250mg every day GALA Vaughn FASNC Tablets Lisinopril 1 by mouth Placido Perez, 06/30/2019 5mg Tablets every day GALA Vaughn FASNC Tlso Brace tlso brace wear S22.009D Vassilios 06/23/2019 when upright MD Yamel Famotidine 1 by mouth Placido Perez, 06/05/2019 20mg Tablets twice a day GALA Vaughn FASNC Methocarbamol Cheri, 500mg MD [place] Tablets Probiotic 1 by mouth bid Unknown Capsules Lantus 25 units after Unknown 100Unit/ML dinner daily Solution Humalog Kwikpen units based on Unknown sliding scale 100Unit/ML Solution Pen-Inject Alogliptin Benzoate 1 tab once a [place], Poncho 25mg day J., D.O. Tablets Eliquis 1 tablet by Unknown 2.5mg Tablets mouth twice a day. Metoprolol Succinate 1 by mouth 180tabs Placido Perez, ER twice a day . GALA Vaughn FASNC 25mg Tablets ER 24HR Gabapentin 1 cap po three Session, Jatinder, 300mg Capsules times daily RPA-C Iron (Ferrous 1 by mouth Unknown Gluconate) daily 256(28Fe) mg Tablets Aspirin 1 by mouth Unknown 81mg Tablets every day Lexapro 1 po qd 90tabs Unknown [...] Perez M.D., 07/25/2013 Tetrofosmin, Per Unit Dose [facility], [facility] Up To 40 Millicuries Injection Immunizations Description No Information Available Vital Signs Date Vital Result Comment 07/14/2019 9:26am Height 65 inches 5'5" Weight 135.00 lb BP Systolic 110 mmHg BP Diastolic 84 mmHg Pain Level 1 BMI (Body Mass Index) 22.5 kg/m2 06/23/2019 11:16am Height 65 inches 5'5" Weight 135.00 lb BP Systolic 126 mmHg BP Diastolic 82 mmHg Pain Level 1 BMI (Body Mass Index) 22.5 kg/m2 Results Test Date Facility Test Result H/L Range Note Basic Metabolic 07/06/2019 [facility] Sodium 134 mmol/L Low 135-145 Panel [address] [place] [address] [phone] Chloride 100 mmol/L Low 101-111 Co2 Carbon Dioxide 28 mmol/L Normal 22-32 Glucose 175 mg/dL High 70-100 Blood Urea Nitrogen 28 mg/dL High 6-24 Creatinine 1.50 mg/dL High 0.67-1.17 BUN/Creatinine Ratio 18.7 Normal 8-20 Calcium 9.8 mg/dL Normal 8.6-10.3 Egfr Non- 49.0 >60 Egfr 59.2 >60 1 Potassium 5.2 mmol/L High 3.5-5.0 Anion Gap 6 mmol/L Normal 2-11 Laboratory test 07/06/2019 [facility] Magnesium 1.7 mg/dL Low 1.9-2.[address] [place] [address] [phone] CBC No Diff 07/06/2019 [facility] White Blood 5.3 Normal 3.5- 10.[address] Count 10^3/[place] [address] [phone] Red Blood Count 4.71 10^6/uL Normal 4.18-5.48 Hemoglobin 13.3 g/dL Low 14.0-18.0 Hematocrit 40 % Low 42-52 Mean Corpuscular Volume 85 fL Normal 80-94 Mean Corpuscular Hemoglobin 28 pg Normal 27-31 Mean Corpuscular HGB Conc 33 g/dL Normal 31-36 Red Cell Distribution Width 14 % Normal 10-15 Platelet Count 210 10^3/uL Normal 150-450 Mean Platelet Volume 10.5 fL High 7.4-10.4 Basic Metabolic 06/30/2019 [facility] Sodium 131 mmol/L Low 135-[address] [place] [address] [phone] Potassium 4.9 mmol/L Normal 3.5-5.0 Chloride 96 mmol/L Low 101-111 Co2 Carbon Dioxide 28 mmol/L Normal 22-32 Anion Gap 7 mmol/L Normal 2-11 Glucose 118 mg/dL High 70-100 Blood Urea Nitrogen 25 mg/dL High 6-24 Creatinine 1.48 mg/dL High 0.67-1.17 BUN/Creatinine Ratio 16.9 Normal 8-20 Calcium 9.6 mg/dL Normal 8.6-10.3 Egfr Non- 49.7 >60 Egfr 60.2 >60 2 Xray 06/26/2019 [facility] Spine Thoracic 3 Views <pending> [address] [place], [place] [id number] [phone] MRI Thoracic Spine W/O <pending> Basic Metabolic 06/15/2019 [facility] Sodium 134 mmol/L Low 135-[address] [place] [address] [phone] Chloride 99 mmol/L Low 101-111 Co2 Carbon Dioxide 27 mmol/L Normal 22-32 Glucose 161 mg/dL High 70-100 Blood Urea Nitrogen 26 mg/dL High 6-24 Creatinine 1.45 mg/dL High 0.67-1.17 BUN/Creatinine Ratio 17.9 Normal 8-20 Calcium 10.1 mg/dL Normal 8.6-10.3 Egfr Non- 50.9 >60 Egfr 61.6 >60 3 Potassium 5.2 mmol/L High 3.5-5.0 Anion Gap 8 mmol/L Normal 2-11 Pre Cath 02/02/2019 [facility] Partial 34.9 seconds Normal 26.0-36.[address] [place] [address] PTT [phone] CBC Auto 02/02/2019 [facility] White Blood 7.4 10^3/uL Normal 3.5-10.[address] [place], [place] [id number] [phone] Red Blood Count 4.31 10^6/uL Normal 4.18-5.48 [...] Red Blood Cells % 0 Inr/Protime 02/02/2019 [facility] Inr 1.19 High 0.82-1.09 5 [address] [place] [address] [phone] Basic Metabolic 02/02/2019 [facility] Sodium 133 mmol/L Low 135-145 Panel [address] [place] [address] [phone] Potassium 5.0 mmol/L Normal 3.5-5.0 Chloride 100 [...] dialysis) Procedures Date Code Description Status 06/30/2019 35532 Interrogation Device Eval Remote Up To 30 Days Completed Analysis,Rev,RP 06/30/2019 44662 Interrogation Device Eval Remote Up To 30 Days Completed Analysis,Rev,RP 06/30/2019 03162 Icd Eval Sing,Dual,Multi Lead Remote Recpt Transm Tech Completed Rev Tech S 06/30/2019 79385 Icd Eval Sing,Dual,Multi Lead Remote Recpt Transm Tech Completed Rev Tech S 06/30/2019 12731 Icd Check Remote Up To 90 Days Single,Dual,Multiple Completed Lead 06/30/2019 48240 Icd Check Remote Up To 90 Days Single,Dual,Multiple Completed Lead 06/05/2019 78334 EKG Tracing & Interpretation Completed 05/19/2019 94400 ECHO Transthorasic Realtime 2D W Doppler & Color Flow Completed Hosp 04/21/2019 74483 Icd eval w/iterative adjment single lead Icd Completed 04/21/2019 24484 Icd eval w/iterative adjment single lead Icd Completed 04/21/2019 45741 Interrogation Implant Cardiovasc Monitor System Incl Completed Analysis Int 04/21/2019 36762 Interrogation Implant Cardiovasc Monitor System Incl Completed Analysis Int 03/09/2019 58193 Interrogation Implant Cardiovasc Monitor System Incl Completed Analysis Int 03/09/2019 03542 Interrogation Implant Cardiovasc Monitor System Incl Completed Analysis Int 03/09/2019 86003 Icd eval w/iterative adjment single lead Icd Completed 03/09/2019 40353 Icd eval w/iterative adjment single lead Icd Completed 02/08/2019 91240 EKG, Interpretation Only Completed 02/07/2019 26389 Moderate Sedation Services; Same Phys Each Additional Completed 15 Mins 02/07/2019 01977 Moderate Sedation Services; Same Phys Intl 15 Mins; PT Completed >= 5 Years 02/07/2019 18563 EKG, Interpretation Only Completed 02/07/2019 64926 Insert/Replace Icd W/Generator Completed 01/16/2016 [id number] Colonoscopy Completed Medical Devices Description No Information Available Encounters Type Date Location Provider Dx Diagnosis Office Visit 06/23/2019 [facility] Sherri Lara, S22.009A Unsp fracture of 11:30a [facility] [employer] DEMETRIUS unsp thoracic vertebra, init for clos fx Office Visit 06/05/2019 [facility] Santaan, S82.55xD Nondisp fx of med 9:00a at [place] malleolus of l tibia, 7thD Office Visit 06/05/2019 [facility] Placido Hasmukh I42.9 Cardiomyopathy, 1:00p Of Lucinda Perez M.D., unspecified FACC, FASNC R94.31 Abnormal electrocardiogram [ECG] [EKG] Office Visit 05/20/2019 [facility] Carmen Carbajal, I11.0 Hypertensive heart 11:53a inocencio Diehl M.D. disease with heart Hospitalists failure I50.23 Acute on chronic systolic (congestive) heart failure Office Visit 05/19/2019 11:53a [facility] Arlene R06.02 Shortness of Assoc,inocencio Pizano D.O. breath Hospitalists Office Visit 04/28/2019 2:00p [facility] Donna Sharma, S82.55xD Nondisp fx of at [facility] med malleolus of l tibia, 7thD Office Visit 04/21/2019 1:30p [facility] S82.55xA Nondisp fx of at [place] MD Santana medial malleolus of left tibia, init Office Visit 04/18/2019 10:25a [facility] Oanh S82.892A Oth fracture of Assoc,inocencio Navarrete, left lower leg, Hospitalists PA init for clos fx R79.89 Other specified abnormal findings of blood chemistry W11.xxxA Fall on and from ladder, initial encounter Office Visit 03/14/2019 [facility] Placido Noe I42.8 Other cardiomyopathies 1:00p Cardiology Of Roderick Perez, [facility] FACC, FASNC Z95.810 Presence of automatic (implantable) cardiac defibrillator Office Visit 02/08/2019 [place] Shabana Wade I42.9 Cardiomyopathy, 4:14p Cardiology Atul Vaughn unspecified [employer] E11.649 Type 2 diabetes mellitus with hypoglycemia without coma I50.20 Unspecified systolic (congestive) heart failure Office Visit 02/08/2019 10:34a [facility] R41.82 Altered mental Assoc,inocencio Shin, PA status, Hospitalists unspecified R50.9 Fever, unspecified R19.7 Diarrhea, unspecified E11.9 Type 2 diabetes mellitus without complications I10 Essential (primary) hypertension 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 FACC, FASNC Assessments Date Code Description Provider 07/14/2019 S22.009A Unspecified fracture of unspecified DEMETRIUS Gtz thoracic vertebra, initial encounter for closed fracture 06/30/2019 I42.9 Cardiomyopathy, unspecified Placido Perez M.D., FACC, FASMD 06/30/2019 I42.9 Cardiomyopathy, unspecified Remote Device Checks 06/30/2019 Z95.810 Presence of automatic (implantable) Placido Perez M.D., cardiac defibrillator FAC, FASMD 06/30/2019 Z95.810 Presence of automatic (implantable) Remote Device Checks cardiac defibrillator 06/23/2019 S22.009A Unspecified fracture of unspecified DEMETRIUS Gtz thoracic vertebra, initial encounter for closed fracture 06/05/2019 I42.9 Cardiomyopathy, unspecified Placido Perez M.D., [facility] 06/05/2019 R94.31 Abnormal electrocardiogram [ECG] Placido Perez M.D., [EKG] [facility] 06/05/2019 S82.55xD Nondisplaced fracture of medial Darvin Dillon MD malleolus of left tibia, sub 05/20/2019 I11.0 Hypertensive heart disease with heart Carmen Carbajal M.D. failure 05/20/2019 I50.23 Acute on chronic systolic Carmen Carbajal M.D. (congestive) heart failure 05/19/2019 R06.02 Shortness of breath Karl Fuchs M.D. 05/19/2019 R06.02 Shortness of breath Arlene Pizano D.O. 04/28/2019 S82.55xD Nondisplaced fracture of medial Donna Sharma, RPA-C malleolus of left tibia, sub 04/21/2019 I42.9 Cardiomyopathy, unspecified Placido Perez M.D., [facility] 04/21/2019 I42.9 Cardiomyopathy, unspecified Ica Pacer Schedule 04/21/2019 Z95.810 Presence of automatic (implantable) Placido Perez M.D., cardiac defibrillator [facility] 04/21/2019 Z95.810 Presence of automatic (implantable) Ica Pacer Schedule cardiac defibrillator 04/21/2019 S82.55xA Nondisplaced fracture of zheng Dillon MD malleolus of left tibia, ini 04/18/2019 S82.892A Oth fracture of left lower leg, init DEMETRIUS Toribio for clos fx 04/18/2019 R79.89 Other specified abnormal findings of DEMETRIUS Toribio blood chemistry 04/18/2019 W11.xxxA Fall on and from ladder, initial DEMETRIUS Toribio encounter 03/14/2019 I42.8 Other cardiomyopathies Placido Perez M.D., [facility] 03/14/2019 Z95.810 Presence of automatic (implantable) Placido Perez M.D., cardiac defibrillator [facility] 03/09/2019 I42.9 Cardiomyopathy, unspecified Placido Perez M.D., FAC, [facility] 03/09/2019 I42.9 Cardiomyopathy, unspecified Ica Pacer Schedule 03/09/2019 Z95.810 Presence of automatic (implantable) Placido Perez M.D., cardiac defibrillator [facility] 03/09/2019 Z95.810 Presence of automatic (implantable) Ica Pacer Schedule cardiac defibrillator 02/14/2019 I42.9 Cardiomyopathy, unspecified Henok Camacho M.D. 02/14/2019 Z95.810 Presence of automatic (implantable) Henok Camacho M.D. cardiac defibrillator 02/09/2019 Z95.810 Presence of automatic (implantable) Placido Perez M.D., cardiac defibrillator [facility] 02/08/2019 R94.31 Abnormal electrocardiogram [ECG] Shabana [...] Yi 02/08/2019 I25.10 Athscl heart disease of [place] DEMETRIUS Yi coronary artery w/o ang pctrs 02/07/2019 R94.31 Abnormal electrocardiogram [ECG] Shabana Wade M.D. [EKG] 02/07/2019 I42.9 Cardiomyopathy, unspecified Henok Camacho M.D. 02/01/2019 I42.9 Cardiomyopathy, unspecified Henok Camacho M.D. 01/18/2019 I42.9 Cardiomyopathy, unspecified Placido Perez M.D., [facility] Plan of Treatment Future Appointment(s):08/14/2019 1:00 pm - DEMETRIUS Gtz at [facility]08/22/2019 1:00 pm - Ica Pacer Schedule at [facility]07/17/2019 2:30 pm - Darvin Dillon MD at [facility] at [id number] - Sherri Lara, PAS22.009A Unsp fracture of unsp thoracic vertebra, init for clos fxNew Xrays:Thoracic Spine 2 VWS, Ordered: 07/14/19Follow up:RTC in 3 - 4 weeks with X ray Functional Status Description No Information Available Mental Status Description No Information Available Referrals Refer to Dr Reason for Referral Status Appt Henok Camacho MD Please evaluate pt for ICD. Sent 02/01/[address] [place] [id number] [phone]
--- OUTSIDE RECORDS SUMMARY | 2019-08-29 23:21 | XMS REPORT | Continuity of Care Document ---
:1965 External Reference #:[id number] Author Name Darvin Dillon MD (transmitted by agent of provider Kayce Gonzalez) Address [address] [place] [id number] Care Team Providers Name Role Phone Poncho Daniels D.OPj - Internal Care Team Information Logistics Engineer [phone] Medicine Bradley Pa MD - Neurological Care Team Information Logistics Engineer Surgery Problems Active Problems Provider Date Chest pain Placido Perez M.D., [facility], Onset: 07/20/2013 FASNC Primary cardiomyopathy Placido Perez M.D., [facility], Onset: 08/25/2013 FASWY Encounter for planned postprocedural Talon Zeng M.D., [facility], [facility] Onset: wound closure Closed fracture of medial malleolus Darvin Dillon MD Onset: 04/21/2019 Social History Type Date Description Comments Sex Unknown Tobacco Use Start: Unknown Never Smoked Cigarettes chewed tobacco from age 19 until mid-40's, then quit. Smoking Status Reviewed: 08/01/19 Never Smoked Cigarettes chewed tobacco from age [...] every 90tabs Placido Perez, 07/07/2019 250mg day M.Pauline, ELIESER CEDEÑO Tablets Lisinopril 1/2 by mouth Placido Perez, 06/30/2019 5mg every day Roderick, ELIESER CEDEÑO Tablets Tlso Brace tlso brace wear S22.009D Vassilios 06/23/2019 when upright MD Yamel Famotidine 1 by mouth twice Placido Perez, 06/05/2019 20mg a day Roderick, ELIESER CEDEÑO Tablets Magnesium 1 and one half by Unknown 250mg mouth every day Tablets Probiotic 1 by mouth bid Unknown Capsules Humalog Kwikpen 5 units with 15ml Anthony Diaz MD meals plus 100Unit/ML Solution sliding scale, Pen-Inject MDD 30 Alogliptin Benzoate 1 tab once a day Poncho Daniels J., D.O. 25mg Tablets Eliquis 1 tablet by mouth Unknown 2.5mg Tablets twice a day. Metoprolol Succinate 1 by mouth twice 180tabs Placido Perez, ER a day . GALA Vaughn FASNC 25mg [...] Injection FACC, FASNC Technetium TC 99M Placido Perez M.D., 11/22/2017 Tetrofosmin, Per Unit Dose FACC, FASNC Up To 40 Millicuries Injection Technetium TC 99M Placido Perez M.D., 07/25/2013 Tetrofosmin, Per Unit Dose FACC, FASHYACINTH Up To 40 Millicuries Injection Immunizations Description No Information Available Vital Signs Date Vital Result Comment 08/01/2019 8:27am Height 65 inches 5'5" Weight 134.00 lb Heart Rate 88 /min BP Systolic 98 mmHg BP Diastolic 64 mmHg Respiratory Rate 16 /min Body Temperature 97.0 F Pain Level 3 BMI (Body Mass Index) 22.3 kg/m2 07/20/2019 8:40am Height 65 inches 5'5" Weight 134.00 lb back brace and shoes Heart Rate 60 /min BP Systolic Sitting 115 mmHg BP Diastolic Sitting 77 mmHg BMI (Body Mass Index) 22.3 kg/m2 Results Test Date Facility Test Result H/L Range Note Laboratory test 07/20/2019 [facility] C-Peptide 1.9 ng/mL 1.1 - 4.4 1 finding [address] [place] [address] [phone] Hemoglobin A1c (Glyco HGB) 7.2 % High 4.0-5.6 2 TSH (Thyroid Stim Horm) 0.90 mcIU/mL Normal 0.34-5.60 Free T4 (Free Thyroxine) 0.87 ng/dL Normal 0.61-1.12 Basic Metabolic 07/20/2019 [facility] Sodium 136 mmol/L Normal 135-145 Panel [address] [place] [address] [phone] Potassium 4.9 mmol/L Normal 3.5-5.0 Chloride 101 mmol/L Normal 101-111 Co2 Carbon Dioxide 29 mmol/L Normal 22-32 Anion Gap 6 mmol/L Normal 2-11 Glucose 132 mg/dL High 70-100 Blood Urea Nitrogen 26 mg/dL High 6-24 Creatinine 1.40 mg/dL High 0.67-1.17 BUN/Creatinine Ratio 18.6 Normal 8-20 Calcium 9.5 mg/dL Normal 8.6-10.3 Egfr Non- 53.0 >60 Egfr 64.1 >60 3 Basic Metabolic 07/06/2019 [facility] Sodium 134 mmol/L Low 135-145 Panel [address] [place] [address] [phone] Chloride 100 mmol/L Low 101-111 Co2 Carbon Dioxide 28 mmol/L Normal 22-32 Glucose 175 mg/dL High 70-100 Blood Urea Nitrogen 28 mg/dL High 6-24 Creatinine 1.50 mg/dL High 0.67-1.17 BUN/Creatinine Ratio 18.7 Normal 8-20 Calcium 9.8 mg/dL Normal 8.6-10.3 Egfr Non- 49.0 >60 Egfr 59.2 >60 4 Potassium 5.2 mmol/L High 3.5-5.0 Anion Gap 6 mmol/L Normal 2-11 Laboratory test 07/06/2019 [facility] Magnesium 1.7 mg/dL Low 1.9-2.7 finding [address] [place] [address] [phone] CBC No Diff 07/06/2019 [facility] White Blood 5.3 Normal 3.5- 10.8 101 [facility] Count 10^3/[place] [address] [phone] Red Blood Count 4.71 10^6/uL Normal 4.18-5.48 Hemoglobin 13.3 g/dL Low 14.0-18.0 Hematocrit 40 % Low 42-52 Mean Corpuscular Volume 85 fL Normal 80-94 Mean Corpuscular Hemoglobin 28 pg Normal 27-31 Mean Corpuscular HGB Conc 33 g/dL Normal 31-36 Red Cell Distribution Width 14 % Normal 10-15 Platelet Count 210 10^3/uL Normal 150-450 Mean Platelet Volume 10.5 fL High 7.4-10.4 Basic Metabolic 06/30/2019 [facility] Sodium 131 mmol/L Low 135-145 Panel [address] [place] [address] [phone] Potassium 4.9 mmol/L Normal 3.5-5.0 Chloride 96 mmol/L Low 101-111 Co2 Carbon Dioxide 28 mmol/L Normal 22-32 Anion Gap 7 mmol/L Normal 2-11 Glucose 118 mg/dL High 70-100 Blood Urea Nitrogen 25 mg/dL High 6-24 Creatinine 1.48 mg/dL High 0.67-1.17 BUN/Creatinine Ratio 16.9 Normal 8-20 Calcium 9.6 mg/dL Normal 8.6-10.3 Egfr Non- 49.7 >60 Egfr 60.2 >60 5 Xray 06/26/2019 [facility] Spine Thoracic 3 Views <pending> [address] [place], [place] [id number] [phone] MRI Thoracic Spine W/O <pending> Basic Metabolic 06/15/2019 [facility] Sodium 134 mmol/L Low 135-[address] [place] [address] [phone] Chloride 99 mmol/L Low 101-111 Co2 Carbon Dioxide 27 mmol/L Normal 22-32 Glucose 161 mg/dL High 70-100 Blood Urea Nitrogen 26 mg/dL High 6-24 Creatinine 1.45 mg/dL High 0.67-1.17 BUN/Creatinine Ratio 17.9 Normal 8-20 Calcium 10.1 mg/dL Normal 8.6-10.3 Egfr Non- 50.9 >60 Egfr 61.6 >60 6 Potassium 5.2 mmol/L High 3.5-5.0 Anion Gap 8 mmol/L Normal 2-11 Pre Cath 02/02/2019 [facility] Partial 34.9 seconds Normal 26.0-36.3 [address] [place] [address] PTT [phone] CBC Auto 02/02/2019 [facility] White Blood 7.4 10^3/uL Normal 3.5-10.[address] [place] [address] [phone] Red Blood Count 4.31 10^6/uL Normal 4.18-5.48 [...] Red Blood Cells % 0 Inr/Protime 02/02/2019 [facility] Inr 1.19 High 0.82-1.09 8 [address] [place] [address] [phone] Basic Metabolic 02/02/2019 [facility] Sodium 133 mmol/L Low 135-145 Panel [address] [place] [address] [phone] Potassium 5.0 mmol/L Normal 3.5-5.0 Chloride 100 mmol/L Low 101-111 Co2 Carbon Dioxide 27 mmol/L Normal 22-32 Anion Gap 6 mmol/L Normal 2-11 Glucose 160 mg/dL High 70-100 Blood Urea Nitrogen 27 mg/dL High 6-24 Creatinine 1.42 mg/dL High 0.67-1.17 BUN/Creatinine Ratio 19.0 Normal 8-20 Calcium 9.5 mg/dL Normal 8.6-10.3 Egfr Non- 52.2 >60 Egfr 63.1 >60 9 1 Test Performed by: [facility] [address] [place] [address] Refinery Operator Visbreaking: Rl Garza M.D. Ph.D.; CLIA# [id number] 2 Therapeutic target for the treatment of diabetes mellitus patients is <7% HBA1C, and in selective patients <6.0%. Please refer to [place] [employer] diabetic care guidelines for further information. 3 Because ethnic data is not always [...] 5 Kidney failure <15 (or dialysis) 4 Because ethnic data is not always [...] 15-29 5 Kidney failure <15 (or dialysis) 5 Because ethnic data is not always readily [...] 15-29 5 Kidney failure <15 (or dialysis) 6 Because ethnic data is not always [...] 15-29 5 Kidney failure <15 (or dialysis) 7 soon 8 Standard intensity warfarin therapeutic range: 2.0-3.0 High intensity warfarin therapeutic range: 2.5-3.5 9 Because ethnic data is not always readily [...] dialysis) Procedures Date Code Description Status 06/30/2019 95415 Interrogation Device Eval Remote Up To 30 Days Completed Analysis,Rev,RP 06/30/2019 34886 Interrogation Device Eval Remote Up To 30 Days Completed Analysis,Rev,RP 06/30/2019 43464 Icd Eval Sing,Dual,Multi Lead Remote Recpt Transm Tech Completed Rev Tech S 06/30/2019 40661 Icd Eval Sing,Dual,Multi Lead Remote Recpt Transm Tech Completed Rev Tech S 06/30/2019 40807 Icd Check Remote Up To 90 Days Single,Dual,Multiple Completed Lead 06/30/2019 92087 Icd Check Remote Up To 90 Days Single,Dual,Multiple Completed Lead 06/05/2019 43181 EKG Tracing & Interpretation Completed 05/19/2019 70997 ECHO Transthorasic Realtime 2D W Doppler & Color Flow Completed Hosp 04/21/2019 18057 Icd eval w/iterative adjment single lead Icd Completed 04/21/2019 26516 Icd eval w/iterative adjment single lead Icd Completed 04/21/2019 69376 Interrogation Implant Cardiovasc Monitor System Incl Completed Analysis Int 04/21/2019 22993 Interrogation Implant Cardiovasc Monitor System Incl Completed Analysis Int 03/09/2019 77993 Interrogation Implant Cardiovasc Monitor System Incl Completed Analysis Int 03/09/2019 57933 Interrogation Implant Cardiovasc Monitor System Incl Completed Analysis Int 03/09/2019 77803 Icd eval w/iterative adjment single lead Icd Completed 03/09/2019 79941 Icd eval w/iterative adjment single lead Icd Completed 02/08/2019 32764 EKG, Interpretation Only Completed 02/07/2019 51713 Moderate Sedation Services; Same Phys Each Additional Completed 15 Mins 02/07/2019 16388 Moderate Sedation Services; Same Phys Intl 15 Mins; PT Completed >= 5 Years 02/07/2019 53644 EKG, Interpretation Only Completed 02/07/2019 57366 Insert/Replace Icd W/Generator Completed 01/16/2016 [id number] Colonoscopy Completed Medical Devices Description No Information Available Encounters Type Date Location Provider Dx Diagnosis Office Visit 06/23/2019 Neurosurgery Sherri Lara, S22.009A Unsp fracture of 11:30a Services [facility] ROMO unsp thoracic vertebra, init for clos fx Office Visit 06/05/2019 [facility] Darvinsandra Dillon, S82.55xD Nondisp fx of med 9:00a at [place] malleolus of l tibia, 7thD Office Visit 06/05/2019 [facility] Placido Hasmukh I42.9 Cardiomyopathy, 1:00p Of Lucinda Perez M.D., unspecified FACC, FASNC R94.31 Abnormal electrocardiogram [ECG] [EKG] Office Visit 05/20/2019 [facility] Carmen Carbajal, I11.0 Hypertensive heart 11:53a Associnocencio M.D. disease with heart Hospitalists failure I50.23 Acute on chronic systolic (congestive) heart failure Office Visit 05/19/2019 11:53a [facility] Arlene R06.02 Shortness of Assoc,pc Krista Pizano. breath Hospitalists Office Visit 04/28/2019 2:00p [facility] Donna Edith, S82.55xD Nondisp fx of at [place] RPA-C med malleolus of l tibia, 7thD Office Visit 04/21/2019 1:30p [facility] S82.55xA Nondisp fx of at Shahzad Dillon MD medial malleolus of left tibia, init Office Visit 04/18/2019 10:25a [facility] Oanh S82.892A Oth fracture of Assoc,inocencio Navarrete, left lower leg, Hospitalists PA init for clos fx R79.89 Other specified abnormal findings of blood chemistry W11.xxxA Fall on and from ladder, initial encounter Office Visit 03/14/2019 [place] Placido Noe I42.8 Other cardiomyopathies 1:00p Cardiology Of Roderick Perez, [facility] FACC, FASNC Z95.810 Presence of automatic (implantable) cardiac defibrillator Office Visit 02/08/2019 [place] Shabana Wade I42.9 Cardiomyopathy, 4:14p Cardiology Atul Vaughn unspecified [facility] E11.649 Type 2 diabetes mellitus with hypoglycemia without coma I50.20 Unspecified systolic (congestive) heart failure Office Visit 02/08/2019 10:34a [facility] Rl R41.82 Altered mental Assoc,inocencio Shin, PA status, Hospitalists unspecified R50.9 Fever, unspecified R19.7 Diarrhea, unspecified E11.9 Type 2 diabetes mellitus without complications I10 Essential (primary) hypertension I25.10 Athscl heart disease of [place] coronary artery w/o ang pctrs Office Visit 02/01/2019 Shahzad Carpenter I42.9 Cardiomyopathy, 3:45p Cardiology Atul Camacho M.D. unspecified [facility] Assessments Date Code Description Provider 08/01/2019 S82.55xD Nondisplaced fracture of medial Darvin Dillon MD malleolus of left tibia, sub 07/20/2019 E13.9 Other specified diabetes mellitus Anthony Diaz MD without complications 07/20/2019 I42.9 Cardiomyopathy, unspecified Anthony Diaz MD 07/14/2019 S22.009A Unspecified fracture of unspecified Sherri Lara, PA thoracic vertebra, initial encounter for closed fracture 06/30/2019 I42.9 Cardiomyopathy, unspecified Placido Hasmukh Perez M.D., [facility], [facility] 06/30/2019 I42.9 Cardiomyopathy, unspecified Remote Device Checks 06/30/2019 Z95.810 Presence of automatic (implantable) Placido Perez M.D., cardiac defibrillator [facility], [facility] 06/30/2019 Z95.810 Presence of automatic (implantable) Remote Device Checks cardiac defibrillator 06/23/2019 S22.009A Unspecified fracture of unspecified Sharmez Marco, PA thoracic vertebra, initial encounter for closed fracture 06/05/2019 I42.9 Cardiomyopathy, unspecified Placido Perez M.D., [facility], [facility] 06/05/2019 R94.31 Abnormal electrocardiogram [ECG] Placido Perez M.D., [EKG] [facility], [facility] 06/05/2019 S82.55xD Nondisplaced fracture of medial Darvin Dillon MD malleolus of left tibia, sub 05/20/2019 I11.0 Hypertensive heart disease with heart Carmen Carbajal M.D. failure 05/20/2019 I50.23 Acute on chronic systolic Carmen Carbajal M.D. (congestive) heart failure 05/19/2019 R06.02 Shortness of breath Karl Fuchs M.D. 05/19/2019 R06.02 Shortness of breath Arlene Pizano D.O. 04/28/2019 S82.55xD Nondisplaced fracture of medial Donna Sharma, JENNIFER-C malleolus of left tibia, sub 04/21/2019 I42.9 Cardiomyopathy, unspecified Placido Perez M.D., [facility], [facility] 04/21/2019 I42.9 Cardiomyopathy, unspecified Ica Pacer Schedule 04/21/2019 Z95.810 Presence of automatic (implantable) Placido Perez M.D., cardiac defibrillator [facility], [facility] 04/21/2019 Z95.810 Presence of automatic (implantable) Ica Pacer Schedule cardiac defibrillator 04/21/2019 S82.55xA Nondisplaced fracture of medial Darvin Dillon MD malleolus of left tibia, ini 04/18/2019 S82.892A Oth fracture of left lower leg, init DEMETRIUS Toribio for clos fx 04/18/2019 R79.89 Other specified abnormal findings of DEMETRIUS Toribio blood chemistry 04/18/2019 W11.xxxA Fall on and from ladder, initial DEMETRIUS Toribio encounter 03/14/2019 I42.8 Other cardiomyopathies Placido Perez M.D., [facility], [facility] 03/14/2019 Z95.810 Presence of automatic (implantable) Placido Perez M.D., cardiac defibrillator [facility], [facility] 03/09/2019 I42.9 Cardiomyopathy, unspecified Placido Perez M.D., [facility], [facility] 03/09/2019 I42.9 Cardiomyopathy, unspecified Ica Pacer Schedule 03/09/2019 Z95.810 Presence of automatic (implantable) Placido Perez M.D., cardiac defibrillator [facility], [facility] 03/09/2019 Z95.810 Presence of automatic (implantable) Ica Pacer Schedule cardiac defibrillator 02/14/2019 I42.9 Cardiomyopathy, unspecified Henok Camacho M.D. 02/14/2019 Z95.810 Presence of automatic (implantable) Henok Camacho M.D. cardiac defibrillator 02/09/2019 Z95.810 Presence of automatic (implantable) Placido ePrez M.D., cardiac defibrillator [facility], [facility] 02/08/2019 R94.31 Abnormal electrocardiogram [ECG] Shabana Wade M.D. [EKG] 02/08/2019 R41.82 Altered mental status, unspecified DEMETRIUS Yi 02/08/2019 I42.9 Cardiomyopathy, unspecified Shabana Wade M.D. 02/08/2019 R50.9 Fever, unspecified DEMETRIUS Yi 02/08/2019 E11.649 Type 2 diabetes mellitus with Shabana Wade M.D. hypoglycemia without coma 02/08/2019 R19.7 Diarrhea, unspecified DEMETRIUS Yi 02/08/2019 I50.20 Unspecified systolic (congestive) Shabana Wdae M.D. heart failure 02/08/2019 E11.9 Type 2 diabetes mellitus without DEMETRIUS Yi complications 02/08/2019 I10 Essential (primary) hypertension DEMETRIUS Yi 02/08/2019 I25.10 Athscl heart disease of [place] DEMETRIUS Yi coronary artery w/o ang pctrs 02/07/2019 R94.31 Abnormal electrocardiogram [ECG] Shabana Wade M.D. [EKG] 02/07/2019 I42.9 Cardiomyopathy, unspecified Henok Camacho M.D. 02/01/2019 I42.9 Cardiomyopathy, unspecified Henok Camacho M.D. Plan of Treatment Future Appointment(s):09/04/2019 2:00 pm - DEMETRIUS Gtz at [facility]10/26/2019 2:40 pm - Anthony Diaz MD at [facility]08/08/2019 1:30 pm - YASMIN Marcus-Bebo at [facility]08/22/2019 1:00 pm - Ica Pacer Schedule at [place] [facility]08/01/2019 - Darvin Dillon, IMELDA82.55xD Nondisplaced fracture of medial malleolus of left tibia, subNew Xrays:Ankle Left 3+VWS, Ordered: 08/01/19Follow up:Follow Up: As needed Functional Status Description No Information Available Mental Status Description No Information Available Referrals Description No Information Available
--- OUTSIDE RECORDS SUMMARY | 2019-08-29 23:21 | XMS REPORT | Continuity of Care Document ---
:1965 External Reference #:[id number] Author Name Gloria Hernandez, BLANKET CUTTING MACHINE OPERATOR-Cde (transmitted by agent of provider Anastasiia Craven) Address [address] [place] [address] Care Team Providers Name Role Phone Poncho Daniels D.O. - Internal Care Team Information Cabinetmaker Supervisor [phone] Medicine Bradley Pa MD - Neurological Care Team Information Cabinetmaker Supervisor Surgery Problems Active Problems Provider Date Chest pain Placido Perez M.D., [facility], Onset: 07/20/2013 FASPR Primary cardiomyopathy Placido Perez M.D., [facility], Onset: 08/25/2013 FASPR Encounter for planned postprocedural Talon Zeng M.D., [facility], [facility] Onset: wound closure Closed fracture of medial [...] 90tabs Placido Perez, 07/07/2019 250mg day M.Pauline, GALA, ELIESER Tablets Lisinopril 1/2 by mouth Placido Perez, 06/30/2019 5mg every day M.DPj, GALA, FASNC Tablets Tlso Brace tlso brace wear S22.009D Vassilios 06/23/2019 when upright MD Yamel Famotidine 1 by mouth twice Placido Perez, 06/05/2019 20mg a day M.Pauline, GALA, ELIESER Tablets Magnesium 1 and one half by Unknown 250mg mouth every day Tablets Probiotic 1 by mouth bid Unknown Capsules Humalog Kwikpen 5 units with 15ml Anthony Diaz MD meals plus 100Unit/ML Solution sliding scale, Pen-Inject MDD 30 Eliquis 1 tablet by mouth Unknown 2.5mg Tablets twice a day. Metoprolol Succinate 1 by mouth twice 180tabs Placido Perez, ER a day . Roderick, GALA, ELIESER 25mg Tablets ER 24HR Gabapentin 1 cap [...] 0.1 MG Placido Perez M.D., 11/22/2017 Injection FACELIESER Nova Technetium TC 99M Placido Perez M.D., 11/22/2017 Tetrofosmin, Per Unit Dose FAITH CEDEÑOHYACINTH Up To 40 Millicuries Injection Technetium TC 99M Placido Perez M.D., 07/25/2013 Tetrofosmin, Per Unit Dose FACAvtar, FAITHHYACINTH Up To 40 Millicuries Injection Immunizations Description [...] Result H/L Range Note Laboratory test 07/20/2019 [facility] C-Peptide 1.9 ng/mL 1.1 - 4.4 1 finding [address] [place] [address] [phone] Hemoglobin A1c (Glyco HGB) 7.2 % High 4.0-5.6 2 TSH (Thyroid Stim Horm) 0.90 mcIU/mL Normal 0.34-5.60 Free T4 (Free Thyroxine) 0.87 ng/dL Normal 0.61-1.12 Basic Metabolic 07/20/2019 [facility] Sodium 136 mmol/L Normal 135-145 Panel [address] [place] [address] [phone] Potassium 4.9 mmol/L Normal 3.5-5.0 Chloride 101 mmol/L Normal 101-111 Co2 Carbon Dioxide 29 mmol/L Normal 22-32 Anion Gap 6 mmol/L Normal 2-11 Glucose 132 mg/dL High 70-100 Blood Urea Nitrogen 26 mg/dL High 6-24 Creatinine 1.40 mg/dL High 0.67-1.17 BUN/Creatinine Ratio 18.6 Normal 8-20 Calcium 9.5 mg/dL Normal 8.6-10.3 Egfr Non- 53.0 >60 Egfr 64.1 >60 3 Basic Metabolic 07/06/2019 [facility] Sodium 134 mmol/L Low 135-[address] [place] [address] [phone] Chloride 100 mmol/L Low 101-111 Co2 Carbon Dioxide 28 mmol/L Normal 22-32 Glucose 175 mg/dL High 70-100 Blood Urea Nitrogen 28 mg/dL High 6-24 Creatinine 1.50 mg/dL High 0.67-1.17 BUN/Creatinine Ratio 18.7 Normal 8-20 Calcium 9.8 mg/dL Normal 8.6-10.3 Egfr Non- 49.0 >60 Egfr 59.2 >60 4 Potassium 5.2 mmol/L High 3.5-5.0 Anion Gap 6 mmol/L Normal 2-11 Laboratory test 07/06/2019 [facility] Magnesium 1.7 mg/dL Low 1.9-2.7 finding [address] [place] [address] [phone] CBC No Diff 07/06/2019 [facility] White Blood 5.3 Normal 3.5- 10.[address] Count 10^3/[place] [address] [phone] Red Blood Count 4.71 10^6/uL Normal 4.18-5.48 Hemoglobin 13.3 g/dL Low 14.0-18.0 Hematocrit 40 % Low 42-52 Mean Corpuscular Volume 85 fL Normal 80-94 Mean Corpuscular Hemoglobin 28 pg Normal 27-31 Mean Corpuscular HGB Conc 33 g/dL Normal 31-36 Red Cell Distribution Width 14 % Normal 10-15 Platelet Count 210 10^3/uL Normal 150-450 Mean Platelet Volume 10.5 fL High 7.4-10.4 Basic Metabolic 06/30/2019 [facility] Sodium 131 mmol/L Low 135-145 Panel [address] [place] [address] [phone] Potassium 4.9 mmol/L Normal 3.5-5.0 Chloride 96 mmol/L Low 101-111 Co2 Carbon Dioxide 28 mmol/L Normal 22-32 Anion Gap 7 mmol/L Normal 2-11 Glucose 118 mg/dL High 70-100 Blood Urea Nitrogen 25 mg/dL High 6-24 Creatinine 1.48 mg/dL High 0.67-1.17 BUN/Creatinine Ratio 16.9 Normal 8-20 Calcium 9.6 mg/dL Normal 8.6-10.3 Egfr Non- 49.7 >60 Egfr 60.2 >60 5 Xray 06/26/2019 [facility] Spine Thoracic 3 Views <pending> [address] [place] [address] [phone] MRI Thoracic Spine W/O <pending> Basic Metabolic 06/15/2019 [facility] Sodium 134 mmol/L Low 135-145 Panel [address] [place] [address] [phone] Chloride 99 mmol/L Low 101-111 Co2 Carbon Dioxide 27 mmol/L Normal 22-32 Glucose 161 mg/dL High 70-100 Blood Urea Nitrogen 26 mg/dL High 6-24 Creatinine 1.45 mg/dL High 0.67-1.17 BUN/Creatinine Ratio 17.9 Normal 8-20 Calcium 10.1 mg/dL Normal 8.6-10.3 Egfr Non- 50.9 >60 Egfr 61.6 >60 6 Potassium 5.2 mmol/L High 3.5-5.0 Anion Gap 8 mmol/L Normal 2-11 1 Test Performed by: [facility] [address] [place] [address] Coconut Candy Maker: Rl Garza M.D. Ph.D.; CLIA# [id number] 2 Therapeutic target for the treatment of diabetes mellitus patients is <7% HBA1C, and in selective patients <6.0%. Please refer to [place] [employer] diabetic care guidelines for further [...] dialysis) Procedures Date Code Description Status 06/30/2019 32029 Interrogation Device Eval Remote Up To 30 Days Completed Analysis,Rev,RP 06/30/2019 16628 Interrogation Device Eval Remote Up To 30 Days Completed Analysis,Rev,RP 06/30/2019 48979 Icd Eval Sing,Dual,Multi Lead Remote Recpt Transm Tech Completed Rev Tech S 06/30/2019 07392 Icd Eval Sing,Dual,Multi Lead Remote Recpt Transm Tech Completed Rev Tech S 06/30/2019 81991 Icd Check Remote Up To 90 Days Single,Dual,Multiple Completed Lead 06/30/2019 91109 Icd Check Remote Up To 90 Days Single,Dual,Multiple Completed Lead 06/05/2019 52189 EKG Tracing & Interpretation Completed 05/19/2019 48209 ECHO Transthorasic Realtime 2D W Doppler & Color Flow Completed Hosp 04/21/2019 19373 Icd eval w/iterative adjment single lead Icd Completed 04/21/2019 64087 Icd eval w/iterative adjment single lead Icd Completed 04/21/2019 18367 Interrogation Implant Cardiovasc Monitor System Incl Completed Analysis Int 04/21/2019 16390 Interrogation Implant Cardiovasc Monitor System Incl Completed Analysis Int 03/09/2019 04857 Interrogation Implant Cardiovasc Monitor System Incl Completed Analysis Int 03/09/2019 83846 Interrogation Implant Cardiovasc Monitor System Incl Completed Analysis Int 03/09/2019 97398 Icd eval w/iterative adjment single lead Icd Completed 03/09/2019 17990 Icd eval w/iterative adjment single lead Icd Completed 02/08/2019 11669 EKG, Interpretation Only Completed 02/07/2019 22763 Moderate Sedation Services; Same Phys Each Additional Completed 15 Mins 02/07/2019 28774 Moderate Sedation Services; Same Phys Intl 15 Mins; PT Completed >= 5 Years 02/07/2019 67816 EKG, Interpretation Only Completed 02/07/2019 41614 Insert/Replace Icd W/Generator Completed 01/16/2016 [id number] Colonoscopy Completed Medical Devices Description No Information Available Encounters Type Date Location Provider Dx Diagnosis Office Visit 07/20/2019 [facility] Anthony Diaz MD N18.3 Chronic kidney 9:00a [facility] disease, stage 3 (moderate) Z79.4 [facility] (current) use of insulin E11.22 Type 2 diabetes mellitus w diabetic chronic kidney disease I42.9 Cardiomyopathy, unspecified Office Visit 06/23/2019 [facility] [place] [place] S22.009A Unsp fracture of 11:30a [facility] DEMETRIUS Lara unsp thoracic vertebra, init for clos fx Office Visit 06/05/2019 [facility] Darvin S82.55xD Nondisp fx [place] med [place] malleolus of l tibia, 7thD Office Visit 06/05/2019 [facility] Placido Noe I42.9 Cardiomyopathy, 1:00p Of Lucinda Perez M.D., unspecified FACC, FASNC R94.31 Abnormal electrocardiogram [ECG] [EKG] Office Visit 05/20/2019 [facility] Caremn Raven, I11.0 Hypertensive heart 11:53a inocencio Dihel M.D. disease with heart Hospitalists failure I50.23 Acute on chronic systolic (congestive) heart failure Office Visit 05/19/2019 11:53a [facility] Arlene R06.02 Shortness of Assoc,inocencio Pizano D.O. breath Hospitalists Office Visit 04/28/2019 2:00p [facility] Donna Sharma, S82.55xD Nondisp fx of at [place] RPA-C med malleolus of l tibia, 7thD Office Visit 04/21/2019 1:30p [facility] Darvin S82.55xA Nondisp fx of [place] MD medial malleolus of left tibia, init Office Visit 04/18/2019 10:25a [facility] Oanh S82.892A Oth fracture of Assinocencio sharma, left lower leg, Hospitalists PA init for clos fx R79.89 Other specified abnormal findings of blood chemistry W11.xxxA Fall on and from ladder, initial encounter Office Visit 03/14/2019 [place] Placido Noe I42.8 Other cardiomyopathies 1:00p [facility] Perez, Valuation Consultant [facility] Z95.810 Presence of automatic (implantable) cardiac defibrillator Office Visit 02/08/2019 [place] Shabanalora Wade, I42.9 Cardiomyopathy, 4:14p Cardiology Atul Vaughn unspecified Valuation Consultant E11.649 Type 2 diabetes mellitus with hypoglycemia without coma I50.20 Unspecified systolic (congestive) heart failure Office Visit 02/08/2019 10:34a [facility] R41.82 Altered mental Assoc,pc DEMETRIUS Shin status, Hospitalists unspecified R50.9 Fever, unspecified R19.7 Diarrhea, unspecified E11.9 Type 2 diabetes mellitus without complications I10 Essential (primary) hypertension 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 Assessments Date Code Description Provider 08/08/2019 E11.22 Type 2 diabetes mellitus with Samy Marcus diabetic chronic kidney disease 08/08/2019 Z79.4 [facility] (current) use of insulin Samy Marcus 08/01/2019 S82.55xD Nondisplaced fracture of medial Darvin Dillon MD malleolus of left tibia, sub 07/20/2019 Z79.4 superintendent container terminal (current) use of insulin Anthony Diaz MD 07/20/2019 N18.3 Chronic kidney disease, stage 3 Anthony Diaz MD (moderate) 07/20/2019 E11.22 Type 2 diabetes mellitus with Anthony Diaz MD diabetic chronic kidney disease 07/20/2019 I42.9 Cardiomyopathy, unspecified Anthony Diaz MD 07/14/2019 S22.009A Unspecified fracture of unspecified DEMETRIUS Gtz thoracic vertebra, initial encounter for closed fracture 06/30/2019 I42.9 Cardiomyopathy, unspecified Placido Perez M.D., [facility], [facility] 06/30/2019 I42.9 Cardiomyopathy, unspecified Remote Device Checks 06/30/2019 Z95.810 Presence of automatic (implantable) Placido Perez M.D., cardiac defibrillator [facility], [facility] 06/30/2019 Z95.810 Presence of automatic (implantable) Remote Device Checks cardiac defibrillator 06/23/2019 S22.009A Unspecified fracture of unspecified DEMETRIUS Gtz thoracic vertebra, initial encounter for closed fracture 06/05/2019 I42.9 Cardiomyopathy, unspecified Placido Perez M.D., [facility], [facility] 06/05/2019 R94.31 Abnormal electrocardiogram [ECG] Placido Perez M.D., [EKG] [facility], [facility] 06/05/2019 S82.55xD Nondisplaced fracture of medial [...] 04/21/2019 I42.9 Cardiomyopathy, unspecified Placido Perez M.D., [facility], [facility] 04/21/2019 I42.9 Cardiomyopathy, unspecified Ica Pacer Schedule 04/21/2019 Z95.810 Presence of automatic (implantable) Placido Perez M.D., cardiac defibrillator [facility], [facility] 04/21/2019 Z95.810 Presence of automatic (implantable) [...] 03/14/2019 I42.8 Other cardiomyopathies Placido Perez M.D., [facility], [facility] 03/14/2019 Z95.810 Presence of automatic (implantable) Placido Perez M.D., cardiac defibrillator FACC, [facility] 03/09/2019 I42.9 Cardiomyopathy, unspecified Placido Hasmukh Perez M.D., FACC, [facility] 03/09/2019 I42.9 Cardiomyopathy, unspecified Ica Pacer Schedule 03/09/2019 Z95.810 Presence of automatic (implantable) Placidomemo Perez M.D., cardiac defibrillator FACC, [facility] 03/09/2019 Z95.810 Presence of automatic (implantable) Ica Pacer Schedule cardiac defibrillator 02/14/2019 I42.9 Cardiomyopathy, unspecified Henok Camacho M.D. 02/14/2019 Z95.810 Presence of automatic (implantable) Henok Camacho M.D. cardiac defibrillator 02/09/2019 Z95.810 Presence of automatic (implantable) Placido Perez M.D., cardiac defibrillator [facility], [facility] 02/08/2019 R94.31 Abnormal electrocardiogram [ECG] Shabana [...] Yi 02/08/2019 I25.10 Athscl heart disease of squaxin DEMETRIUS Yi coronary artery w/o ang pctrs 02/07/2019 R94.31 Abnormal electrocardiogram [ECG] Shabana Wade M.D. [EKG] 02/07/2019 I42.9 Cardiomyopathy, unspecified Henok D. Brand, M.D. Plan of Treatment Future Appointment(s):09/04/2019 2:00 pm - DEMETRIUS Gtz at [facility]10/26/2019 2:40 pm - Anthony Diaz MD at [facility]08/22/2019 1:00 pm - Ica Pacer Schedule at [place] [facility]08/08/2019 - LEON MarcusP-CdeE11.22 Type 2 diabetes mellitus w diabetic chronic kidney wbgpgagR68.4 superintendent container terminal (current) use of insulinReferral:[facility], Executive Vice President Of Sales/ RNRecommendations:1. Take 16 units of Lantus in the morning. You can increase by 2 Units every 4 days up to 20 Unitsif your blood sugar starts to run higher. 2. I have referred you to [facility] to see a dietitian aboutfoods that are lower in potassium 3. Bring back 2 weeks worth of glucose logging 4x/day Functional Status Description No Information Available Mental Status Description No Information Available Referrals Refer to Reason for Referral Status Appt Date [facility] Insulin dependent diabetes, needs Created low potassium diet [address] [place] [address] [phone]
--- NOTE | 2019-08-29 23:28 | ED ---
Shortness of Breath - HPI Summary HPI Summary: Patient complains of progressive exertional SOB 1 week. States he had an MRI last Wednesday for follow-up on back trauma, and has richard symptoms started after he had an MRI one week ago for follow-up on back trauma. Patient has history of pacemaker for bradycardia, states it was turned off for the MRI, and then turned back on by company sales representative publications. Denies CP, fever, cough, sore throat , N/V/D, abdominal pain, change in urine, change in BM. Medical history is HTN , CHF, DM, TIA, HLD, CKD.. History of cardiac catheter 08/2018 which was negative for coronary artery disease. Patient on Eliquis. Nonsmoker. Denies EtOH or recreational drug use. - History of Current Complaint Chief Complaint: EDShortnessOfBreath Time Seen by Provider: 08/29/19 23:21 Hx Obtained From: Patient Onset/Duration: Lasting Days Timing: Constant Current Severity: Moderate Dyspnea At: Exertion Associated Signs & Symptoms: Negative - Allergy/Home Medications Allergies/Adverse Reactions: Allergies Allergy/AdvReac Type Severity Reaction Status Date / Time ST TU DEFIBRILLATOR-NO MRI AdvReac ST.TU Uncoded 06/29/19 13:33 PACEMAKER - NO MRI PMH/Surg Hx/FS Hx/Imm Hx Endocrine/Hematology History: Reports: Hx Diabetes Cardiovascular History: Reports: Hx Auto Implanted Cardiovert Defib - Inserted by Dr. 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 Denies: Hx Angina, Hx Myocardial Infarction, Hx Valvular Heart Disease Respiratory History: Reports: Hx Asthma Denies: Hx Chronic Obstructive Pulmonary Disease (COPD) History: Denies: Hx Chronic Renal Failure, Hx Renal Disease Musculoskeletal History: Reports: Hx Orthopedic Injury - l ankle fracture 5 weeks ago Sensory History: Denies: Hx Cataracts, Hx Contacts or Glasses, Hx Eye Injury, Hx Eye Prosthesis, Hx Glaucoma, Hx Legally Blind, Hx Macular Degeneration, Hx Vision Problem, Hx Deafness, Hx Hearing Aid, Hx Hearing Problem, Other Sensory Impairments Opthamlomology History: Denies: Hx Cataracts, Hx Contacts or Glasses, Hx Eye Injury, Hx Eye Prosthesis, Hx Glaucoma, Hx Legally Blind, Hx Macular Degeneration, Hx Vision Problem, Other Sensory Impairments Neurological History: Reports: Other Neuro Impairments/Disorders - diabetic neuropathy Psychiatric History: Reports: Hx Depression Denies: Hx Panic Disorder - Surgical History Surgery Procedure, Year, and Place: 01/2019 - [facility]TU PACEMAKER - NO MRI @ [facility] [place]. Left hand surgery Infectious Disease History: No Infectious Disease History: Denies: Traveled Outside the [place] in Last 30 Days - Family History Known Family History: Positive: Cardiac Disease - Social History Alcohol Use: None Hx Substance Use: No Substance Use Type: Reports: None Hx Tobacco Use: Yes - CHEWING TOBACCO, QUIT IN 2000. Smoking Status (MU): Never Smoked Tobacco Review of Systems Constitutional: Negative Eyes: Negative ENT: Negative Cardiovascular: Negative Positive: Shortness Of Breath Gastrointestinal: Negative Genitourinary: Negative Musculoskeletal: Negative Skin: Negative Neurological: Negative Psychological: Normal All Other Systems Reviewed And Are Negative: Yes Physical Exam Triage Information Reviewed: Yes Vital Signs On Initial Exam: Initial Vitals Temp Pulse Resp BP Pulse Ox 97.7 F 58 18 131/94 97 08/29/19 23:03 08/29/19 23:03 08/29/19 23:03 08/29/19 23:03 08/29/19 23:03 Vital Signs Reviewed: Yes Appearance: Positive: Well-Appearing Skin: Positive: Warm Head/Face: Positive: Normal Head/Face Inspection Eyes: Positive: Normal Neck: Positive: Supple Respiratory/Lung Sounds: Positive: Decreased Breath Sounds Cardiovascular: Positive: Bradycardia Abdomen Description: Positive: Nontender Musculoskeletal: Positive: Normal Neurological: Positive: Normal Psychiatric: Positive: Normal AVPU Assessment: Alert - Gem Coma Scale Best Eye Response: 4 - Spontaneous Best Motor Response: 6 - Obeys Commands Best Verbal Response: 5 - Oriented Coma Scale Total: 15 Procedures - Sedation Patient Received Moderate/Deep Sedation with Procedure: No Diagnostics - Vital Signs Vital Signs Temp Pulse Resp BP Pulse Ox 08/29/19 23:08 54 20 131/94 96 08/29/19 23:03 97.7 F 58 18 131/94 97 - Laboratory Result Diagrams: 08/29/19 23:42 08/29/19 23:42 Lab Statement: Any lab studies that have been ordered have been reviewed, and results considered in the medical decision making process. Course/Dx - Course Course Of Treatment: Patient complains of progressive exertional SOB 1 week. States he had an MRI last Wednesday for follow-up on back trauma, and has richard symptoms started after he had an MRI one week ago for follow-up on back trauma. Patient has history of pacemaker for bradycardia, states it was turned off for the MRI, and then turned back on by company sales representative publications. Denies CP, fever, cough, sore throat, N/V/D, abdominal pain, change in urine, change in BM. Medical history is HTN, CHF, DM, TIA, HLD. Patient on Eliquis. Nonsmoker. Denies EtOH or recreational drug use. Vital signs within normal limits on room air. Creatinine 1.79 which is mildly elevated from patient's baseline. Troponin 0.17 which is consistent with all prior troponins, history of elevated troponins. BUN/creatinine ratio 22.3. Labs otherwise unremarkable. EKG sinus rhythm, heart rate 69 with PACs. No PACs on prior EKGs. Elevated BNP greater than 1300. Chest x-ray negative for acute process. Discussed patient and findings with attending Dr. Lassiter who agreed patient could be discharged home to follow up with cardiology. Heart score 3. - Diagnoses Provider Diagnoses: PAC (premature atrial contraction), Exertional shortness of breath Discharge ED - Sign-Out/Discharge Documenting (check all that apply): Sign-Out Patient Signing out patient TO: Jaun Valdez - Discharge Plan Referrals: Poncho Daniels DO [Primary Care Provider] - Paula Renner MD [Medical Doctor] - Additional Instructions: Follow-up with your primary care Dr. Daniels and your remote recruiter for further evaluation of exertional shortness of breath. Return to the ED for any new or worsening symptoms.
[2019-08-29 23:50] LABS: ABS Basophils 0.1 10^3/ul (0-0.2); ABS Eosinophils 0.1 10^3/ul (0-0.6); ABS Lymphocytes 1.7 10^3/ul (1.0-4.8); ABS Monocytes 0.7 10^3/ul (0-0.8); ABS Neutrophils 3.3 10^3/ul (1.5-7.7); Eosinophil % 2.3 %; Hematocrit 42 % (42-52); Hemoglobin 13.8 g/dL (14.0-18.0); Lymphocyte % 28.7 %; Mean Corpuscular HGB Conc 33 g/dL (31-36); Mean Corpuscular Hemoglobin 29 pg (27-31); Mean Corpuscular Volume 87 fL (80-94); Mean Platelet Volume 10.1 fL (7.4-10.4); Nucleated Red Blood Cells % 0.1; Platelet Count 159 10^3/uL (150-450); Red Blood Count 4.84 10^6 /uL (4.18-5.48); Red Cell Distribution Width 14 % (10-15); White Blood Count 5.9 10^3/uL (3.5-10.8)
[2019-08-30 00:09] LABS: ALT 37 U/L (7-52); AST 35 U/L (13-39); Albumin 3.8 g/dL (3.2-5.2); Albumin/Globulin Ratio 1.3 (1-3); Alkaline Phosphatase 86 U/L (34-104); Anion Gap 8 mmol/L (2-11); BUN/Creatinine Ratio 22.3 (8-20); Blood Urea Nitrogen 40 mg/dL (6-24); C Reactive Protein 2.89 mg/L (<8.01); CO2 Carbon Dioxide 26 mmol/L (22-32); Calcium 9.6 mg/dL (8.6-10.3); Chloride 104 mmol/L (101-111); EGFR African American 48.3 (>60); EGFR Non-African American 39.9 (>60); Globulin 2.9 g/dL (2-4); Glucose 102 mg/dL (70-100); Magnesium 1.9 mg/dL (1.9-2.7); Potassium 4.6 mmol/L (3.5-5.0); Sodium 138 mmol/L (135-145); Total Protein 6.7 g/dL (6.4-8.9)
[2019-08-30 00:14] LABS: Troponin I 0.17 ng/mL (<0.03)
[2019-08-30 00:28] LABS: TSH (Thyroid Stimulating Horm) 1.69 mcIU/mL (0.34-5.60)
[2019-08-30 02:37] VITALS: BP 119/82
--- NOTE | 2019-08-30 02:49 | ED ---
Progress - Progress Note Progress Note: Pt is a signout from DEMETRIUS Worley, pending second troponin. Course/Dx - Course Course Of Treatment: Pt is a signout from DEMTERIUS Worley, pending second troponin. Pt's 2nd troponin is 0.17 which is his baseline. He can be discharged. - Diagnoses Provider Diagnoses: PAC (premature atrial contraction), Exertional shortness of breath Discharge ED - Sign-Out/Discharge Documenting (check all that apply): Patient Departure, Receiving Sign-Out Receiving patient FROM: Dario Abbott - Discharge Plan Condition: Stable Disposition: HOME Patient Education Materials: Heart Failure (ED) Referrals: Poncho Daniels DO [Primary Care Provider] - Paula Renner MD [Medical Doctor] - Additional Instructions: Follow-up with your primary care Dr. Daniels and your value analysis coordinator for further evaluation of exertional shortness of breath. Return to the ED for any new or worsening symptoms. - Billing Disposition and Condition Condition: STABLE Disposition: Home - Attestation Statements Document Initiated by Scribe: Yes Documenting Scribe: Alva Chao Provider For Whom Tobi is Documenting (Include Credential): Jaun Valdez MD. Scribe Attestation: Alva Ma, yolieed for Jaun Valdez MD. on 08/30/19 at 1838. Scribe Documentation Reviewed: Yes Provider Attestation: The documentation as recorded by the scribeAlva accurately reflects the service I personally performed and the decisions made by , Jaun Valdez MD. Status of Scribe Document: Viewed
[2019-08-30 03:04] LABS: Troponin I 0.17 ng/mL (<0.03)
== END 2019-08-30 03:34 | disposition home or self-care (01) ==
LOC: ED 23:02
DX: I49.1 Atrial premature depolarization (principal); R06.02 Shortness of breath; Z79.01 Long term (current) use of anticoagulants; I13.0 Hypertensive heart and chronic kidney disease with heart failure and stage 1 through stage 4 chronic kidney disease, or unspecified chronic kidney disease; I50.9 Heart failure, unspecified; N18.9 Chronic kidney disease, unspecified; E11.22 Type 2 diabetes mellitus with diabetic chronic kidney disease; I25.10 Atherosclerotic heart disease of native coronary artery without angina pectoris; Z95.810 Presence of automatic (implantable) cardiac defibrillator; E78.00 Pure hypercholesterolemia, unspecified
CPT/HCPCS: 36415; 71045; 80053; 83735; 83880; 84443; 84484; 85025; 85379; 86140; 93005; 99283

== ENCOUNTER 2019-09-08 21:58 | Emergency (ER) | payer BC ==
--- NOTE | 2019-09-08 22:54 | ED ---
Shortness of Breath - HPI Summary HPI Summary: Patient is a 53 y/o M presenting to [facility] with complaints of SOB that is worsened with exertion. Sx have been present for the past two weeks. Patient had been evaluated ten days ago on 08/29/19 for similar issues. He presents today with worsened SOB. He notes some cough and nasal congestion today as well. Chest pain, edema, fever, and decreased appetite are denied. Hx of HTN, CHF, DM, TIA, HLD, CKD, cardiomyopathy, defibrillator is noted. Patient is followed by Dr. Perez, cardiology. On triage, pain is denied, exertion is noted to aggravate Sx. Home medications and allergies are reviewed. - History of Current Complaint Chief Complaint: EDShortnessOfBreath Time Seen by Provider: 09/08/19 22:32 Hx Obtained From: Patient Onset/Duration: Lasting Weeks, Still Present Current Severity: None - pain denied Dyspnea At: Exertion Alleviating Factors: Nothing Associated Signs & Symptoms: Nasal Congestion - Allergy/Home Medications Allergies/Adverse Reactions: Allergies Allergy/AdvReac Type Severity Reaction Status Date / Time ST TU DEFIBRILLATOR-NO MRI AdvReac ST[facility]TU Uncoded 06/29/19 13:33 PACEMAKER - NO MRI Home Medications: Home Medications Magnesium 250 mg PO DAILY 09/08/19 [History Confirmed 09/08/19] Metoprolol Succinate XL TAB* [Toprol XL TAB*] 25 mg PO BID 09/08/19 [History Confirmed 09/08/19] Steglatro 5 mg PO DAILY 09/08/19 [History Confirmed 09/08/19] PMH/Surg Hx/FS Hx/Imm Hx Endocrine/Hematology History: Reports: Hx Diabetes Cardiovascular History: Reports: Hx Auto Implanted Cardiovert Defib - Inserted by Dr. 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 Denies: Hx Angina, Hx Myocardial Infarction, Hx Valvular Heart Disease Respiratory History: Reports: Hx Asthma Denies: Hx Chronic Obstructive Pulmonary Disease (COPD) History: Denies: Hx Chronic Renal Failure, Hx Renal Disease Musculoskeletal History: Reports: Hx Orthopedic Injury - l ankle fracture 5 weeks ago Sensory History: Denies: Hx Cataracts, Hx Contacts or Glasses, Hx Eye Injury, Hx Eye Prosthesis, Hx Glaucoma, Hx Legally Blind, Hx Macular Degeneration, Hx Vision Problem, Hx Deafness, Hx Hearing Aid, Hx Hearing Problem, Other Sensory Impairments Opthamlomology History: Denies: Hx Cataracts, Hx Contacts or Glasses, Hx Eye Injury, Hx Eye Prosthesis, Hx Glaucoma, Hx Legally Blind, Hx Macular Degeneration, Hx Vision Problem, Other Sensory Impairments Neurological History: Reports: Other Neuro Impairments/Disorders - diabetic neuropathy Psychiatric History: Reports: Hx Depression Denies: Hx Panic Disorder - Surgical History Surgery Procedure, Year, and Place: 01/2019 - [facility] PACEMAKER - NO MRI @ [facility] [place]. Left hand surgery Infectious Disease History: No Infectious Disease History: Denies: Traveled Outside the [place] in Last 30 Days - Family History Known Family History: Positive: Cardiac Disease - Social History Alcohol Use: None Hx Substance Use: No Substance Use Type: Reports: None Hx Tobacco Use: Yes - CHEWING TOBACCO, QUIT IN 2000. Smoking Status (MU): Never Smoked Tobacco Review of Systems Negative: Fever Positive: Nasal Discharge Negative: Chest Pain Positive: Shortness Of Breath, Cough Gastrointestinal: Other - negative - decreased appetite Negative: Edema All Other Systems Reviewed And Are Negative: Yes Physical Exam - Summary Physical Exam Summary: Appearance: Well-appearing, Well-nourished, lying in bed comfortably Skin: Warm, dry, no obvious rash Eyes: sclera anicteric, no conjunctival pallor ENT: mucous membranes moist, pharynx appears normal Neck: Supple, nontender Respiratory: Clear to auscultation, no signs of respiratory distress Cardiovascular: Normal S1, S2. No murmurs. Normal distal pulses in tibial and radial bilaterally. Abdomen: Soft, nontender, normal active bowel sounds present Musculoskeletal: Normal, Strength/ROM Intact Neurological: A&Ox3, awake and alert, mentation is normal, speech is fluent and appropriate Psychiatric: affect is normal, does not appear anxious or depressed Triage Information Reviewed: Yes Vital Signs On Initial Exam: Initial Vitals Temp Pulse Resp BP Pulse Ox 96.9 F 55 22 128/95 99 09/08/19 22:01 09/08/19 22:01 09/08/19 22:01 09/08/19 22:01 09/08/19 22:01 Vital Signs Reviewed: Yes Procedures - Sedation Patient Received Moderate/Deep Sedation with Procedure: No Diagnostics - Vital Signs Vital Signs Temp Pulse Resp BP Pulse Ox 09/08/19 22:01 96.9 F 55 22 128/95 99 - Laboratory Result Diagrams: 09/08/19 23:37 09/08/19 23:37 Lab Statement: Any lab studies that have been ordered have been reviewed, and results considered in the medical decision making process. - Radiology CXR Radiology Interpretation Completed By: ED Physician Summary of Radiographic Findings: No acute process, pending official report. - EKG 2258 Cardiac Rate: Bradycardia - rate of 51 BPM EKG Rhythm: Sinus Bradycardia Summary of EKG Findings: EKG showed sinus bradycardia with rate of 51 BPM, no STEMI. This EKG was reviewed and interpreted by ED physician. Re-Evaluation - Re-Evaluation First Eval Re-Evaluation Time: : Comment: Results of workup and consult were discussed with the patient. 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 Course/Dx - Course Course Of Treatment: Patient is a 53 y/o M presenting to [facility] with complaints of SOB that is worsened with exertion. Sx have been present for the past two weeks. Patient had been evaluated ten days ago on 08/29/19 for similar issues. He presents today with worsened SOB. He notes some cough and nasal congestion today as well. Chest pain, edema, fever, and decreased appetite are denied. Hx of HTN, CHF, DM, TIA, HLD, CKD, cardiomyopathy, defibrillator is noted. CXR showed no acute process. EKG showed sinus bradycardia with rate of 51 BPM, no STEMI. Bloodwork was obtained. Abnormal values include trop was .20, BNP > 1300 , glucose 106, BUN/creatinine ratio 22.1, creatinine 1.9, BUN 42, MPV 10.5. Patient's case was discussed with Dr. Perez, Dr. Perez states that the patient can be discharged and he will have the patient follow up with him in office this week. Results of workup and consult were discussed with the patient. 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 - Diagnoses Provider Diagnoses: Chest pain - Physician Notifications Discussed Care of Patient With: Placido Perez Time Discussed With Above Provider: 01:26 Instructed by Provider To: Other - Patient's case was discussed with Dr. Perez, Dr. Perez states that the patient can be discharged and he will have the patient follow up with him in office this week. Discharge ED - Sign-Out/Discharge Documenting (check all that apply): Patient Departure - discharge - Discharge Plan Condition: Stable Disposition: HOME Patient Education Materials: Heart Failure (ED) Referrals: Placido Perez MD [Medical Doctor] - Poncho Daniels DO [Primary Care Provider] - Additional Instructions: I spoke to Dr. Perez, we agreed that you don't need to be hospitalized at this time. Your chest xray looks clear and your lab studies are all at your baseline. Right now it is not clear what is causing your breathing trouble, but Dr. Perez would like to see you in the clinic this week to looks at things himself and perhaps get more studies or change your medication. - Billing Disposition and Condition Condition: STABLE Disposition: Home - Attestation Statements Document Initiated by Tobi: Yes Documenting Scribe: LICHA MOJICA Provider For Whom Tobi is Documenting (Include Credential): LIN WREN MD Scribe Attestation: I, LICHA MOJICA, scribed for LIN WREN MD on 09/09/19 at 1906. Scribe Documentation Reviewed: Yes Provider Attestation: The documentation as recorded by the LICHA lopez accurately reflects the service I personally performed and the decisions made by me, LIN WREN MD Status of Scribe Document: Viewed
[2019-09-08 23:46] LABS: Hematocrit 45 % (42-52); Hemoglobin 14.9 g/dL (14.0-18.0); Mean Corpuscular HGB Conc 33 g/dL (31-36); Mean Corpuscular Hemoglobin 28 pg (27-31); Mean Corpuscular Volume 86 fL (80-94); Mean Platelet Volume 10.5 fL (7.4-10.4); Platelet Count 171 10^3/uL (150-450); Red Blood Count 5.29 10^6 /uL (4.18-5.48); Red Cell Distribution Width 14 % (10-15); White Blood Count 6.8 10^3/uL (3.5-10.8)
[2019-09-08 23:47] LABS: ABS Basophils 0.1 10^3/ul (0-0.2); ABS Eosinophils 0.1 10^3/ul (0-0.6); ABS Lymphocytes 1.4 10^3/ul (1.0-4.8); ABS Monocytes 0.6 10^3/ul (0-0.8); ABS Neutrophils 4.7 10^3/ul (1.5-7.7); Eosinophil % 1.3 %; Lymphocyte % 19.7 %; Nucleated Red Blood Cells % 0.1
[2019-09-09 00:01] LABS: ALT 32 U/L (7-52); AST 30 U/L (13-39); Albumin 4.2 g/dL (3.2-5.2); Albumin/Globulin Ratio 1.7 (1-3); Alkaline Phosphatase 94 U/L (34-104); Anion Gap 8 mmol/L (2-11); BUN/Creatinine Ratio 22.1 (8-20); Blood Urea Nitrogen 42 mg/dL (6-24); CO2 Carbon Dioxide 25 mmol/L (22-32); Calcium 9.6 mg/dL (8.6-10.3); Chloride 105 mmol/L (101-111); EGFR African American 45.1 (>60); EGFR Non-African American 37.3 (>60); Globulin 2.5 g/dL (2-4); Glucose 106 mg/dL (70-100); Potassium 4.6 mmol/L (3.5-5.0); Sodium 138 mmol/L (135-145); Total Protein 6.7 g/dL (6.4-8.9)
[2019-09-09 01:50] VITALS: BP 129/99
--- NOTE | 2019-09-10 11:39 | ED ---
Imaging and Labs Follow Up Follow Up Type: Imaging Imaging Result: Mild interstitial pulmonary edema. Small right pleural effusion. Patient Communication/Plan: Patient is to follow-up with Dr. Perez in his clinic in 1 week. These issues may be addressed then and are no acute concern. Provider Diagnoses: Chest pain
--- OUTSIDE RECORDS SUMMARY | 2019-09-12 15:19 | XMS REPORT | Continuity of Care Document ---
:1965 External Reference #:[id number] Author Name Placido Perez M.D., [facility], [facility] (transmitted by agent of provider Janki Lucas) Address [address] [place] [id number] Care Team Providers Name Role Phone Poncho Daniels D.OPj - Internal Care Team Information Associate Media Director Medicine Bradley Pa MD - Neurological Care Team Information Associate Media Director [phone] Surgery Problems Active Problems Provider Date Chest pain Placido Perez M.D., [facility], Onset: 07/20/2013 FASMO Primary cardiomyopathy Placido Perez M.D., [facility], Onset: 08/25/2013 FASMO Encounter for planned postprocedural Talon Zeng M.D., [facility], [facility] Onset: wound closure Closed fracture of medial [...] Medications SIG Qnty Indications Ordering Provider Date Lasix 1 by mouth every 90tabs Placido Perez, 09/09/2019 20mg Tablets day M.DPj, ELIESER CEDEÑO Steglatro 1 by mouth every 30tabs E13.9 Anthony Diaz MD 07/20/2019 5mg Tablets day in the morning Lantus Solostar 20 units at 15ml Anthony Diaz MD 07/20/2019 bedtime or as 100Unit/ML Solution directed Pen-Inject Magnesium Oxide 1 by mouth every 90tabs Placido Perez, 07/07/2019 250mg day M.DPj, ELIESER CEDEÑO Tablets Lisinopril 1/2 by mouth Placido Perez, 06/30/2019 5mg every day M.DPj, ELIESER CEDEÑO Tablets Tlso Brace tlso brace wear S22.009D Vassilios 06/23/2019 when upright MD Yamel Famotidine 1 by mouth twice Placido Perez, 06/05/2019 20mg a day M.DPj, ELIESER CEDEÑO Tablets Magnesium 1 and one [...] To 40 Millicuries Injection Technetium TC 99M Plcaido Perez M.D., 07/25/2013 Tetrofosmin, Per Unit Dose FACC, FASNC Up To 40 Millicuries Injection Immunizations Description [...] (Body Mass Index) 22.3 kg/m2 Results Test Acquired Date Facility Test Result H/L Range Note Laboratory test 07/20/2019 [facility] C-Peptide 1.9 ng/mL 1.1 - 4.4 1 finding [address] [place] [address] [phone] Hemoglobin A1c (Glyco HGB) 7.2 % High 4.0-5.6 2 TSH (Thyroid Stim Horm) 0.90 mcIU/mL Normal 0.34-5.60 Free T4 (Free Thyroxine) 0.87 ng/dL Normal 0.61-1.12 Basic Metabolic 07/20/2019 [facility] Sodium 136 mmol/L Normal 135-145 Panel [address] [place] [address] [phone] Potassium 4.9 mmol/L Normal 3.5-5.0 Chloride 101 mmol/L Normal 101-111 Co2 Carbon Dioxide 29 mmol/L Normal 22-32 Anion Gap 6 mmol/L Normal 2-11 Glucose 132 mg/dL High 70-100 Blood Urea Nitrogen 26 mg/dL High 6-24 Creatinine 1.40 mg/dL High 0.67-1.17 BUN/Creatinine Ratio 18.6 Normal 8-20 Calcium 9.5 mg/dL Normal 8.6-10.3 Egfr Non- 53.0 >60 Egfr 64.1 >60 3 Basic Metabolic 07/06/2019 [facility] Sodium 134 mmol/L Low 135-145 Panel [address] [place] [address] [phone] Chloride 100 mmol/L Low 101-111 Co2 Carbon Dioxide 28 mmol/L Normal 22-32 Glucose 175 mg/dL High 70-100 Blood Urea Nitrogen 28 mg/dL High 6-24 Creatinine 1.50 mg/dL High 0.67-1.17 BUN/Creatinine Ratio 18.7 Normal 8-20 Calcium 9.8 mg/dL Normal 8.6-10.3 Egfr Non- 49.0 >60 Egfr 59.2 >60 4 Potassium 5.2 mmol/L High 3.5-5.0 Anion Gap 6 mmol/L Normal 2-11 Laboratory test 07/06/2019 [facility] Magnesium 1.7 mg/dL Low 1.9-2.7 finding [address] [place] [address] [phone] CBC No Diff 07/06/2019 [facility] White Blood 5.3 Normal 3.5- 10.[address] Count 10^3/[place] [address] [phone] Red Blood Count 4.71 10^6/uL Normal 4.18-5.48 Hemoglobin 13.3 g/dL Low 14.0-18.0 Hematocrit 40 % Low 42-52 Mean Corpuscular Volume 85 fL Normal 80-94 Mean Corpuscular Hemoglobin 28 pg Normal 27-31 Mean Corpuscular HGB Conc 33 g/dL Normal 31-36 Red Cell Distribution Width 14 % Normal 10-15 Platelet Count 210 10^3/uL Normal 150-450 Mean Platelet Volume 10.5 fL High 7.4-10.4 Basic Metabolic 06/30/2019 [facility] Sodium 131 mmol/L Low 135-145 Panel [address] [place] [address] [phone] Potassium 4.9 mmol/L Normal 3.5-5.0 Chloride 96 mmol/L Low 101-111 Co2 Carbon Dioxide 28 mmol/L Normal 22-32 Anion Gap 7 mmol/L Normal 2-11 Glucose 118 mg/dL High 70-100 Blood Urea Nitrogen 25 mg/dL High 6-24 Creatinine 1.48 mg/dL High 0.67-1.17 BUN/Creatinine Ratio 16.9 Normal 8-20 Calcium 9.6 mg/dL Normal 8.6-10.3 Egfr Non- 49.7 >60 Egfr 60.2 >60 5 Xray 06/26/2019 [facility] Spine Thoracic 3 Views <pending> [address] [place] [address] [phone] MRI Thoracic Spine W/O <pending> Basic Metabolic 06/15/2019 [facility] Sodium 134 mmol/L Low 135-145 Panel [address] [place] [address] [phone] Chloride 99 mmol/L Low 101-111 Co2 Carbon Dioxide 27 mmol/L Normal 22-32 Glucose 161 mg/dL High 70-100 Blood Urea Nitrogen 26 mg/dL High 6-24 Creatinine 1.45 mg/dL High 0.67-1.17 BUN/Creatinine Ratio 17.9 Normal 8-20 Calcium 10.1 mg/dL Normal 8.6-10.3 Egfr Non- 50.9 >60 Egfr 61.6 >60 6 Potassium 5.2 mmol/L High 3.5-5.0 Anion Gap 8 mmol/L Normal 2-11 1 Test Performed by: [facility] [address] [place] [address] Item Processor: Rl Garza M.D. Ph.D.; CLIA# [id number] 2 Therapeutic target for the treatment of diabetes mellitus patients is <7% HBA1C, and in selective patients <6.0%. Please refer to [place] [employer] diabetic care guidelines for further [...] (or dialysis) Procedures Date Code Description Status 08/21/2019 00907 Interrogation Implant Cardiovasc Monitor System Incl Completed Analysis Int 08/21/2019 66447 Interrogation Implant Cardiovasc Monitor System Incl Completed Analysis Int 08/21/2019 69828 Icd eval w/iterative adjment single lead Icd Completed 08/21/2019 88137 Icd eval w/iterative adjment single lead Icd Completed 06/30/2019 38557 Icd Check Remote Up To 90 Days Single,Dual,Multiple Completed Lead 06/30/2019 94513 Icd Check Remote Up To 90 Days Single,Dual,Multiple Completed Lead 06/30/2019 63001 Icd Eval Sing,Dual,Multi Lead Remote Recpt Transm Tech Completed Rev Tech S 06/30/2019 10929 Icd Eval Sing,Dual,Multi Lead Remote Recpt Transm Tech Completed Rev Tech S 06/30/2019 53269 Interrogation Device Eval Remote Up To 30 Days Completed Analysis,Rev,RP 06/30/2019 13290 Interrogation Device Eval Remote Up To 30 Days Completed Analysis,Rev,RP 06/05/2019 68883 EKG Tracing & Interpretation Completed 05/19/2019 86812 ECHO Transthorasic Realtime 2D W Doppler & Color Flow Completed Hosp 04/21/2019 18553 Interrogation Implant Cardiovasc Monitor System Incl Completed Analysis Int 04/21/2019 48106 Interrogation Implant Cardiovasc Monitor System Incl Completed Analysis Int 04/21/2019 58523 Icd eval w/iterative adjment single lead Icd Completed 04/21/2019 59725 Icd eval w/iterative adjment single lead Icd Completed 01/16/2016 77347758 Colonoscopy Completed Medical Devices Description No Information Available Encounters Type Date Location Provider Dx Diagnosis Office Visit 08/08/2019 Timur Thomas and Gloria Hernandez, E11.22 Type 2 diabetes 1:30p [facility] STUDIO HAND-Cde mellitus w diabetic chronic kidney disease 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 Office Visit 08/01/2019 [facility] Santana, S82.55xD Nondisp fx of 8:15a at [place] MD lowe malleolus of l tibia, 7thD Office Visit 07/20/2019 [facility] [facility] Anthony Diaz MD N18.3 Chronic kidney 9:00a Endocrinology of disease, stage [facility] 3 (moderate) Z79.4 penitentiary (current) use of insulin E11.22 Type 2 diabetes mellitus w diabetic chronic kidney disease I42.9 Cardiomyopathy, unspecified Office Visit 07/14/2019 Neuro[facility] Sherri S22.048D Oth fx fourth 9:30a [facility] DEMETRIUS Lara thor vertebra, subs for fx w routn heal Office Visit 06/23/2019 Neurosurgery Sherri S22.009A Unsp fracture of 11:30a [facility] DEMETRIUS Lara unsp thoracic vertebra, init for clos fx Office Visit 06/05[facility]2019 [facility] S[facility].55[facility] Nondisp fx of med 9:00a at [place] MD Santana malleolus of l tibia, 7thD Office Visit 06/05/2019 [facility] Placido Hasmukh I42.9 Cardiomyopathy, 1:00p [facility] Roderick Perez, unspecified FACC, FASNC R94.31 Abnormal electrocardiogram [ECG] [EKG] Office Visit 05/20/2019 [facility] Carmen Carbajal, I11.0 Hypertensive heart 11:53a inocencio Diehl M.D. disease with heart Hospitalists failure I50.23 Acute on chronic systolic (congestive) heart failure Office Visit 05/19/2019 11:53a [facility] Arlene R06.02 Shortness of inocencio Diehl D.O. breath Hospitalists Office Visit 04/28/2019 2:00p [facility] Donna Sharma, S82.55xD Nondisp fx of at [place] YUNGC med malleolus of l tibia, 7thD Office Visit 04/21/2019 1:30p [facility] S82.55xA Nondisp fx of at [place] MD Santana medial malleolus of left tibia, init Office Visit 04/18/2019 10:25a [facility] Oanh S82.892A Oth fracture of [facility], left lower leg, Hospitalists DEMETRIUS inbrad for clos fx R79.89 Other specified abnormal findings of blood chemistry W11.xxxA Fall on and from ladder, initial encounter Office Visit 03/14/2019 [place] Placido Noe I42.8 Other cardiomyopathies 1:00p Cardiology Of Roderick Perez, [facility], [facility] Z95.810 Presence of automatic (implantable) cardiac defibrillator Assessments Date Code Description Provider 08/21/2019 I42.9 Cardiomyopathy, unspecified Placido Perez M.D., [facility], [facility] 08/21/2019 I42.9 Cardiomyopathy, unspecified Ica Pacer Schedule 08/21/2019 Z95.810 Presence of automatic (implantable) Placido Hasmukh Perez M.D., cardiac defibrillator [facility], [facility] 08/21/2019 Z95.810 Presence of automatic (implantable) Ica Pacer Schedule cardiac defibrillator 08/08/2019 E11.22 Type 2 diabetes mellitus with Samy Marcus diabetic chronic kidney disease 08/08/2019 Z79.4 penitentiary (current) use of insulin Samy Marcus 08/01/2019 S82.55xD Nondisplaced fracture of medial Darvin MD [place] malleolus of left tibia, sub 07/20/2019 N18.3 Chronic kidney disease, stage 3 Anthony Diaz MD (moderate) 07/20/2019 Z79.4 penitentiary (current) use of insulin Anthony Diaz MD 07/20/2019 E11.22 Type 2 diabetes mellitus with Anthony Diaz MD diabetic chronic kidney disease 07/20/2019 I42.9 Cardiomyopathy, unspecified Anthony Diaz MD 07/14/2019 S22.048D Other fracture of fourth thoracic DEMETRIUS Gtz vertebra, subsequent encounter for fracture with routine healing 06/30/2019 I42.9 Cardiomyopathy, unspecified Placido Perez M.D., [facility], [facility] 06/30/2019 I42.9 Cardiomyopathy, unspecified Remote Device Checks 06/30/2019 Z95.810 Presence of automatic (implantable) Placido Noe Perez, M.D., cardiac defibrillator [facility], [facility] 06/30/2019 Z95.810 Presence of automatic (implantable) Remote Device Checks cardiac defibrillator 06/23/2019 S22.009A Unspecified fracture of unspecified DEMETRIUS Gtz thoracic vertebra, initial encounter for closed fracture 06/05/2019 I42.9 Cardiomyopathy, unspecified Placido Perez M.D., [facility], [facility] 06/05/2019 R94.31 Abnormal electrocardiogram [ECG] Placido Perez M.D., [EKG] [facility], [facility] 06/05/2019 S82.55xD Nondisplaced fracture of zheng Dillon MD malleolus of left tibia, sub 05/20/2019 I11.0 Hypertensive heart disease with heart Carmen Carbajal M.D. failure 05/20/2019 I50.23 Acute on chronic systolic Carmen Carbajal M.D. (congestive) heart failure 05/19/2019 R06.02 Shortness of breath Karl Fuchs M.D. 05/19/2019 R06.02 Shortness of breath Arlene Pizano D.O. 04/28/2019 S82.55xD Nondisplaced fracture of medial DANIEL Larose malleolus of left tibia, sub 04/21/2019 I42.9 Cardiomyopathy, unspecified Placido Perez M.D., [facility], [facility] 04/21/2019 I42.9 Cardiomyopathy, unspecified Ica Pacer Schedule 04/21/2019 Z95.810 Presence of automatic (implantable) Placido Perez M.D., cardiac defibrillator [facility], [facility] 04/21/2019 Z95.810 Presence of automatic (implantable) Ica [...] 03/14/2019 I42.8 Other cardiomyopathies Placido Perez M.D., [facility], [facility] 03/14/2019 Z95.810 Presence of automatic (implantable) Placido Perez M.D., cardiac defibrillator [facility], [facility] Plan of Treatment Future Appointment(s):10/26/2019 2:40 pm - Anthony Diaz MD at [facility]08/01/2019 - Darvin Dillon, MDS82.55xD Nondisplaced fracture of medial malleolus of left tibia, subFollow up:Follow Up: As needed Functional Status Description No Information Available Mental Status Description No Information Available Referrals Refer to Reason for Referral Status Appt Date [facility] Insulin dependent diabetes, needs Created low potassium diet [address] [address] [place] [address] [phone]
--- OUTSIDE RECORDS SUMMARY | 2019-09-12 15:19 | XMS REPORT | Continuity of Care Document ---
:1965 External Reference #:[id number] Author Name Janki Lucas Care Team Providers Name Role Phone Poncho Daniels D.O. 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 Surgery Problems Active Problems Provider Date Chest pain Placido Perez M.D., [facility], Onset: 07/20/2013 FASNC Primary cardiomyopathy Placido Perez M.D., [facility], Onset: 08/25/2013 FASNC Encounter for planned postprocedural Talon Zeng M.D., [facility], [facility] Onset: wound closure Closed fracture [...] every 90tabs Placido Perez, 07/07/2019 250mg day GALA Vaughn FASNC Tablets Lisinopril 1/2 by mouth Placido Perez, 06/30/2019 5mg every day GALA Vaughn FASNC Tablets Tlso Brace tlso brace wear S22.009D Vassilios 06/23/2019 when upright MD Yamel Famotidine 1 by mouth twice Placido Perez, 06/05/2019 20mg a day GALA Vaughn FASNC Tablets Magnesium 1 and one half by [...] Perez M.D., 11/22/2017 Tetrofosmin, Per Unit Dose [facility] Up To 40 Millicuries Injection Technetium TC 99M Placido Perez M.D., 07/25/2013 Tetrofosmin, Per Unit Dose [facility] Up To 40 Millicuries Injection Immunizations Description [...] Result H/L Range Note Laboratory test 07/20/2019 [facility] C-Peptide 1.9 ng/mL 1.1 - 4.4 1 finding [address] [place] [address] [phone] Hemoglobin A1c (Glyco HGB) 7.2 % High 4.0-5.6 2 TSH (Thyroid Stim Horm) 0.90 mcIU/mL Normal 0.34-5.60 Free T4 (Free Thyroxine) 0.87 ng/dL Normal 0.61-1.12 Basic Metabolic 07/20/2019 [facility] Sodium 136 mmol/L Normal 135-145 Panel [address] [place] [address] [phone] Potassium 4.9 mmol/L Normal 3.5-5.0 Chloride 101 mmol/L Normal 101-111 Co2 Carbon Dioxide 29 mmol/L Normal 22-32 Anion Gap 6 mmol/L Normal 2-11 Glucose 132 mg/dL High 70-100 Blood Urea Nitrogen 26 mg/dL High 6-24 Creatinine 1.40 mg/dL High 0.67-1.17 BUN/Creatinine Ratio 18.6 Normal 8-20 Calcium 9.5 mg/dL Normal 8.6-10.3 Egfr Non- 53.0 >60 Egfr 64.1 >60 3 Basic Metabolic 07/06/2019 [facility] Sodium 134 mmol/L Low 135-145 Panel [address] [place] [address] [phone] Chloride 100 mmol/L Low 101-111 Co2 Carbon Dioxide 28 mmol/L Normal 22-32 Glucose 175 mg/dL High 70-100 Blood Urea Nitrogen 28 mg/dL High 6-24 Creatinine 1.50 mg/dL High 0.67-1.17 BUN/Creatinine Ratio 18.7 Normal 8-20 Calcium 9.8 mg/dL Normal 8.6-10.3 Egfr Non- 49.0 >60 Egfr 59.2 >60 4 Potassium 5.2 mmol/L High 3.5-5.0 Anion Gap 6 mmol/L Normal 2-11 Laboratory test 07/06/2019 [facility] Magnesium 1.7 mg/dL Low 1.9-2.7 finding [address] [place] [address] [phone] CBC No Diff 07/06/2019 [facility] White Blood 5.3 Normal 3.5- 10.8 [facility] Count 10^3/[place] [address] [phone] Red Blood Count 4.71 10^6/uL Normal 4.18-5.48 Hemoglobin 13.3 g/dL Low 14.0-18.0 Hematocrit 40 % Low 42-52 Mean Corpuscular Volume 85 fL Normal 80-94 Mean Corpuscular Hemoglobin 28 pg Normal 27-31 Mean Corpuscular HGB Conc 33 g/dL Normal 31-36 Red Cell Distribution Width 14 % Normal 10-15 Platelet Count 210 10^3/uL Normal 150-450 Mean Platelet Volume 10.5 fL High 7.4-10.4 Basic Metabolic 06/30/2019 [facility] Sodium 131 mmol/L Low 135-[address] [place] [address] [phone] Potassium 4.9 mmol/L Normal 3.5-5.0 Chloride 96 mmol/L Low 101-111 Co2 Carbon Dioxide 28 mmol/L Normal 22-32 Anion Gap 7 mmol/L Normal 2-11 Glucose 118 mg/dL High 70-100 Blood Urea Nitrogen 25 mg/dL High 6-24 Creatinine 1.48 mg/dL High 0.67-1.17 BUN/Creatinine Ratio 16.9 Normal 8-20 Calcium 9.6 mg/dL Normal 8.6-10.3 Egfr Non- 49.7 >60 Egfr 60.2 >60 5 Xray 06/26/2019 [facility] Spine Thoracic 3 Views <pending> [address] [place] [address] [phone] MRI Thoracic Spine W/O <pending> Basic Metabolic 06/15/2019 [facility] Sodium 134 mmol/L Low 135-145 Panel [address] [place] [address] [phone] Chloride 99 mmol/L Low 101-111 Co2 Carbon Dioxide 27 mmol/L Normal 22-32 Glucose 161 mg/dL High 70-100 Blood Urea Nitrogen 26 mg/dL High 6-24 Creatinine 1.45 mg/dL High 0.67-1.17 BUN/Creatinine Ratio 17.9 Normal 8-20 Calcium 10.1 mg/dL Normal 8.6-10.3 Egfr Non- 50.9 >60 Egfr 61.6 >60 6 Potassium 5.2 mmol/L High 3.5-5.0 Anion Gap 8 mmol/L Normal 2-11 1 Test Performed by: [facility] [address] [place] [address] Steel Spar Operator: Rl Garza M.D. Ph.D.; IA# [id number] 2 Therapeutic target for the treatment of diabetes mellitus patients is <7% HBA1C, and in selective patients <6.0%. Please refer to [employer] diabetic care guidelines for further [...] dialysis) Procedures Date Code Description Status 08/21/2019 16629 Interrogation Implant Cardiovasc Monitor System Incl Completed Analysis Int 08/21/2019 84457 Interrogation Implant Cardiovasc Monitor System Incl Completed Analysis Int 08/21/2019 68946 Icd eval w/iterative adjment single lead Icd Completed 08/21/2019 75345 Icd eval w/iterative adjment single lead Icd Completed 06/30/2019 28426 Interrogation Device Eval Remote Up To [address] Completed Analysis,Rev,RP 06/30/2019 14514 Interrogation Device Eval Remote Up To [address] Completed Analysis,Rev,RP 06/30/2019 95488 Icd Eval Sing,Dual,Multi Lead Remote Recpt Transm Tech Completed Rev Tech S 06/30/2019 88441 Icd Eval Sing,Dual,Multi Lead Remote Recpt Transm Tech Completed Rev Tech S 06/30/2019 33121 Icd Check Remote Up To 90 Days Single,Dual,Multiple Completed Lead 06/30/2019 09101 Icd Check Remote Up To 90 Days Single,Dual,Multiple Completed Lead 06/05/2019 73095 EKG Tracing & Interpretation Completed 05/19/2019 10892 ECHO Transthorasic Realtime 2D W Doppler & Color Flow Completed Hosp 04/21/2019 16254 Interrogation Implant Cardiovasc Monitor System Incl Completed Analysis Int 04/21/2019 03122 Interrogation Implant Cardiovasc Monitor System Incl Completed Analysis Int 04/21/2019 36541 Icd eval w/iterative adjment single lead Icd Completed 04/21/2019 79690 Icd eval w/iterative adjment single lead Icd Completed 03/09/2019 46267 Interrogation Implant Cardiovasc Monitor System Incl Completed Analysis Int 03/09/2019 72744 Interrogation Implant Cardiovasc Monitor System Incl Completed Analysis Int 03/09/2019 05175 Icd eval w/iterative adjment single lead Icd Completed 03/09/2019 58475 Icd eval w/iterative adjment single lead Icd Completed 01/16/2016 95622347 Colonoscopy Completed Medical Devices Description No Information Available Encounters Type Date Location Provider Dx Diagnosis Office Visit 08/01/2019 [facility] Santana, S82.55xD Nondisp fx of 8:15a at [place] MD lowe malleolus of l tibia, 7thD Office Visit 07/20/2019 [place] [facility] Anthony Diaz MD N18.3 Chronic kidney 9:00a [facility] disease, stage 3 (moderate) Z79.4 skilled nursing (current) use of insulin E11.22 Type 2 diabetes mellitus w diabetic chronic kidney disease I42.9 Cardiomyopathy, unspecified Office Visit 06/23/2019 [facility] S22.009A Unsp fracture of 11:30a [facility] DEMETRIUS Lara unsp thoracic vertebra, init for clos fx Office Visit 06/05/2019 [place] [facility] S82.55xD Nondisp fx of med 9:00a at [place] MD Santana malleolus of l tibia, 7thD Office Visit 06/05/2019 [place] [facility] Placido Noe I42.9 Cardiomyopathy, 1:00p Of [facility] Roderick Perez, unspecified FACC, FASNC R94.31 Abnormal electrocardiogram [ECG] [EKG] Office Visit 05/20/2019 [facility] Carmen Carbajal, I11.0 Hypertensive heart 11:53a Associnocencio M.D. disease with heart Hospitalists failure I50.23 Acute on chronic systolic (congestive) heart failure Office Visit 05/19/2019 11:53a [facility] Arlene R06.02 Shortness of Assoc,ioncencio Pizano D.O. breath Hospitalists Office Visit 04/28/2019 2:00p [facility] Donna Sharma, S82.55xD Nondisp fx of at [place] RPA-C med malleolus of l tibia, 7thD Office Visit 04/21/2019 1:30p [place] [facility] S82.55xA Nondisp fx of at [place] MD Santana medial malleolus of left tibia, init Office Visit 04/18/2019 10:25a [facility] Oanh S82.892A Oth fracture of Assoc,inocencio Navarrete, left lower leg, Hospitalists PA init for clos fx R79.89 Other specified abnormal findings of blood chemistry W11.xxxA Fall on and from ladder, initial encounter Office Visit 03/14/2019 [place] Placido Noe I42.8 Other cardiomyopathies 1:00p Cardiology Of Roderick Perez, [facility], [facility] Z95.810 Presence of automatic (implantable) cardiac defibrillator Assessments Date Code Description Provider 08/21/2019 I42.9 Cardiomyopathy, unspecified Placido Perez M.D., [facility], [facility] 08/21/2019 I42.9 Cardiomyopathy, unspecified Ica Pacer Schedule 08/21/2019 Z95.810 Presence of automatic (implantable) Placido Perez M.D., cardiac defibrillator [facility], [facility] 08/21/2019 Z95.810 Presence of automatic (implantable) Ica Pacer Schedule cardiac defibrillator 08/08/2019 E11.22 Type 2 diabetes mellitus with LEON MarcusPGaljose a diabetic chronic kidney disease 08/08/2019 Z79.4 terminal superintendent (current) use of insulin Samy Marcus 08/01/2019 S82.55xD Nondisplaced fracture of medial Darvin Dillon MD malleolus of left tibia, sub 07/20/2019 Z79.4 terminal superintendent (current) use of insulin Anthony Diaz MD 07/20/2019 N18.3 Chronic kidney disease, stage 3 Anthony Diaz MD (moderate) 07/20/2019 E11.22 Type 2 diabetes mellitus with Anthony Diaz MD diabetic chronic kidney disease 07/20/2019 I42.9 Cardiomyopathy, unspecified Anthony Diaz MD 07/14/2019 S22.009A Unspecified fracture of unspecified Sherri Lara, PA thoracic vertebra, initial encounter for closed fracture 06/30/2019 I42.9 Cardiomyopathy, unspecified Placido Perez M.D., [facility], [facility] 06/30/2019 I42.9 Cardiomyopathy, unspecified Remote Device Checks 06/30/2019 Z95.810 Presence of automatic (implantable) Placido Perez M.D., cardiac defibrillator [facility], [facility] 06/30/2019 Z95.810 Presence of automatic (implantable) Remote Device Checks cardiac defibrillator 06/23/2019 S22.009A Unspecified fracture of unspecified Sharmez Marco, PA thoracic vertebra, initial encounter for closed fracture 06/05/2019 I42.9 Cardiomyopathy, unspecified Placido Perez M.D., [facility], [facility] 06/05/2019 R94.31 Abnormal electrocardiogram [ECG] Placido Perez M.D., [EKG] [facility], [facility] 06/05/2019 S82.55xD Nondisplaced fracture of medial Darvin Diloln MD malleolus of left tibia, sub 05/20/2019 I11.0 Hypertensive heart disease with heart Carmen Carbajal M.D. failure 05/20/2019 I50.23 Acute on chronic systolic Carmen Carbajal M.D. (congestive) heart failure 05/19/2019 R06.02 Shortness of breath Karl Fuchs M.D. 05/19/2019 R06.02 Shortness of breath Arlene Pizano D.O. 04/28/2019 S82.55xD Nondisplaced fracture of medial Donna Edith, RPA-C malleolus of left tibia, sub 04/21/2019 I42.9 Cardiomyopathy, unspecified Placido Perez M.D., [facility], [facility] 04/21/2019 I42.9 Cardiomyopathy, unspecified Ica Pacer Schedule 04/21/2019 Z95.810 Presence of automatic (implantable) Placido Perez M.D., cardiac defibrillator [facility], [facility] 04/21/2019 Z95.810 Presence of automatic (implantable) [...] I42.8 Other cardiomyopathies Placido Perez M.D., [facility], [facility] 03/14/2019 Z95.810 Presence of automatic (implantable) Placido Perez M.D., cardiac defibrillator [facility], [facility] 03/09/2019 I42.9 Cardiomyopathy, unspecified Placido Hasmukh Perez M.D., [facility], [facility] 03/09/2019 I42.9 Cardiomyopathy, unspecified Ica Pacer Schedule 03/09/2019 Z95.810 Presence of automatic (implantable) Placido Perez M.D., cardiac defibrillator [facility], [facility] 03/09/2019 Z95.810 Presence of automatic (implantable) Ica Pacer Schedule cardiac defibrillator Plan of Treatment Future Appointment(s):10/26/2019 2:40 pm - Anthony Diaz MD at [place] [facility]08/01/2019 - Darvin Dillon, IMELDA82.55xD Nondisplaced fracture of medial malleolus of left tibia, subFollow up:Follow Up: As needed Functional Status Description No Information Available Mental Status Description No Information Available Referrals Refer to Reason for Referral Status Appt Date [facility] Insulin dependent diabetes, needs Created low potassium diet [address] [place] [address] [phone]
== END 2019-09-09 01:45 | disposition home or self-care (01) ==
LOC: ED 21:58
DX: R07.9 Chest pain, unspecified (principal); J90 Pleural effusion, not elsewhere classified; E11.9 Type 2 diabetes mellitus without complications; I11.0 Hypertensive heart disease with heart failure; I50.9 Heart failure, unspecified; E78.00 Pure hypercholesterolemia, unspecified; E78.5 Hyperlipidemia, unspecified; J45.909 Unspecified asthma, uncomplicated; F32.9 Major depressive disorder, single episode, unspecified; Z87.891 Personal history of nicotine dependence; Z86.73 Personal history of transient ischemic attack (TIA), and cerebral infarction without residual deficits; Z95.810 Presence of automatic (implantable) cardiac defibrillator; Z79.899 Other long term (current) drug therapy; Z79.84 Long term (current) use of oral hypoglycemic drugs
CPT/HCPCS: 36415; 71046; 80053; 83605; 83880; 84484; 85025; 93005; 99283

== ENCOUNTER 2021-08-03 10:20 | Observation (INO) ==
[2021-08-03 11:05] LABS: ABS Lymphocytes 0.6 10^3/ul (1.0-4.8); ABS Monocytes 0.3 10^3/ul (0-0.8); ABS Neutrophils 2.8 10^3/ul (1.5-7.7); Eosinophil % 0.7 %; Hematocrit 44 % (42-52); Hemoglobin 14.7 g/dL (14.0-18.0); Lymphocyte % 16.4 %; Mean Corpuscular HGB Conc 34 g/dL (31-36); Mean Corpuscular Hemoglobin 30 pg (27-31); Mean Corpuscular Volume 89 fL (80-94); Mean Platelet Volume 9.4 fL (7.4-10.4); Nucleated Red Blood Cells % 0.1; Platelet Count 137 10^3/uL (150-450); Red Blood Count 4.95 10^6 /uL (4.18-5.48); Red Cell Distribution Width 13 % (10-15); White Blood Count 3.8 10^3/uL (3.5-10.8)
[2021-08-03 11:17] LABS: Albumin 4.3 g/dL (3.2-5.2); Albumin/Globulin Ratio 1.3 (1-3); Calcium 9.8 mg/dL (8.6-10.3); Globulin 3.2 g/dL (2-4); Potassium 4.3 mmol/L (3.5-5.0); Total Bilirubin 0.4 mg/dL (0.2-1.0); Total Protein 7.5 g/dL (6.4-8.9)
[2021-08-03 11:32] LABS: Rapid COVID-19 Molecular Undetected (Undetected)
[2021-08-03] MEDS ORDERED: Dextrose 50% Syringe 50 ml 25 GM/50 ML SYRINGE IV PUSH PRN (17:09)
[2021-08-03] MEDS: Aspirin EC 81 mg TAB.EC (enteric coated) PO SCH (17:35)
[2021-08-03] MEDS ORDERED: Empagliflozin (NF) 25 MG TABLET PO SCH (18:00)
[2021-08-03] MEDS: Insulin GLARGINE 100 un/ml 10 ml VIAL SUBCUT SCH (21:46)
[2021-08-04] MEDS: Sacubitril/Valsartan 97/103(NF) PO SCH ×2 (00:07→08:00)
[2021-08-04 04:22] LABS: ABS Eosinophils 0.1 10^3/ul (0-0.6); ABS Lymphocytes 0.8 10^3/ul (1.0-4.8); ABS Monocytes 0.5 10^3/ul (0-0.8); ABS Neutrophils 3.3 10^3/ul (1.5-7.7); Eosinophil % 3.1 %; Hematocrit 43 % (42-52); Hemoglobin 14.5 g/dL (14.0-18.0); Lymphocyte % 16.9 %; Mean Corpuscular HGB Conc 34 g/dL (31-36); Mean Corpuscular Hemoglobin 30 pg (27-31); Mean Corpuscular Volume 89 fL (80-94); Mean Platelet Volume 9.7 fL (7.4-10.4); Platelet Count 141 10^3/uL (150-450); Red Cell Distribution Width 13 % (10-15); White Blood Count 4.8 10^3/uL (3.5-10.8)
[2021-08-04 04:42] LABS: Calcium 9.3 mg/dL (8.6-10.3); HDL Cholesterol 32.8 mg/dL; Magnesium 1.9 mg/dL (1.9-2.7); Potassium 3.9 mmol/L (3.5-5.0)
[2021-08-04] MEDS ORDERED: Magnesium Sulfate IV 1GM/100ML 1 GM/100 ML BAG IV ONE (07:05)
[2021-08-04] MEDS: Aspirin EC 81 mg TAB.EC (enteric coated) PO SCH (08:07)
[2021-08-04] MEDS: Empagliflozin (NF) 25 MG TABLET PO SCH (13:12)
[2021-08-04] MEDS: ENTRESTO PO SCH (16:22)
[2021-08-04] MEDS ORDERED: Insulin GLARGINE 100 un/ml 10 ml VIAL SUBCUT SCH (21:00)
[2021-08-04] MEDS: Insulin GLARGINE 100 un/ml 10 ml VIAL SUBCUT SCH (21:36)
[2021-08-05] MEDS: Aspirin EC 81 mg TAB.EC (enteric coated) PO SCH (11:05)
[2021-08-05] MEDS: ENTRESTO PO SCH (11:06)
[2021-08-05] MEDS: Empagliflozin (NF) 25 MG TABLET PO SCH (11:07)
[2021-08-05 12:51] VITALS: BP 94/57
== END 2021-08-05 13:25 | disposition home or self-care (01) | DRG 312 ==
LOC: ED 10:20 → MEDTELE 14:42 → INTOOBSV 14:42 → MEDTELE 14:57
PROVIDERS: ADMIT Internal Medicine; ATTEND Internal Medicine